=== PATIENT | female | born 1995 | race Caucasian/White ===

== ENCOUNTER 2023-11-03 14:18 | Outpatient (OUT) | payer BC, SELFPAY ==
[2023-11-03 14:58] LABS: Basophils Percent Auto 0.5 % (0.2-2.0); Eosinophils Absolute Auto 0.1 10^3/uL (0.0-0.7); Eosinophils Percent Auto 0.7 % (0.9-7.0); Hematocrit 41.8 % (36.0-48.0); Hemoglobin 13.9 g/dL (12.0-16.0); Immature Granulocytes Abs Auto 0.02 10^3/uL (0.00-0.03); Immature Granulocytes Pct Auto 0.2 % (0.0-0.5); Lymphocytes Absolute Auto 2.5 10^3/uL (1.2-3.8); Lymphocytes Percent Auto 29.1 % (20.5-60.0); Mean Corpuscular HGB Conc 33.3 g/dL (29.9-35.2); Mean Corpuscular Hemoglobin 29.6 pg (26.7-34.0); Mean Corpuscular Volume 89.1 fL (81.0-99.0); Mean Platelet Volume 10.2 fL (9.5-13.5); Monocytes Absolute Auto 0.6 10^3/uL (0.3-0.8); Monocytes Percent Auto 7.1 % (1.7-12.0); Neutrophils Absolute Auto 5.4 10^3/uL (1.4-6.5); Neutrophils Percent Auto 62.4 % (43.0-75.0); Platelet Count 317 10^3/uL (150-450); Red Blood Count 4.69 10^6/uL (4.20-5.40); Red Cell Distribution Width 12.6 % (11.0-15.0); White Blood Count 8.6 10^3/uL (4.0-11.0)
[2023-11-03 15:55] LABS: Estimated Average Glucose 108 mg/dL; Glycohemoglobin A1C 5.4 % (4.5-6.2)
[2023-11-03 16:35] LABS: HCG Quantitative <1 mIU/mL; Thyroid Stimulating Hormone 0.936 uIU/mL (0.358-3.740)
[2023-11-04 04:07] LABS: FSH 3.2 mIU/mL (.); Luteinizing Hormone(LH) 7.2 mIU/mL (.)
[2023-11-06 19:07] LABS: DHEA, Serum 377 ng/dL (31-701)
== END 2023-11-03 14:19 | disposition home or self-care (01) ==
LOC: LAB 14:25
PROVIDERS: PCP Family Medicine; Visit Provider Obstetrics & Gynecology
DX: E28.2 Polycystic ovarian syndrome (principal)
CPT/HCPCS: 36415; 82626; 82627; 83001; 83002; 83036; 84439; 84443; 84702; 85025

== ENCOUNTER 2023-12-05 12:40 | Outpatient (OUT) | payer SELFPAY ==
--- OUTSIDE RECORDS SUMMARY | 2023-12-05 12:44 | XMS_ITS | CCD ---
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 the tonsils also go to the ears. It is common to experience pain in the ears between the 3rd and 7th days following the T&A. The pain medication which was prescribed should help lessen the pain, although it may not completely take it away. The sooner chewing and swallowing begins, the quicker the pain will subside. Take the pain medication as needed in the prescribed dosage. DO NOT take Ibuprofen, Aleve, Advil, Motrin, or product containing aspirin! These medications can increase the chances of bleeding. Tylenol is a good choice when the pain is less severe. Additional measures to decrease throat pain include ice collars around the neck, popsicles, cold liquids, and chewing gum (but not Aspergum). DIET: You will probably not want to eat the day of surgery because it hurts to swallow. The day of surgery, all that is necessary is to drink liquids. This may be in the form of popsicles, jello, sherbert, etc. The day after surgery it is very important to begin to chew and swallow. Start with small pieces of bread, donuts, apples without the skin, etc. The sooner chewing and swallowing begin, the faster the recovery. You cannot damage your throat by swallowing solid foods, in fact it is good for the throat! There are no food restrictions, however sharp foods such as potato chips and ceballos can cause pain. Drink plenty of fluids daily. TEMPERATURE: It is common to run a low-grade fever (99? ? 100? F, oral) for the first few days following surgery. This may be treated with Tylenol. A temperature greater than 101 usually is the result of early dehydration and means that your child needs more fluid. Call the office if the temperature does not decrease despite Tylenol and fluids. ACTIVITY: Generally, it is advisable to keep a low level of activity for the first 26-48 hours following their T&A. You will feel tired and lack energy for the first day or two after surgery. As you begin to feel better, activity can slowly be increased. Vigorous activity should be avoided for 7-14 days following the T&A. Most adults can return to full activity 10-14 days after surgery. BLEEDING: Bleeding following a T&A is rare. The most common time to bleed is the day of surgery. The second most common time is approximately 5-10 days following surgery, when the scabs begin to loosen and fall off. During this time, you may spit up some blood tinged saliva. If this persists longer than 5-10 minutes, call the office. If brisk bleeding occurs, go immediately to the nearest Emergency Room where your doctor will be notified at once. BAD BREATHE: Bad breathe following T&A is common. The whitish patches on the back of you throat are not infection. These are scabs that form in the area where the tonsils were removed. The whitish discoloration is from th (more content not included)... [facility] Comment on above: Result Comment: Elec tronically Signed By: Sonu CARBALLO, Dean Aranda\.lv\Date and Time Signed: 04/22/23 09:24 EDT H&P Updateon 04-22-2023 H&P Update [id number]. 00CD:127 [facility] Inpatient Patient Summaryon 04-22-2023 Inpatient Patient Summary [address] [address] [facility] Clinical Discharge Instructions PERSON INFORMATION Name: GISELL GA PHYSICIANS Admitting Physician: Chandana Mcdonnell DO Attending Physician: Chandana Mcdonnell DO PCP: MIKI KRUGER MD Discharge Diagnosis: Chronic tonsillitis Comment: PATIENT EDUCATION INFORMATION Instructions: Post Op Patient Instructions - FT (CUSTOM); Kecia-Tonsillecto my & Adenoidectomy Adult(CUSTOM) Medication Leaflets: Follow up: With: Address: When: Chandana Mcdonnell [facility] [address] [place] [phone] Business (1) MEDICATION LIST New Medications [id number], [address], [place] [id number], [phone] acetaminophen-hydrocod one (acetaminophen-hydroco done 325 mg-7.5 mg oral tablet) 1 Tablets By Mouth every 6 hours as needed for pain for 7 Days. Refills: 0. Medications to Continue with No Changes Other Medications acetaminophen (Tylenol) 2,000 mg. By Mouth every 8 hours as needed as needed for pain. amoxicillin-clavulanat e (Augmentin) one tab By Mouth every 12 hours. naproxen (Naprosyn) 4 Tablets By Mouth every 6 hours as needed as needed for pain. Comment: [facility] Main OR PACU I Recordon 03-31 Main OR PACU I Record PACU Phase I Document Type FT Summary Primary Physician: Chandana Mcdonnell DO Finalized Date/Time: 04/22/23 10:08:50 Pt. Name: ILIANA GAMIKE Smith/Sex: 1995 Female Med Rec #: [id number] Physician: Chandana Mcdonnell DO Financial #: [id number] Pt. Type: A Room/Bed: [facility]/ Admit/Disch: 04/22/23 06:26:38 - Institution: Case Times PACU I FT Pre-Care Text: Identifies barriers to communication and implements measures to provide psychological support Develops individualized plan of care, and ensures continuity of care Maintains patient's dignity and privacy, and maintains patient confidentiality Identifies and reports philosophical, cultural, and spiritual beliefs and values Identifies individual values and wishes concerning care Implements aseptic technique, and administers prescribed antibiotic therapy and immunizing agents as ordered Evaluates postoperative tissue perfusion Implements thermoregulation measures, and monitors body temperature Evaluates postoperative respiratory status Evaluates postoperative cardiac status Evaluates postoperative neurological status Assesses pain control, collaborated in initiating patient-controlled analgesia and implements alternative methods of pain control Verifies allergies, administers prescribed medications and solutions, evaluates response to medications Entry 1 In PACU I 04/22/23 09:04:00 Discharge from PACU 04/22/23 09:54:00 I Outcomes Met? Yes Last Modified By: Clarita Bender RN 04/22/23 10:08:34 Post-Care Text: The patient demonstrates knowledge of the expected response to the operative or invasive procedure The patient's care is consistent with the individualized perioperative plan of care The patient's right to privacy is maintained The patient's value system, lifestyle, ethnicity, and culture are considered, respected, and incorporated into the perioperative plan of care The patient participates in decisions affecting his or her perioperative plan of care The patient is free from signs and symptoms of infection The patient has wound/tissue perfusion consistent with or improved from baseline levels established preoperatively The patient is at or returning to normothermia at the conclusion of the immediate postoperative period The patient's respiratory function is consistent with or improved from baseline levels established preoperatively The patient's cardiovascular status is consistent with or improved from baseline levels established preoperatively The patient's cardiovascular status is consistent with or improved from baseline levels established preoperatively The patient demonstrates and/or reports adequate pain control throughout the perioperative period The patient received appropriate medication(s), safely administered during the perioperative period Acuity Level PACU I FT Entry 1 Start Time 04/22/23 09:04:00 Stop Time 04/22/23 09:54:00 Acuity Level Acuity Level I Last Modified By: Clarita Bender RN 04/22/23 10:08:46 Finalized By: Clarita Bender RN Document Signatures Signed By: Clarita Bender RN 04/22/23 10:08 [facility] Main OR Preoperative Recordo n 04-22-2023 Main OR Preoperative Record PreOp Document Type FT Summary Primary Physician: Chandana Mcdonnell DO Finalized Date/Time: 04/22/23 08:40:46 Pt. Name: GISELL GA Brigitte Smith/Sex: 1995 Female Med Rec #: [id number] Physician: Chandana Mcdonnell DO Financial #: [id number] Pt. Type: Room/Bed: [place] [address] Admit/Disch: 04/22/23 06:26:38 - Institution: Case Times PreOp FT Pre-Care Text: Verifies consent for planned procedure, identifies individual values and wishes concerning care, includes family members in perioperative teaching Entry 1 Patient Times. In Pre Surgery 04/22/23 06:35:00 Out Pre Surgery 04/22/23 08:00:00 Outcomes Met? Yes Last Modified By: Carolyn Anaya RN 04/22/23 08:40:44 Post-Care Text: The patient participates in decisions affecting his or her perioperative plan of care Finalized By: Carolyn Anaya RN Document Signatures Signed By: Carolyn Anaya RN 04/22/23 08:40 [facility] Monitor Recordon 04-22-2023 Monitor Record [id number]. 00CD:127 [facility] Operative Reporton 3 Operative Report Patient: GISELL GA Age: 27 years Sex: Female : 1995 Associated Diagnoses: None Author: Chandana Mcdonnell DO Postoperative Information Preoperative Diagnosis: Chronic tonsillitis History of peritonsilar abscess. Postoperative Diagnosis: Same. Procedure: Tonsillectomy. Anesthesia Method: General. Performed by: Chandana Mcdonnell DO. Specimens Removed: Tonsils. Estimated Blood Loss: 75 ml. Complications: None. tonsillectomy Anesthesia type: General. [facility] Comment on above: Result Comment: Elec tronically Signed By: Chandana Mcdonnell DO\.br\Date and Time Signed: 04/22/23 09:04 EDT Outpatient Surgery Discharge Instructionon 04-22-2023 Outpatient Surgery Discharge Instruction [place] [id number] Patient Discharge Instructions PERSON INFORMATION Name: GISELL GA Date of : 1995 Current Date: 04/22/2023 09:15:49 PHYSICIANS Admitting Physician: Chandana Mcdonnell DO Discharge Diagnosis: Chronic tonsillitis GISELL GA has been given the following list of follow-up instructions, prescriptions, and patient education materials: PATIENT FOLLOW-UP INFORMATION Diet: Regular Discharge Activity: Ambulate as tolerated Discharge Restrictions: No driving for 24 hrs, Do not make important decisions for 24 hours Call Your Doctor For: Persistent or heavy bleeding, Redness, swelling, or pus at operative site, Persistent vomiting Additional Instructions: Soft diet No exertion Plenty of fluids call the office for questions/concerns IF UNABLE TO CONTACT YOUR PHYSICIAN AND YOU FEEL IT IS AN EMERGENCY, GO TO THE NEAREST EMERGENCY ROOM OR CALL 911 IANTONIO ASHLEY A, have received the attached patient education materials/instructions and have verbalized understanding: May we do a follow up call? Yes No I was present when discharge instructions were given Patient Signature Date Clinican/Nurse Signature ___ Date Follow up: With: Address: When: Chandana Mcdonnell [facility] [address] [place] [phone] Business (1) Pharmacy Information: You may receive a survey from [facility] asking you to rate your care experience. Your feedback is important and will help us understand what we do well and how we can improve the quality of care we provide to you, your loved ones and our community. It?s an honor to serve you. Thank you for choosing [facility] HERE ARE THE MEDICATION CHANGES THAT OCCURRED DURING YOUR HOSPITAL STAY New Medications [id number], [address], [place] [phone], [phone] acetaminophen-hydrocod one (acetaminophen-hydroco done 325 mg-7.5 mg oral tablet) 1 Tablets By Mouth every 6 hours as needed for pain for 7 Days. Refills: 0. Medications to Continue with No Changes Other Medications acetaminophen (Tylenol) 2,000 mg. By Mouth every 8 hours as needed as needed for pain. amoxicillin-clavulanat e (Augmentin) one tab By Mouth every 12 hours. naproxen (Naprosyn) 4 Tablets By Mouth every 6 hours as needed as needed for pain. PATIENT EDUCATION INFORMATION Instructions: [place], [place] Chandana Mcdonnell, DO DISCHARGE INSTRUCTIONS: TONSILLECTOMY & ADENOIDECTOMY (T&A) (Adult) The following information is to help you understand what to expect following a T&A. PAIN: Throat pain can be quite severe immediately following a T&A. The same nerves that go to the tonsils also go to the ears. It is common to experience pain in the ears between the 3rd and 7th days following the T&A. The pain medication which was prescribed should help lessen the pain, although it may not completely take it away. The sooner chewing and swallowing begins, the quicker the pain will subside. Take the pain medication as needed in the prescribed dosage. DO NOT take Ibuprofen, Aleve, Advil, Motrin, or product containing aspirin! These medications can increase the chances of bleeding. Tylenol is a good choice when the pain is less severe. Additional measures to decrease throat pain include ice collars around the neck, popsicles, cold liquids, and chewing gum (but not Aspergum). DIET: You will probably not want to eat the day of surgery because it hurts to swallow. The day of surgery, all that is necessary is to drink liquids. This may be in the form of popsicles, jello, sherbert, etc. The day after surgery it is very important to begin to chew and swallow. Start with small pieces of bread, donuts, apples without the skin, etc. The sooner chewing and swallowing begin, the faster the recovery. You cannot damage your throat by swallowing solid foods, in fact it is good for the throat! There are no food restrictions, however sharp foods such as potato chips and ceballos can cause pain. Drink plenty of fluids daily. TEMPERATURE: It is common to run a low-grade fever (99? ? 100? F, oral) for the first few days following surgery. This may be treated with Tylenol. A temperature greater than 101 usually is the result of early dehydration and means that your child needs more fluid. Call the office if the temperature does not decrease despite Tylenol and fluids. ACTIVITY: Generally, it is advisable to keep a low level of activity for the first 26-48 hours following their T&A. (more content not included)... [facility] Patient Education - Texton 0 04-22-2023 Patient Education - Text [place], [place] Chandana S. Biedenbach, DO DISCHARGE INSTRUCTIONS: TONSILLECTOMY & ADENOIDECTOMY (T&A) (Adult) The following information is to help you understand what to expect following a T&A. PAIN: Throat pain can be quite severe immediately following a T&A. The same nerves that go to the tonsils also go to the ears. It is common to experience pain in the ears between the 3rd and 7th days following the T&A. The pain medication which was prescribed should help lessen the pain, although it may not completely take it away. The sooner chewing and swallowing begins, the quicker the pain will subside. Take the pain medication as needed in the prescribed dosage. DO NOT take Ibuprofen, Aleve, Advil, Motrin, or product containing aspirin! These medications can increase the chances of bleeding. Tylenol is a good choice when the pain is less severe. Additional measures to decrease throat pain include ice collars around the neck, popsicles, cold liquids, and chewing gum (but not Aspergum). DIET: You will probably not want to eat the day of surgery because it hurts to swallow. The day of surgery, all that is necessary is to drink liquids. This may be in the form of popsicles, jello, sherbert, etc. The day after surgery it is very important to begin to chew and swallow. Start with small pieces of bread, donuts, apples without the skin, etc. The sooner chewing and swallowing begin, the faster the recovery. You cannot damage your throat by swallowing solid foods, in fact it is good for the throat! There are no food restrictions, however sharp foods such as potato chips and ceballos can cause pain. Drink plenty of fluids daily. TEMPERATURE: It is common to run a low-grade fever (99? ? 100? F, oral) for the first few days following surgery. This may be treated with Tylenol. A temperature greater than 101 usually is the result of early dehydration and means that your child needs more fluid. Call the office if the temperature does not decrease despite Tylenol and fluids. ACTIVITY: Generally, it is advisable to keep a low level of activity for the first 26-48 hours following their T&A. You will feel tired and lack energy for the first day or two after surgery. As you begin to feel better, activity can slowly be increased. Vigorous activity should be avoided for 7-14 days following the T&A. Most adults can return to full activity 10-14 days after surgery. BLEEDING: Bleeding following a T&A is rare. The most common time to bleed is the day of surgery. The second most common time is approximately 5-10 days following surgery, when the scabs begin to loosen and fall off. During this time, you may spit up some blood tinged saliva. If this persists longer than 5-10 minutes, call the office. If brisk bleeding occurs, go immediately to the nearest Emergency Room where your doctor will be notified at once. BAD BREATHE: Bad breathe following T&A is common. The whitish patches on the back of you throat are not infection. These are scabs that form in the area where the tonsils were removed. The whitish discoloration is from them being wet with salvia. These scabs can cause bad breath as they degenerate and eventually fall off. If the bad breath becomes particularly offensive, you may gargle with a weak saltwater solution (1/4 tsp of table salt in 8 oz of water) 3-4 times a day. FOLLOW-UP: If you do not already have a follow-up appointment, please call the office one or two days after your T&A to schedule a return visit. This should be 7-10 days following surgery. If you have any questions concerning your surgery, do not hesitate to call the office at . Reviewed: 01/07 [facility] Progress Note-Physicianon Progress Note-Physician Patient: GISELL GA Age: 27 years Sex: Female : 1995 Associated Diagnoses: None Author: Raghavendra Hunt Jr., DO Postoperative Information Postoperative disposition: Postoperative disposition: Home. Optimetrix number: Optimetrix number [id number]. Anesthetic utilized: General. Physical Examination Vital Signs 04/22/2023 9:35 EDT Heart Rate Monitored 77 bpm Respiratory Rate Monitored 9 br/min Systolic Blood Pressure 119 mmHg Diastolic Blood Pressure 80 mmHg Blood Pressure Location Right arm Mean Arterial Pressure, Cuff 93 mmHg SpO2 97 % 04/22/2023 9:20 EDT Heart Rate Monitored 76 bpm Respiratory Rate Monitored 16 br/min Systolic Blood Pressure 116 mmHg Diastolic Blood Pressure 89 mmHg Blood Pressure Location Right arm Mean Arterial Pressure, Cuff 98 mmHg SpO2 100 % FIO2 35 % 04/22/2023 9:15 EDT Heart Rate Monitored 77 bpm Respiratory Rate Monitored 17 br/min Systolic Blood Pressure 115 mmHg Diastolic Blood Pressure 82 mmHg Blood Pressure Location Right arm Mean Arterial Pressure, Cuff 93 mmHg SpO2 99 % FIO2 35 % 04/22/2023 9:10 EDT Heart Rate Monitored 85 bpm Respiratory Rate Monitored 10 br/min Systolic Blood Pressure 114 mmHg Diastolic Blood Pressure 83 mmHg Blood Pressure Location Right arm Mean Arterial Pressure, Cuff 93 mmHg SpO2 100 % FIO2 35 % 04/22/2023 9:04 EDT Temperature Temporal Artery 36.2 DegC LOW Heart Rate Monitored 95 bpm Respiratory Rate Monitored 20 br/min Systolic Blood Pressure 103 mmHg Diastolic Blood Pressure 86 mmHg Blood Pressure Location Right arm Mean Arterial Pressure, Cuff 92 mmHg SpO2 100 % FIO2 35 % Pain Assessment: Pain Assessment 04/22/2023 9:39 EDT Primary Pain Location Throat Primary Pain Quality Aching Patient Preferred Pain Tool Numeric rating Numeric Pain Scale 2 Numeric Pain Score 2 04/22/2023 9:24 EDT Primary Pain Location Throat Primary Pain Quality Aching Patient Preferred Pain Tool Numeric rating Numeric Pain Scale 3 Numeric Pain Score 3 04/22/2023 9:20 EDT Primary Pain Location Throat Primary Pain Quality Aching Patient Preferred Pain Tool Numeric rating Numeric Pain Scale 5 = Moderate pain Numeric Pain Score 5 04/22/2023 9:16 EDT Primary Pain Location Throat Primary Pain Quality Aching Patient Preferred Pain Tool Numeric rating Numeric Pain Scale 5 = Moderate pain Numeric Pain Score 5 04/22/2023 9:04 EDT Primary Pain Location Throat Primary Pain Quality Aching Patient Preferred Pain Tool Numeric rating Numeric Pain Scale 5 = Moderate pain Numeric Pain Score 5 . General: Awake, Alert, Appropriate. Respiratory: Adequate air exchange, Non-labored. Cardiovascular: Stable, Normal peripheral perfusion. Neurological: Neurologic exam at baseline. No changes.. Assessment Anesthetic outcome No anesthetic complications noted. No nausea/vomiting. Review / Management Condition: Stable. Plan Transfer/Discharge: Transfer/Discharge Discharge when meets criteria ( From PACU to Ambulatory Surgery Unit, and To home ). [facility] Comment on above: Result Comment: Elec tronically Signed By: Raghavendra Hunt Jr., DO\.lv\Date and Time Signed: 04/22/23 09:51 EDT Progress Note-Physician Patient: GISELL GA Age: 27 years Sex: Female : 1995 Associated Diagnoses: None Author: Raghavendra Hunt Jr., DO Preoperative Information Anesthesia Preop Info NPO since midnight Anesthesia history: Patient history: No prior anesthetic problems. Informed consent: Signed by patient. Re-evaluation prior to induction: Initial evaluation reviewed: No significant change. Health Status Allergies: Allergic Reactions (Selected) No Known Medication Allergies, Allergies (1) Active Reaction No Known Medication Allergies None Documented Current medications: (Selected) Inpatient Medications Ordered HYDROmorphone 1 mg/mL injectable solution: 0.4 mg = 0.4 mL, Injection, IV Push, q4min PRN Pain for 5 dose(s), Stop date Limited # of times, Routine, Start date 04/22/23 6:52:00 EDT, 04/22/23 6:52:00 EDT Lactated Ringers IV Trinity 1000 mL 1,000 mL: 1,000 mL, IV, 100 mL/hr, Routine, Start date 04/22/23 6:52:00 EDT, 10 hour(s), Total volume (mL): 1,000, 198.2 kg, 3.06, m2 Lactated Ringers IV Trinity 1000 mL 1,000 mL: 1,000 mL, IV, 150 mL/hr, Routine, Start date 04/22/23 6:30:00 EDT, 6.7 hour(s), Total volume (mL): 1,000, 198.2 kg, 3.06, m2 Phenergan 25 mg/mL Injection: 12.5 mg = 0.5 mL, Injection, IV Push, q2min PRN Other (see comment) for 2 dose(s), Stop date Limited # of times, Routine, Start date 04/22/23 6:52:00 EDT, 04/22/23 6:52:00 EDT scopolamine 1 mg/72 hr transdermal film, extended release: 1 patch(es), Patch-ER, TransDermal, Once, Stop date 04/22/23 7:00:00 EDT, Routine, Start date 04/22/23 7:00:00 EDT Documented Medications Documented Augmentin: one tab, Oral, q12hr, Infection or prophylaxis for antibiotics Naprosyn: = 4 tab(s), Oral, q6hr, PRN as needed for pain Tylenol: 2,000 mg., Oral, q8hr, PRN as needed for pain, Home Medications (3) Active Augmentin one tab, Oral, q12hr Naprosyn 4 tab(s), PRN, Oral, q6hr Tylenol 2,000 mg., PRN, Oral, q8hr , Medications (5) Active Scheduled: (1) scopolamine 1 mg Transderm ER Film [F] 1 patch(es), TransDermal, Once Continuous: (2) Lactated Ringers 1,000 mL 1,000 mL, IV, 150 mL/hr Lactated Ringers 1,000 mL 1,000 mL, IV, 100 mL/hr PRN: (2) HYDROmorphone 1 mg/mL SOLN [F] 0.4 mg 0.4 mL, IV Push, q4min promethazine 25 mg/mL Inj [F] 12.5 mg 0.5 mL, IV Push, q2min Problem list: All Problems Acid reflux / SNOMED CT 018989833 / Confirmed Heartburn / SNOMED CT 82641535 / Confirmed Hypertrophy tonsils / SNOMED CT 61184392 / Confirmed Hypotension / SNOMED CT 405416645 / Confirmed Smoker / SNOMED CT 983485343 / Confirmed Inactive: Neurocardiogenic syncope / SNOMED CT 0633434277 Histories Past Medical History: No active or resolved past medical history items have been selected or recorded. Procedure history: Arthroscopy of knee ([id number]). section ([id number]). Social History Social & Psychosocial Habits Alcohol 04/20/2023 Risk Assessment: Denies Alcohol Use Substance Abuse 04/20/2023 Risk Assessment: Denies Substance Abuse Tobacco 04/20/2023 Type: Vaping Comment: Vapes daily - 04/20/2023 07:59 - Kluding Olive MERCEDES . Physical Examination Vital Signs 04/22/2023 6:45 EDT Heart Rate Monitored 73 bpm Systolic Blood Pressure 109 mmHg Diastolic Blood Pressure 76 mmHg Mean Arterial Pressure, Monitered 87 mmHg 04/22/2023 6:45 EDT Heart Rate Monitored 81 bpm SpO2 99 % 04/22/2023 6:44 EDT Temperature Oral 36.6 DegC 04/22/2023 6:44 EDT Systolic Blood Pressure 111 mmHg Diastolic Blood Pressure 76 mmHg Mean Arterial Pressure, Monitered 88 mmHg 04/22/2023 6:44 EDT Respiratory Rate 17 br/min Airway: Mallampati classification: II (soft palate, fauces, uvula visible). Respiratory: Lungs are clear to auscultation, Respirations are non-labored. Cardiovascular: Regular rhythm. Review / Management Results review: Lab results 04/20/2023 8:24 EDT WBC 7.2 E9/L RBC 4.7 E12/L HGB 13.7 gm/dL Hct 42.4 % MCV 89.7 fL MCH 29.0 pg MCHC 32.3 gm/dL RDW 14.2 % Platelet 295.0 E9/L MPV 9.1 fL Neutro Auto 49.8 % Lymph Auto 38.1 % Hudson Auto 9.2 % Eos Auto 2.1 % Basophil Auto 0.8 % Neutro Absolute 3.6 E9/L Lymph Absolute 2.7 E9/L [place] Absolute 0.7 E9/L Eos Absolute 0.1 E9/L Basophil Absolute 0.1 E9/L PT 11.6 second(s) INR 1.0 NA PTT 36.1 second(s) U beta hCG Ql Negative . ECG interpretation: Normal sinus rhythm. Plan [place] [employer] (ASA) physical status classification: Class II. Anesthetic Preoperative Plan: Anesthesia General. Normal [facility] Comment on above: Result Comment: Elec tronically Signed By: Raghavendra Hunt Jr., DO\.lv\Date and Time Signed: 04/22/23 06:53 EDT Auto Diffon 04-20-2023 Basophils/100 WBC (Bld) 0.8 % Normal 0.0-2.0 [facility] Comment on above: Order Comment: Order Added by Discern Expert. Performed By: #### 2 [id number], [id number], [id number] ####[facility] [address] [place] [address] Basophils/Leukocyt es Auto (Bld) [Pure # fraction] 0.1 E9/L Normal 0.0-0.2 [facility] Comment on above: Order Comment: Order Added by Discern Expert. Performed By: #### 2 166139, [id number], [id number] ####[address] [address] Eosinophils/100 WBC (Bld) 2.1 % Normal 0.0-8.0 [facility] Comment on above: Order Comment: Order Added by Discern Expert. Performed By: #### 2 485313, [id number], [id number] ####[address] [address] Eosinophils/Leukoc ytes Auto (Bld) [Pure # fraction] 0.1 E9/L Normal 0.0-0.5 [facility] Comment on above: Order Comment: Order Added by Discern Expert. Performed By: #### 2 402799, [id number], [id number] ####[address] [address] Lymphocytes/100 WBC (Bld) 38.1 % Normal 14.0-50.0 [facility] Comment on above: Order Comment: Order Added by Discern Expert. Performed By: #### 2 526572, [id number], [id number] ####[address] [address] Lymphocytes/Leukoc ytes Auto (Bld) [Pure # fraction] 2.7 E9/L Normal 1.0-4.0 [facility] Comment on above: Order Comment: Order Added by Discern Expert. Performed By: #### 2 813851, 6691160, [id number] ####[address] [address] Monocytes/100 WBC (Bld) 9.2 % Normal 4.0-14.0 [facility] Comment on above: Order Comment: Order Added by Discern Expert. Performed By: #### 2 321845, 2328972, [id number] ####[address] [address] Monocytes/Leukocyt es Auto (Bld) [Pure # fraction] 0.7 E9/L Normal 0.2-1.0 [facility] Comment on above: Order Comment: Order Added by Discern Expert. Performed By: #### 2 183158, 4569013, [id number] ####[address] [address] Neutrophils/100 WBC (Bld) 49.8 % Normal 36.0-75.0 [facility] Comment on above: Order Comment: Order Added by Discern Expert. Performed By: #### 2 057507, 8657313, [id number] ####[address] [address] Neutrophils/Leukoc ytes Auto (Bld) [Pure # fraction] 3.6 E9/L Normal 2.0-7.5 [facility] Comment on above: Order Comment: Order Added by Discern Expert. Performed By: #### 2 555211, 7246893, [id number] ####[address] [address] CBC w/ Auto Diffon Erythrocyte distribution width (RBC) [Ratio] 14.2 % Normal 10.9-14.2 [facility] Comment on above: Performed By: #### 2 655400, 7137466, [id number] ####[address] [address] Hematocrit (Bld) [Volume fraction] 42.4 % Normal 34.0-46.0 [facility] Comment on above: Performed By: #### 2 611371, 6297284, [id number] ####[address] [address] Hemoglobin (Bld) [Mass/Vol] 13.7 g/dL Normal 12.0-16.0 [facility] Comment on above: Performed By: #### 2 170314, 7307445, [id number] ####[address] [address] MCH (RBC) [Entitic mass] 29.0 pg Normal 27.0-34.0 [facility] Comment on above: Performed By: #### 2 877013, 4950496, [id number] ####[address] [address] MCHC (RBC) [Mass/Vol] 32.3 g/dL Normal 31.4-36.0 [facility] Comment on above: Performed By: #### 2 935139, 4366107, [id number] ####[address] [address] MCV (RBC) [Entitic vol] 89.7 fL Normal 80.0-100.0 [facility] Comment on above: Performed By: #### 2 778898, 3173572, [id number] ####[address] [address] Platelet mean volume (Bld) [Entitic vol] 9.1 fL Normal 6.4-10.8 [facility] Comment on above: Performed By: #### 2 228074, 1027945, [id number] ####[address] [address] Platelets (Bld) [#/Vol] 295.0 E9/L Normal 150.0-500.0 [facility] Comment on above: Performed By: #### 2 823004, 5825896, [id number] ####[address] [address] RBC (Bld) [#/Vol] 4.7 E12/L Normal 4.3-5.9 [facility] Comment on above: Performed By: #### 2 159798, 2874491, [id number] ####[address] [address] WBC corrected for nucl RBC Auto (Bld) [#/Vol] 7.2 E9/L Normal 4.0-11.0 [facility] Comment on above: Performed By: #### 2 621488, 6807668, [id number] ####[address] [address] Consent for Procedure/Surger yon 04-20-2023 Consent for Procedure/Surgery [id number]:127 Normal [facility] Consent for Treatmenton 03-31 Consent for Treatment [id number] 0CD:127 Normal [facility] PT & PTTon 04-20-2023 aPTT Coag (PPP) [Time] 36.1 second(s) Normal 25.1-36.5 [facility] Comment on above: Result Comment: Para meter 15 days - 4 weeks 1 - 5 months 6 - 11 months 1 - 5 years 6 - 10 years 11 - 17 years PTT Mean: 35.4 (27.6-45.6) Mean: 33.5 (24.8-40.7) Mean: 32.4 (25.1-40.7) Mean: 31.6 (24.0-39.2) Mean: 31.6 (26.9-38.7) Mean: 31.0 (24.6-38.4) Pediatric Reference ranges were obtained from a study by sawyer Han al. prepared from 1437 samples obtained at 7 different centers using the same coagulation reagent and instrumentation as [facility]. Currently there are no coagulation studies available worldwide for children to 14 days, and no normal ranges. Heparin therapeutic range (represented by Anti-Factor Xa activity of 0.2 - 0.4 U/mL) corresponds to PTT of 56.6 - 109.0 sec. Performed By: #### 2 439236, [id number], [id number] ####[facility] [address] [place] [address] INR Coag (PPP) [Relative time] 1.0 {INR} Invalid Interpretation Code [facility] Comment on above: Result Comment: INR results are specifically intended to assess patients stabilized on long-term Anticoagulation therapy suggested INR?s ?Less Intensive Anticoagulation? 2.0 ? 3.0 Conventional Range 3.0 ? 4.5 Performed By: #### 2 933006, [id number], [id number] ####[facility] [address] [place] [address] PT Coag (PPP) [Time] 11.6 second(s) Normal 9.4-12.5 [facility] Comment on above: Result Comment: 15 d ays - 4 weeks 1 - 5 months 6 -11 months 1- 5 years 6-10 years 11 -17 years Mean: 11.2 (9.5-12.6) Mean: 11.0 (9.7-12.8) Mean: 11.0 (9.8-13.0) Mean: 11.3 (9.9-13.4) Mean: 11.7 (10.0-14.6) Mean: 11.8 (10.0 - 14.1) Pediatric Reference ranges were obtained from a study by Rell Goodman et al. prepared from 1437 samples obtained at 7 different centers using the same coagulation reagent and instrumentation as [facility]. Currently there are no coagulation studies available worldwide for children to 14 days, and no normal ranges. Performed By: #### 2 684264, [id number], [id number] ####[facility] [address] [place] [address] U BetaHcg Qualon 04-20-2023 HCG.beta subunit (U) [Moles/Vol] Negative Normal [facility] Comment on above: Performed By: #### 2 [id number] ####[facility] [address] [place] [address] Quick Strepon 03-10-2023 S. pyogenes Org specific cx Ql (Throat) nwgative [facility] Other Quick Strep [facility] [employer] [facility] TagMii Other Quick Strepon 02-18-2023 S. pyogenes Org specific cx Ql (Throat) Negative [facility] Other Efficas Other US Pelvic, Transvaginalon US Pelvic, Transvaginal HISTORY: Infertility FINDINGS: (Transvaginal imaging was performed.) Uterus 7.8 x 4.8 x 3.4 cm Endometrial Stripe 8.0 mm Right Ovary3.7 x 2.1 x 2.3 cm Left Ovary3.2 x 3.2 x 2.3 cm Normal uterine orientation and morphology. Normal myometrium and endometrium. Multiple bilateral ovarian follicles, the majority 3-5 mm. No significant cyst formation. No adnexal mass. No pelvic fluid. IMPRESSION: 1. Follicular ovaries. 2. Normal uterus. Report reported and signed by Markie Friedman on 07/08/2022 1609 Normal [facility] [employer] Supervisor Quick Strepon 06-11-2022 S. pyogenes Org specific cx Ql (Throat) Negative [facility] Other Quick Strep [facility] Other CT CSPINE WO CONon 1 CT CSPINE WO CON EXAMINATION: CT CSPI NE WO CON HISTORY: MUSCLE WEAKNESS (GENERALIZED) COMPARISON: None. TECHNIQUE: CT Cervical spine without IV contrast. Coronal and sagittal reformations were performed. Dose reduction techniques were achieved by using automated exposure control and/or adjustment of mA and/or kV according to patient size and/or use of iterative reconstruction technique. FINDINGS: Cervical vertebral bodies and disc spaces are normal in height and alignment. Bone density is normal. The craniocervical junction, cervicothoracic junction are normal in appearance. The facets are normal. No evidence of central spinal canal or foraminal stenosis. C1-C2: Normal. C2-C3: Normal. C3-C4: Normal. C4-C5: Normal C5-C6: Central disc protrusion with an AP diameter canal of 9 mm. C6-C7: C7-T1: Normal IMPRESSION: 1. Small central disc protrusion at the C5-C6 level without central spinal canal stenosis. The neural foramina are patent. The examination is otherwise normal. Electronically authenticated by: Harmeet NUNEZ Date: 2021-10-29 18:25 Normal [facility] CBC auto differentialon 10-01 Basophils (Bld) [#/Vol] 10*3/uL [place] Basophils/100 WBC (Bld) 0 % 0 - 2 % [place] Differential Type NOT REPORTED [place] Eosinophils (Bld) [#/Vol] 10*3/uL [place] Eosinophils/100 WBC (Bld) 0 % Low 1 - 4 % [place] Erythrocyte distribution width (RBC) [Ratio] 13.8 % 11.8 - 14.4 % [place] Hematocrit (Bld) [Volume fraction] 29.3 % Low 36.3 - 47.1 % [place] Hemoglobin (Bld) [Mass/Vol] 8.9 g/dL Low 11.9 - 15.1 g/dL [place] Immature granulocytes (Bld) [#/Vol] 0.05 10*3/uL [place] Immature granulocytes (Bld) [#/Vol] 0 % 0 [place] Interpretation and review of laboratory results Abnormal [place] Lymphocytes (Bld) [#/Vol] 1.03 10*3/uL Low [place] Lymphocytes/100 WBC (Bld) 8 % Low 24 - 43 % [place] MCH (RBC) [Entitic mass] 26.2 pg 25.2 - 33.5 pg [place] MCHC (RBC) [Mass/Vol] 30.4 g/dL 28.4 - 34.8 g/dL [place] MCV (RBC) [Entitic vol] 86.2 fL 82.6 - 102.9 fL [place] Monocytes (Bld) [#/Vol] 0.69 10*3/uL [place] Monocytes/100 WBC (Bld) 6 % 3 - 12 % [place] Platelet mean volume (Bld) [Entitic vol] 12.0 fL 8.1 - 13.5 fL [place] Platelets (Bld) [#/Vol] 199 10*3/uL [place] Platelets (Bld) [#/Vol] NOT REPORTED [place] RBC (Bld) [#/Vol] 3.40 10*6/uL Low 3.95 - 5.1 1 m/uL [place] RBC morphology finding Nom (Bld) NOT REPORTED [place] Segmented neutrophils/100 WBC (Bld) 86 % High 36 - 65 % [place] Segs Absolute 10.64 High [place] WBC (Bld) [#/Vol] 12.4 10*3/uL [place] WBC (Bld) [#/Vol] 0.0 10*3/uL 0.0 per 10 0 WBC [place] WBC Morphology NOT REPORTED [place] CBC with Diffon 10-28-2019 Abs. Basophil <0.03 Normal 0.00-0.20 [facility] Comment on above: Performed By: #### C DP #### [address] [address] [employer] Supervisor: Rico Nicole MD Abs.Imm.Granulocyt e 0.05 k/uL Normal 0.00-0.30 [facility] Comment on above: Performed By: #### C DP #### [address] [address] [employer] Supervisor: Rico Nicole MD Abs.Neutrophil (Seg) 10.64 k/uL High 1.50-8.10 [facility] Comment on above: Performed By: #### C DP #### [address] [address] [employer] Supervisor: Rico Nicole MD Basophils/100 WBC (Bld) 0 % Normal 0-2 [facility] Comment on above: Performed By: #### C DP #### [address] [address] [employer] Supervisor: Rico Nicole MD Eosinophils (Bld) [#/Vol] 10*3/uL Normal 0.00-0.44 [facility] Comment on above: Performed By: #### C DP #### [address] [address] [employer] Supervisor: Rico Nicole MD Eosinophils/100 WBC (Bld) 0 % Low 1-4 [facility] Comment on above: Performed By: #### C DP #### [address] [address] [employer] Supervisor: Rico Nicole MD Erythrocyte distribution width (RBC) [Ratio] 13.8 % Normal 11.8-14.4 [facility] Comment on above: Performed By: #### C DP #### [address] [address] [employer] Supervisor: Rico Nicole MD Hematocrit (Bld) [Volume fraction] 29.3 % Low 36.3-47.1 [facility] Comment on above: Performed By: #### C DP #### [address] [address] [employer] Supervisor: Rico Nicole MD Hemoglobin (Bld) [Mass/Vol] 8.9 g/dL Low 11.9-15.1 [facility] Comment on above: Performed By: #### C DP #### [address] [address] [employer] Supervisor: Rico Nicole MD Immature granulocytes (Bld) [#/Vol] 0 % Normal 0 [facility] Comment on above: Performed By: #### C DP #### [address] [address] [employer] Supervisor: Rico Nicole MD Lymphocytes (Bld) [#/Vol] 1.03 10*3/uL Low 1.10-3.70 [facility] Comment on above: Performed By: #### C DP #### [address] [address] [employer] Supervisor: Rico Nicole MD Lymphocytes/100 WBC (Bld) 8 % Low 24-43 [facility] Comment on above: Performed By: #### C DP #### [address] [address] [employer] Supervisor: Rico Nicole MD MCH (RBC) [Entitic mass] 26.2 pg Normal 25.2-33.5 [facility] Comment on above: Performed By: #### C DP #### [address] [address] [employer] Supervisor: Rico Niocle MD MCHC (RBC) [Mass/Vol] 30.4 g/dL Normal 28.4-34.8 [facility] Comment on above: Performed By: #### C DP #### [address] [address] [employer] Supervisor: Rico Nicole MD MCV (RBC) [Entitic vol] 86.2 fL Normal 82.6-102.9 [facility] Comment on above: Performed By: #### C DP #### [address] [address] [employer] Supervisor: Rico Nicole MD Monocytes (Bld) [#/Vol] 0.69 10*3/uL Normal 0.10-1.20 [facility] Comment on above: Performed By: #### C DP #### [address] [address] [employer] Supervisor: Rico Nicole MD Monocytes/100 WBC (Bld) 6 % Normal 3-12 [facility] Comment on above: Performed By: #### C DP #### [address] [address] [employer] Supervisor: Rico Nicole MD Neutrophil (Seg) 86 % High 36-65 [facility] Comment on above: Performed By: #### C DP #### [address] [address] [employer] Supervisor: Rico Nicole MD NRBC Automated 0.0 per 100 WBC Normal 0.0 [facility] Comment on above: Performed By: #### C DP #### [address] [address] [employer] Supervisor: Rico Nicole MD Platelet mean volume (Bld) [Entitic vol] 12.0 fL Normal 8.1-13.5 [facility] Comment on above: Performed By: #### C DP #### [address] [address] [employer] Supervisor: Rico Nicole MD Platelets (Bld) [#/Vol] 199 10*3/uL Normal 138-453 [facility] Comment on above: Performed By: #### C DP #### [address] [address] [employer] Supervisor: Rioc Nicole MD RBC (Bld) [#/Vol] 3.40 10*6/uL Low 3.95-5.11 [facility] Comment on above: Performed By: #### C DP #### [address] [address] [employer] Supervisor: Rico Nicole MD WBC (Bld) [#/Vol] 12.4 10*3/uL High 3.5-11.3 [facility] Comment on above: Performed By: #### C DP #### [address] [address] [employer] Supervisor: Rico Nicole MD Auto Diff Performed NOT REPORTED Normal [facility] Comment on above: Performed By: #### C DP #### [address] [address] [place] Supervisor: Rico Nicole MD Platelets (Bld) [#/Vol] NOT REPORTED Normal [facility] Comment on above: Performed By: #### C DP #### [address] [address] [employer] Supervisor: Rico Nicole MD RBC morphology finding Nom (Bld) NOT REPORTED Normal [facility] Comment on above: Performed By: #### C DP #### [address] [place] [id number] [employer] Supervisor: Rico Nicole MD WBC Morphology NOT REPORTED Normal [facility] Comment on above: Performed By: #### C DP #### [employer] [address] [place] [place] [id number] [employer] Supervisor: Rico Nicole MD Surgical Pathologyon 019 Surgical Pathology (NOTE) [id number] [facility] ANATOMIC PATHOLOGY [address] [place] [id number] SURGICAL PATHOLOGY CONSULTATION Patient Name: GIESLL GA [facility] Rec: [id number] Path Number: [id number] Collected: 10/27/2019 Received: 10/31/2019 Reported: 11/01/2019 09:33 -- Diagnosis -- Placenta, third trimester: Umbilical cord and membranes, free of inflammation. Plate, no histologic abnormality. Miguelangel Weems Electronically Signed Out rdd/11/01/2019 Clinical Information Pre-op Diagnosis: 24 Y/O, @ 39 W, 2 D, IUP, SUSPECTED MACROSOMIA, ASTHMA, NEUROCARDIOGENIC SYNCOPE Operative Findings: PLTCS, M, AP/9, WT: 9#, 8 OZ, PLACENTA, CORD AND MEMBRANES Source of Specimen 1: PLACENTA, CORD AND MEMBRANES Gross Description GISELL GA PLACENTA Placenta with attached membranes and umbilical cord. UMBILICAL CORD Length: 22.0 cm Diameter: 1.6 cm True knots: No Number of vessels: 3 Spiraling: Normal Insertion into surface: Central MEMBRANES Color: Acosta-bustillos, focally opacified Meconium staining: No SURFACE Color: Purple-acosta, with a normal array of surface vessels Subchorionic fibrin: Marginal and minimal and involves less than 5% of the disc MATERNAL SURFACE Cotyledons: -All present and intact: Yes -Focal lesions: No Placental size: 22.0 x 20.0 x 3.0 cm Shape: Ovoid Weight: 580 grams Number of cassettes: 3cs tm Microscopic Description Umbilical cord: Unremarkable Membranes: Unremarkable Meconium staining: No Infarcts: No Intervillous thrombi: No Subchorionic fibrin: Not significantly increased Villous maturation: Appropriate Nucleated erythrocytes in villous capillaries: Not increased Other: Few microcalcifications Normal [facility] Comment on above: Performed By: #### P PPVS #### [facility] [employer] [address] [place] [address] [employer] Supervisor: Rico Nicole MD CBC auto differentialon 10-01 Basophils (Bld) [#/Vol] 0.03 10*3/uL [place] Basophils/100 WBC (Bld) 0 % 0 - 2 % [place] Differential Type NOT REPORTED [place] Eosinophils (Bld) [#/Vol] 0.04 10*3/uL [place] Eosinophils/100 WBC (Bld) 0 % Low 1 - 4 % [place] Erythrocyte distribution width (RBC) [Ratio] 13.6 % 11.8 - 14.4 % [place] Hematocrit (Bld) [Volume fraction] 33.2 % Low 36.3 - 47.1 % [place] Hemoglobin (Bld) [Mass/Vol] 10.3 g/dL Low 11.9 - 15.1 g/dL [place] Immature granulocytes (Bld) [#/Vol] 1 % High 0 [place] Immature granulocytes (Bld) [#/Vol] 0.07 10*3/uL [place] Interpretation and review of laboratory results Abnormal [place] Lymphocytes (Bld) [#/Vol] 2.41 10*3/uL [place] Lymphocytes/100 WBC (Bld) 24 % 24 - 43 % [place] MCH (RBC) [Entitic mass] 26.3 pg 25.2 - 33.5 pg [place] MCHC (RBC) [Mass/Vol] 31.0 g/dL 28.4 - 34.8 g/dL [place] MCV (RBC) [Entitic vol] 84.7 fL 82.6 - 102.9 fL [place] Monocytes (Bld) [#/Vol] 0.76 10*3/uL [place] Monocytes/100 WBC (Bld) 8 % 3 - 12 % [place] Platelet mean volume (Bld) [Entitic vol] 12.5 fL 8.1 - 13.5 fL [place] Platelets (Bld) [#/Vol] NOT REPORTED [place] Platelets (Bld) [#/Vol] 248 10*3/uL [place] RBC (Bld) [#/Vol] 3.92 10*6/uL Low 3.95 - 5.1 1 m/uL [place] RBC morphology finding Nom (Bld) NOT REPORTED [place] Segmented neutrophils/100 WBC (Bld) 67 % High 36 - 65 % [place] Segs Absolute 6.63 [place] WBC (Bld) [#/Vol] 0.0 10*3/uL 0.0 per 10 0 WBC [place] WBC (Bld) [#/Vol] 9.9 10*3/uL [place] WBC Morphology NOT REPORTED [place] CBC with Diffon 10-26-2019 Abs. Basophil 0.03 k/uL Normal 0.00-0.20 [facility] Comment on above: Performed By: #### C DP, TREP #### [facility] [employer] [address] [place] [place] [address] [employer] Supervisor: Rico Nicole MD Abs.Imm.Granulocyt e 0.07 k/uL Normal 0.00-0.30 [facility] Comment on above: Performed By: #### C DP, TREP #### [facility] [employer] [facility] [place] [address] [employer] Supervisor: Rico Nicole MD Abs.Neutrophil (Seg) 6.63 k/uL Normal 1.50-8.10 [facility] Comment on above: Performed By: #### C DP, TREP #### [facility] [employer] [address] [place] [address] [employer] Supervisor: Rico Nicole MD Basophils/100 WBC (Bld) 0 % Normal 0-2 [facility] Comment on above: Performed By: #### C DP, TREP #### [address] [address] [employer] Supervisor: Rico Nicole MD Eosinophils (Bld) [#/Vol] 0.04 10*3/uL Normal 0.00-0.44 [facility] Comment on above: Performed By: #### C DP, TREP #### [address] [address] [employer] Supervisor: Rico Nicole MD Eosinophils/100 WBC (Bld) 0 % Low 1-4 [facility] Comment on above: Performed By: #### C DP, TREP #### [address] [address] [employer] Supervisor: Rico Nicole MD Erythrocyte distribution width (RBC) [Ratio] 13.6 % Normal 11.8-14.4 [facility] Comment on above: Performed By: #### C DP, TREP #### [address] [address] [employer] Supervisor: Rico Nicole MD Hematocrit (Bld) [Volume fraction] 33.2 % Low 36.3-47.1 [facility] Comment on above: Performed By: #### C DP, TREP #### [address] [address] [employer] Supervisor: Rico Nicole MD Hemoglobin (Bld) [Mass/Vol] 10.3 g/dL Low 11.9-15.1 [facility] Comment on above: Performed By: #### C DP, TREP #### [address] [address] [employer] Supervisor: Rico Nicole MD Immature granulocytes (Bld) [#/Vol] 1 % High 0 [facility] Comment on above: Performed By: #### C DP, TREP #### [place] [address] [employer] Supervisor: Rico Nicole MD Lymphocytes (Bld) [#/Vol] 2.41 10*3/uL Normal 1.10-3.70 [facility] Comment on above: Performed By: #### C DP, TREP #### [place] [address] [employer] Supervisor: Rico Nicole MD Lymphocytes/100 WBC (Bld) 24 % Normal 24-43 [facility] Comment on above: Performed By: #### C DP, TREP #### [place] [address] [employer] Supervisor: Rico Nicole MD MCH (RBC) [Entitic mass] 26.3 pg Normal 25.2-33.5 [facility] Comment on above: Performed By: #### C DP, TREP #### [place] [address] [employer] Supervisor: Rico Nicole MD MCHC (RBC) [Mass/Vol] 31.0 g/dL Normal 28.4-34.8 [facility] Comment on above: Performed By: #### C DP, TREP #### [place] [address] [employer] Supervisor: Rico Nicole MD MCV (RBC) [Entitic vol] 84.7 fL Normal 82.6-102.9 [facility] Comment on above: Performed By: #### C DP, TREP #### [place] [address] [employer] Supervisor: Rico Nicole MD Monocytes (Bld) [#/Vol] 0.76 10*3/uL Normal 0.10-1.20 [facility] Comment on above: Performed By: #### C DP, TREP #### [address] [address] [employer] Supervisor: Rico Nicole MD Monocytes/100 WBC (Bld) 8 % Normal 3-12 [facility] Comment on above: Performed By: #### C DP, TREP #### [address] [address] [employer] Supervisor: Rico Nicole MD Neutrophil (Seg) 67 % High 36-65 [facility] Comment on above: Performed By: #### C DP, TREP #### [address] [address] [employer] Supervisor: Rico Nicole MD NRBC Automated 0.0 per 100 WBC Normal 0.0 [facility] Comment on above: Performed By: #### C DP, TREP #### [address] [address] Cooler Supervisor: Rico Nicole MD Platelet mean volume (Bld) [Entitic vol] 12.5 fL Normal 8.1-13.5 [facility] Comment on above: Performed By: #### C DP, TREP #### [address] [address] Cooler Supervisor: Rico Nicole MD Platelets (Bld) [#/Vol] 248 10*3/uL Normal 138-453 [facility] Comment on above: Performed By: #### C DP, TREP #### [address] [address] Cooler Supervisor: Rico Nicole MD RBC (Bld) [#/Vol] 3.92 10*6/uL Low 3.95-5.11 [facility] Comment on above: Performed By: #### C DP, TREP #### [address] [address] Cooler Supervisor: Rico Nicole MD WBC (Bld) [#/Vol] 9.9 10*3/uL Normal 3.5-11.3 [facility] Comment on above: Performed By: #### C DP, TREP #### [address] [address] Cooler Supervisor: Rioc Nicole MD Auto Diff Performed NOT REPORTED Normal [facility] Comment on above: Performed By: #### C DP, TREP #### [address] [address] Cooler Supervisor: Rico Nicole MD Platelets (Bld) [#/Vol] NOT REPORTED Normal [facility] Comment on above: Performed By: #### C DP, TREP #### [address] [address] Cooler Supervisor: Rico Nicole MD RBC morphology finding Nom (Bld) NOT REPORTED Normal [facility] Comment on above: Performed By: #### C DP, TREP #### [address] [address] Cooler Supervisor: Rico Nicole MD WBC Morphology NOT REPORTED Normal [facility] Comment on above: Performed By: #### C DP, TREP #### [address] [address] Cooler Supervisor: Rico Nicole MD Drug Scr, Abuse, Uron 2018 Amphetamine(s),Ur Negative Normal NEG [facility] Comment on above: Result Comment: (Positive cutoff 1000 ng/mL) Performed By: #### D AU #### [address] [address] Cooler Supervisor: Rico Nicole MD Barbiturate(s),Ur Negative Normal NEG [facility] Comment on above: Result Comment: (Positive cutoff 200 ng/mL) Performed By: #### D AU #### [address] [address] Cooler Supervisor: Rico Nicole MD Base excess Calc (Bld) [Moles/Vol] Negative Normal NEG [facility] Comment on above: Result Comment: (Positive cutoff 300 ng/mL) Performed By: #### D AU #### [address] [address] Cooler Supervisor: Rico Nicole MD Benzodiazepine(s) Negative Normal NEG [facility] Comment on above: Result Comment: (Positive cutoff 200 ng/mL) Performed By: #### D AU #### [address] [address] Cooler Supervisor: Rico Nicole MD Cannabinoid(s),Ur Negative Normal NEG [facility] Comment on above: Result Comment: (Positive cutoff 50 ng/mL) Performed By: #### D AU #### [address] [address] Cooler Supervisor: Rico Nicole MD Interpretive Info Assay provides medic al screening only. The absence of expected drug(s) and/or Normal [facility] Comment on above: Result Comment: meta bolite(s) may indicate diluted or adulterated urine, limitations of testing or timing of collection. Testing for legal purposes should be confirmed by another method. To request confirmation of test result, please call the lab within 7 days of sample submission. Performed By: #### D AU #### [facility] [address] [address] Cooler Supervisor: Rico Nicole MD Methadone Ql (U) Negative Normal NEG [facility] Comment on above: Result Comment: (Positive cutoff 300 ng/mL) Performed By: #### D AU #### [address] [address] Cooler Supervisor: Rico Nicole MD Opiate(s), Ur Negative Normal NEG [facility] Comment on above: Result Comment: (Positive cutoff 300 ng/mL) Performed By: #### D AU #### [facility] [address] [place] [address] Cooler Supervisor: Rico Nicole MD Oxycodone, Urine Negative Normal NEG [facility] Comment on above: Result Comment: (Positive cutoff 100 ng/mL) Performed By: #### D AU #### [facility] [address] [place] [address] Cooler Supervisor: Rico Nicole MD Phencyclidine, Ur Negative Normal NEG [facility] Comment on above: Result Comment: (Positive cutoff 25 ng/mL) Performed By: #### D AU #### [facility] [address] [place] [place] [address] Cooler Supervisor: Rico Nicole MD Buprenorphrine, Ur NOT REPORTED Normal NEG [facility] Comment on above: Performed By: #### D AU #### [facility] [address] [place] [place] [address] Cooler Supervisor: Rico Nicole MD MDMA, Urine NOT REPORTED Normal NEG [facility] Comment on above: Performed By: #### D AU #### [facility] [address] [place] [place] [address] Cooler Supervisor: Rico Nicole MD Methamphetamine, Ur NOT REPORTED Normal NEG [facility] Comment on above: Performed By: #### D AU #### [facility] [address] [place] [place] [address] Cooler Supervisor: Rico Nicole MD Propoxyphene,Urine NOT REPORTED Normal NEG [facility] Comment on above: Performed By: #### D AU #### [facility] [address] [place] [address] Cooler Supervisor: Rico Nicole MD Tricyclic antidepressants Screen Ql (U) NOT REPORTED Normal NEG [facility] Comment on above: Performed By: #### D AU #### [facility] [address] [place] [place] [address] [phone] Cooler Supervisor: Rico Nicole MD T. pallidum Abon 10-26-2019 T. pallidum, IgG NONREACTIVE NONREACTIVE [place], [place] Comment on above: T. pallidum antibodies are not detected. There is no serological evidence of infection with T. pallidum (early primary syphilis cannot be excluded). Retest in 2-4 weeks if syphilis is clinically suspect. T.pallidum Ab Screenon 10-26 T.pallidum Ab Screen NONREACTIVE Normal NR [facility] Comment on above: Result Comment: T. pallidum antibodies are not detected. There is no serological evidence of infection with T. pallidum (early primary syphilis cannot be excluded). Retest in 2-4 weeks if syphilis is clinically suspect. Performed By: #### C DP, TREP #### [facility] [address] [place] [place] [phone] Cooler Supervisor: Rico Nicole MD TYPE AND SCREENon 10-26-2019 ABO/Rh Positive [place], [place] Arm Band Number BE [id number] [place], [place] Expiration Date 10/29/2019,2359 [place], [place] Type + Screenon 10-26-2019 Type + Screen Sample Expiration 10/29/2019,2359 [place] Number BE [id number] ABO/Rh(D) O POSITIVE Antibody Screen NEGATIVE Normal [facility] Comment on above: Performed By: #### T YS #### [facility] [address] [place] [place] [address] [phone] Cooler Supervisor: Rico Nicole MD Urine Drug Screenon 10-26-20 19 Amphetamine Screen, Ur Negative NEGATIVE [place] Comment on above: (Positive cutoff 1000 ng/mL) Barbiturate Screen, Ur Negative NEGATIVE [place] Comment on above: (Positive cutoff 200 ng/mL) Benzodiazepine Screen, Urine Negative NEGATIVE [place] Comment on above: (Positive cutoff 200 ng/mL) Buprenorphine Urine NOT REPORTED NEGATIVE [facility] [place] [place] Cannabinoid Scrn, Ur Negative NEGATIVE [facility] [place] [place] Comment on above: (Positive cutoff 50 ng/mL) Cocaine Metabolite, Urine Negative NEGATIVE [facility] [place] [place] Comment on above: (Positive cutoff 300 ng/mL) MDMA, Urine NOT REPORTED NEGATIVE [facility] [place] [place] Methadone Screen, Urine Negative NEGATIVE [facility] [place] Comment on above: (Positive cutoff 300 ng/mL) Methamphetamine, Urine NOT REPORTED NEGATIVE [facility] [place] Opiates, Urine Negative NEGATIVE [facility] [place] [place] Comment on above: (Positive cutoff 300 ng/mL) Oxycodone Screen, Ur Negative NEGATIVE [facility] [place] Comment on above: (Positive cutoff 100 ng/mL) Phencyclidine, Urine Negative NEGATIVE [facility] [place] [place] Comment on above: (Positive cutoff 25 ng/mL) Propoxyphene, Urine NOT REPORTED NEGATIVE [facility] [place] Test Information Assay provides medic al screening only. The absence of expected drug(s) and/or metabolite(s) may indicate diluted or adulterated urine, limitations of testing or timing of collection. [facility] [facility]- [place], [place] Comment on above: Testing for legal pu rposes should be confirmed by another method. To request confirmation of test result, please call the lab within 7 days of sample submission. Tricyclic Antidepressants, Urine NOT REPORTED NEGATIVE [facility] [place] [place] Maternal Serum Scr 4on - Determined by Ultrasound [facility] Comment on above: Performed By: #### A QUADM #### [employer] [facility] [place] [address] Cooler Supervisor: Rico Nicole MD [facility] [address] [place] [address] Cooler Supervisor: Aryan Morris MD Dimeric Inhibin A 393 pg/mL Normal [facility] Comment on above: Performed By: #### A QUADM #### [facility] [address] [place] [address] Cooler Supervisor: Rico Nicole MD [facility] [address] [place] [address] Cooler Supervisor: Aryan Morris MD Due Date SEE NOTE [facility] Comment on above: Result Comment: Resu lts for Estimated Due Date: 11 02 19 Performed By: #### A QUADM #### [address] [address] Cooler Supervisor: Rico Nicole MD [address] [address] Cooler Supervisor: Aryan Morris MD Family History No [facility] Comment on above: Performed By: #### A QUADM #### [address] [address] Cooler Supervisor: Rico Nicole MD [address] [address] Cooler Supervisor: Aryan Morris MD Gestat Age (exact) 23 wks, 6 days Normal [facility] Comment on above: Performed By: #### A QUADM #### [address] [address] Cooler Supervisor: Rico Nicole MD [address] [phone] Cooler Supervisor: [place] [address] IU/L [facility] Comment on above: Performed By: #### A QUADM #### [address] [address] Cooler Supervisor: Rico Nicole MD [address] [phone] Cooler Supervisor: Aryan Morris MD Hx Aneuploidy Unknown [facility] Comment on above: Performed By: #### A QUADM #### [address] [address] Cooler Supervisor: Rico Nicole MD [address] [phone] Cooler Supervisor: Aryan Morris MD Ins Req Matern Diab No Normal [facility] Comment on above: Performed By: #### A QUADM #### [address] [address] Cooler Supervisor: Rico Nicole MD [address] [phone] Cooler Supervisor: Aryan Morris MD Interpretation Screen Neg Normal [facility] Comment on above: Result Comment: (NOT E) INTERPRETATION: SCREEN NEGATIVE Neural Tube Defects (NTD) Negative Down syndrome (DS) Negative Trisomy 18 (T18) Negative Pre-Test Post-Test Cutoff Neural Tube Defects Risks 1:1030 < 1:48339 1:250 Down Syndrome Risks 1:1110 1:604 1:150 Trisomy 18 Risks 1:4330 < 1:09121 1:100 Comments: The risk of an open neural tube defect is less than the screening cut-off. The risk of Down syndrome is less than the screening cut-off. The risk of trisomy 18 is less than the screening cut-off. Test developed and characteristics determined by [employer]. See Compliance Statement B: [employer]/ Performed By: #### A QUADM #### [address] [address] Cooler Supervisor: Rico Nicole MD [facility] [address] [place] [phone] Cooler Supervisor: Aryan Morris MD [facility] Scr Enhanced Rpt See Note Normal [facility] Comment on above: Result Comment: (NOT E) Access WIDIP Enhanced Report using either link below: -Direct access: [email or web address] -Enter Username, Password: [email or web address] Username: [email or web address] Password: [email or web address] Performed by [employer], [address] [place] [address] [id number] [email or web address], Aryan Morris MD, Lab. Director Performed By: #### A QUADM #### [address] [address] Cooler Supervisor: Rico Nicole MD [facility] [address] [place] [address] Cooler Supervisor: Aryan Morris MD [age] [facility] Comment on above: Performed By: #### A QUADM #### [address] [address] Cooler Supervisor: Rico Nicole MD [address] [phone] Cooler Supervisor: Aryan Morris MD Maternal Race Nonblack [facility] Comment on above: Performed By: #### A QUADM #### [address] [address] Cooler Supervisor: Rico Nicole MD [address] [address] Cooler Supervisor: Aryan Morris MD MoM Dimeric Inhib A 1.53 [facility] Comment on above: Performed By: #### A QUADM #### [address] [address] Cooler Supervisor: Rico Nicole MD [facility] [address] [place] [address] Cooler Supervisor: Arayn Morris MD MoM for AFP 0.70 [facility] Comment on above: Performed By: #### A QUADM #### [address] [address] Cooler Supervisor: Rico Nicole MD [facility] [address] [place] [address] Cooler Supervisor: Aryan Morris MD MoM for HCG, Tri 2 1.97 [facility] Comment on above: Performed By: #### A QUADM #### [address] [address] Cooler Supervisor: Rico Nicole MD [facility] [address] [place] [address] Cooler Supervisor: Aryan Morris MD MoM for uE3 1.03 [facility] Comment on above: Performed By: #### A QUADM #### [address] [address] Cooler Supervisor: Rico Nicole MD [address] [phone] Cooler Supervisor: Aryan Morris MD Number of Fetuses [facility] Comment on above: Performed By: #### A QUADM #### [address] [address] Cooler Supervisor: Rico Nicole MD [address] [address] Cooler Supervisor: Aryan Morris MD Patient's AFP 63 ng/mL [facility] Comment on above: Performed By: #### A QUADM #### [address] [address] Cooler Supervisor: Rico Nicole MD [facility] [address] [place] [address] Cooler Supervisor: Aryan Morris MD Patient's uE3 3.28 ng/mL Normal [facility] Comment on above: Performed By: #### A QUADM #### [address] [address] Cooler Supervisor: Rico Nicole MD [facility] [address] [place] [address] Cooler Supervisor: Aryan Morris MD Smoking Unknown [facility] Comment on above: Performed By: #### A QUADM #### [address] [address] Cooler Supervisor: Rico Nicole MD [facility] [address] [place] [address] Cooler Supervisor: Aryan Morris MD Specimen See Note [facility] Comment on above: Result Comment: Init ial sample Performed By: #### A QUADM #### [address] [address] Cooler Supervisor: Rico Nicole MD [facility] [address] [place] [address] Cooler Supervisor: Aryan Morris MD Maternal Serum Scr 4on 07-12 [facility] Comment on above: Performed By: #### A QUADM #### [address] [address] Cooler Supervisor: Rico Nicole MD [facility] [address] [place] [phone] Cooler Supervisor: Aryan Morris MD Diabetic NO [facility] Comment on above: Performed By: #### A QUADM #### [address] [address] Cooler Supervisor: Rico Nicole MD [facility] [address] [place], [place] [phone] Cooler Supervisor: Aryan Morris MD Estimated Due Date 11/02/2019 [facility] Comment on above: Performed By: #### A QUADM #### [address] [address] Cooler Supervisor: Rico Nicole MD [facility] [address] [place], [place] [phone] Cooler Supervisor: Aryan Morris MD Family History NO [facility] Comment on above: Performed By: #### A QUADM #### [address] [address] Cooler Supervisor: Rico Nicole MD [facility] [address] [place] [address] Cooler Supervisor: Aryan Morris MD Maternal date 1995 [facility] Comment on above: Performed By: #### A QUADM #### [address] [address] Cooler Supervisor: Rico Nicole MD [facility] [address] [place] [address] Cooler Supervisor: Aryan Morris MD Race (Maternal) Normal [facility] Comment on above: Performed By: #### A QUADM #### [address] [address] Cooler Supervisor: Rico Nicole MD [address] [address] Cooler Supervisor: Aryan Morris MD Repeat Specimen NO Normal [facility] Comment on above: Performed By: #### A QUADM #### [address] [address] Cooler Supervisor: Rico Nicole MD [address] [address] Cooler Supervisor: Aryan Morris MD Current Smoking NOT REPORTED Normal [facility] Comment on above: Performed By: #### A QUADM #### [address] [address] Cooler Supervisor: Rico Nicole MD [facility] [address] [place] [address] Cooler Supervisor: Aryan Morris MD In Vitro Fertalizat NOT REPORTED [facility] Comment on above: Performed By: #### A QUADM #### [address] [address] Cooler Supervisor: Rico Nicole MD [facility] [address] [place] [address] Cooler Supervisor: Aryan Morris MD LMP date NOT REPORTED Normal [facility] Comment on above: Performed By: #### A QUADM #### [address] [address] Cooler Supervisor: Rico Nicole MD [facility] [address] [place] [address] Cooler Supervisor: Aryan Morris MD Monochorionic Twins NOT REPORTED Normal [facility] Comment on above: Performed By: #### A QUADM #### [address] [address] Cooler Supervisor: Rico Nicole MD [facility] [address] [place] [address] Cooler Supervisor: Aryan Morris MD Prev Trisomy Preg NOT REPORTED Normal [facility] Comment on above: Performed By: #### A QUADM #### [address] [address] Cooler Supervisor: Rico Nicole MD [facility] [address] [place] [address] Cooler Supervisor: Aryan Morris MD Valproic/Carbamaze p NOT REPORTED Normal [facility] Comment on above: Performed By: #### A QUADM #### [address] [address] Cooler Supervisor: Rico Nicole MD [facility] [address] [place] [address] Cooler Supervisor: Aryan Morris MD Chlamydia/GC/Trich NAAon Chlamydia Trachomotis, MALINI Negative Normal Negative [facility] Comment on above: Order Comment: [facility] SPECIMEN SOURCE/DESCRIPTION URINE Performed By: #### G CCHLAMTRI #### [facility] , #### CUU #### [facility] [address] [place] [address] Neisseria Gonorrhoeae, MALINI Negative Normal Negative [facility] Comment on above: Order Comment: [facility] SPECIMEN SOURCE/DESCRIPTION URINE Performed By: #### G CCHLAMTRI #### [facility] , #### CUU #### [facility] [address] [place] [address] Trichomonas MALINI Negative Normal Negative [facility] Comment on above: Order Comment: [facility] SPECIMEN SOURCE/DESCRIPTION URINE Result Comment: Perf ormed at: =G - [facility] [address] [id number] Cooler Supervisor: Emilia Hankins MD, Phone: [phone] PERFORMED BY: [place] [address] PATHOLOGIST TEAM ASSEMBLY LINE MACHINE OPERATOR JONI FLEMING M.D. Performed By: #### G CCHLAMTRI #### [facility] , #### CUU #### [facility] [address] [place] [address] Urine Cultureon 02-27-2019 Bacteria identified Cx Nom (U) [facility] 30,000 colonies/ml mixed bacterial skin contaminants 2 Days PERFORMED BY: [place] [address] PATHOLOGIST TEAM ASSEMBLY LINE MACHINE OPERATOR JONI FLEMING M.D. [facility] Comment on above: Performed By: #### G CCHLAMTRI #### [facility] , #### CUU #### [facility] [address] [place] [address] Vital Signs Date Time Vital Sign Value Performing Clinician Facility 03-10-2023 16:50-0400 Body height 170.18 cm Karol Carrasquillo Other [facility] Other 03-10-2023 16:50-0400 Body mass index (BMI) [Ratio] 36.02 kg/m2 Karol Carrasquillo Other [facility] Other 03-10-2023 16:50-0400 Body temperature 97.5 [degF] Karol Foreign Other [facility] Other 03-10-2023 16:50-0400 Body weight 104.33 kg Karol Carrasquillo Other [facility] Other 03-10-2023 16:50-0400 Respiratory rate 18 /min Karol Carrasquillo Other [facility] Other 03-10-2023 16:50-0400 SaO2% (BldA) [Mass fraction] 98 % Karol Carrasquillo Other [facility] Other 02-18-2023 10:30-0400 Body height 170.18 cm Aline Colemond Other [facility] Other 02-18-2023 10:30-0400 Body mass index (BMI) [Ratio] 37.43 kg/m2 Aline Colemond Other [facility] Other 02-18-2023 10:30-0400 Body temperature 98.1 [degF] Aline Radha Other [facility] Other 02-18-2023 10:30-0400 Body weight 108.41 kg Aline Radha Other [facility] Other 02-18-2023 10:30-0400 Respiratory rate 18 /min Aline Radha Other [facility] Other 02-18-2023 10:30-0400 SaO2% (BldA) [Mass fraction] 100 % Aline Radha Other [facility] Other 06-11-2022 16:15-0400 Body height 170.18 cm Aline Garcia Other [facility] Other 06-11-2022 16:15-0400 Body mass index (BMI) [Ratio] 34.45 kg/m2 Aline Radha Other [facility] Other 06-11-2022 16:15-0400 Body temperature 98.9 [degF] Aline Colemond Other [facility] Other 06-11-2022 16:15-0400 Body weight 99.79 kg Aline Garcia Other [facility] Other 06-11-2022 16:15-0400 Respiratory rate 18 /min Aline Garcia Other [facility] Other 06-11-2022 16:15-0400 SaO2% (BldA) [Mass fraction] 98 % Aline Garcia Other [facility] Other 04-04-2022 13:15-0400 Body height 170.18 cm Slim Castellon Other [facility] Other 04-04-2022 13:15-0400 Body mass index (BMI) [Ratio] 34.45 kg/m2 Slim Castellon Other [facility] Other 04-04-2022 13:15-0400 Body temperature 96.2 [degF] Slim Castellon Other [facility] Other 04-04-2022 13:15-0400 Body weight 99.79 kg Slim Castellon Other [facility] Other 04-04-2022 13:15-0400 Respiratory rate 18 /min Slim Castellon Other [facility] Other 04-04-2022 13:15-0400 SaO2% (BldA) [Mass fraction] 98 % Slim Castellon Other [facility] Other 10-29-2019 08:00-0500 Body Temperature 97.9 [degF] [facility] [place] [place] 10-29-2019 08:00-0500 BP Diastolic 76 mm[Hg] [facility] [place] 10-29-2019 08:00-0500 BP Systolic 114 mm[Hg] Pennie [facility] , [place] 10-29-2019 08:00-0500 Pulse (Heart Rate) 86 /min Pennie [facility] [place] 10-29-2019 08:00-0500 Respiratory Rate 16 /min [facility] [place] 10-28-2019 16:45-0500 Pulse Oximetry 98 % Pennie [facility] [place] 10-26-2019 10:00-0500 BMI (Body Mass Index) 35.51 kg/m2 Pennie [facility] [place] 10-26-2019 10:00-0500 Body weight 99.79 kg Pennie [facility] [place] 10-26-2019 10:00-0500 Height 167.6 cm Pennie [place], [place] 07-14-2019 18:01-0400 Body weight 192.0 lbs. [facility] Comment on above: Performed By: #### AQUADM #### [facility] [address] [place] [address] Cooler Supervisor: Rico Nicole MD [facility] [address] [place] [address] Cooler Supervisor: Aryan Morris MD 07-12-2019 17:34-0400 Body weight 192 PENNIE [facility] Comment on above: Performed By: #### AQUADM #### [facility] [address] [place] [address] Cooler Supervisor: Rico Nicole MD [facility] [address] [place] [address] Cooler Supervisor: Aryan Morris MD 07-12-2019 17:34-0400 Body weight LBS PENNIE CHRISTOPHE [facility] Comment on above: Performed By: #### AQUADM #### [facility] [address] [place] [address] Cooler Supervisor: Rico Nicole MD [facility] [address] [place], [place] [phone] Cooler Supervisor: Aryan Morris MD Encounters Encounter Date Encounter Type Care Provider Facility Start: 11-03-2023 End: 11-03-2023 ambulatory RODOLFO MAKEDA Not Available Start: 04-22-2023 End: 04-22-2023 ambulatory Chandana Mcdonnell Facility:[facility] Start: 04-20-2023 End: 04-21-2023 ambulatory Chandana Mcdonnell Facility:[facility] Start: 03-10-2023 End: 03-10-2023 ambulatory Karol Carrasquillo Other [facility] Other Start: 03-10-2023 Office outpatient visit 25 minutes Karol Carrasquillo [facility] Start: 02-18-2023 End: 02-18-2023 ambulatory Aline Garcia Other [facility] Start: 02-18-2023 Office outpatient visit 15 minutes Aline Garcia [facility] Start: 06-12-2022 End: 06-12-2022 ambulatory Aline Garcia Other [facility] Start: 06-12-2022 Encounter by adal Garcia [facility] Start: 06-11-2022 End: 06-11-2022 ambulatory Aline Garcia Other [facility] Start: 06-11-2022 Office outpatient visit 15 minutes Aline Garcia [facility] Start: 04-04-2022 End: 04-04-2022 ambulatory Slim Castellon Other [facility] Other Start: 04-04-2022 Office outpatient visit 15 minutes Slim Castellon [facility] Start: 10-29-2021 End: 10-29-[address] MIKI KRUGER Facility: Start: 10-26-2019 End: 10-29-2019 Evaluation and management of inpatient PENNIE GOLDBERG [facility] Start: 10-26-2019 End: 10-29-2019 Evaluation and management of inpatient Pennie Goldberg Work Phone: [facility] Comment on above: PLTCS 10/27/19 M Apg 8,9 Wt 9#8 (Primary Dx) Start: 07-12-2019 End: 07-13-2019 Patient encounter procedure BENJAMIN HEBERTJIMBO [facility] Start: 07-12-2019 End: 07-12-2019 Subsequent hospital visit by physician Miki Kruger [facility] Start: 02-28-2019 End: 03-01-2019 Patient encounter procedure DEFAULT PHYSICIAN Facility:[facility] Start: 02-27-2019 End: 02-27-2019 Patient encounter procedure Marlena Taveras Facility:[facility] Procedures Date Procedure Procedure Detail Performing Clinician Start: 10-29-2019 INCENTIVE SPIROMETRY RT PENNIE GOLDBERG Start: 10-29-2019 DISCHARGE PATIENT FLASH GOLDBERG Start: 10-29-2019 INCENTIVE SPIROMETRY RT PENNIE CHRISTOPHE Start: 10-29-2019 INCENTIVE SPIROMETRY RT PENNIE CHRISTOPHE Start: 10-29-2019 INITIATE OXYGEN THER APY PROTOCOL PENNIE GOLDBERG Start: 10-29-2019 INCENTIVE SPIROMETRY RT PENNIE GOLDBERG Start: 10-29-2019 INCENTIVE SPIROMETRY RT PENNIE GOLDBERG Start: 10-28-2019 INCENTIVE SPIROMETRY RT PENNIE GOLDBERG Start: 10-28-2019 INCENTIVE SPIROMETRY RT PENNIE GOLDBERG Start: 10-28-2019 CATHETER REMOVAL DONELL GOLDBERG Start: 10-28-2019 SALINE LOCK IV PENNIE GOLDBERG Start: 10-28-2019 INCENTIVE SPIROMETRY RT PENNIE GOLDBERG Start: 10-28-2019 INCENTIVE SPIROMETRY RT PENNIE GOLDBERG Start: 10-28-2019 INCENTIVE SPIROMETRY RT PENNIE GOLDBERG Start: 10-28-2019 Blood count complete auto&auto difrntl wbc PENNIE GOLDBERG Start: 10-28-2019 INCENTIVE SPIROMETRY RT PENNIE GOLDBERG Start: 10-28-2019 Blood count complete auto&auto difrntl wbc Mariia Rodriguez Work Phone: Start: 10-28-2019 INCENTIVE SPIROMETRY RT PENNIE GOLDBERG Start: 10-28-2019 INITIATE OXYGEN THER APY PROTOCOL PENNIE GOLDBERG Start: 10-28-2019 INCENTIVE SPIROMETRY RT PENNIE GOLDBERG Start: 10-28-2019 INCENTIVE SPIROMETRY RT PENNIE GOLDBERG Start: 10-27-2019 PLACE INTERMITTENT PNEUMATIC COMPRESSION DEVICE PENNIE GOLDBERG Start: 10-27-2019 AMBULATE PATIENT DONELL GOLDBERG Start: 10-27-2019 BLADDER SCAN PENNIE BURROWS Start: 10-27-2019 DIET GENERAL PENNIE BURROWS Start: 10-27-2019 ENCOURAGE DEEP BREAT PARKER AND COUGHING PENNIE GOLDBERG Start: 10-27-2019 FULL CODE PENNIE BURROWS Start: 10-27-2019 INCENTIVE SPIROMETRY RT PENNIE GOLDBERG Start: 10-27-2019 INITIATE OXYGEN THER APY PROTOCOL PENNIE GOLDBERG Start: 10-27-2019 INTAKE AND OUTPUT FLASH GOLDBERG Start: 10-27-2019 IP CONSULT TO EPNNIE GOLDBERG Start: 10-27-2019 MISCELLANEOUS NURSIN G CARE ORDER (SPECIFY) PENNIE GOLDBERG Start: 10-27-2019 NOTIFY PHYSICIAN (SPECIFY) PENNIEANH GOLDBERG Start: 10-27-2019 STRAIGHT CATH PENNIE Miguelangel YOSEF Start: 10-27-2019 VITAL SIGNS PENNIE BURROWS Start: 10-27-2019 WOUND CARE PENNIE BURROWS Start: 10-27-2019 ADVANCE DIET TOLE RATED (NURSING COMMUNICATION) PENNIE GOLDBERG Start: 10-27-2019 REASON FOR NO CHEMIC AL VTE PROPHYLAXIS PENNIE GOLDBERG Start: 10-27-2019 MISCELLANEOUS NURSIN G CARE ORDER (SPECIFY) PENNIE GOLDBERG Start: 10-27-2019 BEDREST PENNIE BURROWS Start: 10-27-2019 Continuous pulse oximetry PENNIE GOLDBERG Start: 10-27-2019 ENCOURAGE DEEP BREAT PARKER AND COUGHING PENNIE GOLDBERG Start: 10-27-2019 INITIATE OXYGEN THER APY PROTOCOL PENNIE GOLDBERG Start: 10-27-2019 NOTIFY PHYSICIAN (SPECIFY) PENNIE GOLDBERG Start: 10-27-2019 NURSING COMMUNICATION K SAIDA GOLDBERG Start: 10-27-2019 VITAL SIGNS PENNIE BURROWS Start: 10-27-2019 TRANSFER PATIENT DONELL GOLDBERG Start: 10-26-2019 TYPE AND SCREEN PENNIE GOLDBERG Start: 10-26-2019 Antibody treponema pallidum PENNIE GOLDBERG Start: 10-26-2019 Blood count complete auto&auto difrntl wbc PENNIE GOLDBERG Start: 10-26-2019 Drug screen class list a PENNIE GOLDBERG Start: 10-26-2019 Antibody screen Pennie Goldberg Start: 10-26-2019 Blood typing serologic abo Mariia Rodriguez Work Phone: Start: 10-26-2019 Blood count complete auto&auto difrntl wbc Mariia Rodriguez Work Phone: Start: 10-26-2019 T. PALLIDUM AB Mariia Rodriguez Work Phone: Start: 10-26-2019 PATIENT STATUS (DIRECT) PENNIE GOLDBERG Start: 10-26-2019 Drug screen class list a Mariia Rodriguez Work Phone: Start: 07-12-2019 MATERNAL SCREEN 4 FLASH GOLDBERG Plan of Treatment Date Care Activity Detail Author Start: 10-29-2029 DTaP/Tdap/Td vaccine (2 - Td) DTaP/Tdap/Td vaccine (2 - Td) [place] Start: 07-31-2019 Influenza vaccination Flu vaccine (# 1) [place] Start: 2018 Cervical cancer screen Cervical canc er screen [place], [place] Start: 2016 DTaP/Tdap/Td vaccine (1 - Tdap) DTaP/Tdap/Td vaccine (1 - Tdap) [place] Start: 2013 Chlamydia screen Chlamydia screen [place], [place] Start: 2012 HIV screen HIV screen [place], [place] Start: 2012 HPV vaccine (1 - Fem louie 3-dose series) HPV vaccine (1 - Female 3-dose series) [place] Start: 2010 Varicella Vaccine (1 of 2 - 13+ 2-dose series) Varicella Vaccine (1 of 2 - 13+ 2-dose series) [place] Start: 2008 HPV vaccine (1 - Fem louie 2-dose series) HPV vaccine (1 - Female 2-dose series) [place] Start: 2003 Pneumococcal 0-64 ye ars Vaccine (1 of 1 - PPSV23) Pneumococcal 0-64 years Vaccine (1 of 1 - PPSV23) [place] Start: 1998 Varicella Vaccine (1 of 2 - 2-dose childhood series) Varicella Vaccine (1 of 2 - 2-dose childhood series) [place] Incentive spirometry Incentive s pirometry Respiratory Care Routine Every 2hr while awake until discontinued starting 10/27/2019 [place] Comment on above: Every 2hr while awak e until discontinued starting 10/27/2019 Initiate Oxygen Ther apy Protocol Initiate Oxygen Therapy Protocol Respiratory Care Routine Daily until discontinued starting 10/27/2019 [place] Comment on above: Daily until disconti nued starting 10/27/2019 Maternal screen 4 Maternal scree n 4 Lab Routine 07/12/2019 11:00 AM EDT [place] Phase I & II - meter ed glucose Phase I & II - metered glucose Point of Care Testing Routine As Needed until discontinued starting 10/27/2019 [place] Comment on above: As Needed until disc ontinued starting 10/27/2019 Immunizations Immunization Date Immunization Notes Care Provider Fa codie 10-29-2019 tetanus toxoid, redu eric diphtheria toxoid, and acellular pertussis vaccine, adsorbed Pennie [facility], [place] 10-27-2019 diphtheria, tetanus toxoids and acellular pertussis vaccine, unspecified formulation Pennie [facility] [place] Payers Date Payer Category Payer Unknown [id number] 2023 Unknown 2023 Unknown [id number] 2019 Private Health Insurance [id number] 2019 Self-pay 2018 Private Health Insurance [id number] 2018 Private Health Insurance xxx xxxxxx [id number] 1997 Unknown [id number] 2.16.8 [id number] 1997 Unknown [id number] 2.16.8 [id number] 1997 Unknown [id number] 2.16.8 [id number] 1997 Unknown [id number] 2.16.84 [id number] 1997 Unknown [id number] 2.16.8 [id number] 1997 Unknown [id number] 2.16.8 [id number] 1997 Unknown [id number] 2.16. [id number] 1997 Unknown [id number] 1959 Private Health Insurance [id number] Blue Cross Blue Shield [id number] Unknown [id number] 2.16.84 [id number] Unknown [id number] 2.16.84 [id number] Unknown [id number] 2.16.8 [id number] Social History Date Type Detail Facility Start: 07-12-2019 End: 10-26-2019 Tobacco smoking status NHIS Never smoker [place] Start: 10-26-2019 Alcohol intake Ex-drinker (finding) [place] Start: 02-09-2019 [place], [place] Sex Assigned At Not on file [place] Start: 07-12-2019 Alcohol intake Not Currently [place] History and physical note 04-20-2023 Note Date & Type Note Facility 04-20-2023 Note [id number] Evaluation note 03-10-2023 Note Date & Type Note Facility 03-10-2023 Evaluation note Encounter Date Diagnosis Assessment Notes Feb, Sore throat (ICD-10 - J02.9) Feb, Viral pharyngitis (ICD-10 - J02.9) Advise patient that rapid strep test was negative today in office. Patient reported improvement of symptoms with steroid course. Will send in prednisone to use as directed. Advised that there are no signs of bacterial infection present today on exam. Encouraged salt water gargles, increasing fluids, Tylenol [id number] for additional relief. Advised patient if that if symptoms continue she needs a follow-up with ENT for evaluation. Advised that we will not continue to see her for this issue in that UC setting, as we are not a follow-up facility. Patient verbalizes understanding and is agreeable with treatment plan. [facility] Other Evaluation note 02-18-2023 Note Date & Type Note Facility 02-18-2023 Evaluation note Encounter Date Diagnosis Assessment Notes Jan, Sore throat (ICD-10 - J02.9) Jan, Viral pharyngitis (ICD-10 - J02.9) Pharyngitis/t onsillopharyn gitis: adult home care material was printed Drink plenty fluids, get plenty of rest. Take the prednisone as prescribed until gone. Take Tylenol or Motrin as needed for pain. Consider drinking warm tea with honey for comfort. Follow-up with ENT for reevaluation. Go to the ER for worsening symptoms or concern [facility] Other Evaluation note 06-11-2022 Note Date & Type Note Facility 06-11-2022 Evaluation note Encounter Date Diagnosis Assessment Notes May, Sore throat (ICD-10 - J02.9) May, Acute pharyngitis due to other specified organisms (ICD-10 - J02.8) Drink plenty fluids, get plenty of rest. Take the amoxicillin and prednisone as prescribed until gone. Take Tylenol or Motrin as needed for aches pains or fevers. Follow-up with your family physician if no improvement in 2 to 3 days. May, Other specified bacterial agents as the cause of diseases classified elsewhere (ICD-10 - B96.89) May, Other Throat infection: Strep material was printed [facility] Other Evaluation note 04-04-2022 Note Date & Type Note Facility 04-04-2022 Evaluation note Encounter Date Diagnosis Assessment Notes March, Non-recurr ent acute serous otitis media of right ear (ICD-10 - H65.01) Apply spray as prescribed. Take medicine as prescribed. Drink plenty of fluids and get plenty of rest. Return if you develop a fever or worsening pain. Sign and symptoms consistent with R. sided OME. No sign or symptoms of bacterial infection. Will treat with fluticasone and medrol dose pack. Pt given return precautions. She understands and agrees with the plan. [facility] Other Evaluation note Note Date & Type Note Facility Evaluation note No Information [facility] Other History general Narrative - Reported Note Date & Type Note Facility History general Narrative - Reported Type Medical History Dysautonomia Medical History Cardioinhibited Neurogenic Synco pe Medical History PCOS Surgical History knee surgery [facility] Other Summary Purpose Family History No Family History Records FoundNo Family History Records FoundNo Family History Records FoundNo Family History Records FoundNo Family History Records FoundNo Family History Records FoundNo Family History Records FoundNo Family History Records FoundNo Family History Records Found Advance Directives No Advanced Directives Records FoundDocuments on File Type Date Recorded 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 You may have some pain in your lower belly and need pain medicine for 1 to 2 weeks. You can expect some vaginal bleeding for several weeks. You will probably need about 6 weeks to fully recover. It is important to take it easy while the incision is healing. Avoid heavy lifting, strenuous activities, or exercises that strain the belly muscles while you are recovering. Ask a family member or friend for help with housework, cooking, and shopping. This care sheet gives you a general idea about how long it will take for you to recover. But each person recovers at a different pace. Follow the steps below to get better as quickly as possible. How can you care for yourself at home? Activity Rest when you feel tired. Getting enough sleep will help you recover. Try to walk each day. Start by walking a little more than you did the day before. Bit by bit, increase the amount you walk. Walking boosts blood flow and helps prevent pneumonia, constipation, and blood clots. Avoid strenuous activities, such as bicycle riding, jogging, weightlifting, and aerobic exercise, for 6 weeks or until your doctor says it is okay. Until your doctor says it is okay, do not lift anything heavier than your baby. Do not do sit-ups or other exercises that strain the belly muscles for 6 weeks or until your doctorsays it is okay. Hold a pillow over your incision when you cough or take deep breaths. This will support your belly and decrease your pain. You may shower as usual. Pat the incision dry when you are done. You will have some vaginal bleeding. Wear sanitary pads. Do not douche or use tampons until your doctor says it is okay. Ask your doctor when you can drive again. You will probably need to take at least 6 weeks off work. It depends on the type of work you do andhow you feel. Ask your doctor when it is okay for you to have sex. Diet You can eat your normal diet. If your stomach is upset, try bland, low-fat foods like plain rice, broiled chicken, toast, and yogurt. Drink plenty of fluids (unless your doctor tells you not to). You may notice that your bowel movements are not regular right after your surgery. This is common. Try to avoid constipation and straining with bowel movements. You may want to take a fiber supplement every day. If you have not had a bowel movement after a couple of days, ask your doctor about taking a mild laxative. If you are , limit alcohol. Alcohol can cause a lack of energy and other health problems for the baby when a woman drinks heavily. It can also get in the way of a mom's ability to feed her baby or to care for the child in other ways. There isn't a lot of research about exactly how much alcohol can harm a baby. Having no alcohol is the safest choice for your baby. If youchoose to have a drink now and then, have only one drink, and limit the number of occasions that you have a drink. Wait to breastfeed at least 2 hours after you have a drink to reduce the amount of alcohol the baby may get in the milk. Medicines Your doctor will tell you if and when you can restart your medicines. He or she will also give you instructions about taking any new medicines. If you take blood thinners, such as warfarin (Coumadin), clopidogrel (Plavix), or aspirin, be sure to talk to your doctor. He or she will tell you if and when to start taking those medicines again. Make sure that you understand exactly what your doctor wants you to do. Take pain medicines exactly as directed. ? If the doctor gave you a prescription medicine for pain, take it as prescribed. ? If you are not taking a prescription pain medicine, ask your doctor if you can take an czwe-[id number] medicine. If you think your pain medicine is making you sick to your stomach: ? Take your medicine after meals (unless your doctor has told you not to). ? Ask your doctor for a different pain medicine. If your doctor prescribed antibiotics, take them as directed. Do not stop taking them just because you feel better. You need to take the full course of antibiotics. Incision care If you have strips of tape on the incision, leave the tape on for a week or until it falls off. Wash the area daily with warm, soapy water, and pat it dry. Don't use hydrogen peroxide or alcohol,which can slow healing. You may cover the area with a gauze bandage if it weeps or rubs against clothing. Change the bandage every day. Keep the area clean and dry. Other instructions If you breastfeed your baby, you may be more comfortable while you are healing if you place the baby so that he or she is not resting on your belly. Try tucking your baby under your arm, with his or her body along the side you will be feeding on. Support your baby's upper body with your arm. With that hand you can control your baby's head to bring his or her mouth to your breast. This is sometimes called the football hold. Follow-up care is a deal part of your treatment and safety. Be sure to make and go to all appointments, and call your doctor if you are having problems. It's also a good idea to know your test resultsand keep a list of the medicines you take. When should you call for help? [id number] anytime you think you may need emergency care. For example, call if: You have thoughts of harming yourself, your baby, or another person. You passed out (lost consciousness). You have chest pain, are short of breath, or cough up blood. You have a seizure. Call your doctor now or seek immediate medical care if: You have pain that does not get better after you take pain medicine. You have severe vaginal bleeding. You are dizzy or lightheaded, or you feel like you may faint. You have new or worse pain in your belly or pelvis. You have loose stitches, or your incision comes open. You have symptoms of infection, such as: ? Increased pain, swelling, warmth, or redness. ? Red streaks leading from the incision. ? Pus draining from the incision. ? A fever. You have symptoms of a blood clot in your leg (called a deep vein thrombosis), such as: ? Pain in your calf, back of the knee, thigh, or groin. ? Redness and swelling in your leg or groin. You have signs of preeclampsia, such as: ? Sudden swelling of your face, hands, or feet. ? New vision problems (such as dimness, blurring, or seeing spots). ? A severe headache. Watch closely for changes in your health, and be sure to contact your doctor if: You do not get better as expected. Where can you learn more? Go to [email or web address] and sign in to your [employer] account. Enter M806 in the Search Health Information box to learn more about Section: What to Expect at Home. If you do not have an account, please click on the Sign Up Now link. Current as of: August 04, 2018 Content Version: 12.1 5019-9139 [employer]. Care instructions adapted under license by [employer]. If youhave questions about a medical condition or this instruction, always ask your healthcare professional. [employer] disclaims any warranty or liability for your use of this information. documented in this encounter History of Present Illness * Chadwick Patel, DO - 10/29/2019 12:22 AM EST POST OPERATIVE DAY # 2 Gisell Ga is a 24 y.o. female This patient was seen and examined today. S/P PLTCS 10/27/19 Her was complicated by: Patient Active Problem List Diagnosis Neurologic cardiac syncope Exercise-induced asthma Dysautonomia (HCC) Generalized headaches Chest pain High-risk macrosomia Late transfer of care HRP (high risk ), unspecified trimester Family history of cardiac arrest Anemia Obesity PLTCS 10/27/19 M Apg 8,9 Wt 9#8 Cephalopelvic disproportion due to unusually large fetus Today she is doing well without any chief complaint. Her lochia is light. She denies chest pain, shortness of breath, headache and lightheadedness. She is breast feeding and she denies any signs or symptoms of mastitis. She is ambulating well. She is voiding without difficulty. She currently deniesS/S of depression. Flatus present. Bowel movement absent. She is tolerating solids. Vital Signs: Vitals: 10/28/19 0800 10/28/19 1200 10/28/19 1645 10/28/191999 BP: 108/73 103/63 102/69 100/72 Pulse: 101 107 98 86 Resp: 18 16 16 16 Temp: 97.7 F (36.5 C) 99 F (37.2 C) 99.4 F (37.4 C) 98.6 F (37 C) TempSrc: SpO2: 99% 98% Weight: Height: Urine Input & Output last 24hrs: Intake/Output Summary (Last 24 hours) at 10/29/2019 0022 Last data filed at 10/28/2019 1500 Gross per 24 hour Intake 2197 ml Output 2600 ml Net -403 ml Physical Exam: General: no apparent distress, alert and cooperative Neurologic: alert, oriented, normal speech, no focal findings or movement disorder noted Lungs: No increased work of breathing, good air exchange, clear to auscultation bilaterally, no crackles or wheezing Heart: regular rate and rhythm Abdomen: abdomen soft, non-distended, non-tender Fundus: non-tender, normal size, firm, below umbilicus Incision: clean, dry and intact with Prevena in place Extremities: no calf tenderness, non edematous Labs: Lab Results Component Value Date WBC 12.4 (H) 10/28/2019 HGB 8.9 (L) 10/28/2019 HCT 29.3 (L) 10/28/2019 MCV 86.2 10/28/2019 PLT 199 10/28/2019 Assessment/Plan: 1. Gisell Ga is a POD # 2 s/p PLTCS3 - Doing well, VSS - Male in General Care Nursery, circumcision held - Encourage ambulation and use of incentive spirometer 2. Rh positive/Rubella immune 3. Breast feeding - Denies s/s of mastitis 4. Asthma - Stable on Albuterol 5. Neurocardiogenic syncope - Patient follows with Dr. Rehman - Azaliat reports that her last syncopal episode was in early August 2019 - Patient takes no medications 6. Anemia - Hbg 8.9 - Denies s/s of anemia - Iron on D/C 7. Continue post-op care. Counseling Completed: Secondary Smoke risks and Sudden Syndrome were not reviewed with recommendations. Infant sleeping, back to sleep and avoidance of co-sleeping recommendations were reviewed. Signs and Symptoms of Post Depression were reviewed. The patient is to call if any occur. Signs and symptoms of Mastitis were reviewed. The patient is to call if any occur for follow up. Discharge instructions including pelvic rest, incision care, 15 lb weight restriction, no driving with pain medicine and office follow-up were reviewed with patient Attending Physician: Dr. Jorge Rodriguez DO Rn Spine Resident 10/29/2019, 12:22 AM Attending Physician Statement I have discussed the care of Gisell Ga, including pertinent history and exam findings, with theresident. I have seen and examined the patient and the deal elements of all parts of the encounter have been performed by me. I agree with the assessment, plan and orders as documented by the resident. (GC Modifier) Patient desires discharge home today. Reviewed discharge instructions, follow up and home care. Pt voiced her understanding. Pt can be discharged. Chadwick Patel DO * Mi Whitley DO - 10/28/2019 12:11 PM EST TRACTOR MECHANIC APPRENTICE Resident Interval Note Patient labs reviewed below. Hgb on POD#1 is 8.9. Pt clinically asymptomatic. Will prescribe PO iron supplementation on DC. Vitals: 10/27/19 1955 10/28/19 0000 10/28/19 0415 10/28/19 0800 BP: 116/74 102/61 105/72 108/73 Pulse: 80 101 97 101 Resp: 16 18 18 18 Temp: 98.3 F (36.8 C) 98.2 F (36.8 C) 98.1 F (36.7 C) 97.7 F (36.5 C) TempSrc: Oral Axillary Axillary SpO2: 100% 98% 98% 99% Weight: Height: Recent Results (from the past 12 hour(s)) CBC auto differential Collection Time: 10/28/19 11:01 AM Result Value Ref Range WBC 12.4 (H) 3.5 - 11.3 k/uL RBC 3.40 (L) 3.95 - 5.11 m/uL Hemoglobin 8.9 (L) 11.9 - 15.1 g/dL Hematocrit 29.3 (L) 36.3 - 47.1 % MCV 86.2 82.6 - 102.9 fL MCH 26.2 25.2 - 33.5 pg MCHC 30.4 28.4 - 34.8 g/dL RDW 13.8 11.8 - 14.4 % Platelets 199 138 - 453 k/uL MPV 12.0 8.1 - 13.5 fL NRBC Automated 0.0 0.0 per 100 WBC Differential Type NOT REPORTED WBC Morphology NOT REPORTED RBC Morphology NOT REPORTED Platelet Estimate NOT REPORTED Seg Neutrophils 86 (H) 36 - 65 % Lymphocytes 8 (L) 24 - 43 % Monocytes 6 3 - 12 % Eosinophils % 0 (L) 1 - 4 % Basophils 0 0 - 2 % Immature Granulocytes 0 0 % Segs Absolute 10.64 (H) 1.50 - 8.10 k/uL Absolute Lymph # 1.03 (L) 1.10 - 3.70 k/uL Absolute Hudson # 0.69 0.10 - 1.20 k/uL Absolute Eos # <0.03 0.00 - 0.44 k/uL Basophils Absolute <0.03 0.00 - 0.20 k/uL Absolute Immature Granulocyte 0.05 0.00 - 0.30 k/uL Mi Whitley DO Rn Spine Resident Pager: [phone] 10/28/2019 12:11 PM * Teresa Montalvo DO - 10/28/2019 7:51 AM EST POST OPERATIVE DAY # 1 Gisell Ga is a 24 y.o. female This patient was seen and examined today. S/P PLTCS 10/27/19 Her was complicated by: Patient Active Problem List Diagnosis Neurologic cardiac syncope Exercise-induced asthma Dysautonomia (HCC) Generalized headaches Chest pain High-risk macrosomia Late transfer of care HRP (high risk ), unspecified trimester Family history of cardiac arrest Anemia Obesity PLTCS 10/27/19 M Apg 8,9 Wt 9#8 Cephalopelvic disproportion due to unusually large fetus Today she is doing well without any chief complaint. Her lochia is light. She denies chest pain, shortness of breath, headache, lightheadedness, blurred vision, peripheral edema and palpitations. Sheis breast feeding and she denies any signs or symptoms of mastitis. She is ambulating well. She is voiding without difficulty. She currently denies S/S of depression. Flatus present. Bowelmovement absent. She is tolerating solids. Vital Signs: Vitals: 10/27/19 1950 10/27/19 1955 10/28/19 0000 10/28/19 0415 BP: 109/72 116/74 102/61 105/72 Pulse: 82 80 101 97 Resp: Temp: 98.3 F (36.8 C) 98.2 F (36.8 C) 98.1 F (36.7 C) TempSrc: Oral Axillary Axillary SpO2: 100% 98% 98% Weight: Height: Urine Input & Output last 24hrs: Intake/Output Summary (Last 24 hours) at 10/28/2019 0752 Last data filed at 10/28/2019 0600 Gross per 24 hour Intake 2802 ml Output 2800 ml Net 2 ml Physical Exam: General: no apparent distress, alert and cooperative Neurologic: alert, oriented, normal speech, no focal findings Lungs: No increased work of breathing, good air exchange, clear to auscultation bilaterally, no crackles or wheezing Heart: normal S1 and S2 and regular rate and rhythm Abdomen: abdomen soft, non-distended, non-tender Fundus: non-tender, normal size, firm, below umbilicus Incision: Prevena dressing in place with good seal Extremities: no calf tenderness, non edematous Labs: Lab Results Component Value Date WBC 9.9 10/26/2019 HGB 10.3 (L) 10/26/2019 HCT 33.2 (L) 10/26/2019 MCV 84.7 10/26/2019 PLT 248 10/26/2019 Assessment/Plan: 1. Gisell Ga is a POD # 1 s/p PLTCS - Doing well - VSS - male infant in General Care Nursery, circumcision desired - Encourage ambulation and use of incentive spirometer - D/C horta catheter and saline lock IV on POD #1 - CBC awaiting 2. Rh positive/Rubella immune 3. Breast feeding - Denies s/s mastitis at this time 4. Asthma - Stable on no meds 5. Anemia - Hgb 10.3 - Post op Hgb awaiting 6. Continue post-op care. Counseling Completed: Secondary Smoke risks and Sudden Infant Syndrome were reviewed with recommendations. Infant sleeping, back to sleep and avoidance of co-sleeping recommendations were reviewed. Signs and Symptoms of Post Depression were reviewed. The patient is to call if any occur. Signs and symptoms of Mastitis were reviewed. The patient is to call if any occur for follow up. Discharge instructions including pelvic rest, incision care, 15 lb weight restriction, no driving with pain medicine and office follow-up were reviewed with patient Attending Physician: Dr. Selvin Garcia DO Rn Spine Resident 10/28/2019, 7:52 AM Date: 10/28/2019 Time: 11:20 AM Patient Name: Gisell Ga Patient : [id number] Room/Bed: 0749/0749-01 Admission Date/Time: 10/26/2019 8:11 AM Attending Physician Statement I have discussed the care of Gisell Ga, including pertinent history and exam findings with the resident. I have reviewed and edited their note in the electronic medical record. The deal elements of all parts of the encounter have been performed/reviewed by me . I agree with the assessment, plan and orders as documented by the resident. The level of care submitted represents to the best of my ability the care documented in the medicalrecord today. GC Modifier. This service has been performed in part by a resident under the direction of a teaching physician. Attending's Name: Teresa Montalvo DO Chadwick Brewster DO - 10/27/2019 8:46 AM EST Obstetric/Gynecology Resident Interval Note Patient seen and examined. SVE was unchanged from prior. She is s/p cytotec x 5. Elective section discussed with patient as she has made little change after five doses of cytotec and no cervical or station change since 0300. Patient counseled on R/B/A on options for continuing with elective induction vs proceeding with primary section. Decision was made to proceed with prim timothy section for macrosomia, suspected CPD, failed IOL, and maternal request. Anesthesia and NICU notified. Dr. Patel and senior resident present for counseling and decision. Janeth Garcia DO TRACTOR MECHANIC APPRENTICE Resident, PGY1 [place], [place] 10/27/2019, 8:46 AM Attending Physician Statement I have discussed the care of Gisell Ga, including pertinent history and exam findings, with theresident. I have seen and examined the patient and the deal elements of all parts of the encounter have been performed by me. I agree with the assessment, plan and orders as documented by the resident. (GC Modifier) Patient seen and examined with residents. Agree with resident note. Will proceed with primary section due to suspected macrosomia, suspected CPD, failed IOL, and maternal request. Chadwick Patel DO * Kwame Denny DO - 10/27/2019 3:56 AM EST Labor Progress Note Gisell Ga is a 24 y.o. female at 39w1d The patient was seen and examined. Her pain is well controlled. She reports movement is present, denies contractions, complains of loss of fluid, denies vaginal bleeding. Vital Signs: Vitals: 10/26/19 1000 10/26/19 1751 10/26/19 2003 10/26/19 2326 BP: 121/74 109/68 108/68 Pulse: 81 92 100 Resp: 16 18 16 Temp: 97.5 F (36.4 C) 97.5 F (36.4 C) TempSrc: Oral Oral Weight: 220 lb (99.8 kg) Height: 5' 6 (1.676 m) FHT: 140, moderate variability, accelerations present, decelerations absent Contractions: regular, every 2 minutes Cervical Exam: 2 cm dilated, 50% effaced, -2 station Pitocin: @ 0 mu/min Membranes: Intact Scalp Electrode in place: absent Intrauterine Pressure Catheter in Place: absent Interventions: none Assessment/Plan: Gisell Ga is a 24 y.o. female at 39w1d admitted for eIOL - GBS negative, No indication for GBS prophylaxis - VSS - cEFM and TOCO - IVF LR @125 ml/hr - Cytotec 50 Buccal x2, plan for 3rd dose when contractions space out - S/P Cytotec 25 Buccal Kwame Denny DO Rn Spine Resident 10/27/2019, 3:56 AM * Kwame Denny DO - 10/26/2019 11:26 PM EST Labor Progress Note Gisell Ga is a 24 y.o. female at 39w0d The patient was seen and examined. Her pain is well controlled. She reports movement is present, denies contractions, denies loss of fluid, denies vaginal bleeding. Vital Signs: Vitals: 10/26/19 0855 10/26/19 1000 10/26/19 1751 10/26/192002 BP: 123/79 121/74 109/68 Pulse: 91 81 92 Resp: 16 16 18 Temp: 97.5 F (36.4 C) TempSrc: Oral Weight: 220 lb (99.8 kg) Height: 5' 6 (1.676 m) FHT: 140, moderate variability, accelerations present, decelerations absent Contractions: none Cervical Exam: 1 cm dilated, 40 effaced, -3 station Pitocin: @ 0 mu/min Membranes: Intact Scalp Electrode in place: absent Intrauterine Pressure Catheter in Place: absent Interventions: none Assessment/Plan: Gisell Ga is a 24 y.o. female at 39w0d admitted for eIOL - GBS negative, No indication for GBS prophylaxis - VSS - cEFM and TOCO - IVF LR @125 ml/hr - Cytotec 50 Buccal x2 (second dose given at this time), next @0330 - S/P Cytotec 25 Buccal Senior resident updated and in agreement with plan Kwame Denny DO Rn Spine Resident 10/26/2019, 11:26 PM * Pennie Goldberg MD - 10/26/2019 9:33 AM EST Senior resident Progress Note In to discuss plan of care with patient. Patient with suspected macrosomic at 4479g in MFM on 10/26. Patient counseled on risks of shoulder dystocia, higher degree lacerations, permanent neurological damage to infant, and post hemorrhage. Patient states she wishes to proceed with vaginal delivery at this time and is declining primary section. Patient counseled by sheet writer as well as attending. Additionally discussed safest route of delivery for infants is vaginal delivery followed by planned section. Patient voices understanding that highest risk for is with failed attempted vaginal delivery. Patient requesting additional time to consider her options. Patient offered support and given time to discuss options with . April Villarreal TRACTOR MECHANIC APPRENTICE Resident, PGY3 Pager: [phone] [place], [place] 10/26/19 9:42 AM Patient additionally counseled by myself on risk of shoulder dystocia given her fetus is estimated just under when a primary section is recommended 4500g her EFW 4479g. We reviewed the risksand unpredictable nature of a shoulder dystocia including brachial plexus injury, catastrophic neurologic injury or of the infant and significant pelvic floor injury to mother with high order perineal laceration. We discussed that use of operative vaginal delivery would be avoided and that wewould have a low threshold for delivery should she deviate from the expected labor curve once active labor begins. She and her partner the FOB both verbalized their understanding of these risks and understand that they may request a section at any time. At this time Gisell wishes to start an induction of labor. Pennie Goldberg MD documented in this encounter Assessments Diagnosis PLTCS 10/27/19 M Apg 8,9 Wt 9#8- Primary Routine follow-up HRP (high risk ), unspecified trimester Neurologic cardiac syncope Syncope and collapse Late transfer of care Exercise-induced asthma Exercise induced bronchospasm macrosomia Family history of cardiac arrest Family history of other cardiovascular diseases Anemia Anemia, unspecified Obesity Obesity, unspecified Cephalopelvic disproportion due to unusually large fetus Additional Source Comments INFORMATION SOURCE (unrecogn ized section and content) DATE CREATED AUTHOR 03/03/2019 [facility] DATE CREATED AUTHOR AUTHOR'S ORGANIZ ATION 03/09/2019 [facility] DATE CREATED AUTHOR AUTHOR'S ORGANIZ ATION 03/12/2019 [facility] DATE CREATED AUTHOR AUTHOR'S ORGANIZ ATION 11/03/2019 [facility] DATE CREATED AUTHOR AUTHOR'S ORGANIZ ATION 02/22/2022 [facility] DATE CREATED AUTHOR AUTHOR'S ORGANIZ ATION 07/09/2022 [facility] DATE CREATED AUTHOR AUTHOR'S ORGANIZ ATION 05/20/2023 Christiano Bridges [facility] DATE CREATED AUTHOR AUTHOR'S ORGANIZ ATION 08/04/2023 [facility] DATE CREATED AUTHOR AUTHOR'S ORGANIZ ATION 11/05/2023 [facility] EPIC Reason for Visit (unrecogniz ed section and content) Reason Comments Scheduled Induction Status Reason Specialty Diagnoses / Procedures Referre d By Contact Referred To Contact Diagnoses HRP (high risk ), unspecified trimester Pennie Goldberg MD [address] [place] [address] [facility] FOR RECORDS PERTAINING TO PATIENTS WHO ARE OR HAVE BEEN ENROLLED IN A CHEMICAL DEPENDENCY/SUBSTANCEABUSE PROGRAM, SOME INFORMATION MAY BE OMITTED. This clinical summary was aggregated from multiple sources. Caution should be exercised in using it in the provision of clinical care. This summary normalizes information from multiple sources, and as a consequence, information in this document may materially change the coding, format and clinical context of patient data. In addition, data may be omitted in some cases. CLINICAL DECISIONS SHOULD BE BASED ON THE PRIMARY CLINICAL RECORDS. [employer] [facility] provides no warranty or guarantee of the accuracy or completeness of information in this document.
[2023-12-08 04:09] LABS: Progesterone 0.2 ng/mL (.)
== END 2023-12-05 12:41 | disposition home or self-care (01) ==
PROVIDERS: PCP Family Medicine; Visit Provider Obstetrics & Gynecology
DX: N97.9 Female infertility, unspecified (principal)
CPT/HCPCS: 36415; 84144

== ENCOUNTER 2023-12-17 07:37 | Emergency (ER) | payer BC, SELFPAY ==
[2023-12-17 07:45] VITALS: BP 120/93; PULSE 99; RESP 16; TEMP 37; O2SAT 98; BMI 38.7
--- OUTSIDE RECORDS SUMMARY | 2023-12-17 07:57 | XMS_ITS | CCD ---
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 [place] [phone] [employer] Operator: Rico Nicole MD WBC Morphology NOT REPORTED Normal [facility] Comment on above: Performed By: #### C DP #### [employer] [address] [place] [address] [phone] [employer] Operator: Rico Nicole MD Surgical Pathologyon 019 Surgical Pathology (NOTE) [id number] [facility] ANATOMIC PATHOLOGY [address] [place] [address] [id number] SURGICAL PATHOLOGY CONSULTATION Patient Name: YUNG GA [facility] Rec: [id number] Path Number: [id number] Collected: 10/27/2019 Received: 10/31/2019 Reported: 11/01/2019 09:33 [...] 1: PLACENTA, CORD AND MEMBRANES Gross Description YUNG GA PLACENTA Placenta with attached membranes and [...] capillaries: Not increased Other: Few microcalcifications Normal [facility] Comment on above: Performed By: #### P PPVS #### [facility] [place] [address] [employer] Operator: Rico Nicole MD CBC auto differentialon 10-01 Basophils (Bld) [#/Vol] 0.03 10*3/uL [place] Basophils/100 WBC (Bld) 0 % 0 - 2 % [place] Differential Type NOT REPORTED [place] Eosinophils (Bld) [#/Vol] 0.04 10*3/uL [place] Eosinophils/100 WBC (Bld) 0 % Low 1 - 4 % [place] Erythrocyte distribution width (RBC) [Ratio] 13.6 % 11.8 - 14.4 % [place] Hematocrit (Bld) [Volume fraction] 33.2 % Low 36.3 - 47.1 % [place] Hemoglobin (Bld) [Mass/Vol] 10.3 g/dL Low 11.9 - 15.1 g/dL [place] Immature granulocytes (Bld) [#/Vol] 1 % High 0 [place] Immature granulocytes (Bld) [#/Vol] 0.07 10*3/uL [place] Interpretation and review of laboratory results Abnormal [place] Lymphocytes (Bld) [#/Vol] 2.41 10*3/uL [place] Lymphocytes/100 WBC (Bld) 24 % 24 - 43 % [place] MCH (RBC) [Entitic mass] 26.3 pg 25.2 - 33.5 pg [place] MCHC (RBC) [Mass/Vol] 31.0 g/dL 28.4 - 34.8 g/dL [place] MCV (RBC) [Entitic vol] 84.7 fL 82.6 - 102.9 fL [place] Monocytes (Bld) [#/Vol] 0.76 10*3/uL [place] Monocytes/100 WBC (Bld) 8 % 3 - 12 % [place] Platelet mean volume (Bld) [Entitic vol] 12.5 fL 8.1 - 13.5 fL [place] Platelets (Bld) [#/Vol] NOT REPORTED [place] Platelets (Bld) [#/Vol] 248 10*3/uL [place] RBC (Bld) [#/Vol] 3.92 10*6/uL Low 3.95 - 5.1 1 m/uL [place] RBC morphology finding Nom (Bld) NOT REPORTED [place] Segmented neutrophils/100 WBC (Bld) 67 % High 36 - 65 % [place] Segs Absolute 6.63 [place] WBC (Bld) [#/Vol] 0.0 10*3/uL 0.0 per 10 0 WBC [place] WBC (Bld) [#/Vol] 9.9 10*3/uL [place] WBC Morphology NOT REPORTED [place], [place] CBC with Diffon 10-26-2019 Abs. Basophil 0.03 k/uL Normal 0.00-0.20 [facility] Comment on above: Performed By: #### C DP, TREP #### [address] [address] [employer] Operator: Rico Nicole MD Abs.Imm.Granulocyt e 0.07 k/uL Normal 0.00-0.30 [facility] Comment on above: Performed By: #### C DP, TREP #### [facility] [place] [address] [employer] Operator: Rico Nicole MD Abs.Neutrophil (Seg) 6.63 k/uL Normal 1.50-8.10 [facility] Comment on above: Performed By: #### C DP, TREP #### [facility] [address] [place] [address] [employer] Operator: Rico Nicole MD Basophils/100 WBC (Bld) 0 % Normal 0-2 [facility] Comment on above: Performed By: #### C DP, TREP #### [address] [address] [employer] Operator: Rico Nicole MD Eosinophils (Bld) [#/Vol] 0.04 10*3/uL Normal 0.00-0.44 [facility] Comment on above: Performed By: #### C DP, TREP #### [address] [address] [employer] Operator: Rico Nicole MD Eosinophils/100 WBC (Bld) 0 % Low 1-4 [facility] Comment on above: Performed By: #### C DP, TREP #### [place] [address] [employer] Operator: Rico Nicole MD Erythrocyte distribution width (RBC) [Ratio] 13.6 % Normal 11.8-14.4 [facility] Comment on above: Performed By: #### C DP, TREP #### [place] [address] [employer] Operator: Rico Nicole MD Hematocrit (Bld) [Volume fraction] 33.2 % Low 36.3-47.1 [facility] Comment on above: Performed By: #### C DP, TREP #### [place] [address] [employer] Operator: Rico Nicole MD Hemoglobin (Bld) [Mass/Vol] 10.3 g/dL Low 11.9-15.1 [facility] Comment on above: Performed By: #### C DP, TREP #### [address] [address] [employer] Operator: Rico Nicole MD Immature granulocytes (Bld) [#/Vol] 1 % High 0 [facility] Comment on above: Performed By: #### C DP, TREP #### [place] [address] [employer] Operator: Rico Nicole MD Lymphocytes (Bld) [#/Vol] 2.41 10*3/uL Normal 1.10-3.70 [facility] Comment on above: Performed By: #### C DP, TREP #### [place] [address] [employer] Operator: Rico Nicole MD Lymphocytes/100 WBC (Bld) 24 % Normal 24-43 [facility] Comment on above: Performed By: #### C DP, TREP #### [place] [address] [employer] Operator: Rico Nicole MD MCH (RBC) [Entitic mass] 26.3 pg Normal 25.2-33.5 [facility] Comment on above: Performed By: #### C DP, TREP #### [place] [address] [employer] Operator: Rico Nicole MD MCHC (RBC) [Mass/Vol] 31.0 g/dL Normal 28.4-34.8 [facility] Comment on above: Performed By: #### C DP, TREP #### [place] [address] [employer] Operator: Rico Nicole MD MCV (RBC) [Entitic vol] 84.7 fL Normal 82.6-102.9 [facility] Comment on above: Performed By: #### C DP, TREP #### [place] [address] [employer] Operator: Rico Nicole MD Monocytes (Bld) [#/Vol] 0.76 10*3/uL Normal 0.10-1.20 [facility] Comment on above: Performed By: #### C DP, TREP #### [address] [address] [employer] Operator: Rico Nicole MD Monocytes/100 WBC (Bld) 8 % Normal 3-12 [facility] Comment on above: Performed By: #### C DP, TREP #### [address] [address] [employer] Operator: Rico Nicole MD Neutrophil (Seg) 67 % High 36-65 [facility] Comment on above: Performed By: #### C DP, TREP #### [address] [address] [employer] Operator: Rico Nicole MD NRBC Automated 0.0 per 100 WBC Normal 0.0 [facility] Comment on above: Performed By: #### C DP, TREP #### [address] [address] [employer] Operator: Rico Nicole MD Platelet mean volume (Bld) [Entitic vol] 12.5 fL Normal 8.1-13.5 [facility] Comment on above: Performed By: #### C DP, TREP #### [address] [address] [employer] Operator: Rico Nicole MD Platelets (Bld) [#/Vol] 248 10*3/uL Normal 138-453 [facility] Comment on above: Performed By: #### C DP, TREP #### [address] [address] [employer] Operator: Rico Nicole MD RBC (Bld) [#/Vol] 3.92 10*6/uL Low 3.95-5.11 [facility] Comment on above: Performed By: #### C DP, TREP #### [address] [address] [employer] Operator: Rico Nicole MD WBC (Bld) [#/Vol] 9.9 10*3/uL Normal 3.5-11.3 [facility] Comment on above: Performed By: #### C DP, TREP #### [address] [address] [employer] Operator: Rico Nicole MD Auto Diff Performed NOT REPORTED Normal [facility] Comment on above: Performed By: #### C DP, TREP #### [address] [address] [employer] Operator: Rico Nicole MD Platelets (Bld) [#/Vol] NOT REPORTED Normal [facility] Comment on above: Performed By: #### C DP, TREP #### [address] [address] [employer] Operator: Rico Nicole MD RBC morphology finding Nom (Bld) NOT REPORTED Normal [facility] Comment on above: Performed By: #### C DP, TREP #### [address] [address] [employer] Operator: Rico Nicole MD WBC Morphology NOT REPORTED Normal [facility] Comment on above: Performed By: #### C DP, TREP #### [address] [address] [employer] Operator: Rico Nicole MD Drug Scr, Abuse, Uron 2018 Amphetamine(s),Ur Negative Normal NEG [facility] Comment on above: Result Comment: (Positive cutoff 1000 ng/mL) Performed By: #### D AU #### [address] [address] [employer] Operator: Rico Nicole MD Barbiturate(s),Ur Negative Normal NEG [facility] Comment on above: Result Comment: (Positive cutoff 200 ng/mL) Performed By: #### D AU #### [address] [address] [employer] Operator: Rico Nicole MD Base excess Calc (Bld) [Moles/Vol] Negative Normal NEG [facility] Comment on above: Result Comment: (Positive cutoff 300 ng/mL) Performed By: #### D AU #### [facility] [address] [place] [address] [employer] Operator: Rico Nicole MD Benzodiazepine(s) Negative Normal NEG [facility] Comment on above: Result Comment: (Positive cutoff 200 ng/mL) Performed By: #### D AU #### [facility] [address] [address] [employer] Operator: Rico Nicole MD Cannabinoid(s),Ur Negative Normal NEG [facility] Comment on above: Result Comment: (Positive cutoff 50 ng/mL) Performed By: #### D AU #### [address] [address] [employer] Operator: Rico Nicole MD Interpretive Info Assay provides medic al screening only. The absence of expected drug(s) and/or Normal [facility] Comment on above: Result Comment: meta bolite(s) may indicate diluted or adulterated urine, limitations of testing or timing of collection. Testing for legal purposes should be confirmed by another method. To request confirmation of test result, please call the lab within 7 days of sample submission. Performed By: #### D AU #### [facility] [address] [place] [address] [employer] Operator: Rico Nicole MD Methadone Ql (U) Negative Normal NEG [facility] Comment on above: Result Comment: (Positive cutoff 300 ng/mL) Performed By: #### D AU #### [facility] [address] [place] [address] [employer] Operator: Rico Nicole MD Opiate(s), Ur Negative Normal NEG [facility] Comment on above: Result Comment: (Positive cutoff 300 ng/mL) Performed By: #### D AU #### [facility] [address] [place] [address] [employer] Operator: Rico Nicole MD Oxycodone, Urine Negative Normal NEG [facility] Comment on above: Result Comment: (Positive cutoff 100 ng/mL) Performed By: #### D AU #### [facility] [address] [place] [address] [employer] Operator: Rico Nicole MD Phencyclidine, Ur Negative Normal NEG [facility] Comment on above: Result Comment: (Positive cutoff 25 ng/mL) Performed By: #### D AU #### [facility] [address] [place] [address] [employer] Operator: Rico Nicole MD Buprenorphrine, Ur NOT REPORTED Normal NEG [facility] Comment on above: Performed By: #### D AU #### [facility] [address] [place] [address] [employer] Operator: Rico Nicole MD MDMA, Urine NOT REPORTED Normal NEG [facility] Comment on above: Performed By: #### D AU #### [facility] [address] [place] [address] [employer] Operator: Rico Nicole MD Methamphetamine, Ur NOT REPORTED Normal NEG [facility] Comment on above: Performed By: #### D AU #### [employer] [address] [place] [address] [employer] Operator: Rico Nicole MD Propoxyphene,Urine NOT REPORTED Normal NEG [facility] Comment on above: Performed By: #### D AU #### [employer] [address] [place] [address] [employer] Operator: Rico Nicole MD Tricyclic antidepressants Screen Ql (U) NOT REPORTED Normal NEG [facility] Comment on above: Performed By: #### D AU #### [address] [phone] [employer] Operator: Rico Nicole MD T. pallidum Abon 10-26-2019 T. pallidum, IgG NONREACTIVE NONREACTIVE [place] Comment on above: T. pallidum antibodies are not detected. There is no serological evidence of infection with T. pallidum (early primary syphilis cannot be excluded). Retest in 2-4 weeks if syphilis is clinically suspect. T.pallidum Ab Screenon 10-26 T.pallidum Ab Screen NONREACTIVE Normal NR [facility] Comment on above: Result Comment: T. pallidum antibodies are not detected. There is no serological evidence of infection with T. pallidum (early primary syphilis cannot be excluded). Retest in 2-4 weeks if syphilis is clinically suspect. Performed By: #### C DP, TREP #### [facility] [address] [place] [address] [employer] Operator: Rico Nicole MD TYPE AND SCREENon 10-26-2019 ABO/Rh Positive [place], [place] Arm Band Number BE [id number] [place], [place] Expiration Date 10/29/2019,2359 [place], [place] Type + Screenon 10-26-2019 Type + Screen Sample Expiration 10/29/2019,2359 Arm Band Number BE [id number] ABO/Rh(D) O POSITIVE Antibody Screen NEGATIVE Normal [facility] Comment on above: Performed By: #### T YS #### [address] [phone] [employer] Operator: Rico Nicole MD Urine Drug Screenon 10-26-20 19 Amphetamine Screen, Ur Negative NEGATIVE [place] Comment on above: (Positive cutoff 1000 ng/mL) Barbiturate Screen, Ur Negative NEGATIVE [place] Comment on above: (Positive cutoff 200 ng/mL) Benzodiazepine Screen, Urine Negative NEGATIVE [place] Comment on above: (Positive cutoff 200 ng/mL) Buprenorphine Urine NOT REPORTED NEGATIVE [facility] [place], [place] Cannabinoid Scrn, Ur Negative NEGATIVE [facility] [place] Comment on above: (Positive cutoff 50 ng/mL) Cocaine Metabolite, Urine Negative NEGATIVE [facility] [place] Comment on above: (Positive cutoff 300 ng/mL) MDMA, Urine NOT REPORTED NEGATIVE [facility] [place], [place] Methadone Screen, Urine Negative NEGATIVE [facility] [place] Comment on above: (Positive cutoff 300 ng/mL) Methamphetamine, Urine NOT REPORTED NEGATIVE [facility] [place] Opiates, Urine Negative NEGATIVE [facility] [place], [place] Comment on above: (Positive cutoff 300 ng/mL) Oxycodone Screen, Ur Negative NEGATIVE [facility] [place] Comment on above: (Positive cutoff 100 ng/mL) Phencyclidine, Urine Negative NEGATIVE [facility] [place] Comment on above: (Positive cutoff 25 ng/mL) Propoxyphene, Urine NOT REPORTED NEGATIVE [facility], [place] Test Information Assay provides medic al screening only. The absence of expected drug(s) and/or metabolite(s) may indicate diluted or adulterated urine, limitations of testing or timing of collection. [facility], [place] Comment on above: Testing for legal pu rposes should be confirmed by another method. To request confirmation of test result, please call the lab within 7 days of sample submission. Tricyclic Antidepressants, Urine NOT REPORTED NEGATIVE [facility], [place] Maternal Serum Scr 4on - Determined by Ultrasound [facility] Comment on above: Performed By: #### A QUADM #### [facility] [facility] [place] [address] [employer] Operator: Rico Nicole MD [facility] [address] [place] [phone] [employer] Operator: Aryan Morris MD Dimeric Inhibin A 393 pg/mL Normal [facility] Comment on above: Performed By: #### A QUADM #### [facility] [place] [address] [employer] Operator: Rico Nicole MD [facility] [employer] [address] [place] [address] [employer] Operator: Aryan Morris MD Due Date SEE NOTE [facility] Comment on above: Result Comment: Resu lts for Estimated Due Date: 11 02 19 Performed By: #### A QUADM #### [address] [address] [employer] Operator: Rico Nicole MD [address] [address] [employer] Operator: Aryan Morris MD Family History No [facility] Comment on above: Performed By: #### A QUADM #### [address] [address] [employer] Operator: Rico Nicole MD [address] [address] [employer] Operator: Aryan Morris MD Gestat Age (exact) 23 wks, 6 days Normal [facility] Comment on above: Performed By: #### A QUADM #### [address] [address] [employer] Operator: Rico Nicole MD [address] [address] [employer] Operator: [place] [address] IU/L [facility] Comment on above: Performed By: #### A QUADM #### [address] [address] [employer] Operator: Rico Nicole MD [address] [phone] [employer] Operator: Aryan Morris MD Hx Aneuploidy Unknown [facility] Comment on above: Performed By: #### A QUADM #### [address] [address] [employer] Operator: Rico Nicole MD [address] [phone] [employer] Operator: Aryan Morris MD Ins Req Matern Diab No Normal [facility] Comment on above: Performed By: #### A QUADM #### [address] [address] [employer] Operator: Rico Nicole MD [facility] [employer] [address] [place] [phone] [employer] Operator: Aryan Morris MD Interpretation Screen Neg Normal [facility] Comment on above: Result Comment: (NOT E) INTERPRETATION: SCREEN NEGATIVE Neural Tube Defects (NTD) Negative Down syndrome (DS) Negative Trisomy 18 (T18) Negative Pre-Test Post-Test Cutoff Neural Tube Defects Risks 1:1030 < 1:06566 1:250 Down Syndrome Risks 1:1110 1:604 1:150 Trisomy 18 Risks 1:4330 < 1:67408 1:100 Comments: The risk of an open neural tube defect is less than the screening cut-off. The risk of Down syndrome is less than the screening cut-off. The risk of trisomy 18 is less than the screening cut-off. Test developed and characteristics determined by [employer]. See Compliance Statement B: AFreeze/CS Performed By: #### A QUADM #### [address] [phone] [employer] Operator: Rico Nicole MD [employer] [address] [place] [address] [employer] Operator: Aryan Morris MD [facility] Scr Enhanced Rpt See Note Normal [facility] Comment on above: Result Comment: (NOT E) Access [employer] Enhanced Report using either link below: -Direct access: [email or web address] -Enter Username, Password: [email or web address] Username: [email or web address] Password: [email or web address] Performed by [employer], [address] [place] [address] [id number] [email or web address], Aryan Morris MD, Lab. Director Performed By: #### A QUADM #### [address] [address] [employer] Operator: Rico Nicole MD [facility] [address] [place] [address] [employer] Operator: Aryan Morris MD [age] [facility] Comment on above: Performed By: #### A QUADM #### [address] [address] [employer] Operator: Rico Nicole MD [address] [phone] [employer] Operator: Aryan Morris MD Maternal Race Nonblack [facility] Comment on above: Performed By: #### A QUADM #### [address] [address] [employer] Operator: Rico Nicole MD [address] [phone] [employer] Operator: Aryan Morris MD MoM Dimeric Inhib A 1.53 [facility] Comment on above: Performed By: #### A QUADM #### [address] [address] [employer] Operator: Rico Nicole MD [facility] [address] [place], [place] [id number] [employer] Operator: Aryan Morris MD MoM for AFP 0.70 [facility] Comment on above: Performed By: #### A QUADM #### [address] [address] [employer] Operator: Rico Nicole MD [facility] [address] [place] [address] [employer] Operator: Aryan Morris MD MoM for HCG, Tri 2 1.97 [facility] Comment on above: Performed By: #### A QUADM #### [address] [address] [employer] Operator: Rico Nicole MD [facility] [address] [place] [address] [employer] Operator: Aryan Morris MD MoM for uE3 1.03 [facility] Comment on above: Performed By: #### A QUADM #### [address] [address] [employer] Operator: Rico Nicole MD [address] [phone] [employer] Operator: Aryan Morris MD Number of Fetuses Trevino [facility] Comment on above: Performed By: #### A QUADM #### [address] [address] [employer] Operator: Rico Nicole MD [address] [address] [employer] Operator: Aryan Morris MD Patient's AFP 63 ng/mL [facility] Comment on above: Performed By: #### A QUADM #### [address] [address] [employer] Operator: Rico Nicole MD [facility] [address] [place] [address] [employer] Operator: Aryan Morris MD Patient's uE3 3.28 ng/mL [facility] Comment on above: Performed By: #### A QUADM #### [address] [address] [employer] Operator: Rico Nicole MD [facility] [address] [place] [address] [employer] Operator: Aryan Morris MD Smoking Unknown [facility] Comment on above: Performed By: #### A QUADM #### [facility] [address] [place] [address] [employer] Operator: Rico Nicole MD [facility] [address] [place], [place] [id number] [employer] Operator: Aryan Morris MD Specimen See Note [facility] Comment on above: Result Comment: Init ial sample Performed By: #### A QUADM #### [facility] [address] [place] [phone] [employer] Operator: Rico Nicole MD [address] [phone] [employer] Operator: Aryan Morris MD Maternal Serum Scr 4on 07-12 Dating [facility] [facility] Comment on above: Performed By: #### A QUADM #### [address] [address] Kettle Fry Cook Operator: Rico Nicole MD [facility] [address] [place] [address] [id number] Kettle [employer] Cook Operator: Aryan Morris MD Diabetic [facility] [place] Comment on above: Performed By: #### A QUADM #### [facility] [address] [place] [id number] Kettle [employer] Cook Operator: Rico Nicole MD [facility] [address] [place] [address] [phone] K[employer] Operator: Aryan Morris MD Estimated Due Date 11/02/2019 [facility] Comment on above: Performed By: #### A QUADM #### [facility] [address] [place] [address] Kettle [employer] Cook Operator: Rico Nicole MD [facility] [address] [place], [place] [id number] Kettle [employer] Cook Operator: Aryan Morris MD Family History NO [facility] Comment on above: Performed By: #### A QUADM #### [address] [address] Kettle Fry Cook Operator: Rico Nicole MD [facility] [address] [place] [address] Kettle [employer] Cook Operator: Aryan Morris MD Maternal date 1995 [facility] Comment on above: Performed By: #### A QUADM #### [address] [address] Kettle [employer] Cook Operator: Rico Nicole MD [facility] [address] [place] [address] Kettle [employer] Cook Operator: Aryan Morris MD Race (Maternal) [facility] Comment on above: Performed By: #### A QUADM #### [address] [address] Kettle Fry Cook Operator: Rico Nicole MD [address] [address] Kettle Fry Cook Operator: Aryan Morris MD Repeat Specimen NO [facility] Comment on above: Performed By: #### A QUADM #### [address] [address] Kettle Fry Cook Operator: Rico Nicole MD [address] [address] Kettle Fry Cook Operator: Aryan Morris MD Current Smoking NOT REPORTED Normal [facility] Comment on above: Performed By: #### A QUADM #### [address] [address] Kettle Fry Cook Operator: Rico Nicole MD [facility] [address] [place] [address] Kettle [employer] Cook Operator: Aryan Morris MD In Vitro Fertalizat NOT REPORTED [facility] Comment on above: Performed By: #### A QUADM #### [address] [address] Kettle Fry Cook Operator: Rico Nicole MD [facility] [address] [place] [address] Kettle Fry Cook Operator: Aryan Morris MD LMP date NOT REPORTED Normal [facility] Comment on above: Performed By: #### A QUADM #### [address] [address] Kettle Fry Cook Operator: Rico Nicole MD [facility] [address] [place] [address] Kettle Fry Cook Operator: Aryan Morris MD Monochorionic Twins NOT REPORTED Normal [facility] Comment on above: Performed By: #### A QUADM #### [address] [address] Kettle [employer] Cook Operator: Rico Nicole MD [facility] [address] [place] [address] Kettle [employer] Cook Operator: Aryan Morris MD Prev Trisomy Preg NOT REPORTED Normal [facility] Comment on above: Performed By: #### A QUADM #### [address] [address] Kettle [employer] Cook Operator: Rico Nicole MD [facility] [address] [place] [address] Kettle [employer] Cook Operator: Aryan Morris MD Valproic/Carbamaze p NOT REPORTED Normal [facility] Comment on above: Performed By: #### A QUADM #### [address] [address] Kettle Fry Cook Operator: Rico Nicole MD [facility] [address] [place] [address] Kettle Fry Cook Operator: Aryan Morris MD Chlamydia/GC/Trich NAAon Chlamydia Trachomotis, MALINI Negative Normal Negative [facility] Comment on above: Order Comment: [facility] SPECIMEN SOURCE/DESCRIPTION URINE Performed By: #### G CCHLAMTRI #### [facility] , #### CUU #### [facility] [address] [place] [address] Neisseria Gonorrhoeae, MALINI Negative Normal Negative [facility] Comment on above: Order Comment: [facility] SPECIMEN SOURCE/DESCRIPTION URINE Performed By: #### G CCHLAMTRI #### [facility] , #### CUU #### [facility] [address] [place] [address] Trichomonas MALINI Negative Normal Negative [facility] Comment on above: Order Comment: [facility] SPECIMEN SOURCE/DESCRIPTION URINE Result Comment: Perf ormed at: =G - [facility] [address] [id number] Kettle Fry Cook Operator: Emilia Hankins MD, Phone: [phone] PERFORMED BY: [place] [address] JONI FLEMING M.D. Performed By: #### G CCHLAMTRI #### [facility] , #### CUU #### [facility] [address] [place] [address] Urine Cultureon 02-27-2019 Bacteria identified Cx Nom (U) [facility] 30,000 colonies/ml mixed bacterial skin contaminants 2 Days PERFORMED BY: [place] [address] ATTENDANT JONI FLEMING M.D. [facility] Comment on above: Performed By: #### G CCHLAMTRI #### [facility] , #### CUU #### [facility] [address] [place] [address] Vital Signs Date Time Vital Sign Value Performing Clinician Facility 03-10-2023 16:50-0400 Body height 170.18 cm Karol Carrasquillo Other [facility] Other 03-10-2023 16:50-0400 Body mass index (BMI) [Ratio] 36.02 kg/m2 Karol Carrasquillo Other [facility] Other 03-10-2023 16:50-0400 Body temperature 97.5 [degF] Karol Carrasquillo Other [facility] Other 03-10-2023 16:50-0400 Body weight 104.33 kg Karol Carrasquillo Other [facility] Other 03-10-2023 16:50-0400 Respiratory rate 18 /min Karol Carrasquillo Other [facility] Other 03-10-2023 16:50-0400 SaO2% (BldA) [Mass fraction] 98 % Karol Carrasquillo Other [facility] Other 02-18-2023 10:30-0400 Body height 170.18 cm Aline Garcia Other [facility] Other 02-18-2023 10:30-0400 Body mass index (BMI) [Ratio] 37.43 kg/m2 Aline Colemond Other [facility] Other 02-18-2023 10:30-0400 Body temperature 98.1 [degF] Aline Radha Other [facility] Other 02-18-2023 10:30-0400 Body weight 108.41 kg Aline Radha Other [facility] Other 02-18-2023 10:30-0400 Respiratory rate 18 /min Aline Radha Other [facility] Other 02-18-2023 10:30-0400 SaO2% (BldA) [Mass fraction] 100 % Aline Garcia Other [facility] Other 06-11-2022 16:15-0400 Body height 170.18 cm Aline Garcia Other [facility] Other 06-11-2022 16:15-0400 Body mass index (BMI) [Ratio] 34.45 kg/m2 Aline Colemond Other [facility] Other 06-11-2022 16:15-0400 Body temperature 98.9 [degF] Aline Garcia Other [facility] Other 06-11-2022 16:15-0400 Body weight 99.79 kg Aline Garcia Other [facility] Other 06-11-2022 16:15-0400 Respiratory rate 18 /min Aline Garcia Other [facility] Other 06-11-2022 16:15-0400 SaO2% (BldA) [Mass fraction] 98 % Aline Garcia Other [facility] Other 04-04-2022 13:15-0400 Body height 170.18 cm Slim Castellon Other [facility] Other 04-04-2022 13:15-0400 Body mass index (BMI) [Ratio] 34.45 kg/m2 Slim Castellon Other [facility] Other 04-04-2022 13:15-0400 Body temperature 96.2 [degF] Slim Castellon Other [facility] Other 04-04-2022 13:15-0400 Body weight 99.79 kg Slim Castellon Other [facility] Other 04-04-2022 13:15-0400 Respiratory rate 18 /min Slim Castellon Other [facility] Other 04-04-2022 13:15-0400 SaO2% (BldA) [Mass fraction] 98 % Slim Castellon Other [facility] Other 10-29-2019 08:00-0500 Body Temperature 97.9 [degF] Pennie Trujillooy [employer] [facility], [place] 10-29-2019 08:00-0500 BP Diastolic 76 mm[Hg] [facility] , [place] 10-29-2019 08:00-0500 BP Systolic 114 mm[Hg] Pennie [facility] , [place] 10-29-2019 08:00-0500 Pulse (Heart Rate) 86 /min Pennie [facility] [place] 10-29-2019 08:00-0500 Respiratory Rate 16 /min [facility] [place] 10-28-2019 16:45-0500 Pulse Oximetry 98 % Pennie [facility] , [place] 10-26-2019 10:00-0500 BMI (Body Mass Index) 35.51 kg/m2 Pennie [facility] [place] 10-26-2019 10:00-0500 Body weight 99.79 kg Pennie [facility] [place] 10-26-2019 10:00-0500 Height 167.6 cm Pennie [facility] , [place] 07-14-2019 18:01-0400 Body weight 192.0 lbs. PENNIE [facility] Comment on above: Performed By: #### AQUADM #### [facility] [place] [address] Kettle Fry Cook Operator: Rico Nicole MD [facility] [address] [place] [address] Kettle [employer] Cook Operator: Aryan Morris MD 07-12-2019 17:34-0400 Body weight 192 PENNIE [facility] Comment on above: Performed By: #### AQUADM #### [facility] [address] [place] [address] Kettle Fry Cook Operator: Rico Nicole MD [facility] [address] [place] [address] Kettle Fry Cook Operator: Aryan Morris MD 07-12-2019 17:34-0400 Body weight LBS PENNIE GOLDBERG [facility] Comment on above: Performed By: #### AQUADM #### [facility] [address] [place] [address] Kettle Fry Cook Operator: Rico Nicole MD [facility] [address], [place] [id number] Kettle [employer] Cook Operator: Aryan Morris MD Encounters Encounter Date Encounter Type Care Provider Facility Start: 11-03-2023 End: 11-03-2023 ambulatory RODOLFO ASHFORD Not Available Start: 04-22-2023 End: 04-22-2023 ambulatory Chandana Mcdonnell [place]: 04-20-2023 End: 04-21-2023 ambulatory Chandana Mcdonnell [place] Start: 03-10-2023 End: 03-10-2023 ambulatory Karol Carrasquillo Other [facility] Other Start: 03-10-2023 Office outpatient visit 25 minutes Karol Carrasquillo [facility] Start: 02-18-2023 End: 02-18-2023 ambulatory Aline Garcia Other [facility] Other Start: 02-18-2023 Office outpatient visit 15 minutes Aline Garcia [facility] Start: 06-12-2022 End: 06-12-2022 ambulatory Alinethad Garcia Other [facility] Other Start: 06-12-2022 Encounter by adal Verasthad Colemond [facility] Start: 06-11-2022 End: 06-11-2022 ambulatory Aline Garcia Other [facility] Other Start: 06-11-2022 Office outpatient visit 15 minutes Aline Garcia [facility] Start: 04-04-2022 End: 04-04-2022 ambulatory Slim Castellon Other [facility] Other Start: 04-04-2022 Office outpatient visit 15 minutes Slim Castellon [facility] Start: 10-29-2021 End: 10-29-[address] MIKI KRUGER Facility: Start: 10-26-2019 End: 10-29-2019 Evaluation and management of inpatient PENNIE GOLDBERG [facility] Start: 10-26-2019 End: 10-29-2019 Evaluation and management of inpatient Pennie Goldberg [facility] Comment on above: PLTCS 10/27/19 M Apg 8,9 Wt 9#8 (Primary Dx) Start: 07-12-2019 End: 07-13-2019 Patient encounter procedure BENJAMIN HEBERTJIMBO [facility] Start: 07-12-2019 End: 07-12-2019 Subsequent hospital visit by physician Miki Kruger [facility] Start: 02-28-2019 End: 03-01-2019 Patient encounter procedure DEFAULT PHYSICIAN Facility:[facility] Start: 02-27-2019 End: 02-27-2019 Patient encounter procedure aMrlena Taveras Facility:[facility] Procedures Date Procedure Procedure Detail Performing Clinician Start: 10-29-2019 INCENTIVE SPIROMETRY RT PENNIE GOLDBERG Start: 10-29-2019 DISCHARGE PATIENT FLASH GOLDBERG Start: 10-29-2019 INCENTIVE SPIROMETRY RT PENNIE ASHLYN Start: 10-29-2019 INCENTIVE SPIROMETRY RT PENNIE ASHLYN Start: 10-29-2019 INITIATE OXYGEN THER APY PROTOCOL [...] FLASH GOLDBERG Start: 10-27-2019 IP CONSULT TO PENNIE GOLDBERG Start: 10-27-2019 MISCELLANEOUS NURSIN G CARE ORDER (SPECIFY) PENNIE GOLDBERG Start: 10-27-2019 NOTIFY PHYSICIAN (SPECIFY) PENNIE GOLDBERG Start: 10-27-2019 STRAIGHT CATH PENNIE NAVAS Start: 10-27-2019 VITAL SIGNS PENNIE BURROWS Start: [...] (SPECIFY) PENNIE GOLDBERG Start: 10-27-2019 NURSING COMMUNICATION Rosi SAIDA GOLDBERG Start: 10-27-2019 VITAL SIGNS PENNIE [...] Phone: Start: 10-26-2019 T. PALLIDUM AB Mariia Alfordith Work Phone: Start: 10-26-2019 PATIENT STATUS (DIRECT) PENNIE GOLDBERG Start: 10-26-2019 Drug screen class list a Mariia Rodriguez Work Phone: Start: 07-12-2019 MATERNAL SCREEN 4 FLASH GOLDBERG Plan of Treatment Date Care Activity Detail Author Start: 10-29-2029 DTaP/Tdap/Td vaccine (2 - Td) DTaP/Tdap/Td vaccine (2 - Td) [place], [place] Start: 07-31-2019 Influenza vaccination Flu vaccine (# 1) [place] Start: 2018 Cervical cancer screen Cervical canc er screen [place] Start: 2016 DTaP/Tdap/Td vaccine (1 - Tdap) DTaP/Tdap/Td vaccine (1 - Tdap) [place] Start: 2013 Chlamydia screen Chlamydia screen [place], [place] Start: 2012 HIV screen HIV screen [place], [place] Start: 2012 HPV vaccine (1 - Fem louie 3-dose series) HPV vaccine (1 - Female 3-dose series) [place] Start: 2010 Varicella Vaccine (1 of 2 - 13+ 2-dose series) Varicella Vaccine (1 of 2 - 13+ 2-dose series) [place] Start: 2008 HPV vaccine (1 - Fem louie 2-dose series) HPV vaccine (1 - Female 2-dose series) [place] Start: 2003 Pneumococcal 0-64 ye ars Vaccine (1 of 1 - PPSV23) Pneumococcal 0-64 years Vaccine (1 of 1 - PPSV23) [place] Start: 1998 Varicella Vaccine (1 of 2 - 2-dose childhood series) Varicella Vaccine (1 of 2 - 2-dose childhood series) [place] Incentive spirometry Incentive s pirometry Respiratory Care Routine Every 2hr while awake until discontinued starting 10/27/2019 [place] Comment on above: Every 2hr while awak e until discontinued starting 10/27/2019 Initiate Oxygen Ther apy Protocol Initiate Oxygen Therapy Protocol Respiratory Care Routine Daily until discontinued starting 10/27/2019 [place] Comment on above: Daily until disconti nued starting 10/27/2019 Maternal screen 4 Maternal scree n 4 Lab Routine 07/12/2019 11:00 AM EDT [place] Phase I & II - meter ed glucose Phase I & II - metered glucose Point of Care Testing Routine As Needed until discontinued starting 10/27/2019 [place] Comment on above: As Needed until disc ontinued starting 10/27/2019 Immunizations Immunization Date Immunization Notes Care Provider Yue mackay 10-29-2019 tetanus toxoid, redu eric diphtheria toxoid, and acellular pertussis vaccine, adsorbed [facility], [place] 10-27-2019 diphtheria, tetanus toxoids and acellular pertussis vaccine, unspecified formulation Pennie [facility] , [place] Payers Date Payer Category Payer Unknown [id number] 2023 Unknown 2023 Unknown [id number] 2019 Private Health Insurance [id number] 2019 Self-pay 2018 Private Health Insurance [id number] 2018 Private Health Insurance xxx [id number] 1997 Unknown [id number] 2.16.8 [id number] 1997 Unknown [id number] 2.16.8 [id number] 1997 Unknown [id number] 2.16.8 [id number] 1997 Unknown [id number] 2.16.84 [id number] 1997 Unknown [id number] 2.16.8 [id number] 1997 Unknown [id number] 2.16.8 [id number] 1997 Unknown [id number] 2.16. [id number] 1997 Unknown [id number] [id number] 1959 Private Health Insurance [id number] Blue Cross Blue Shield [id number] Unknown [id number] 2.16.84 [id number] Unknown [id number] 2.16.84 [id number] Unknown [id number] 2.16.8 [id number] Social History Date Type Detail Facility Start: 07-12-2019 End: 10-26-2019 Tobacco smoking status NHIS Never smoker [place], [place] Start: 10-26-2019 Alcohol intake Ex-drinker (finding) [place] Start: 02-09-2019 [place], [place] Sex Assigned At Not on file [place] Start: 07-12-2019 Alcohol intake Not Currently Kassi Romero [place], [place] History and physical note 04-20-2023 Note Date & Type Note Facility 04-20-2023 Note [id number]#[id number] [facility] Evaluation note 03-10-2023 Note Date & Type [...] Encouraged salt water gargles, increasing fluids, Tylenol icwr-kbg-mkhcugr for additional relief. Advised patient if that if symptoms continue she needs a follow-up with ENT for evaluation. Advised that we will not continue to see her for this issue in that UC setting, as we are not a follow-up facility. Patient verbalizes understanding and is agreeable with treatment plan. [facility] Other Evaluation note 02-18-2023 Note Date & [...] the ER for worsening symptoms or concern [facility] Other Evaluation note 06-11-2022 Note Date & [...] Other Throat infection: Strep material was printed [facility] Other Evaluation note 04-04-2022 Note Date & [...] She understands and agrees with the plan. [facility] Other Evaluation note Note Date & Type Note Facility Evaluation note No Information [employer] [employer] Other History general Narrative - Reported Note Date & Type Note Facility History general Narrative - Reported Type Medical History Dysautonomia Medical History Cardioinhibited Neurogenic Synco pe Medical History PCOS Surgical History knee surgery [facility] Other Summary Purpose Family History No Family History Records FoundNo Family History Records FoundNo Family History Records FoundNo Family History Records FoundNo Family History Records FoundNo Family History Records FoundNo Family History Records FoundNo Family History Records FoundNo Family History Records Found Advance Directives No Advanced Directives Records FoundDocuments on File Type Date Recorded Patient 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 If you think your pain medicine [...] take. When should you call for help? [email or web address] anytime you think you may need emergency [...] Where can you learn more? Go to [email or web address] and sign in to your [employer]YMILL account. Enter M806 in the Search Health Information box to learn more about Section: What to Expect at Home. If you do not have an account, please click on the Sign Up Now link. Current as of: August 04, 2018 Content Version: 12.1 5134-7988 [employer]. Care instructions adapted under license by [employer]. If youhave questions about a medical condition or this instruction, always ask your healthcare professional. [employer] disclaims any warranty or liability for your use of this information. documented in this encounter History of Present Illness * Chadwick Patel, - 10/29/2019 12:22 AM EST POST OPERATIVE DAY # 2 Yung Ga is a 24 y.o. female This [...] 86.2 10/28/2019 PLT 199 10/28/2019 Assessment/Plan: 1. Yung Ga is a POD # 2 s/p PLTCS3 - Doing well, VSS - Male infant in General Care Nursery, circumcision held - [...] patient Attending Physician: Dr. Jorge Rodriguez DO Early Childhood Education Coordinator Resident 10/29/2019, 12:22 AM Attending Physician Statement I have discussed the care of Yung Ga, including pertinent history and exam findings, [...] Whitley DO - 10/28/2019 12:11 PM EST COMMUNITY RELATIONS MANAGER Resident Interval Note Patient labs reviewed below. [...] 1.03 (L) 1.10 - 3.70 k/uL Absolute Bollinger # 0.69 0.10 - 1.20 k/uL Absolute Eos # <0.03 0.00 - 0.44 k/uL Basophils Absolute <0.03 0.00 - 0.20 k/uL Absolute Immature Granulocyte 0.05 0.00 - 0.30 k/uL Mi Whitley DO Early Childhood Education Coordinator Resident Pager: [phone] 10/28/2019 12:11 PM * Teresa Montalvo DO - 10/28/2019 7:51 AM EST POST OPERATIVE DAY # 1 Yung Ga is a 24 y.o. female This [...] 84.7 10/26/2019 PLT 248 10/26/2019 Assessment/Plan: 1. Yung Ga is a POD # 1 s/p PLTCS - Doing well - VSS - male in General Care Nursery, circumcision desired - [...] Secondary Smoke risks and Sudden Syndrome were reviewed with recommendations. sleeping, back to sleep and avoidance of [...] patient Attending Physician: Dr. Selvin Garcia DO Early Childhood Education Coordinator Resident 10/28/2019, 7:52 AM Date: 10/28/2019 Time: 11:20 AM Patient Name: Yung Ga Patient : [id number] Room/Bed: 0749/0749-01 Admission Date/Time: 10/26/2019 8:11 AM Attending Physician Statement I have discussed the care of Yung Ga, including pertinent history and exam findings [...] and no cervical or station change since 299. Patient counseled on R/B/A on options for continuing with elective induction vs proceeding with primary section. Decision was made to proceed with prim timothy section for macrosomia, suspected CPD, failed IOL, and maternal request. Anesthesia and NICU notified. Dr. Patel and senior resident present for counseling and decision. Janeth Garcia DO COMMUNITY RELATIONS MANAGER Resident, PGY1 [place], [place] 10/27/2019, 8:46 AM Attending Physician Statement I have discussed the care of Yung Ga, including pertinent history and exam findings, [...] 10/27/2019 3:56 AM EST Labor Progress Note Yung Ga is a 24 y.o. female at 39w1d The patient was seen and examined. Her pain is well controlled. She reports movement is present, denies contractions, complains of loss of fluid, denies vaginal bleeding. Vital Signs: Vitals: 10/26/19 1000 10/26/19 1751 10/26/19200210/26/19 2326 BP: 121/74 109/68 108/68 Pulse: 81 [...] Catheter in Place: absent Interventions: none Assessment/Plan: Yung Ga is a 24 y.o. female at 39w1d admitted for eIOL - GBS negative, No indication for GBS prophylaxis - VSS - cEFM and TOCO - IVF LR @125 ml/hr - Cytotec 50 Buccal x2, plan for 3rd dose when contractions space out - S/P Cytotec 25 Buccal Kwame Denny DO Early Childhood Education Coordinator Resident 10/27/2019, 3:56 AM * Kwame Denny DO - 10/26/2019 11:26 PM EST Labor Progress Note Yung Ga is a 24 y.o. female at [...] Catheter in Place: absent Interventions: none Assessment/Plan: Yung Ga is a 24 y.o. female at 39w0d admitted for eIOL - GBS negative, No indication for GBS prophylaxis - VSS - cEFM and TOCO - IVF LR @125 ml/hr - Cytotec 50 Buccal x2 (second dose given at this time), next @0330 - S/P Cytotec 25 Buccal Senior resident updated and in agreement with plan Kwame Denny DO Early Childhood Education Coordinator Resident 10/26/2019, 11:26 PM * Pennie Goldberg MD - 10/26/2019 9:33 AM EST Senior resident Progress Note In to discuss plan of care with patient. Patient with suspected macrosomic infant at 4479g in MFM on 10/26. Patient counseled on risks of shoulder dystocia, higher degree lacerations, permanent neurological damage to infant, and post hemorrhage. Patient states she wishes to proceed with vaginal delivery at this time and is declining primary section. Patient counseled by procedure writer as well as attending. Additionally discussed safest route of delivery for infants is vaginal delivery followed by planned section. Patient voices understanding that highest risk for is with failed attempted vaginal delivery. Patient requesting additional time to consider her options. Patient offered support and given time to discuss options with . April Villarreal COMMUNITY RELATIONS MANAGER Resident, PGY3 Pager: [phone] [place], [place] 10/26/19 9:42 AM Patient additionally counseled [...] section at any time. At this time Yung wishes to start an induction of labor. [...] section and content) DATE CREATED AUTHOR 03/03/2019 [facility] DATE CREATED AUTHOR AUTHOR'S ORGANIZ ATION 03/09/2019 [facility] DATE CREATED AUTHOR AUTHOR'S ORGANIZ ATION 03/12/2019 [facility] DATE CREATED AUTHOR AUTHOR'S ORGANIZ ATION 11/03/2019 [facility] DATE CREATED AUTHOR AUTHOR'S ORGANIZ ATION 02/22/2022 [facility] DATE CREATED AUTHOR AUTHOR'S ORGANIZ ATION 07/09/2022 [facility] dical Specialist DATE CREATED AUTHOR AUTHOR'S ORGANIZ ATION 05/20/2023 [facility] Bridges [facility] DATE CREATED AUTHOR AUTHOR'S ORGANIZ ATION 08/04/2023 [facility] DATE CREATED AUTHOR AUTHOR'S ORGANIZ ATION 11/05/2023 [facility] EPIC Reason for Visit (unrecogniz ed section and content) Reason Comments Scheduled Induction Status Reason Specialty Diagnoses / Procedures Referre d By Contact Referred To Contact Diagnoses HRP (high risk ), unspecified trimester Pennie Goldberg MD [address] [place] [address] [facility] FOR RECORDS PERTAINING TO PATIENTS WHO ARE [...] BE BASED ON THE PRIMARY CLINICAL RECORDS. [employer] [facility]. provides no warranty or guarantee of the accuracy or completeness of information in this document.
--- NOTE | 2023-12-17 08:11 | ED.GENADUL1 ---
HPI - General Adult General Chief complaint: Upper Respiratory Infection Stated complaint: SORE THROAT Time Seen by Provider: 12/17/23 07:45 Source: patient Mode of arrival: walk-in Limitations: no limitations History of Present Illness HPI narrative: Patient developed sore throat and was started on amoxicilin at a local urgent care after testing negative for strep and covid. No pain relief with OTC meds including tylenol, motrin and throat sprays. Also tried ice and gargling salt water. No fever at home. No GI or symptoms. Related Data Home Medications Medication Instructions Recorded Confirmed amoxicillin 500 mg capsule 500 mg PO Q8H 12/17/23 12/17/23 metformin 500 mg tablet,extended 500 mg PO DAILY 12/17/23 12/17/23 release 24 hr Allergies Allergy/AdvReac Type Severity Reaction Status Date / Time No Known Drug Allergies Allergy Verified 12/17/23 07:51 PFSH PFS Social History Smoking status: Former smoker Exam Narrative Exam Narrative: Nurses notes and vital signs reviewed and patient is not hypoxic. afebrile General: Well-appearing and in no apparent distress. Skin: Warm, dry, no pallor noted. No rash. Head: Normocephalic, atraumatic. Neck: Supple, non-tender. No cervical lymphadenopathy Eye: Pupils are equal, round and EOMI. No scleral icterus. Ears, Nose, Mouth, and Throat: TM are clear. Posterior oropharynx erythema without exudate noted, uvula is mid-line. No nasal mucosal hypertrophy. Oral mucosa is moist Cardiovascular: Tachcyardia. Respiratory: No accessory muscle use or respiratory distress. Lungs are clear to auscultation, no wheezing, rales or rhonchi Neurological: A&O x4. No cranial nerve dysfunction observed. No truncal ataxia. Moves all extremities. Sensation intact. Psychiatric: Cooperative and interactive. Normal mood and affect. Constitutional Vital Signs, click to edit/add: Last Vital Signs Temp 98.6 F 12/17/23 07:45 Pulse 99 H 12/17/23 07:45 Resp 16 12/17/23 07:45 BP 120/93 H 12/17/23 07:45 Pulse Ox 98 12/17/23 07:45 Course Vital Signs Vital signs: Vital Signs Temperature 98.6 F 12/17/23 07:45 Pulse Rate 99 H 12/17/23 07:45 Respiratory Rate 16 12/17/23 07:45 Blood Pressure 120/93 H 12/17/23 07:45 Pulse Oximetry 98 12/17/23 07:45 Temperature 98.6 F 12/17/23 07:45 Pulse Rate 99 H 12/17/23 07:45 Respiratory Rate 16 12/17/23 07:45 Blood Pressure 120/93 H 12/17/23 07:45 Pulse Oximetry 98 12/17/23 07:45 Medical Decision Making MDM Narrative Medical decision making narrative: No posterior pharyngeal airway compromise noted. She had tonsillectomy last March. No pharyngeal mass noted. Patient prescribed BMX solution and encouraged to finish her amoxicillin prescription. ED return if worse Discharge Plan Discharge Chief Complaint: Upper Respiratory Infection Clinical Impression: Pharyngitis Patient Disposition: Home, Self-Care Time of Disposition Decision: 08:15 Prescriptions / Home Meds: No Action metformin 500 mg tablet extended release 24 hr 500 mg PO DAILY amoxicillin 500 mg capsule 500 mg PO Q8H Rx Instructions: Has had 2 doses Instructions: Pharyngitis (ED) Stand Alone Forms: Portal Instructions Referrals: Miki Ibrahim MD [Primary Care Provider] - 1 week
== END 2023-12-17 08:25 | disposition home or self-care (01) ==
PROVIDERS: Emergency Provider Emergency Medicine; PCP Family Medicine
DX: J02.9 Acute pharyngitis, unspecified (principal); Z79.899 Other long term (current) drug therapy; Z79.84 Long term (current) use of oral hypoglycemic drugs; Z87.891 Personal history of nicotine dependence
CPT/HCPCS: 99283

== ENCOUNTER 2025-01-30 10:42 | Outpatient (OUT) | payer BC, SELFPAY ==
--- OUTSIDE RECORDS SUMMARY | 2025-01-30 11:05 | XMS_ITS | CCD ---
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 Normal 11.8-14.4 [facility] Comment on above: Performed By: #### C DP #### [address] [address] Postdoctoral Scientist: Rico Nicole MD Hematocrit (Bld) [Volume fraction] 29.3 % Low 36.3-47.1 [facility] Comment on above: Performed By: #### C DP #### [address] [address] Postdoctoral Scientist: Rico Nicole MD Hemoglobin (Bld) [Mass/Vol] 8.9 g/dL Low 11.9-15.1 [facility] Comment on above: Performed By: #### C DP #### [address] [address] Postdoctoral Scientist: Rico Nicole MD Immature granulocytes (Bld) [#/Vol] 0 % Normal 0 [facility] Comment on above: Performed By: #### C DP #### [address] [address] Postdoctoral Scientist: Rico Nicole MD Lymphocytes (Bld) [#/Vol] 1.03 10*3/uL Low 1.10-3.70 [facility] Comment on above: Performed By: #### C DP #### [address] [address] Postdoctoral Scientist: Rico Nicole MD Lymphocytes/100 WBC (Bld) 8 % Low 24-43 [facility] Comment on above: Performed By: #### C DP #### [place] [address] Postdoctoral Scientist: Rico Nicole MD MCH (RBC) [Entitic mass] 26.2 pg Normal 25.2-33.5 [facility] Comment on above: Performed By: #### C DP #### [place] [address] Postdoctoral Scientist: Rico Nicole MD MCHC (RBC) [Mass/Vol] 30.4 g/dL Normal 28.4-34.8 [facility] Comment on above: Performed By: #### C DP #### [place] [address] Postdoctoral Scientist: Rico Nicole MD MCV (RBC) [Entitic vol] 86.2 fL Normal 82.6-102.9 [facility] Comment on above: Performed By: #### C DP #### [place] [address] Postdoctoral Scientist: Rico Nicole MD Monocytes (Bld) [#/Vol] 0.69 10*3/uL Normal 0.10-1.20 [facility] Comment on above: Performed By: #### C DP #### [place] [address] Postdoctoral Scientist: Rico Nicole MD Monocytes/100 WBC (Bld) 6 % Normal 3-12 [facility] Comment on above: Performed By: #### C DP #### [place] [address] Postdoctoral Scientist: Rico Nicole MD Neutrophil (Seg) 86 % High 36-65 [facility] Comment on above: Performed By: #### C DP #### [address] [address] Postdoctoral Scientist: Rico Nicole MD NRBC Automated 0.0 per 100 WBC Normal 0.0 [facility] Comment on above: Performed By: #### C DP #### [address] [address] Postdoctoral Scientist: Rico Nicole MD Platelet mean volume (Bld) [Entitic vol] 12.0 fL Normal 8.1-13.5 [facility] Comment on above: Performed By: #### C DP #### [address] [address] Postdoctoral Scientist: Rico Nicole MD Platelets (Bld) [#/Vol] 199 10*3/uL Normal 138-453 [facility] Comment on above: Performed By: #### C DP #### [address] [address] Postdoctoral Scientist: Rico Nicole MD RBC (Bld) [#/Vol] 3.40 10*6/uL Low 3.95-5.11 [facility] Comment on above: Performed By: #### C DP #### [address] [address] Postdoctoral Scientist: Rico Nicole MD WBC (Bld) [#/Vol] 12.4 10*3/uL High 3.5-11.3 [facility] Comment on above: Performed By: #### C DP #### [address] [address] Postdoctoral Scientist: Rico Nicole MD Auto Diff Performed NOT REPORTED Normal [facility] Comment on above: Performed By: #### C DP #### [facility] [address] [place] [phone] Postdoctoral Scientist: Rico Nicole MD Platelets (Bld) [#/Vol] NOT REPORTED Normal [facility] Comment on above: Performed By: #### C DP #### [facility] [address] [place] [address] [phone] Postdoctoral Scientist: Rico Nicole MD RBC morphology finding Nom (Bld) NOT REPORTED Normal [facility] Comment on above: Performed By: #### C DP #### [facility] [address] [place] [address] [phone] Postdoctoral Scientist: Rico Nicole MD WBC Morphology NOT REPORTED Normal [facility] Comment on above: Performed By: #### C DP #### [address] [phone] Postdoctoral Scientist: Rico Nicole MD Surgical Pathologyon 019 Surgical Pathology (NOTE) [id number] [facility] CONSULTING PATHOLOGISTS [facility] ANATOMIC PATHOLOGY [address] [place] [phone] SURGICAL PATHOLOGY CONSULTATION Patient Name: YUNG [facility] Rec: [id number] Path Number: [id number] Collected: 10/27/2019 Received: 10/31/2019 Reported: 11/01/2019 09:33 [...] PLACENTA, CORD AND MEMBRANES Gross Description YUNG GA, GONZALES Placenta with attached membranes and umbilical cord. [...] capillaries: Not increased Other: Few microcalcifications Normal [facility] Comment on above: Performed By: #### P PPVS #### [facility] [employer] [facility] [place], [place] [phone] Postdoctoral Scientist: Rico Nicole MD CBC auto differentialon 10-01 Basophils (Bld) [#/Vol] 0.03 10*3/uL [place] Basophils/100 WBC (Bld) 0 % 0 - 2 % [place] Differential Type NOT REPORTED [place] Eosinophils (Bld) [#/Vol] 0.04 10*3/uL [place] Eosinophils/100 WBC (Bld) 0 % Low 1 - 4 % [place] Erythrocyte distribution width (RBC) [Ratio] 13.6 % 11.8 - 14.4 % [place] Hematocrit (Bld) [Volume fraction] 33.2 % Low 36.3 - 47.1 % [place] Hemoglobin (Bld) [Mass/Vol] 10.3 g/dL Low 11.9 - 15.1 g/dL [place] Immature granulocytes (Bld) [#/Vol] 1 % High 0 [place] Immature granulocytes (Bld) [#/Vol] 0.07 10*3/uL [place] Interpretation and review of laboratory results Abnormal [place] Lymphocytes (Bld) [#/Vol] 2.41 10*3/uL [place] Lymphocytes/100 WBC (Bld) 24 % 24 - 43 % [place] MCH (RBC) [Entitic mass] 26.3 pg 25.2 - 33.5 pg [place] MCHC (RBC) [Mass/Vol] 31.0 g/dL 28.4 - 34.8 g/dL [place] MCV (RBC) [Entitic vol] 84.7 fL 82.6 - 102.9 fL [place] Monocytes (Bld) [#/Vol] 0.76 10*3/uL [place] Monocytes/100 WBC (Bld) 8 % 3 - 12 % [place] Platelet mean volume (Bld) [Entitic vol] 12.5 fL 8.1 - 13.5 fL [place] Platelets (Bld) [#/Vol] NOT REPORTED [place] Platelets (Bld) [#/Vol] 248 10*3/uL [place] RBC (Bld) [#/Vol] 3.92 10*6/uL Low 3.95 - 5.1 1 m/uL [place] RBC morphology finding Nom (Bld) NOT REPORTED [place] Segmented neutrophils/100 WBC (Bld) 67 % High 36 - 65 % [place] Segs Absolute 6.63 [place] WBC (Bld) [#/Vol] 0.0 10*3/uL 0.0 per 10 0 WBC [place] WBC (Bld) [#/Vol] 9.9 10*3/uL [place] WBC Morphology NOT REPORTED [place] CBC with Diffon 10-26-2019 Abs. Basophil 0.03 k/uL Normal 0.00-0.20 [facility] Comment on above: Performed By: #### C DP, ODALYSP #### [facility] [employer] [facility] [place] [address] Postdoctoral Scientist: Rico Nicole MD Abs.Imm.Granulocyt e 0.07 k/uL Normal 0.00-0.30 [facility] Comment on above: Performed By: #### C DP, TREP #### [address] [address] Postdoctoral Scientist: Rico Nicole MD Abs.Neutrophil (Seg) 6.63 k/uL Normal 1.50-8.10 [facility] Comment on above: Performed By: #### C DP, TREP #### [address] [address] Postdoctoral Scientist: Rico Nicole MD Basophils/100 WBC (Bld) 0 % Normal 0-2 [facility] Comment on above: Performed By: #### C NOÉ, TREP #### [place] [address] Postdoctoral Scientist: Rico Nicole MD Eosinophils (Bld) [#/Vol] 0.04 10*3/uL Normal 0.00-0.44 [facility] Comment on above: Performed By: #### C NOÉ, TREP #### [address] [address] Postdoctoral Scientist: Rico Nicole MD Eosinophils/100 WBC (Bld) 0 % Low 1-4 [facility] Comment on above: Performed By: #### C DP, TREP #### [place] [address] Postdoctoral Scientist: Rico Nicole MD Erythrocyte distribution width (RBC) [Ratio] 13.6 % Normal 11.8-14.4 [facility] Comment on above: Performed By: #### C DP, TREP #### [address] [address] Postdoctoral Scientist: Rico Nicole MD Hematocrit (Bld) [Volume fraction] 33.2 % Low 36.3-47.1 [facility] Comment on above: Performed By: #### C DP, TREP #### [address] [address] Postdoctoral Scientist: Rico Nicole MD Hemoglobin (Bld) [Mass/Vol] 10.3 g/dL Low 11.9-15.1 [facility] Comment on above: Performed By: #### C DP, TREP #### [address] [address] Postdoctoral Scientist: Rico Nicole MD Immature granulocytes (Bld) [#/Vol] 1 % High 0 [facility] Comment on above: Performed By: #### C DP, TREP #### [address] [address] Postdoctoral Scientist: Rico Nicole MD Lymphocytes (Bld) [#/Vol] 2.41 10*3/uL Normal 1.10-3.70 [facility] Comment on above: Performed By: #### C DP, TREP #### [address] [address] Postdoctoral Scientist: Rico Nicole MD Lymphocytes/100 WBC (Bld) 24 % Normal 24-43 [facility] Comment on above: Performed By: #### C DP, TREP #### [place] [address] Postdoctoral Scientist: Rico Nicole MD MCH (RBC) [Entitic mass] 26.3 pg Normal 25.2-33.5 [facility] Comment on above: Performed By: #### C DP, TREP #### [address] [address] Postdoctoral Scientist: Rico Nicole MD MCHC (RBC) [Mass/Vol] 31.0 g/dL Normal 28.4-34.8 [facility] Comment on above: Performed By: #### C DP TREP #### [address] [address] Postdoctoral Scientist: Rico Nicole MD MCV (RBC) [Entitic vol] 84.7 fL Normal 82.6-102.9 [facility] Comment on above: Performed By: #### C DP, TREP #### [address] [address] Postdoctoral Scientist: Rico Nicole MD Monocytes (Bld) [#/Vol] 0.76 10*3/uL Normal 0.10-1.20 [facility] Comment on above: Performed By: #### C DP, TREP #### [address] [address] Postdoctoral Scientist: Rico Nicole MD Monocytes/100 WBC (Bld) 8 % Normal 3-12 [facility] Comment on above: Performed By: #### C DP, TREP #### [address] [address] Postdoctoral Scientist: Rico Nicole MD Neutrophil (Seg) 67 % High 36-65 [facility] Comment on above: Performed By: #### C DP, TREP #### [address] [address] Postdoctoral Scientist: Rico Nicole MD NRBC Automated 0.0 per 100 WBC Normal 0.0 [facility] Comment on above: Performed By: #### C DP, TREP #### [address] [address] Postdoctoral Scientist: Rico Nicole MD Platelet mean volume (Bld) [Entitic vol] 12.5 fL Normal 8.1-13.5 [facility] Comment on above: Performed By: #### C DP, TREP #### [address] [address] Postdoctoral Scientist: Rico Nicole MD Platelets (Bld) [#/Vol] 248 10*3/uL Normal 138-453 [facility] Comment on above: Performed By: #### C DP, TREP #### [address] [address] Postdoctoral Scientist: Rico Nicole MD RBC (Bld) [#/Vol] 3.92 10*6/uL Low 3.95-5.11 [facility] Comment on above: Performed By: #### C DP, TREP #### [address] [address] Postdoctoral Scientist: Rico Nicole MD WBC (Bld) [#/Vol] 9.9 10*3/uL Normal 3.5-11.3 [facility] Comment on above: Performed By: #### C DP, TREP #### [address] [address] Postdoctoral Scientist: Rico Nicole MD Auto Diff Performed NOT REPORTED Normal [facility] Comment on above: Performed By: #### C DP, TREP #### [address] [address] Postdoctoral Scientist: Rico Nicole MD Platelets (Bld) [#/Vol] NOT REPORTED Normal [facility] Comment on above: Performed By: #### C DP, TREP #### [address] [address] Postdoctoral Scientist: Rico Nicole MD RBC morphology finding Nom (Bld) NOT REPORTED Normal [facility] Comment on above: Performed By: #### C DP, TREP #### [address] [address] Postdoctoral Scientist: Rico Nicole MD WBC Morphology NOT REPORTED Normal [facility] Comment on above: Performed By: #### C DP, TREP #### [address] [address] Postdoctoral Scientist: Rico Nicole MD Drug Scr, Abuse, Uron 2018 Amphetamine(s),Ur Negative Normal NEG [facility] Comment on above: Result Comment: (Positive cutoff 1000 ng/mL) Performed By: #### D AU #### [facility] [address] [place] [address] Postdoctoral Scientist: Rico Nicole MD Barbiturate(s),Ur Negative Normal NEG [facility] Comment on above: Result Comment: (Positive cutoff 200 ng/mL) Performed By: #### D AU #### [address] [address] Postdoctoral Scientist: Rico Nicole MD Base excess Calc (Bld) [Moles/Vol] Negative Normal NEG [facility] Comment on above: Result Comment: (Positive cutoff 300 ng/mL) Performed By: #### D AU #### [facility] [employer] [address] [place] [phone] Postdoctoral Scientist: Rico Nicole MD Benzodiazepine(s) Negative Normal NEG [facility] Comment on above: Result Comment: (Positive cutoff 200 ng/mL) Performed By: #### D AU #### [facility] [address] [place] [phone] Postdoctoral Scientist: Rico Nicole MD Cannabinoid(s),Ur Negative Normal NEG [facility] Comment on above: Result Comment: (Positive cutoff 50 ng/mL) Performed By: #### D AU #### [facility] [address] [place] [address] Postdoctoral Scientist: Rico Nicole MD Interpretive Info Assay provides medic al screening only. The absence of expected drug(s) and/or Normal [facility] Comment on above: Result Comment: meta bolite(s) may indicate diluted or adulterated urine, limitations of testing or timing of collection. Testing for legal purposes should be confirmed by another method. To request confirmation of test result, please call the lab within 7 days of sample submission. Performed By: #### D AU #### [address] [address] Postdoctoral Scientist: Rico Nicole MD Methadone Ql (U) Negative Normal NEG [facility] Comment on above: Result Comment: (Positive cutoff 300 ng/mL) Performed By: #### D AU #### [facility] [employer] [address] [place] [phone] Postdoctoral Scientist: Rico Nicole MD Opiate(s), Ur Negative Normal NEG [facility] Comment on above: Result Comment: (Positive cutoff 300 ng/mL) Performed By: #### D AU #### [address] [address] Postdoctoral Scientist: Rico Nicole MD Oxycodone, Urine Negative Normal NEG [facility] Comment on above: Result Comment: (Positive cutoff 100 ng/mL) Performed By: #### D AU #### [address] [address] Postdoctoral Scientist: Rico Nicole MD Phencyclidine, Ur Negative Normal NEG [facility] Comment on above: Result Comment: (Positive cutoff 25 ng/mL) Performed By: #### D AU #### [address] [address] Postdoctoral Scientist: Rico Nicole MD Buprenorphrine, Ur NOT REPORTED Normal NEG [facility] Comment on above: Performed By: #### D AU #### [facility] [employer] [address] [place] [phone] Postdoctoral Scientist: Rico Nicole MD MDMA, Urine NOT REPORTED Normal NEG [facility] Comment on above: Performed By: #### D AU #### [address] [address] Postdoctoral Scientist: Rico Nicole MD Methamphetamine, Ur NOT REPORTED Normal NEG [facility] Comment on above: Performed By: #### D AU #### [facility] [place] [address] Postdoctoral Scientist: Rico Nicole MD Propoxyphene,Urine NOT REPORTED Normal NEG [facility] Comment on above: Performed By: #### D AU #### [facility] [address] [place] [address] Postdoctoral Scientist: Rico Nicole MD Tricyclic antidepressants Screen Ql (U) NOT REPORTED Normal NEG [facility] Comment on above: Performed By: #### D AU #### [facility] [address] [place] [phone] Postdoctoral Scientist: Rico Nicole MD T. pallidum Abon 10-26-2019 T. pallidum, IgG NONREACTIVE NONREACTIVE [place] Comment on above: T. pallidum antibodies are not detected. There is no serological evidence of infection with T. pallidum (early primary syphilis cannot be excluded). Retest in 2-4 weeks if syphilis is clinically suspect. T.pallidum Ab Screenon 10-26 T.pallidum Ab Screen NONREACTIVE Normal NR [facility] Comment on above: Result Comment: T. pallidum antibodies are not detected. There is no serological evidence of infection with T. pallidum (early primary syphilis cannot be excluded). Retest in 2-4 weeks if syphilis is clinically suspect. Performed By: #### C DP, TREP #### [facility] [employer] [address] [place] [address] [phone] Postdoctoral Scientist: Rico Nicole MD TYPE AND SCREENon 10-26-2019 ABO/Rh Positive [place], [place] Arm Band Number BE [id number] [place], [place] Expiration Date 10/29/2019,2354 [place], [place] Type + Screenon 10-26-2019 Type + Screen Sample Expiration 10/29/2019,2359 Arm Band Number BE [id number] ABO/Rh(D) O POSITIVE Antibody Screen NEGATIVE Normal [facility] Comment on above: Performed By: #### T YS #### [facility] [employer] [address] [place] [address] Postdoctoral Scientist: Rico Nicole MD Urine Drug Screenon 10-26-20 Amphetamine Screen, Ur Negative NEGATIVE [facility], [place] Comment on above: (Positive cutoff 1000 ng/mL) Barbiturate Screen, Ur Negative NEGATIVE [facility], [place] Comment on above: (Positive cutoff 200 ng/mL) Benzodiazepine Screen, Urine Negative NEGATIVE [facility], [place] Comment on above: (Positive cutoff 200 ng/mL) Buprenorphine Urine NOT REPORTED NEGATIVE [facility], [place] Cannabinoid Scrn, Ur Negative NEGATIVE [facility], [place] Comment on above: (Positive cutoff 50 ng/mL) Cocaine Metabolite, Urine Negative NEGATIVE [facility], [place] Comment on above: (Positive cutoff 300 ng/mL) MDMA, Urine NOT REPORTED NEGATIVE [facility] [place], [place] Methadone Screen, Urine Negative NEGATIVE [facility], [place] Comment on above: (Positive cutoff 300 ng/mL) Methamphetamine, Urine NOT REPORTED NEGATIVE [facility], [place] Opiates, Urine Negative NEGATIVE [facility] [place] [place] Comment on above: (Positive cutoff 300 ng/mL) Oxycodone Screen, Ur Negative NEGATIVE [facility], [place] Comment on above: (Positive cutoff 100 ng/mL) Phencyclidine, Urine Negative NEGATIVE [facility], [place] Comment on above: (Positive cutoff 25 ng/mL) Propoxyphene, Urine NOT REPORTED NEGATIVE [facility], [place] Test Information Assay provides medic al screening only. The absence of expected drug(s) and/or metabolite(s) may indicate diluted or adulterated urine, limitations of testing or timing of collection. [place] Comment on above: Testing for legal pu rposes should be confirmed by another method. To request confirmation of test result, please call the lab within 7 days of sample submission. Tricyclic Antidepressants, Urine NOT REPORTED NEGATIVE [facility], [place] Maternal Serum Scr 4on 07-14 Determined by Ultrasound Normal [facility] Comment on above: Performed By: #### A QUADM #### [address] [address] Postdoctoral Scientist: Rico Nicole MD [facility] [address] [place], [place] [phone] Postdoctoral Scientist: Aryan Morris MD Dimeric Inhibin A 393 pg/mL Normal [facility] Comment on above: Performed By: #### A QUADM #### [address] [address] Postdoctoral Scientist: Rico Nicole MD [address] [phone] Postdoctoral Scientist: Aryan Morris MD Due Date SEE NOTE [facility] Comment on above: Result Comment: Resu lts for Estimated Due Date: 11 02 19 Performed By: #### A QUADM #### [address] [address] Postdoctoral Scientist: Rico Nicole MD [facility] [address] [place] [address] [phone] Postdoctoral Scientist: Aryan Morris MD Family History No [facility] Comment on above: Performed By: #### A QUADM #### [address] [address] Postdoctoral Scientist: Rico Nicole MD [facility] [address] [place], [place] [phone] Postdoctoral Scientist: Aryan Morris MD Gestat Age (exact) 23 wks, 6 days Normal [facility] Comment on above: Performed By: #### A QUADM #### [address] [address] Postdoctoral Scientist: Rico Nicole MD [facility] [address] [place] [address] Postdoctoral Scientist: [place] [id number] IU/L Normal [facility] Comment on above: Performed By: #### A QUADM #### [address] [address] Postdoctoral Scientist: Rico Nicole MD [address] [phone] Postdoctoral Scientist: Aryan Morris MD Hx Aneuploidy Unknown [facility] Comment on above: Performed By: #### A QUADM #### [address] [address] Postdoctoral Scientist: Rico Nicole MD [address] [phone] Postdoctoral Scientist: Aryan Morris MD Ins Req Matern Diab No [facility] Comment on above: Performed By: #### A QUADM #### [address] [address] Postdoctoral Scientist: Rico Nicole MD [address] [phone] Postdoctoral Scientist: Aryan Morris MD Interpretation Screen Neg Normal [facility] Comment on above: Result Comment: (NOT E) INTERPRETATION: SCREEN NEGATIVE Neural Tube Defects (NTD) Negative Down syndrome (DS) Negative Trisomy 18 (T18) Negative Pre-Test Post-Test Cutoff Neural Tube Defects Risks 1:1030 < 1:76536 1:250 Down Syndrome Risks 1:1110 1:604 1:150 Trisomy 18 Risks 1:4330 < 1:21810 1:100 Comments: The risk of an open neural tube defect is less than the screening cut-off. The risk of Down syndrome is less than the screening cut-off. The risk of trisomy 18 is less than the screening cut-off. Test developed and characteristics determined by [employer]. See Compliance Statement B: [email or web address] Performed By: #### A QUADM #### [address] [address] Postdoctoral Scientist: Rico Nicole MD [address] [phone] Postdoctoral Scientist: Aryan Morris MD [facility] Enhanced Rpt See Note [facility] Comment on above: Result Comment: (NOT E) Access [facility] Enhanced Report using either link below: -Direct access: [email or web address] Vega/?[id number] -Enter Username, Password: [email or web address]://Digital Vega Username: [email or web address] Password: [email or web address] Performed by [employer] [address] [place] [address] [id number] [email or web address], Aryan Morris MD, Lab. Director Performed By: #### A QUADM #### [facility] [address] [address] Postdoctoral Scientist: Rico Nicole MD [address] [phone] Postdoctoral Scientist: Aryan Morris MD [age] [facility] Comment on above: Performed By: #### A QUADM #### [address] [address] Postdoctoral Scientist: Rico Nicole MD [address] [phone] Postdoctoral Scientist: Aryan Morris MD Maternal Race Nonblack [facility] Comment on above: Performed By: #### A QUADM #### [address] [address] Postdoctoral Scientist: Rico Nicole MD [address] [phone] Postdoctoral Scientist: Aryan Morris MD MoM Dimeric Inhib A 1.53 [facility] Comment on above: Performed By: #### A QUADM #### [facility] [address] [place] [address] Postdoctoral Scientist: Rico Nicole MD [facility] [address] [place] [address] Postdoctoral Scientist: Aryan Morris MD MoM for AFP 0.70 Normal [facility] Comment on above: Performed By: #### A QUADM #### [address] [address] Postdoctoral Scientist: Rico Nicole MD [facility] [address] [place] [address] Postdoctoral Scientist: Aryan Morris MD MoM for HCG, Tri 2 1.97 Normal [facility] Comment on above: Performed By: #### A QUADM #### [address] [address] Postdoctoral Scientist: Rico Nicole MD [address] [phone] Postdoctoral Scientist: Aryan Morris MD MoM for uE3 1.03 Normal [facility] Comment on above: Performed By: #### A QUADM #### [address] [address] Postdoctoral Scientist: Rico Nicole MD [address] [phone] Postdoctoral Scientist: Aryan Morris MD Number of Fetuses Trevino Normal [facility] Comment on above: Performed By: #### A QUADM #### [address] [address] Postdoctoral Scientist: Rico Nicole MD [facility] [address] [place], [place] [phone] Postdoctoral Scientist: Aryan Morris MD Patient's AFP 63 ng/mL Normal [facility] Comment on above: Performed By: #### A QUADM #### [address] [address] Postdoctoral Scientist: Rico Nicole MD [facility] [address] [place] [address] Postdoctoral Scientist: Aryan Morirs MD Patient's uE3 3.28 ng/mL [facility] Comment on above: Performed By: #### A QUADM #### [address] [address] Postdoctoral Scientist: Rico Nicole MD [facility] [address] [place] [address] Postdoctoral Scientist: Aryan Morris MD Smoking Unknown [facility] Comment on above: Performed By: #### A QUADM #### [address] [address] Postdoctoral Scientist: Rico Nicole MD [address] [phone] Postdoctoral Scientist: Aryan Morris MD Specimen See Note [facility] Comment on above: Result Comment: Init ial sample Performed By: #### A QUADM #### [address] [address] Postdoctoral Scientist: Rico Nicole MD [address] [phone] Postdoctoral Scientist: Aryan Morris MD Maternal Serum Scr 4on 07-12 Dating US [facility] Comment on above: Performed By: #### A QUADM #### [address] [address] Postdoctoral Scientist: Rico Nicole MD [facility] [address] [place], [place] [phone] Postdoctoral Scientist: Aryan Morris MD Diabetic NO [facility] Comment on above: Performed By: #### A QUADM #### [address] [address] Postdoctoral Scientist: Rico Nicole MD [facility] [address] [place] [address] Postdoctoral Scientist: Aryan Morris MD Estimated Due Date 11/02/2019 [facility] Comment on above: Performed By: #### A QUADM #### [facility] [address] [address] Postdoctoral Scientist: Rico Nicole MD [facility] [address] [place] [address] Postdoctoral Scientist: Aryan Morris MD Family History NO [facility] Comment on above: Performed By: #### A QUADM #### [address] [address] Postdoctoral Scientist: Rico Nicole MD [facility] [address] [place] [address] Postdoctoral Scientist: Aryan Morris MD Maternal date 1995 [facility] Comment on above: Performed By: #### A QUADM #### [address] [address] Postdoctoral Scientist: Rico Nicole MD [address] [phone] Postdoctoral Scientist: Aryan Morris MD Race (Maternal) [facility] Comment on above: Performed By: #### A QUADM #### [address] [address] Postdoctoral Scientist: Rico Nicole MD [facility] [address] [place] [address] Postdoctoral Scientist: Aryan Morris MD Repeat Specimen NO [facility] Comment on above: Performed By: #### A QUADM #### [address] [address] Postdoctoral Scientist: Rico Nicole MD [facility] [address] [place] [address] Postdoctoral Scientist: Aryan Morris MD Current Smoking NOT REPORTED Normal [facility] Comment on above: Performed By: #### A QUADM #### [address] [address] Postdoctoral Scientist: Rico Nicole MD [facility] [address] [place] [address] Postdoctoral Scientist: Aryan Morris MD In Vitro Fertalizat NOT REPORTED Normal [facility] Comment on above: Performed By: #### A QUADM #### [address] [address] Postdoctoral Scientist: Rico Nicole MD [facility] [address] [place] [address] Postdoctoral Scientist: Aryan Morris MD LMP date NOT REPORTED Normal [facility] Comment on above: Performed By: #### A QUADM #### [address] [address] Postdoctoral Scientist: Rico Nicole MD [facility] [address] [place] [address] Postdoctoral Scientist: Aryan Morris MD Monochorionic Twins NOT REPORTED Normal [facility] Comment on above: Performed By: #### A QUADM #### [address] [address] Postdoctoral Scientist: Rico Nicole MD [facility] [address] [place] [address] Postdoctoral Scientist: Aryan Morris MD Prev Trisomy Preg NOT REPORTED Normal [facility] Comment on above: Performed By: #### A QUADM #### [address] [address] Postdoctoral Scientist: Rico Nicole MD [facility] [address] [place] [address] Postdoctoral Scientist: Aryan Morris MD Valproic/Carbamaze p NOT REPORTED Normal [facility] Comment on above: Performed By: #### A QUADM #### [facility] [address] [place], [place] [phone] Postdoctoral Scientist: Rico Nicole MD [facility] [address] [place] [address] Postdoctoral Scientist: Aryan Morris MD Chlamydia/GC/Trich NAAon Chlamydia Trachomotis, MALINI Negative Normal Negative [facility] Comment on above: Order Comment: [facility] SPECIMEN SOURCE/DESCRIPTION URINE Performed By: #### G CCHLAMTRI #### [facility] , #### CUU #### [facility] [address] [place] [address] Neisseria Gonorrhoeae, MALINI Negative Normal Negative [facility] Comment on above: Order Comment: [facility] SPECIMEN SOURCE/DESCRIPTION URINE Performed By: #### G CCHLAMTRI #### [facility] , #### CUU #### [facility] [address] [place] [address] Trichomonas MALINI Negative Normal Negative [facility] Comment on above: Order Comment: [facility] SPECIMEN SOURCE/DESCRIPTION URINE Result Comment: Perf ormed at: =G - [facility] [address] [phone] Postdoctoral Scientist: Emilia Hankins MD, Phone: [phone] PERFORMED BY: [place] [address] PATHOLOGIST ONLINE CONTENT EDITOR JONI FLEMING M.D. Performed By: #### G CCHLAMTRI #### [facility] , #### CUU #### [facility] [address] [place] [address] [place] Urine Cultureon 02-27-2019 Bacteria identified Cx Nom (U) [facility] 30,000 colonies/ml mixed bacterial skin contaminants 2 Days PERFORMED BY: [place] [id number] PATHOLOGIST ONLINE CONTENT EDITOR JONI FLEMING M.D. [facility] Comment on above: Performed By: #### G CCHLAMTRI #### [facility] , #### CUU #### [facility] [address] [id number] [place] Vital Signs Date Time Vital Sign Value Performing Clinician Facility 12-16-2023 16:55-0500 Body height 170.18 cm Aline [place] Other [facility] Other 12-16-2023 16:55-0500 Body mass index (BMI) [Ratio] 38.49 kg/m2 Aline Colemond Other [facility] Other 12-16-2023 16:55-0500 Body temperature 101.4 [degF] Aline [place]mond Other [facility] Other 12-16-2023 16:55-0500 Body weight 111.49 kg Aline Garcia Other [facility] Other 12-16-2023 16:55-0500 Diastolic blood pressure 90 mm[Hg] Aline Colemond Other [facility] Other 12-16-2023 16:55-0500 Respiratory rate 18 /min Aline Colemond Other [facility] Other 12-16-2023 16:55-0500 SaO2% (BldA) [Mass fraction] 98 % Aline Colemond Other [facility] Other 12-16-2023 16:55-0500 Systolic blood pressure 130 mm[Hg] Aline Radha Other [facility] Other 03-10-2023 16:50-0400 Body height 170.18 cm Karol Carrasquillo Other [facility] Other 03-10-2023 16:50-0400 Body mass index (BMI) [Ratio] 36.02 kg/m2 Karol Carrasquillo Other [facility] Other 03-10-2023 16:50-0400 Body temperature 97.5 [degF] Karol Carrasquillo Other [facility] Other 03-10-2023 16:50-0400 Body weight 104.33 kg Karol Carrasquillo Other [facility] Other 03-10-2023 16:50-0400 Respiratory rate 18 /min Karol Carrasquillo Other [facility] Other 03-10-2023 16:50-0400 SaO2% (BldA) [Mass fraction] 98 % Karol Carrasquillo Other [facility] Other 02-18-2023 10:30-0400 Body height 170.18 cm Aline Garcia Other [facility] Other 02-18-2023 10:30-0400 Body mass index (BMI) [Ratio] 37.43 kg/m2 Aline Garcia Other [facility] Other 02-18-2023 10:30-0400 Body temperature 98.1 [degF] Aline Garcia Other [facility] Other 02-18-2023 10:30-0400 Body weight 108.41 kg Aline Garcia Other [facility] Other 02-18-2023 10:30-0400 Respiratory rate 18 /min Aline [place] Other [facility] Other 02-18-2023 10:30-0400 SaO2% (BldA) [Mass fraction] 100 % Aline Radha Other [facility] Other 06-11-2022 16:15-0400 Body height 170.18 cm Aline Radha Other [facility] Other 06-11-2022 16:15-0400 Body mass index (BMI) [Ratio] 34.45 kg/m2 Aline Radha Other [facility] Other 06-11-2022 16:15-0400 Body temperature 98.9 [degF] Aline Radha Other [facility] Other 06-11-2022 16:15-0400 Body weight 99.79 kg Aline Radha Other [facility] Other 06-11-2022 16:15-0400 Respiratory rate 18 /min Aline Radha Other [facility] Other 06-11-2022 16:15-0400 SaO2% (BldA) [Mass fraction] 98 % Aline Radha Other [facility] Other 04-04-2022 13:15-0400 Body height 170.18 cm Slim Castellon Other [facility] Other 04-04-2022 13:15-0400 Body mass index (BMI) [Ratio] 34.45 kg/m2 Slim Castellon Other [facility] Other 04-04-2022 13:15-0400 Body temperature 96.2 [degF] Slim Castellon Other [facility] Other 04-04-2022 13:15-0400 Body weight 99.79 kg Slim Castellon Other [facility] Other 04-04-2022 13:15-0400 Respiratory rate 18 /min Slim Castellon Other [facility] Other 04-04-2022 13:15-0400 SaO2% (BldA) [Mass fraction] 98 % Slim Castellon Other [facility] Other 10-29-2019 08:00-0500 Body Temperature 97.9 [degF] [place] 10-29-2019 08:00-0500 BP Diastolic 76 mm[Hg] [facility] [place] 10-29-2019 08:00-0500 BP Systolic 114 mm[Hg] [facility] [place] 10-29-2019 08:00-0500 Pulse (Heart Rate) 86 /min [facility] [place] 10-29-2019 08:00-0500 Respiratory Rate 16 /min [place] 10-28-2019 16:45-0500 Pulse Oximetry 98 % [facility]ie [facility] [place] 10-26-2019 10:00-0500 BMI (Body Mass Index) 35.51 kg/m2 [facility] [place] 10-26-2019 10:00-0500 Body weight 99.79 kg [facility] [place] 10-26-2019 10:00-0500 Height 167.6 cm [facility] [place] 07-14-2019 18:01-0400 Body weight 192.0 lbs. PENNIE [facility] Comment on above: Performed By: #### AQUADM #### [facility] [address] [place] [address] Postdoctoral Scientist: Rico Nicole MD [facility] [address] [place], [place] [phone] Postdoctoral Scientist: Aryan Morris MD 07-12-2019 17:34-0400 Body weight 192 [facility] Comment on above: Performed By: #### AQUADM #### [facility] [address] [place] [address] Postdoctoral Scientist: Rico Nicole MD [facility] [address] [place], [place] [phone] Postdoctoral Scientist: Aryan Morris MD 07-12-2019 17:34-0400 Body weight LBS PENNIE [facility] Comment on above: Performed By: #### AQUADM #### [facility] [address] [place] [address] Postdoctoral Scientist: Rico Nicole MD [facility] [address] [place] [address] Postdoctoral Scientist: Aryan Morris MD Encounters Encounter Date Encounter Type Care Provider Facility Start: 12-16-2023 End: 12-16-2023 ambulatory Aline Garcia Other [facility] Other Start: 12-16-2023 Office outpatient visit 15 minutes Aline Garcia [facility] Start: 11-03-2023 End: 11-03-2023 ambulatory RODOLFO ASHFORD Not Available Start: 04-22-2023 End: 04-22-2023 ambulatory Chandana Mcdonnell [place] Start: 04-20-2023 End: 04-21-2023 ambulatory Chandana Mcdonnell [facility] Start: 03-10-2023 End: 03-10-2023 ambulatory Karol Carrasquillo Other [facility] Other Start: 03-10-2023 Office outpatient visit 25 minutes Karol Carrasquillo [facility] Start: 02-18-2023 End: 02-18-2023 ambulatory Aline Garcia Other [facility] Other Start: 02-18-2023 Office outpatient visit 15 minutes Alinethad Garcia [facility] Start: 06-12-2022 End: 06-12-2022 ambulatory Aline Radha Other [facility] Other Start: 06-12-2022 Encounter by adal jameson Aline Radha [facility] Start: 06-11-2022 End: 06-11-2022 ambulatory Aline Radha Other [facility] Other Start: 06-11-2022 Office outpatient visit 15 minutes Alinethad Garcia [facility] Start: 04-04-2022 End: 04-04-2022 ambulatory Slim Castellon Other [facility] Other Start: 04-04-2022 Office outpatient visit 15 minutes Slim Castellon [facility] Start: 10-29-2021 End: 10-29-[address] MIKI KRUGER Facility: Start: 10-26-2019 End: 10-29-2019 Evaluation and management of inpatient PENNIE GOLDBERG [facility] Start: 10-26-2019 End: 10-29-2019 Evaluation and management of inpatient Pennie Goldberg Work Phone: [facility] Post Comment on above: PLTCS 10/27/19 M Apg 8,9 Wt 9#8 (Primary Dx) Start: 07-12-2019 End: 07-13-2019 Patient encounter procedure BENJAMIN HEBERTJIMBO [facility] Start: 07-12-2019 End: 07-12-2019 Subsequent hospital visit by physician Miki Kruger [facility] Start: 02-28-2019 End: 03-01-2019 Patient encounter procedure DEFAULT PHYSICIAN Facility:[facility] Start: 02-27-2019 End: 02-27-2019 Patient encounter procedure Marlena Taveras Facility:[facility] Procedures Date Procedure Procedure Detail Performing Clinician Start: 10-29-2019 INCENTIVE SPIROMETRY RT PENNIE GOLDBERG Start: 10-29-2019 DISCHARGE PATIENT FLASH GOLDBERG Start: 10-29-2019 INCENTIVE SPIROMETRY RT PENNIE GOLDBERG Start: 10-29-2019 INCENTIVE SPIROMETRY RT PENNIEZULAY GOLDBERG Start: 10-29-2019 INITIATE OXYGEN THER APY PROTOCOL PENNIE GOLDBERG Start: 10-29-2019 INCENTIVE SPIROMETRY RT PENNIE GOLBDERG Start: 10-29-2019 INCENTIVE SPIROMETRY RT PENNIE GOLDBERG Start: 10-28-2019 INCENTIVE SPIROMETRY RT PENNIEZULAY GOLDBERG Start: 10-28-2019 INCENTIVE SPIROMETRY RT PENNIE GOLDBERG Start: 10-28-2019 CATHETER REMOVAL DONELL GOLDBERG Start: 10-28-2019 SALINE LOCK IV PENNIE GOLDBERG Start: 10-28-2019 INCENTIVE SPIROMETRY RT PENNIEZULAY GOLDBERG Start: 10-28-2019 INCENTIVE SPIROMETRY RT PENNIE GOLDBERG Start: 10-28-2019 INCENTIVE SPIROMETRY RT PENNIE GOLDBERG Start: 10-28-2019 Blood count complete auto&auto difrntl wbc PENNIE GOLDBERG Start: 10-28-2019 INCENTIVE SPIROMETRY RT PENNIE GOLDBERG Start: 10-28-2019 Blood count complete auto&auto difrntl wbc Mariia Alfordith Work Phone: Start: 10-28-2019 INCENTIVE SPIROMETRY RT PENNIE GOLDBERG Start: 10-28-2019 INITIATE OXYGEN THER APY PROTOCOL PENNIE GOLDBERG Start: 10-28-2019 INCENTIVE SPIROMETRY RT PENNIE GOLDBERG Start: 10-28-2019 INCENTIVE SPIROMETRY RT PENNIE CHRISTOPHE Start: 10-27-2019 PLACE INTERMITTENT PNEUMATIC COMPRESSION DEVICE [...] GOLDBERG Start: 10-27-2019 NOTIFY PHYSICIAN (SPECIFY) PENNIE IRAHETAOY Start: 10-27-2019 STRAIGHT CATH PENNIE NAVAS Start: [...] Phone: Start: 10-26-2019 T. PALLIDUM AB Mariia Lozano Rodriguez Work Phone: Start: 10-26-2019 PATIENT STATUS (DIRECT) PENNIE GOLDBERG Start: 10-26-2019 Drug screen class list a Mariia J Rodriguez Work Phone: Start: 07-12-2019 MATERNAL SCREEN 4 FLASH GOLDBERG Plan of Treatment Date Care Activity Detail Author Start: 10-29-2029 DTaP/Tdap/Td vaccine (2 - Td) DTaP/Tdap/Td vaccine (2 - Td) [place] Start: 07-31-2019 Influenza vaccination Flu vaccine (# 1) [place] Start: 2018 Cervical cancer screen Cervical canc er screen [place] Start: 2016 DTaP/Tdap/Td vaccine (1 - Tdap) DTaP/Tdap/Td vaccine (1 - Tdap) [place] Start: 2013 Chlamydia screen Chlamydia screen [place], [place] Start: 2012 HIV screen HIV screen [place], [place] Start: 2012 HPV vaccine (1 - Fem louie 3-dose series) HPV vaccine (1 - Female 3-dose series) [place] Start: 2010 Varicella Vaccine (1 of 2 - 13+ 2-dose series) Varicella Vaccine (1 of 2 - 13+ 2-dose series) [place] Start: 2008 HPV vaccine (1 - Fem louie 2-dose series) HPV vaccine (1 - Female 2-dose series) [place] Start: 2003 Pneumococcal 0-64 ye ars Vaccine (1 of 1 - PPSV23) Pneumococcal 0-64 years Vaccine (1 of 1 - PPSV23) [place] Start: 1998 Varicella Vaccine (1 of 2 - 2-dose childhood series) Varicella Vaccine (1 of 2 - 2-dose childhood series) [place] Incentive spirometry Incentive s pirometry Respiratory Care Routine Every 2hr while awake until discontinued starting 10/27/2019 [place] Comment on above: Every 2hr while awak e until discontinued starting 10/27/2019 Initiate Oxygen Ther apy Protocol Initiate Oxygen Therapy Protocol Respiratory Care Routine Daily until discontinued starting 10/27/2019 [place] Comment on above: Daily until disconti nued starting 10/27/2019 Maternal screen 4 Maternal scree n 4 Lab Routine 07/12/2019 11:00 AM EDT [place] Phase I & II - meter ed glucose Phase I & II - metered glucose Point of Care Testing Routine As Needed until discontinued starting 10/27/2019 [place] Comment on above: As Needed until disc ontinued starting 10/27/2019 Immunizations Immunization Date Immunization Notes Care Provider Fa codie 10-29-2019 tetanus toxoid, redu eric diphtheria toxoid, and acellular pertussis vaccine, adsorbed [place] 10-27-2019 diphtheria, tetanus toxoids and acellular pertussis vaccine, unspecified formulation [place], [place] Payers Date Payer Category Payer Unknown [id number] 2023 Unknown 2023 Unknown [id number] 2019 Private Health Insurance [id number] 2019 Self-pay 2018 Private Health Insurance [id number] 2018 Private Health Insurance xxx [id number] 1997 Unknown [id number] 2.16.8 [id number] 1997 Unknown [id number] 2.16.8 [id number] 1997 Unknown [id number] 2.16.8 [id number] 1997 Unknown [id number] 2.16.84 [id number] 1997 Unknown [id number] 2.16.8 [id number] 1997 Unknown [id number] 2.16.8 [id number] 1997 Unknown [id number] 2.16. [id number] 1997 Unknown [id number] 2.16.840 .[id number] 1959 Private Health Insurance [id number] [facility] [id number] [facility] [id number] Unknown [id number] 2.16.84 [id number] Unknown [id number] 2.16.84 [id number] Unknown [id number] 2.16.8 [id number] Social History Date Type Detail Facility Start: 07-12-2019 End: 10-26-2019 Tobacco smoking status NHIS Never smoker [place] Start: 10-26-2019 Alcohol intake Ex-drinker (finding) [place] Start: 02-09-2019 [place] Sex Assigned At Not on file [place] Start: 07-12-2019 Alcohol intake Not Currently [place], [place] Evaluation note 12-16-2023 Note Date & Type Note Facility 12-16-2023 Evaluation note Encounter Date Diagnosis Assessment Notes Nov, Sore throat (ICD-10 - J02.9) Nov, Acute pharyngitis due to other specified organisms (ICD-10 - J02.8) Drink plenty fluids, get plenty of rest. Take the amoxicillin as prescribed until gone. Take Tylenol or Motrin for aches pains or fevers. Off work today and tomorrow. Follow-up with your family physician if no improvement in 2 to 3 days Nov, Contact with and (suspected) exposure to covid-19 (ICD-10 - Z20.822) [facility] Other History and physical note 04-20-2023 Note Date & Type Note Facility 04-20-2023 Note [id number] [facility] Evaluation note 03-10-2023 Note Date [...] Encouraged salt water gargles, increasing fluids, Tylenol [id number] for additional relief. Advised patient if that if symptoms continue she needs a follow-up with ENT for evaluation. Advised that we will not continue to see her for this issue in that UC setting, as we are not a follow-up facility. Patient verbalizes understanding and is agreeable with treatment plan. [facility] Other Evaluation note 02-18-2023 Note Date & [...] the ER for worsening symptoms or concern [facility] Other Evaluation note 06-11-2022 Note Date & [...] Other Throat infection: Strep material was printed [facility] Other Evaluation note 04-04-2022 Note Date & [...] She understands and agrees with the plan. [facility] Other Evaluation note Note Date & Type Note Facility Evaluation note No Information [facility] Other History general Narrative - Reported Note Date & Type Note Facility History general Narrative - Reported Type Medical History Dysautonomia Medical History Cardioinhibited Neurogenic Synco pe Medical History PCOS Surgical History knee surgery [facility] Other History general Narrative - Reported Note Date & Type Note Facility History general Narrative - Reported Type Medical History Dysautonomia Medical History Cardioinhibited Neurogenic Synco pe Medical History PCOS Surgical History knee surgery Surgical History C section Surgical History tonsillectomy [facility] Other Summary Purpose Family History No Family History Records FoundNo Family History Records FoundNo Family History Records FoundNo Family History Records FoundNo Family History Records FoundNo Family History Records FoundNo Family History Records FoundNo Family History Records FoundNo Family History Records Found Advance Directives Documents on File Type Date Recorded 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 If you think your pain medicine [...] take. When should you call for help? [id number] anytime you think you may need emergency [...] Where can you learn more? Go to [email or web address] and sign in to your [employer] account. Enter M806 in the Search Health Information box to learn more about Section: What to Expect at Home. If you do not have an account, please click on the Sign Up Now link. Current as of: August 04, 2018 Content Version: [id number] [employer]. Care instructions adapted under license by [employer]. If youhave questions about a medical condition or this instruction, always ask your healthcare professional. [employer] disclaims any warranty or liability for your [...] Smoke risks and Sudden Infant Syndrome were not reviewed with recommendations. sleeping, back to sleep [...] reviewed with patient Attending Physician: Dr. Jorge Rodriguez, Egg Separator Resident 10/29/2019, 12:22 AM Attending Physician Statement [...] Whitley DO - 10/28/2019 12:11 PM EST LABORATORY SPECIALIST Resident Interval Note Patient labs reviewed below. [...] 1.03 (L) 1.10 - 3.70 k/uL Absolute [place] # 0.69 0.10 - 1.20 k/uL Absolute Eos # <0.03 0.00 - 0.44 k/uL Basophils Absolute <0.03 0.00 - 0.20 k/uL Absolute Immature Granulocyte 0.05 0.00 - 0.30 k/uL Mi Whitley DO Egg Separator Resident Pager: [phone] 10/28/2019 12:11 PM * Teresa Montalvo DO [...] 105/72 Pulse: 82 80 101 97 Resp: 18 Temp: 98.3 F (36.8 C) 98.2 [...] Sudden Infant Syndrome were reviewed with recommendations. sleeping, back [...] patient Attending Physician: Dr. Selvin Garcia DO Egg Separator Resident 10/28/2019, 7:52 AM Date: 10/28/2019 Time: [...] physician. Attending's Name: Teresa Montalvo DO Chadwick Barbour DO - 10/27/2019 8:46 AM EST Obstetric/Gynecology [...] for counseling and decision. Janeth Garcia DO LABORATORY SPECIALIST Resident, PGY1 [place], [place] 10/27/2019, 8:46 AM Attending Physician Statement [...] IOL, and maternal request. Chadwick Patel DO YN * Kwame Denny DO - 10/27/2019 3:56 [...] S/P Cytotec 25 Buccal Kwame Denny DO Egg Separator Resident 10/27/2019, 3:56 AM * Kwame Denny [...] in agreement with plan Kwame Denny DO Egg Separator Resident 10/26/2019, 11:26 PM * Pennie Goldberg MD - 10/26/2019 9:33 AM EST Senior resident Progress Note In to discuss plan of care with patient. Patient with suspected macrosomic infant at 4479g in [facility] on 10/26. Patient counseled on risks of shoulder dystocia, higher degree lacerations, permanent neurological damage to infant, and post hemorrhage. Patient states she wishes to proceed with vaginal delivery at this time and is declining primary section. Patient counseled by rewriter as well as attending. Additionally discussed safest route of delivery for infants is vaginal delivery followed by planned section. Patient voices understanding that highest risk for infant is with failed attempted vaginal delivery. Patient requesting additional time to consider her options. Patient offered support and given time to discuss options with . April Villarreal LABORATORY SPECIALIST Resident, PGY3 Pager: [phone] [place], [place] 10/26/19 9:42 AM Patient additionally counseled by myself on risk of shoulder dystocia given her fetus is estimated just under when a primary section is recommended 4500g her EFW 4479g. We reviewed the risksand unpredictable nature of a shoulder dystocia including brachial plexus injury, catastrophic neurologic injury or of the and significant pelvic floor injury to mother [...] section and content) DATE CREATED AUTHOR 03/03/2019 [facility] DATE CREATED AUTHOR AUTHOR'S ORGANIZ ATION 03/09/2019 [facility] DATE CREATED AUTHOR AUTHOR'S ORGANIZ ATION 03/12/2019 [facility] DATE CREATED AUTHOR AUTHOR'S ORGANIZ ATION 11/03/2019 [facility] DATE CREATED AUTHOR AUTHOR'S ORGANIZ ATION 02/22/2022 [facility] DATE CREATED AUTHOR AUTHOR'S ORGANIZ ATION 07/09/2022 [facility] dical Specialist DATE CREATED AUTHOR AUTHOR'S ORGANIZ ATION 05/20/2023 Christiano Bridges [facility] DATE CREATED AUTHOR AUTHOR'S ORGANIZ ATION 08/04/2023 [facility] DATE CREATED AUTHOR AUTHOR'S ORGANIZ ATION 11/05/2023 [facility] dical Specialists EPIC Reason for Visit (unrecogniz ed section and content) SORE THROAT, COUGH Reason Comments Scheduled Induction Status Reason Specialty Diagnoses / Procedures Referre d By Contact Referred To Contact Diagnoses HRP (high risk ), unspecified trimester Pennie Goldberg MD [address] [place] [address] [facility] FOR RECORDS PERTAINING TO PATIENTS WHO [...] BE BASED ON THE PRIMARY CLINICAL RECORDS. [address] provides no warranty or guarantee of the accuracy or completeness of information in this document.
[2025-01-30 11:18] LABS: Estimated Average Glucose 103 mg/dL; Glycohemoglobin A1C 5.2 % (4.5-6.2)
[2025-01-30 11:34] LABS: Thyroid Stimulating Hormone 0.838 uIU/mL (0.358-3.740)
[2025-01-30 11:57] LABS: Free T4 0.89 ng/dL (0.76-1.46)
[2025-02-03 01:07] LABS: Anti-Mullerian Hormone (AMH) 10.6 ng/mL (.)
== END 2025-01-30 10:43 | disposition home or self-care (01) ==
LOC: LAB 10:43
PROVIDERS: Visit Provider Obstetrics & Gynecology
DX: N97.0 Female infertility associated with anovulation (principal); E28.2 Polycystic ovarian syndrome; N97.9 Female infertility, unspecified
CPT/HCPCS: 36415; 82397; 83036; 84439; 84443

== ENCOUNTER 2025-03-06 12:38 | Outpatient (REF) | payer BC, SELFPAY | END 2025-03-06 12:39 | disposition home or self-care (01) | LOC: LAB 12:38 | PROVIDERS: Visit Provider Obstetrics & Gynecology | DX: Z01.419 Encounter for gynecological examination (general) (routine) without abnormal findings (principal) | CPT/HCPCS: 88175 ==

== ENCOUNTER 2025-05-06 12:33 | Outpatient (OUT) | payer BC, SELFPAY ==
--- OUTSIDE RECORDS SUMMARY | 2022-11-06 07:00 | XMS_ITS | Continuity of Care Document ---
Author Organization [facility] Address [address] [place] [address] Phone Care Team Providers Care Wet Process Head Miller Name Role Phone Irwin Cox Unavailable Unavailable [...] Diagnoses Date Provider Providers Copied on Encounter [facility], [address] [place] [address], [id number], tel:[phone] [facility] Encounter for pre-employment examination 2 Nickolas Sheth. [address] [place] [address], [id number] , [place]. tel: [phone] OFFICE/OUTPAT IENT VISIT, [facility], [address] [place] [address], [id number], [place] tel:[phone] [employer] Work Physical (chief complaint) Pre-employment examinationBody mass index [BMI] 36.0-36.9, adult 2 Dean Stringer. [address] [place] [address], [id number] , [place]. tel:[phone] OFFICE/OUTPAT IENT VISIT, [facility], [address] [place] [address], [id number], [place] tel:[phone] [employer] School Physical (chief complaint) School physical exam 2 Dean JOHNSON Siomara. [address] [place] [address], [place], [place], [id number] , . tel:[phone] Family History Family Member Type Diagnosis Age [...] ID Authoriza tion(s) Self Pay Indigent 09 [id number] Self Pay Indigent [id number] Social History Type Description Quantity Date Captured [...] Patient here for work physical. Starts at [employer]. States she has no health issues. She has no primary care doctor.Needs TB test today.Flu Shot: Refused//Sierra RNNoted above. Pt seen in August for school physical. No change in history. No current medical concerns. 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 Rayshawn JOHNSON School Physical School physical today.Women's Health: JuneDental: NoneFlu Shot: Declined.//Sierra RNNoted above. 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 PMH cardiogenic syncope and mild eczema.PCP is Dr. Ibrahim. Chief Pilot is in [place]. Has not seen either in several years. No syncope in 3 years. No daily medication. No control. Vapes, no ETOH, daily caffeine (coffee and energy drinks), no drug use.No current physical, social or mental health concerns. 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
--- OUTSIDE RECORDS SUMMARY | 2025-05-06 12:35 | XMS_ITS | Encounter Summary ---
Author Organization [facility] Address [address] [address] Care Team Providers Care Joint Cutter Machine Name Role Phone Miik Ibrahim MD Primary Care Provider [phone] Encounter Details Date Type Department Care Team (Late st Contact Info) Description 06/08/2023 Orders Only [facility] [address] [place] [phone] Chandana Mcdonnell DO [address] [place] [address] Social History Tobacco Use Types Packs/Day Years Used Date Smoking Tobacco: Former Cigarettes Smokeless Tobacco: Current Alcohol Use Standard Drinks/Week Comments Yes 0 (1 standard drink = 0.6 oz pur e alcohol) Comments Unknown Sex and Gender Information Value Date Recorded Sex Assigned at Female 11/02/2023 1:41 PM EST Legal Sex Female 11:38 PM EDT Gender Identity Female 11/02/2023 1:41 PM EST Sexual Orientation Not on file documented as of this encounter Plan of Treatment Not on file documented as of this encounter Procedures Procedure Name Priority Date/Time Associated Diagnosis Comments PT AND PTT Routine 04/20/2023 1:09 PM EDT HCG, URINE, QUALITATIVE Routine 04/20/20 1:09 PM EDT CBC WITH AUTO DIFFERENTIAL Routine 04/20/2023 1:09 PM EDT documented in this encounter Results * CBC auto differential (04/20/2023 1:09 PM EDT) Blood Venous blood specimen / Unknown us Chandana S Biedenbach DO LAB BLOOD ORDERABLES Final Result * Pt and ptt (04/20/2023 1:09 PM EDT) Blood Venous blood specimen / Unknown Chandana S Biedenbach DO LAB BLOOD ORDERABLES Final Result * hCG, urine, qualitative (04/20/2023 1:09 PM EDT) Urine Urine specimen obtained by clean catch procedure / Unknown Chandana S Bishaneka DO LAB URINE ORDERABLES Final Result documented in this encounter Visit Diagnoses Not on filedocumented in this encounter Care Teams Joint Cutter Machine Relationship Specialty Start Date End Date Miki Ibrahim MD [address] [place] [address] PCP - General Cardiology 04/28/23 documented as of this encounter
--- OUTSIDE RECORDS SUMMARY | 2025-05-06 12:35 | XMS_ITS | Referral Summary ---
Author Organization [facility] Address [address] [place] [address] Care Team Providers Care At[employer] Retailer Sales Consultant Name Role Phone Unavailable Primary Care Provider Unavailabl e Social History Tobacco Use Types Packs/Day Years Used Date Smoking Tobacco: Never Assessed Sex and Gender Information Value Date Recorded Sex Assigned at Not on file Gender Identity Not on file Sexual Orientation Not on file Last Filed Vital Signs Vital Sign Reading Time Taken Comments Blood Pressure 109/74 03/15/2019 11:04 AM EDT Pulse 91 03/15/2019 11:04 AM EDT Temperature - - Respiratory Rate - - Oxygen Saturation 100% 03/15/2019 11: 04 AM EDT Inhaled Oxygen Concentration - - Weight 76.6 kg (168 lb 15.7 oz) 019 11:00 AM EDT Height - - Body Mass Index - - Plan of Treatment Not on file
--- OUTSIDE RECORDS SUMMARY | 2025-05-06 12:35 | XMS_ITS | Clinical Summary ---
Author Organization [facility] Address [id number] [address] [place] [address] Care Team Providers Care Dot Etcher Name Role Phone Miki Ibrahim MD Primary Care Provider [phone] Allergies No known active allergies Medications ibuprofen (ADVIL,MOTRIN) 800 mg tablet Take 1 tablet (800 mg total) by mouth every 8 (eight) hours as needed for pain or fever. 21 tablet 07/31/2021 Active acetaminophen (TYLENOL) 500 mg tablet Take 1 tablet (500 mg total) by mouth every 6 (six) hours as needed for pain or fever. 30 tablet 07/31/2021 Active Social History Tobacco Use Types Packs/Day Years Used Date Smoking Tobacco: Every Day Cigarettes Vaping/E-cigarettes Smokeless Tobacco: Never Alcohol Use Standard Drinks/Week Comments No 0 (1 standard drink = 0.6 oz pur e alcohol) Childcare Answer Date Recorded Childcare Unknown 05/11/2019 Employment Answer Date Recorded Employment Unknown 05/11/2019 Purpose - Life Answer Date Recorded Purpose and direction in life Unknown Comments No Sex and Gender Information Value Date Recorded Sex Assigned at Female 09/17/2021 6:44 PM EDT Legal Sex Female 12:09 PM EDT Gender Identity Female 09/17/2021 6:44 PM EDT Sexual Orientation Not on file Last Filed Vital Signs Vital Sign Reading Time Taken Comments Blood Pressure 111/69 07/31/2021 2:05 AM EDT Pulse 101 07/31/2021 2:05 AM EDT Temperature 37.7 C (99.9 F) 07/31/2021 2:05 AM EDT Respiratory Rate 18 07/31/2021 2:05 AM EDT Oxygen Saturation 98% 07/31/2021 2:05 AM EDT Inhaled Oxygen Concentration - - Weight 90.7 kg (200 lb) 07/31/2021 12:22 AM EDT Height 165.1 cm (5' 5 ) 07/31/2021 12:22 AM EDT Body Mass Index 33.28 07/31/2021 12:22 AM EDT Plan of Treatment Not on file Medical Devices Not on file Insurance [facility] Care Teams Dot Etcher Relationship Specialty Start Date End Date Miki Ibrahim MD PCP - General 07/19/14
--- OUTSIDE RECORDS SUMMARY | 2025-05-06 12:35 | XMS_ITS | Clinical Summary ---
Author Organization [facility] Address [address] [place] [address] Care Team Providers Care Solar Panel Installation Supervisor Name Role Phone Unavailable Primary Care Provider [...]
--- OUTSIDE RECORDS SUMMARY | 2025-05-06 12:35 | XMS_ITS | Encounter Summary ---
Author Organization [facility] Address [address] [place] [address] Care Team Providers Care Communications And Signals Supervisor Name Role Phone Miki Ibrahim MD Primary Care Provider [phone] Encounter Details Date Type Department Care Team (Late st Contact Info) Description 04/22/2023 Orders Only [facility] [address] [facility] [place] [phone] Vale Benedict MA Social History Tobacco Use Types Packs/Day Years Used Date Smoking Tobacco: Never Assessed Comments Unknown Sex and Gender Information Value Date Recorded Sex Assigned at Female 11/02/2023 1:41 PM EST Legal Sex Female 11:38 PM EDT Gender Identity Female 11/02/2023 1:41 PM EST Sexual Orientation Not on file documented as of this encounter Plan of Treatment Not on file documented as of this encounter Visit Diagnoses Not on filedocumented in this encounter Care Teams Communications And Signals Supervisor Relationship Specialty Start Date End Date Miki Ibrahim MD [address] [place] [address] PCP - General Cardiology 04/28/23 documented as of this encounter
--- OUTSIDE RECORDS SUMMARY | 2025-05-06 12:36 | XMS_ITS | Encounter Summary ---
Author Organization [facility] Address [address] [place] [address] Care Team Providers Care Video Production Coordinator Name Role Phone Miki Ibrahim MD Primary Care Provider + Reason for Visit * Reason Comments Other Encounter Details Date Type Department Care Team (Late st Contact Info) Description 10/08/2013 Refill [facility] Congenital Weigh And Charge Worker [address] [facility] [address] [place] [phone] Alexis Rehman MD [address] [facility] [address] [place] [address] Other Social History Tobacco Use Types Packs/Day Years Used Date Smoking Tobacco: Never Assessed Comments No Sex and Gender Information Value Date Recorded Sex Assigned at Not on file Legal Sex Female 1:44 PM EST Gender Identity Not on file Sexual Orientation Not on file documented as of this encounter Plan of Treatment Not on file documented as of this encounter Visit Diagnoses Not on filedocumented in this encounter Care Teams Video Production Coordinator Relationship Specialty Start Date End Date Miki Ibrahim MD [address] [place] [address] PCP - General Family Medicine 07/12/19 documented as of this encounter
--- OUTSIDE RECORDS SUMMARY | 2025-05-06 12:36 | XMS_ITS | Encounter Summary ---
Author Organization [facility] Address [address] [place] [address] Care Team Providers Care Executive Associate Name Role Phone Miki Ibrahim MD Primary Care Provider + Reason for Visit * Reason Comments Other Encounter Details Date Type Department Care Team (Late st Contact Info) Description 02/12/2014 Refill [facility] Congenital Fire Fighting Equipment Specialist [address] [facility] [address] [place] [phone] Alexis Rehman MD [address] [facility] [address] [place] [address] Other Social History Tobacco Use Types Packs/Day [...] on filedocumented in this encounter Care Teams Executive Associate Relationship Specialty Start Date End Date Miki Ibrahim MD [address] [place] [address] PCP - General Family Medicine 07/12/19 documented as of this encounter
--- OUTSIDE RECORDS SUMMARY | 2025-05-06 12:36 | XMS_ITS | Clinical Summary ---
Author Organization [facility] Address [address] [place] [address] Care Team Providers Care Office Nurse Name Role Phone Miki Ibrahim MD Primary Care Provider + Allergies No known active allergies Medications ondansetron (ZOFRAN-ODT) 4 MG disintegrating tablet 9 Active Vit w/Tp-Hqjsveqkj-MX (PNV PO) Take by mouth Active ibuprofen (ADVIL;MOTRIN) 800 MG tablet Take 1 tablet by mouth every 8 hours as needed for Pain 60 tablet 3 9 Active docusate sodium (COLACE, DULCOLAX) 100 MG CAPS Take 100 mg by mouth 2 times daily 60 capsule 9 Active ferrous sulfate (FE TABS) 325 (65 Fe) MG EC tablet Take 1 tablet by mouth 2 times daily (with meals) 60 tablet 3 9 Active Active Problems Problem Noted Date Diagnosed Date Family history of cardiac arrest 10/27/2019 Anemia 10/27/2019 Obesity 10/27/2019 PLTCS 10/27/19 M Apg 8,9 Wt 9#8 10/27/2019 HRP (high risk ), unspecified trimester 10/26/2019 Late transfer of care 10/24/2019 Overview (10/24/2019): Pt saw Dr. Herron in [place], [place]. Transfer of care at 38w2d gestation. Pt transferred care as she has a macrosomic and desires vaginal delivery. Pt desires to deliver at a facility with a level 3 NICU. Assessment & Plan (10/24/2019 8:08 AM EST): Pt saw Dr. Herron in [place], [place]. Transfer of care at 38w2d gestation. Pt transferred care as she has a macrosomic and desires vaginal delivery. Pt desires to deliver at a facility with a level 3 NICU. High-risk 10/21/2019 Overview (10/21/2019): Pts mother had hemorrhage and cardiac arrest with delivery of pts brother Pt desires to deliver at [facility] due to family history Late transfer of care from [facility] at 38w2d gestation macrosomia 10/21/2019 Overview (10/24/2019): Estimated weight 9#4 on 10/19/19 PT counseled on increased risk of shoulder dystocia and offered elective primary section. Pt declines delivery. Shoulder Dystocia Counseling completed: Typically, babies born with shoulder dystocia do not suffer long-term complications. If complications do occur, they are usually because the baby has become stuck too long in the canal. Complications include: For the baby: Lack of oxygen Broken arm or collarbone Arm nerve damage Paralysis For the mother: Tearing or bruising of the cervix, rectum, or vagina Bruising to the bladder Hemorrhaging Shoulder Dystocia Causes There are a variety of reasons why a baby's shoulders may become lodged during delivery. But, the most common reasons include: Delivering very large babies with unusually high weights Often caused by diabetes or mothers who are significantly overweight Mother's pelvic opening being too small to allow the baby's shoulders to fit Narrow Pelvic Opening Risk Factors The following factors increase the chance of a baby suffering from shoulder dystocia: Mothers who are diabetic Mothers who are significantly overweight Mothers, often small themselves, who may have a small pelvic structure Signs and Symptoms The signs of shoulder dystocia become apparent when the baby's head is delivered. The delivery does not progress because of the baby's shoulders being lodged in the canal behind the pubic bone. Signs also include very large babies who are likely to have problems being delivered vaginally. Diagnosis Shoulder dystocia cannot actually be diagnosed until delivery. It can sometimes be predicted by determining the weight and size of the fetus and whether a vaginal delivery is safe for the mother and baby. An ultrasound may be done prior to labor in an attempt to determine if the baby is too large to fit safely through the canal during delivery. Treatment Your doctor will decide on the best treatment plan for you. Treatment options include: Manipulated vaginal deliveryThere are a variety of maneuvers that the doctor can do to help the mother deliver the baby. delivery ()If the maneuvers do not work, the baby will need to be delivered via a . For babies who are at risk of shoulder dystocia because of their large size, a may be scheduled. Prevention Shoulder dystocia cannot be prevented. Babies who are at risk of shoulder dystocia because of large size can be evaluated prior to delivery with regular care and ultrasound testing. Women with diabetes or who are very overweight should have the size of their babies estimated. Babies at risk for shoulder dystocia should have a delivery scheduled. Generalized headaches 03/05/2014 Chest pain 03/05/2014 Dysautonomia 02/22/2014 Neurologic cardiac syncope 10/30/2011 Overview (10/24/2019): Follows with Dr. Rehman Pt reports that her last syncopal episode was in early August 2019 Pt takes no medications daily Exercise-induced asthma 10/30/2011 Overview (10/21/2019): Controlled, no meds Cephalopelvic disproportion due to unusually lar ge fetus Immunizations Immunization Administration Dates Next Due TDaP, ADACEL (age 10y-64y), BOOSTRIX (age 10y+), IM, 0.5mL 10/29/2019 Family History Medical History Relation Name Comments Seizures Mother Relation Name Status Comments Brother Alive Father Alive Mother Alive Social History Tobacco Use Types Packs/Day Years Used Date Smoking Tobacco: Never Smokeless Tobacco: Never Tobacco Cessation:Counseling Given: No Alcohol Use Standard Drinks/Week Comments Not Currently 0 (1 standard drink = 0.6 oz pur e alcohol) PHQ-2 Answer Date Recorded PHQ-2 Score 0 10/21/2019 Comments No Sex and Gender Information Value Date Recorded Sex Assigned at Not on file Legal Sex Female 1:44 PM EST Gender Identity Not on file Sexual Orientation Not on file Last Filed Vital Signs Vital Sign Reading Time Taken Comments Blood Pressure 121/79 11/03/2019 10:44 AM EST Pulse 89 11/03/2019 10:44 AM EST Temperature 36.6 C (97.9 F) 10/29/2019 8:00 AM EST Respiratory Rate 16 10/29/2019 8:00 AM EST Oxygen Saturation 98% 10/28/2019 4:45 PM EST Inhaled Oxygen Concentration - - Weight 91.6 kg (202 lb) 11/03/2019 10:44 AM EST Height 167.6 cm (5' 6 ) 11/03/2019 10:44 AM EST Body Mass Index 32.6 11/03/2019 10:44 AM EST Plan of Treatment Not on file Insurance [facility] Advance Directives * Full Code (Latest Code Status on File) Date Activated Date Inactivated Comments 10/27/2019 7:14 PM 10/29/2019 2:42 PM * Full Code Date Activated Date Inactivated Comments 10/26/2019 8:54 AM 10/27/2019 6:44 PM Care Teams Office Nurse Relationship Specialty Start Date End Date Miki Ibrahim MD [address] [place] [address] PCP - General Family Medicine 07/12/19
--- OUTSIDE RECORDS SUMMARY | 2025-05-06 12:36 | XMS_ITS | Clinical Summary ---
Author Organization [facility] Address [address] [place] [address] Phone Care Team Providers Care Camp Advisor Name Role Phone Unavailable Primary Care Provider Unavailabl e Social History Tobacco Use Types Packs/Day Years Used Date Smoking Tobacco: Never Assessed Comments Unknown Sex and Gender Information Value Date Recorded Sex Assigned at Not on file Legal Sex Female 9:13 AM EDT Gender Identity Not on file Sexual Orientation Not on file Plan of Treatment Health Maintenance Due Date Last Done Comments HIV Screening 1997 Lipid Panel 1997 Yearly Adult Physical 1997 MMR Vaccines (1 of 1 - Stand igor series) 1998 Varicella Vaccines (1 of 2 - 13+ 2-dose series) 2010 Hepatitis C Screening 2015 Hepatitis B Vaccines (1 of 3 - 19+ 3-dose series) 2016 Cervical Cancer Screening 2018 HPV/Cotest 2018 Pap Smear 2018 DTaP/Tdap/Td Vaccines (1 - Tdap) 2019 COVID-19 Vaccine (1 - 2023-2 5 season) 2024 Influenza Vaccine (Season Ended) 2025 Zoster Vaccines (1 of 2) 2047 HIB Vaccines Aged Out No longer eligi ble based on patient's age to complete this topic HPV Vaccines Aged Out No longer eligi ble based on patient's age to complete this topic Hepatitis A Vaccines Aged Out No long er eligible based on patient's age to complete this topic IPV Vaccines Aged Out No longer eligi ble based on patient's age to complete this topic Meningococcal Vaccine Aged Out No sarmad xuan eligible based on patient's age to complete this topic Pneumococcal Vaccine: Pediat rics and At-Risk Adult Patients Aged Out No longer naveen gible based on patient's age to complete this topic Rotavirus Vaccines Aged Out No longer eligible based on patient's age to complete this topic
--- OUTSIDE RECORDS SUMMARY | 2025-05-06 12:36 | XMS_ITS | Encounter Summary ---
Author Organization [facility] Address [address] [facility] [place] [address] Care Team Providers Care Contract Administration Manager Name Role Phone Miki Ibrahim MD Primary Care Provider [phone] Encounter Details Date Type Department Care Team (Late st Contact Info) Description 03/16/2025 Orders Only [facility] OB [address] [place] [address] Angelika Alfred LPN [address] [place] [phone] Social History Tobacco Use Types Packs/Day Years Used Date Smoking Tobacco: Former Cigarettes Smokeless Tobacco: Current Alcohol Use Standard Drinks/Week Comments Yes 0 (1 standard drink = 0.6 oz pur e alcohol) caffeine: 1-2 cups per day Comments No Sex and Gender Information Value Date Recorded Sex Assigned at Female 11/02/2023 1:41 PM EST Legal Sex Female 11:38 PM EDT Gender Identity Female 11/02/2023 1:41 PM EST Sexual Orientation Not on file documented as of this encounter Plan of Treatment Not on file documented as of this encounter Procedures Procedure Name Priority Date/Time Associated Diagnosis Comments PAP SMEAR Routine 03/06/2025 12:00 AM EDT documented in this encounter Results * Pap Smear (03/06/2025 12:00 AM EDT) Swab Cervical swab / Unknown us Tank Galvez DO LAB CYTOLOGY ORDERABLES Final Re sult EXTERNAL LAB documented in this encounter Visit Diagnoses Not on filedocumented in this encounter Care Teams Contract Administration Manager Relationship Specialty Start Date End Date Miki Ibrahim MD [address] [place] [address] PCP - General Cardiology 04/28/23 documented as of this encounter
--- OUTSIDE RECORDS SUMMARY | 2025-05-06 12:36 | XMS_ITS | Encounter Summary ---
Author Organization [facility] Address [address] [place] [address] Care Team Providers Care Clinic Charge Nurse Name Role Phone Miki Ibrahim MD Primary Care Provider + Reason for Visit * Reason Comments Other Encounter Details Date Type Department Care Team (Late st Contact Info) Description 11/16/2014 Refill [facility] Congenital Rn Mds [address] [facility] [address] [place] [phone] Alexis Rehman MD [address] [facility] [address] [place] [address] Other Social History Tobacco Use Types Packs/Day Years Used Date Smoking Tobacco: Never Alcohol Use Standard Drinks/Week Comments Not Asked 0 (1 standard drink = 0.6 oz pur e alcohol) Comments No Sex and Gender Information Value Date Recorded Sex Assigned at Not on file Legal Sex Female 1:44 PM EST Gender Identity Not on file Sexual Orientation Not on file documented as of this encounter Plan of Treatment Not on file documented as of this encounter Visit Diagnoses Not on filedocumented in this encounter Care Teams Clinic Charge Nurse Relationship Specialty Start Date End Date Miki Ibrahim MD [address] [place] [address] PCP - General Family Medicine 07/12/19 documented as of this encounter
--- OUTSIDE RECORDS SUMMARY | 2025-05-06 12:36 | XMS_ITS | CCD ---
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 14.2 % Normal 10.9-14.2 [facility] Comment on above: Performed By: #### 2 050948, [id number], [id number] ####[address] [address] Hematocrit (Bld) [Volume fraction] 42.4 % Normal 34.0-46.0 [facility] Comment on above: Performed By: #### 2 046179, [id number], [id number] ####[address] [place] [address] Hemoglobin (Bld) [Mass/Vol] 13.7 g/dL Normal 12.0-16.0 [facility] Comment on above: Performed By: #### 2 844542, [id number], [id number] ####[address] [address] MCH (RBC) [Entitic mass] 29.0 pg Normal 27.0-34.0 [facility] Comment on above: Performed By: #### 2 780703, 7278807, [id number] ####[address] [address] MCHC (RBC) [Mass/Vol] 32.3 g/dL Normal 31.4-36.0 [facility] Comment on above: Performed By: #### 2 784354, 4995126, [id number] ####[address] [address] MCV (RBC) [Entitic vol] 89.7 fL Normal 80.0-100.0 [facility] Comment on above: Performed By: #### 2 546386, 8599359, [id number] ####[address] [address] Platelet mean volume (Bld) [Entitic vol] 9.1 fL Normal 6.4-10.8 [facility] Comment on above: Performed By: #### 2 901367, 5560376, [id number] ####[address] [address] Platelets (Bld) [#/Vol] 295.0 E9/L Normal 150.0-500.0 [facility] Comment on above: Performed By: #### 2 955270, 2802903, [id number] ####[address] [address] RBC (Bld) [#/Vol] 4.7 E12/L Normal 4.3-5.9 [facility] Comment on above: Performed By: #### 2 421043, 5926418, [id number] ####[address] [address] WBC corrected for nucl RBC Auto (Bld) [#/Vol] 7.2 E9/L Normal 4.0-11.0 [facility] Comment on above: Performed By: #### 2 951234, 5909659, [id number] ####[address] [address] Consent for Procedure/Surger yon 04-20-2023 Consent for Procedure/Surgery [id number]. 00CD:127 Normal [facility] Consent for Treatmenton 03-31 Consent for Treatment [id number] 0CD:127 Normal [facility] PT & PTTon 04-20-2023 aPTT Coag (PPP) [Time] 36.1 second(s) Normal 25.1-36.5 [facility] Comment on above: Result Comment: [...] the same coagulation reagent and instrumentation as [facility]. Currently there are no coagulation studies available worldwide for children to 14 days, and no normal ranges. Heparin therapeutic range (represented by Anti-Factor Xa activity of 0.2 - 0.4 U/mL) corresponds to PTT of 56.6 - 109.0 sec. Performed By: #### 2 540596, 4729529, [id number] ####[facility] [address] [place] [address] INR Coag (PPP) [Relative time] 1.0 {INR} Invalid Interpretation Code [facility] Comment on above: Result Comment: INR results are specifically intended to assess patients stabilized on long-term Anticoagulation therapy suggested INR?s ?Less Intensive Anticoagulation? 2.0 ? 3.0 Conventional Range 3.0 ? 4.5 Performed By: #### 2 799845, 2049292, [id number] ####[facility] [address] [place] [address] PT Coag (PPP) [Time] 11.6 second(s) Normal 9.4-12.5 [facility] Comment on above: Result Comment: [...] the same coagulation reagent and instrumentation as [facility]. Currently there are no coagulation studies available worldwide for children to 14 days, and no normal ranges. Performed By: #### 2 064726, [id number], [id number] ####[facility] [address] [place] [address] U BetaHcg Qualon 04-20-2023 HCG.beta subunit (U) [Moles/Vol] Negative Normal [facility] Comment on above: Performed By: #### 2 [id number] ####[facility] [address] [place] [address] Quick Strepon 03-10-2023 S. pyogenes Org specific cx Ql (Throat) nwgative [employer] [facility] [employer] Other [employer] Strep [facility] Other [employer] Strepon 02-18-2023 S. pyogenes Org specific cx Ql (Throat) Negative [facility] Other [employer] Other US Pelvic, Transvaginalon US Pelvic, Transvaginal [...] by Markie Friedman on 07/08/2022 1609 Normal [facility] Clinical Assessment Manager Quick Strepon 06-11-2022 S. pyogenes Org specific cx Ql (Throat) Negative [facility] Other Quick Strep [facility] Other CT CSPINE WO CONon 1 CT [...] by: Harmeet NUNEZ Date: 2021-10-29 18:25 Normal [facility] CBC auto differentialon 10-01 Basophils (Bld) [#/Vol] 10*3/uL [place] Basophils/100 WBC (Bld) 0 % 0 - 2 % [place] Differential Type NOT REPORTED [place] Eosinophils (Bld) [#/Vol] 10*3/uL [place] Eosinophils/100 WBC (Bld) 0 % Low 1 - 4 % [place] Erythrocyte distribution width (RBC) [Ratio] 13.8 % 11.8 - 14.4 % [place] Hematocrit (Bld) [Volume fraction] 29.3 % Low 36.3 - 47.1 % [place] Hemoglobin (Bld) [Mass/Vol] 8.9 g/dL Low 11.9 - 15.1 g/dL [place] Immature granulocytes (Bld) [#/Vol] 0.05 10*3/uL [place] Immature granulocytes (Bld) [#/Vol] 0 % 0 [place] Interpretation and review of laboratory results Abnormal [place] Lymphocytes (Bld) [#/Vol] 1.03 10*3/uL Low [place] Lymphocytes/100 WBC (Bld) 8 % Low 24 - 43 % [place] MCH (RBC) [Entitic mass] 26.2 pg 25.2 - 33.5 pg [place] MCHC (RBC) [Mass/Vol] 30.4 g/dL 28.4 - 34.8 g/dL [place] MCV (RBC) [Entitic vol] 86.2 fL 82.6 - 102.9 fL [place] Monocytes (Bld) [#/Vol] 0.69 10*3/uL [place] Monocytes/100 WBC (Bld) 6 % 3 - 12 % [place] Platelet mean volume (Bld) [Entitic vol] 12.0 fL 8.1 - 13.5 fL [place] Platelets (Bld) [#/Vol] 199 10*3/uL [place] Platelets (Bld) [#/Vol] NOT REPORTED [place] RBC (Bld) [#/Vol] 3.40 10*6/uL Low 3.95 - 5.1 1 m/uL [place] RBC morphology finding Nom (Bld) NOT REPORTED [place] Segmented neutrophils/100 WBC (Bld) 86 % High 36 - 65 % [place] Segs Absolute 10.64 [place] WBC (Bld) [#/Vol] 12.4 10*3/uL [place] WBC (Bld) [#/Vol] 0.0 10*3/uL 0.0 per 10 0 WBC [place] WBC Morphology NOT REPORTED [place] CBC with Diffon 10-28-2019 Abs. Basophil <0.03 Normal 0.00-0.20 [facility] Comment on above: Performed By: #### C DP #### [address] [address] Dog Walker: Rico Nicole MD Abs.Imm.Granulocyt e 0.05 k/uL Normal 0.00-0.30 [facility] Comment on above: Performed By: #### C DP #### [address] [address] Dog Walker: Rico Nicole MD Abs.Neutrophil (Seg) 10.64 k/uL High 1.50-8.10 [facility] Comment on above: Performed By: #### C DP #### [address] [address] Dog Walker: Rico Nicole MD Basophils/100 WBC (Bld) 0 % Normal 0-2 [facility] Comment on above: Performed By: #### C DP #### [address] [address] Dog Walker: Rico Nicole MD Eosinophils (Bld) [#/Vol] 10*3/uL Normal 0.00-0.44 [facility] Comment on above: Performed By: #### C DP #### [address] [address] Dog Walker: Rico Nicole MD Eosinophils/100 WBC (Bld) 0 % Low 1-4 [facility] Comment on above: Performed By: #### C DP #### [address] [address] Dog Walker: Rico Nicole MD Erythrocyte distribution width (RBC) [Ratio] 13.8 % Normal 11.8-14.4 [facility] Comment on above: Performed By: #### C DP #### [address] [address] Dog Walker: Rico Nicole MD Hematocrit (Bld) [Volume fraction] 29.3 % Low 36.3-47.1 [facility] Comment on above: Performed By: #### C DP #### [address] [address] Dog Walker: Rico Nicole MD Hemoglobin (Bld) [Mass/Vol] 8.9 g/dL Low 11.9-15.1 [facility] Comment on above: Performed By: #### C DP #### [place] [address] Dog Walker: Rico Nicole MD Immature granulocytes (Bld) [#/Vol] 0 % Normal 0 [facility] Comment on above: Performed By: #### C DP #### [place] [address] Dog Walker: Rico Nicole MD Lymphocytes (Bld) [#/Vol] 1.03 10*3/uL Low 1.10-3.70 [facility] Comment on above: Performed By: #### C DP #### [address] [address] Dog Walker: Rico Nicole MD Lymphocytes/100 WBC (Bld) 8 % Low 24-43 [facility] Comment on above: Performed By: #### C DP #### [place] [address] Dog Walker: Rico Nicole MD MCH (RBC) [Entitic mass] 26.2 pg Normal 25.2-33.5 [facility] Comment on above: Performed By: #### C DP #### [address] [address] Dog Walker: Rico Nicole MD MCHC (RBC) [Mass/Vol] 30.4 g/dL Normal 28.4-34.8 [facility] Comment on above: Performed By: #### C DP #### [address] [address] Dog Walker: Rico Nicole MD MCV (RBC) [Entitic vol] 86.2 fL Normal 82.6-102.9 [facility] Comment on above: Performed By: #### C DP #### [address] [address] Dog Walker: Rico Nicole MD Monocytes (Bld) [#/Vol] 0.69 10*3/uL Normal 0.10-1.20 [facility] Comment on above: Performed By: #### C DP #### [address] [address] Dog Walker: Rico Nicole MD Monocytes/100 WBC (Bld) 6 % Normal 3-12 [facility] Comment on above: Performed By: #### C DP #### [address] [address] Dog Walker: Rico Nicole MD Neutrophil (Seg) 86 % High 36-65 [facility] Comment on above: Performed By: #### C DP #### [address] [address] Dog Walker: Rico Nicole MD NRBC Automated 0.0 per 100 WBC Normal 0.0 [facility] Comment on above: Performed By: #### C DP #### [address] [address] Dog Walker: Rico Nicole MD Platelet mean volume (Bld) [Entitic vol] 12.0 fL Normal 8.1-13.5 [facility] Comment on above: Performed By: #### C DP #### [address] [address] Dog Walker: Rico Nicole MD Platelets (Bld) [#/Vol] 199 10*3/uL Normal 138-453 [facility] Comment on above: Performed By: #### C DP #### [address] [address] Dog Walker: Rico Nicole MD RBC (Bld) [#/Vol] 3.40 10*6/uL Low 3.95-5.11 [facility] Comment on above: Performed By: #### C DP #### [address] [address] Dog Walker: Rico Nicole MD WBC (Bld) [#/Vol] 12.4 10*3/uL High 3.5-11.3 [facility] Comment on above: Performed By: #### C DP #### [address] [address] Dog Walker: Rico Nicole MD Auto Diff Performed NOT REPORTED Normal [facility] Comment on above: Performed By: #### C DP #### [address] [address] Dog Walker: Rico Nicole MD Platelets (Bld) [#/Vol] NOT REPORTED Normal [facility] Comment on above: Performed By: #### C DP #### [address] [address] Dog Walker: Rico Nicole MD RBC morphology finding Nom (Bld) NOT REPORTED Normal [facility] Comment on above: Performed By: #### C DP #### [address] [id number] Dog Walker: Rico Nicole MD WBC Morphology NOT REPORTED Normal [facility] Comment on above: Performed By: #### C DP #### [employer] [address] [place] [address] [id number] Dog Walker: Rico Nicole MD Surgical Pathologyon 019 Surgical Pathology (NOTE) [id number] [facility] [employer] CONSULTING PATHOLOGISTS [facility] [address] [place] [phone] SURGICAL PATHOLOGY CONSULTATION Patient Name: GISELL ALVAREZ [facility] Rec: [id number] Path Number: [id number] Collected: 10/27/2019 Received: 10/31/2019 Reported: 11/01/2019 09:33 -- Diagnosis -- Placenta, third trimester: Umbilical cord and membranes, free of inflammation. Plate, no histologic abnormality. Miguelangel Weems Electronically Signed Out rdd/11/01/2019 Clinical Information Pre-op Diagnosis: 24 Y/O, @ 39 W, 2 D, IUP, SUSPECTED MACROSOMIA, ASTHMA, NEUROCARDIOGENIC SYNCOPE Operative Findings: PLTCS, M, AP/, WT: 9#, 8 OZ, PLACENTA, CORD AND MEMBRANES Source of Specimen 1: PLACENTA, CORD AND MEMBRANES Gross Description GISELL ALVAREZ, PLACENTA Placenta with attached membranes and umbilical [...] capillaries: Not increased Other: Few microcalcifications Normal [facility] Comment on above: Performed By: #### P PPVS #### [facility] [employer] [address] [place] [address] Dog Walker: Rico Nicole MD CBC auto differentialon 10-01 Basophils (Bld) [#/Vol] 0.03 10*3/uL [place] Basophils/100 WBC (Bld) 0 % 0 - 2 % [place] Differential Type NOT REPORTED [place] Eosinophils (Bld) [#/Vol] 0.04 10*3/uL [place] Eosinophils/100 WBC (Bld) 0 % Low 1 - 4 % [place] Erythrocyte distribution width (RBC) [Ratio] 13.6 % 11.8 - 14.4 % [place] Hematocrit (Bld) [Volume fraction] 33.2 % Low 36.3 - 47.1 % [place] Hemoglobin (Bld) [Mass/Vol] 10.3 g/dL Low 11.9 - 15.1 g/dL [place] Immature granulocytes (Bld) [#/Vol] 1 % High 0 [place] Immature granulocytes (Bld) [#/Vol] 0.07 10*3/uL [place] Interpretation and review of laboratory results Abnormal [place] Lymphocytes (Bld) [#/Vol] 2.41 10*3/uL [place] Lymphocytes/100 WBC (Bld) 24 % 24 - 43 % [place] MCH (RBC) [Entitic mass] 26.3 pg 25.2 - 33.5 pg [place] MCHC (RBC) [Mass/Vol] 31.0 g/dL 28.4 - 34.8 g/dL [place] MCV (RBC) [Entitic vol] 84.7 fL 82.6 - 102.9 fL [place] Monocytes (Bld) [#/Vol] 0.76 10*3/uL [place] Monocytes/100 WBC (Bld) 8 % 3 - 12 % [place] Platelet mean volume (Bld) [Entitic vol] 12.5 fL 8.1 - 13.5 fL [place] Platelets (Bld) [#/Vol] NOT REPORTED [place] Platelets (Bld) [#/Vol] 248 10*3/uL [place] RBC (Bld) [#/Vol] 3.92 10*6/uL Low 3.95 - 5.1 1 m/uL [place] RBC morphology finding Nom (Bld) NOT REPORTED [place] Segmented neutrophils/100 WBC (Bld) 67 % High 36 - 65 % [place] Segs Absolute 6.63 [place] WBC (Bld) [#/Vol] 0.0 10*3/uL 0.0 per 10 0 WBC [place] WBC (Bld) [#/Vol] 9.9 10*3/uL [place] WBC Morphology NOT REPORTED [place] CBC with Diffon 10-26-2019 Abs. Basophil 0.03 k/uL Normal 0.00-0.20 [facility] Comment on above: Performed By: #### C NOÉ, TREP #### [address] [address] Dog Walker: Rico Nicole MD Abs.Imm.Granulocyt e 0.07 k/uL Normal 0.00-0.30 [facility] Comment on above: Performed By: #### C DP, TREP #### [facility] [employer] [address] [place] [address] Dog Walker: Rico Nicole MD Abs.Neutrophil (Seg) 6.63 k/uL Normal 1.50-8.10 [facility] Comment on above: Performed By: #### C DP, TREP #### [facility] [employer] [address] [place] [address] Dog Walker: Rico Nicole MD Basophils/100 WBC (Bld) 0 % Normal 0-2 [facility] Comment on above: Performed By: #### C DP, TREP #### [address] [address] Dog Walker: Rico Nicole MD Eosinophils (Bld) [#/Vol] 0.04 10*3/uL Normal 0.00-0.44 [facility] Comment on above: Performed By: #### C DP, TREP #### [address] [address] Dog Walker: Rico Nicole MD Eosinophils/100 WBC (Bld) 0 % Low 1-4 [facility] Comment on above: Performed By: #### C DP, TREP #### [place] [address] Dog Walker: Rico Nicole MD Erythrocyte distribution width (RBC) [Ratio] 13.6 % Normal 11.8-14.4 [facility] Comment on above: Performed By: #### C DP, TREP #### [place] [address] Dog Walker: Rico Nicole MD Hematocrit (Bld) [Volume fraction] 33.2 % Low 36.3-47.1 [facility] Comment on above: Performed By: #### C DP, TREP #### [place] [address] Dog Walker: Rico Nicole MD Hemoglobin (Bld) [Mass/Vol] 10.3 g/dL Low 11.9-15.1 [facility] Comment on above: Performed By: #### C DP, TREP #### [address] [address] Dog Walker: Rico Nicole MD Immature granulocytes (Bld) [#/Vol] 1 % High 0 [facility] Comment on above: Performed By: #### C DP, TREP #### [place] [address] Dog Walker: Rico Nicole MD Lymphocytes (Bld) [#/Vol] 2.41 10*3/uL Normal 1.10-3.70 [facility] Comment on above: Performed By: #### C DP, TREP #### [place] [address] Dog Walker: Rico Nicole MD Lymphocytes/100 WBC (Bld) 24 % Normal 24-43 [facility] Comment on above: Performed By: #### C DP, TREP #### [place] [address] Dog Walker: Rico Nicole MD MCH (RBC) [Entitic mass] 26.3 pg Normal 25.2-33.5 [facility] Comment on above: Performed By: #### C DP, TREP #### [place] [address] Dog Walker: Rico Nicole MD MCHC (RBC) [Mass/Vol] 31.0 g/dL Normal 28.4-34.8 [facility] Comment on above: Performed By: #### C DP, TREP #### [place] [address] Dog Walker: Rico Nicole MD MCV (RBC) [Entitic vol] 84.7 fL Normal 82.6-102.9 [facility] Comment on above: Performed By: #### C DP, TREP #### [place] [address] Dog Walker: Rico Nicole MD Monocytes (Bld) [#/Vol] 0.76 10*3/uL Normal 0.10-1.20 [facility] Comment on above: Performed By: #### C DP, TREP #### [address] [address] Dog Walker: Rico Nicole MD Monocytes/100 WBC (Bld) 8 % Normal 3-12 [facility] Comment on above: Performed By: #### C DP, TREP #### [address] [address] Dog Walker: Rico Nicole MD Neutrophil (Seg) 67 % High 36-65 [facility] Comment on above: Performed By: #### C DP, TREP #### [address] [address] Dog Walker: Rico Nicole MD NRBC Automated 0.0 per 100 WBC Normal 0.0 [facility] Comment on above: Performed By: #### C DP, TREP #### [address] [address] Dog Walker: Rico Nicole MD Platelet mean volume (Bld) [Entitic vol] 12.5 fL Normal 8.1-13.5 [facility] Comment on above: Performed By: #### C DP, TREP #### [address] [address] Dog Walker: Rico Nicole MD Platelets (Bld) [#/Vol] 248 10*3/uL Normal 138-453 [facility] Comment on above: Performed By: #### C DP, TREP #### [address] [address] Dog Walker: Rico Nicole MD RBC (Bld) [#/Vol] 3.92 10*6/uL Low 3.95-5.11 [facility] Comment on above: Performed By: #### C DP, TREP #### [address] [address] Dog Walker: Rico Nicole MD WBC (Bld) [#/Vol] 9.9 10*3/uL Normal 3.5-11.3 [facility] Comment on above: Performed By: #### C DP, TREP #### [address] [address] Dog Walker: Rico Nicole MD Auto Diff Performed NOT REPORTED Normal [facility] Comment on above: Performed By: #### C DP, TREP #### [address] [address] Dog Walker: Rico Nicole MD Platelets (Bld) [#/Vol] NOT REPORTED Normal [facility] Comment on above: Performed By: #### C DP, TREP #### [address] [address] Dog Walker: Rico Nicole MD RBC morphology finding Nom (Bld) NOT REPORTED Normal [facility] Comment on above: Performed By: #### C DP, TREP #### [address] [address] Dog Walker: Rico Nicole MD WBC Morphology NOT REPORTED Normal [facility] Comment on above: Performed By: #### C DP, TREP #### [address] [address] Dog Walker: Rico Nicole MD Drug Scr, Abuse, Uron 2018 Amphetamine(s),Ur Negative Normal NEG [facility] Comment on above: Result Comment: (Positive cutoff 1000 ng/mL) Performed By: #### D AU #### [address] [address] Dog Walker: Rico Nicole MD Barbiturate(s),Ur Negative Normal NEG [facility] Comment on above: Result Comment: (Positive cutoff 200 ng/mL) Performed By: #### D AU #### [address] [address] Dog Walker: Rico Nicole MD Base excess Calc (Bld) [Moles/Vol] Negative Normal NEG [facility] Comment on above: Result Comment: (Positive cutoff 300 ng/mL) Performed By: #### D AU #### [facility] [address] [place] [address] Dog Walker: Rico Nicole MD Benzodiazepine(s) Negative Normal NEG [facility] Comment on above: Result Comment: (Positive cutoff 200 ng/mL) Performed By: #### D AU #### [address] [address] Dog Walker: Rico Nicole MD Cannabinoid(s),Ur Negative Normal NEG [facility] Comment on above: Result Comment: (Positive cutoff 50 ng/mL) Performed By: #### D AU #### [address] [address] Dog Walker: Rico Nicole MD Interpretive Info Assay provides medic al screening only. The absence of expected drug(s) and/or Normal [facility] Comment on above: Result Comment: meta bolite(s) may indicate diluted or adulterated urine, limitations of testing or timing of collection. Testing for legal purposes should be confirmed by another method. To request confirmation of test result, please call the lab within 7 days of sample submission. Performed By: #### D AU #### [address] [address] Dog Walker: Rico Nicole MD Methadone Ql (U) Negative Normal NEG [facility] Comment on above: Result Comment: (Positive cutoff 300 ng/mL) Performed By: #### D AU #### [address] [address] Dog Walker: Rico Nicole MD Opiate(s), Ur Negative Normal NEG [facility] Comment on above: Result Comment: (Positive cutoff 300 ng/mL) Performed By: #### D AU #### [facility] [address] [place] [address] Dog Walker: Rico Nicole MD Oxycodone, Urine Negative Normal NEG [facility] Comment on above: Result Comment: (Positive cutoff 100 ng/mL) Performed By: #### D AU #### [facility] [employer] [address] [place] [address] Dog Walker: Rico Nicole MD Phencyclidine, Ur Negative Normal NEG [facility] Comment on above: Result Comment: (Positive cutoff 25 ng/mL) Performed By: #### D AU #### [facility] [employer] [address] [place] [address] Dog Walker: Rico Nicole MD Buprenorphrine, Ur NOT REPORTED Normal NEG [facility] Comment on above: Performed By: #### D AU #### [facility] [employer] [address] [place] [address] Dog Walker: Rico Nicole MD MDMA, Urine NOT REPORTED Normal NEG [facility] Comment on above: Performed By: #### D AU #### [facility] [employer] [address] [place] [address] Dog Walker: Rico Nicole MD Methamphetamine, Ur NOT REPORTED Normal NEG [facility] Comment on above: Performed By: #### D AU #### [facility] [address] [place] [address] Dog Walker: Rico Nicole MD Propoxyphene,Urine NOT REPORTED Normal NEG [facility] Comment on above: Performed By: #### D AU #### [facility] [employer] [address] [place] [address] Dog Walker: Rico Nicole MD Tricyclic antidepressants Screen Ql (U) NOT REPORTED Normal NEG [facility] Comment on above: Performed By: #### D AU #### [facility] [employer] [address] [place] [address] [phone] Dog Walker: Rico Nicole MD T. pallidum Abon 10-26-2019 T. pallidum, IgG NONREACTIVE NONREACTIVE [place] Comment on above: T. pallidum antibodies are not detected. There is no serological evidence of infection with T. pallidum (early primary syphilis cannot be excluded). Retest in 2-4 weeks if syphilis is clinically suspect. T.pallidum Ab Screenon 10-26 T.pallidum Ab Screen NONREACTIVE Normal NR [facility] Comment on above: Result Comment: T. pallidum antibodies are not detected. There is no serological evidence of infection with T. pallidum (early primary syphilis cannot be excluded). Retest in 2-4 weeks if syphilis is clinically suspect. Performed By: #### C DP, TREP #### [facility] [employer] [address] [place] [address] [phone] Dog Walker: Rioc Nicole MD TYPE AND SCREENon 10-26-2019 ABO/Rh Positive [place], [place] Arm Band Number [id number] [place], [place] Expiration Date 10/29/2019,2359 [place], [place] Type + Screenon 10-26-2019 Type + Screen Sample Expiration 10/29/2019,2359 Arm Band Number [id number] ABO/Rh(D) O POSITIVE Antibody Screen NEGATIVE Normal [facility] Comment on above: Performed By: #### T YS #### [facility] [employer] [address] [place] [address] [phone] Dog Walker: Rico Nicole MD Urine Drug Screenon 10-26-20 19 Amphetamine Screen, Ur Negative NEGATIVE [place] Comment on above: (Positive cutoff 1000 ng/mL) Barbiturate Screen, Ur Negative NEGATIVE [place] Comment on above: (Positive cutoff 200 ng/mL) Benzodiazepine Screen, Urine Negative NEGATIVE [place] Comment on above: (Positive cutoff 200 ng/mL) Buprenorphine Urine NOT REPORTED NEGATIVE [facility] Cannabinoid Scrn, Ur Negative NEGATIVE [facility] [place] Comment on above: (Positive cutoff 50 ng/mL) Cocaine Metabolite, Urine Negative NEGATIVE [facility] [place] Comment on above: (Positive cutoff 300 ng/mL) MDMA, Urine NOT REPORTED NEGATIVE [facility] [place] Methadone Screen, Urine Negative NEGATIVE [facility] Comment on above: (Positive cutoff 300 ng/mL) Methamphetamine, Urine NOT REPORTED NEGATIVE [facility] Opiates, Urine Negative NEGATIVE [facility] [place] Comment on above: (Positive cutoff 300 ng/mL) Oxycodone Screen, Ur Negative NEGATIVE [facility] [place] Comment on above: (Positive cutoff 100 ng/mL) Phencyclidine, Urine Negative NEGATIVE [facility] [place] Comment on above: (Positive cutoff 25 ng/mL) Propoxyphene, Urine NOT REPORTED NEGATIVE [facility] [place] [place] Test Information Assay provides medic al screening only. The absence of expected drug(s) and/or metabolite(s) may indicate diluted or adulterated urine, limitations of testing or timing of collection. [facility]- [place], [place] Comment on above: Testing for legal pu rposes should be confirmed by another method. To request confirmation of test result, please call the lab within 7 days of sample submission. Tricyclic Antidepressants, Urine NOT REPORTED NEGATIVE [employer] [facility], [place] Maternal Serum Scr 4on - Determined by Ultrasound [facility] Comment on above: Performed By: #### A QUADM #### [employer] [address] [place] [phone] Dog Walker: Rico Nicole MD [facility] [employer] [address] [place] [phone] Dog Walker: Aryan Morris MD Dimeric Inhibin A 393 pg/mL [facility] Comment on above: Performed By: #### A QUADM #### [employer] [address] [place] [phone] Dog Walker: Rico Nicole MD [facility] [employer] [address] [place] [phone] Dog Walker: Aryan Morris MD Due Date SEE NOTE Normal [facility] Comment on above: Result Comment: Resu lts for Estimated Due Date: 11 02 19 Performed By: #### A QUADM #### [address] [address] Dog Walker: Rico Nicole MD [address] [address] Dog Walker: Aryan Morris MD Family History No [facility] Comment on above: Performed By: #### A QUADM #### [address] [address] Dog Walker: Rico Nicole MD [address] [address] Dog Walker: Aryan Morris MD Gestat Age (exact) 23 wks, 6 days Normal [facility] Comment on above: Performed By: #### A QUADM #### [address] [address] Dog Walker: Rico Nicole MD [address] [phone] Dog Walker: [place] [id number] IU/L [facility] Comment on above: Performed By: #### A QUADM #### [address] [address] Dog Walker: Rico Nicole MD [address] [address] Dog Walker: Aryan Morris MD Hx Aneuploidy Unknown [facility] Comment on above: Performed By: #### A QUADM #### [address] [address] Dog Walker: Rico Nicole MD [address] [address] Dog Walker: Aryan Morris MD Ins Req Matern Diab No Normal [facility] Comment on above: Performed By: #### A QUADM #### [address] [address] Dog Walker: Rico Nicole MD [address] [phone] Dog Walker: Aryan Morris MD Interpretation Screen Neg Normal [facility] Comment on above: Result Comment: (NOT E) INTERPRETATION: SCREEN NEGATIVE Neural Tube Defects (NTD) Negative Down syndrome (DS) Negative Trisomy 18 (T18) Negative Pre-Test Post-Test Cutoff Neural Tube Defects Risks 1:1030 < 1:52141 1:250 Down Syndrome Risks 1:1110 1:604 1:150 Trisomy 18 Risks 1:4330 < 1:69860 1:100 Comments: The risk of an open neural tube defect is less than the screening cut-off. The risk of Down syndrome is less than the screening cut-off. The risk of trisomy 18 is less than the screening cut-off. Test developed and characteristics determined by [employer]. See Compliance Statement B: [employer]/ Performed By: #### A QUADM #### [address] [address] Dog Walker: Rico Nicole MD [facility] [employer] [address] [place] [phone] Dog Walker: Aryan Morris MD [facility] Scr Enhanced Rpt See Note Normal [facility] Comment on above: Result Comment: (NOT E) Access [employer] Enhanced Report using either link below: -Direct access: [email or web address] -Enter Username, Password: [email or web address] Username: [email or web address] Password: [email or web address] Performed by [employer], [address] [place] [id number] www.[employer], Aryan Morris MD, Lab. Director Performed By: #### A QUADM #### [address] [address] Dog Walker: Rico Nicole MD [address] [address] Dog Walker: Aryan Morris MD [age] [facility] Comment on above: Performed By: #### A QUADM #### [address] [address] Dog Walker: Rico Nicole MD [address] [phone] Dog Walker: Aryan Morris MD Maternal Race Nonblack [facility] Comment on above: Performed By: #### A QUADM #### [address] [address] Dog Walker: Rico Nicole MD [address] [phone] Dog Walker: Aryan Morris MD MoM Dimeric Inhib A 1.53 [facility] Comment on above: Performed By: #### A QUADM #### [address] [address] Dog Walker: Rico Nicole MD [facility] [address] [place], [place] [phone] Dog Walker: Aryan Morris MD MoM for AFP 0.70 [facility] Comment on above: Performed By: #### A QUADM #### [address] [address] Dog Walker: Rico Nicole MD [facility] [address] [place] [address] Dog Walker: Aryan Morris MD MoM for HCG, Tri 2 1.97 [facility] Comment on above: Performed By: #### A QUADM #### [address] [address] Dog Walker: Rico Nicole MD [facility] [address] [place], [place] [phone] Dog Walker: Aryan Morris MD MoM for uE3 1.03 [facility] Comment on above: Performed By: #### A QUADM #### [address] [address] Dog Walker: Rico Nicole MD [address] [phone] Dog Walker: Aryan Morris MD Number of Fetuses Trevino [facility] Comment on above: Performed By: #### A QUADM #### [address] [address] Dog Walker: Rico Nicole MD [facility] [address] [place] [address] [phone] Dog Walker: Aryan Morris MD Patient's AFP 63 ng/mL [facility] Comment on above: Performed By: #### A QUADM #### [address] [address] Dog Walker: Rico Nicole MD [facility] [address] [place] [phone] Dog Walker: Aryan Morris MD Patient's uE3 3.28 ng/mL [facility] Comment on above: Performed By: #### A QUADM #### [address] [address] Dog Walker: Rico Nicole MD [facility] [address] [place] [address] Dog Walker: Aryan Morris MD Smoking Unknown [facility] Comment on above: Performed By: #### A QUADM #### [address] [address] Dog Walker: Rico Nicole MD [facility] [address] [place] [address] Dog Walker: Aryan Morris MD Specimen See Note [facility] Comment on above: Result Comment: Init ial sample Performed By: #### A QUADM #### [address] [address] Dog Walker: Rico Nicole MD [facility] [address] [place] [address] [phone] Dog Walker: Aryan Morris MD Maternal Serum Scr 4on 07-12 [facility] Comment on above: Performed By: #### A QUADM #### [address] [address] Dog Walker: Rico Nicole MD [facility] [address] [place] [address] [phone] Dog Walker: Aryan Morris MD Diabetic NO [facility] Comment on above: Performed By: #### A QUADM #### [address] [address] Dog Walker: Rico Nicole MD [address] [phone] Dog Walker: Aryan Morris MD Estimated Due Date 11/02/2019 [facility] Comment on above: Performed By: #### A QUADM #### [address] [address] Dog Walker: Rico Nicole MD [facility] [address] [place] [address] Dog Walker: Aryan Morris MD Family History NO [facility] Comment on above: Performed By: #### A QUADM #### [address] [place] [address] Dog Walker: Rico Nicole MD [facility] [address] [place] [address] Dog Walker: Aryan Morris MD Maternal date 1995 [facility] Comment on above: Performed By: #### A QUADM #### [address] [address] Dog Walker: Rico Nicole MD [facility] [address] [place] [address] Dog Walker: Aryan Morris MD Race (Maternal) Normal [facility] Comment on above: Performed By: #### A QUADM #### [address] [address] Dog Walker: Rico Nicole MD [facility] [address] [place] [address] Dog Walker: Aryan Morris MD Repeat Specimen NO [facility] Comment on above: Performed By: #### A QUADM #### [address] [address] Dog Walker: Rico Nicole MD [facility] [address] [place] [address] Dog Walker: Aryan Morris MD Current Smoking NOT REPORTED Normal [facility] Comment on above: Performed By: #### A QUADM #### [address] [address] Dog Walker: Rico Nicole MD [facility] [address] [place] [address] Dog Walker: Aryan Morris MD In Vitro Fertalizat NOT REPORTED [facility] Comment on above: Performed By: #### A QUADM #### [address] [address] Dog Walker: Rico Nicole MD [facility] [address] [place] [address] Dog Walker: Aryan Morris MD LMP date NOT REPORTED Normal [facility] Comment on above: Performed By: #### A QUADM #### [address] [address] Dog Walker: Rico Nicole MD [facility] [address] [place] [address] Dog Walker: Aryan Morris MD Monochorionic Twins NOT REPORTED Normal [facility] Comment on above: Performed By: #### A QUADM #### [address] [address] Dog Walker: Rico Nicole MD [facility] [address] [place] [phone] Dog Walker: Aryan Morris MD Prev Trisomy Preg NOT REPORTED Normal [facility] Comment on above: Performed By: #### A QUADM #### [address] [address] Dog Walker: Rico Nicole MD [facility] [address] [place] [address] Dog Walker: Aryan Morris MD Valproic/Carbamaze p NOT REPORTED Normal [facility] Comment on above: Performed By: #### A QUADM #### [address] [address] Dog Walker: Rico Nicole MD [facility] [address] [place] [address] Dog Walker: Aryan Morris MD Chlamydia/GC/Trich NAAon Chlamydia Trachomotis, MALINI Negative Normal Negative [facility] Comment on above: Order Comment: [facility] SPECIMEN SOURCE/DESCRIPTION URINE Performed By: #### G CCHLAMTRI #### [facility] , #### CUU #### [facility] [address] [place] [address] Neisseria Gonorrhoeae, MALINI Negative Normal Negative [facility] Comment on above: Order Comment: [facility] SPECIMEN SOURCE/DESCRIPTION URINE Performed By: #### G CCHLAMTRI #### [facility] , #### CUU #### [facility] [address] [place] [address] Trichomonas MALINI Negative Normal Negative [facility] Comment on above: Order Comment: [facility] SPECIMEN SOURCE/DESCRIPTION URINE Result Comment: Perf ormed at: =G - [facility] [address] [phone] Dog Walker: Emilia Hankins MD, Phone: [phone] PERFORMED BY: [place] [address] PATHOLOGIST [employer] JONI FLEMING M.D. Performed By: #### G CCHLAMTRI #### [facility] , #### CUU #### [address] Urine Cultureon 02-27-2019 Bacteria identified Cx Nom (U) [facility] 30,000 colonies/ml mixed bacterial skin contaminants 2 Days PERFORMED BY: [place] [address] PATHOLOGIST [employer] JONI FLEMING M.D. [facility] Comment on above: Performed By: #### G CCHLAMTRI #### [facility] , #### CUU #### [address] Vital Signs Date Time Vital Sign Value Performing Clinician Facility 03-06-2025 10: Body mass index (BMI) [Ratio] 40.9 kg/m2 [id number] Work Phone: [facility] 03-06-2025 10: Body weight 114.94 kg [employer] DO Work Phone: [facility] 03-06-2025 10:19-0400 Diastolic blood pressure 74 mm[Hg] Tank Leonor DO Work Phone: [facility] 03-06-2025 10:19-0400 Systolic blood pressure 116 mm[Hg] Tank Leonor DO Work Phone: [facility] 01-30-2025 10:03-0500 Body mass index (BMI) [Ratio] 40.42 kg/m2 Tank Leonor DO Work Phone: [facility] 01-30-2025 10:03-0500 Body weight 113.58 kg Tank Leonor DO Work Phone: [facility] 01-30-2025 10:03-0500 Diastolic blood pressure 82 mm[Hg] Tank Leonor DO Work Phone: [facility] 01-30-2025 10:03-0500 Systolic blood pressure 100 mm[Hg] Tank Leonor DO Work Phone: [facility] 12-16-2023 16:55-0500 Body height 170.18 cm Aline Radha Other [facility] Other 12-16-2023 16:55-0500 Body mass index (BMI) [Ratio] 38.49 kg/m2 Laine Radha Other [facility] Other 12-16-2023 16:55-0500 Body temperature 101.4 [degF] Aline Radha Other [facility] Other 12-16-2023 16:55-0500 Body weight 111.49 kg Aline Radha Other [facility] Other 12-16-2023 16:55-0500 Diastolic blood pressure 90 mm[Hg] Aline Radha Other [facility] Other 12-16-2023 16:55-0500 Respiratory rate 18 /min Aline Garcia Other [facility] Other 12-16-2023 16:55-0500 SaO2% (BldA) [Mass fraction] 98 % Aline Garcia Other [facility] Other 12-16-2023 16:55-0500 Systolic blood pressure 130 mm[Hg] Aline Garcia Other [facility] Other 03-10-2023 16:50-0400 Body height 170.18 cm Karol Carrasquillo Other [facility] Other 03-10-2023 16:50-0400 Body mass index (BMI) [Ratio] 36.02 kg/m2 Karol Carrasquillo Other [facility] Other 03-10-2023 16:50-0400 Body temperature 97.5 [degF] Karol Carrasquillo Other [facility] Other 03-10-2023 16:50-0400 Body weight 104.33 kg Karol Carrasquillo Other [facility] Other 03-10-2023 16:50-0400 Respiratory rate 18 /min Karol Carrasquillo Other [facility] Other 03-10-2023 16:50-0400 SaO2% (BldA) [Mass fraction] 98 % Karol Carrasquillo Other [facility] Other 02-18-2023 10:30-0400 Body height 170.18 cm Aline Radha Other [facility] Other 02-18-2023 10:30-0400 Body mass index (BMI) [Ratio] 37.43 kg/m2 Aline Radha Other [facility] Other 02-18-2023 10:30-0400 Body temperature 98.1 [degF] Aline Radha Other [facility] Other 02-18-2023 10:30-0400 Body weight 108.41 kg Aline Radha Other [facility] Other 02-18-2023 10:30-0400 Respiratory rate 18 /min Aline Radha Other [facility] Other 02-18-2023 10:30-0400 SaO2% (BldA) [Mass fraction] 100 % Aline Radha Other [facility] Other 06-11-2022 16:15-0400 Body height 170.18 cm Aline Radha Other [facility] Other 06-11-2022 16:15-0400 Body mass index (BMI) [Ratio] 34.45 kg/m2 Aline Radha Other [facility] Other 06-11-2022 16:15-0400 Body temperature 98.9 [degF] Aline Radha Other [facility] Other 06-11-2022 16:15-0400 Body weight 99.79 kg Ailne Radha Other [facility] Other 06-11-2022 16:15-0400 Respiratory rate 18 /min Aline Radha Other [facility] Other 06-11-2022 16:15-0400 SaO2% (BldA) [Mass fraction] 98 % Aline Garcia Other [facility] Other 04-04-2022 13:15-0400 Body height 170.18 cm Slmi Castellon Other [facility] Other 04-04-2022 13:15-0400 Body mass index (BMI) [Ratio] 34.45 kg/m2 Slim Terryaker Other [facility] Other 04-04-2022 13:15-0400 Body temperature 96.2 [degF] Slim Castellon Other [facility] Other 04-04-2022 13:15-0400 Body weight 99.79 kg Slim Castellon Other [facility] Other 04-04-2022 13:15-0400 Respiratory rate 18 /min Slim Castellon Other [facility] Other 04-04-2022 13:15-0400 SaO2% (BldA) [Mass fraction] 98 % Slim Castellon Other [facility] Other 10-29-2019 08:00-0500 Body Temperature 97.9 [degF] Pennie [facility] [place] [place] 10-29-2019 08:00-0500 BP Diastolic 76 mm[Hg] [facility] [place] 10-29-2019 08:00-0500 BP Systolic 114 mm[Hg] [facility] [place] 10-29-2019 08:00-0500 Pulse (Heart Rate) 86 /min [facility] [place] 10-29-2019 08:00-0500 Respiratory Rate 16 /min [facility] 10-28-2019 16:45-0500 Pulse Oximetry 98 % Pennie Goldberg [facility] , [place] 10-26-2019 10:00-0500 BMI (Body Mass Index) 35.51 kg/m2 [facility] [place] 10-26-2019 10:00-0500 Body weight 99.79 kg [facility] [place] 10-26-2019 10:00-0500 Height 167.6 cm [facility] [place] 07-14-2019 18:01-0400 Body weight 192.0 lbs. PENNIE [facility] Comment on above: Performed By: #### AQUADM #### [facility] [address] [address] Dog Walker: Rico Nicole MD [facility] [address] [place] [address] Dog Walker: Aryan Morris MD 07-12-2019 17:34-0400 Body weight 192 PENNIE [facility] Comment on above: Performed By: #### AQUADM #### [facility] [address] [place] [phone] Dog Walker: Rico Nicole MD [facility] [address] [place] [address] Dog Walker: Aryan Morris MD 07-12-2019 17:34-0400 Body weight LBS PENNIE [facility] Comment on above: Performed By: #### AQUADM #### [facility] [address] [address] Dog Walker: Rico Nicole MD [facility] [address] [place] [address] Dog Walker: Aryan Morris MD Encounters Encounter Date Encounter Type Care Provider Facility Start: 03-06-2025 End: 03-06-2025 Bamboo flowsheet Tank Leonor DO Work Phone: [facility] Start: 03-06-2025 End: 03-09-2025 Bamboo flowsheet Tank Leonor DO Work Phone: [facility] Start: 03-06-2025 End: 03-09-2025 Clinisync Result Encounter Tank Leonor DO Work Phone: [facility] Unsolicited Start: 03-06-2025 End: 03-06-2025 ambulatory TANK LEONOR Not Available Start: 03-06-2025 End: 03-06-2025 Patient encounter procedure Tank Leonor DO Work Phone: [facility] Work Phone: Start: 03-06-2025 End: 03-06-2025 Periodic preventive med est patient 18-39 yrs Tank Leonor DO Work Phone: [facility] Comment on above: Well woman exam with routine gynecological exam Start: 01-30-2025 End: 01-30-2025 Bamboo flowsheet Tank Leonor DO Work Phone: [facility] Start: 01-30-2025 End: 01-30-2025 Bamboo flowsheet Tank Leonor DO Work Phone: [facility] Start: 01-30-2025 End: 01-30-2025 Clinisync Result Encounter Tank Leonor DO Work Phone: [facility] Unsolicited Start: 01-30-2025 End: 01-30-2025 ambulatory TANK LEONOR Not Available Start: 01-30-2025 End: 01-30-2025 Office outpatient visit 15 minutes Tank Leonor DO Work Phone: [facility] Comment on above: Anovulation; PCOS (polycystic ovarian syndrome); Female infertility Start: 12-16-2023 End: 12-16-2023 ambulatory Aline Garcia Other [facility] Other Start: 12-16-2023 Office outpatient vi sit 15 minutes Aline Radha [facility] Start: 04-22-2023 End: 04-22-2023 ambulatory Chandana Mcdonnell Facility:[facility] Start: 04-20-2023 End: 04-21-2023 ambulatory Chandana Mukherjee Kecia Facility:[facility] Start: 03-10-2023 End: 03-10-2023 ambulatory Karol Wayneler Other [facility] Other Start: 03-10-2023 Office outpatient vi sit 25 minutes Karol Carrasquillo [facility] Start: 02-18-2023 End: 02-18-2023 ambulatory Aline Radha Other [facility] Other Start: 02-18-2023 Office outpatient vi sit 15 minutes Aline Radha [facility] Start: 06-12-2022 End: 06-12-2022 ambulatory Aline Radha Other [facility] Other Start: 06-12-2022 Encounter by compute r link Aline Radha [facility] Start: 06-11-2022 End: 06-11-2022 ambulatory Aline Radha Other [facility] Other Start: 06-11-2022 Office outpatient vi sit 15 minutes Alinethad Garcia [facility] Start: 04-04-2022 End: 04-04-2022 ambulatory Slim Castellon Other [facility] Other Start: 04-04-2022 Office outpatient vi sit 15 minutes Slim Castellon [facility] Start: 10-29-2021 End: 10-29-[address] MIKI KRUGER Facility: Start: 10-26-2019 End: 10-29-2019 Evaluation and management of inpatient PENNIE GOLDBERG [facility] Start: 10-26-2019 End: 10-29-2019 Evaluation and management of inpatient Pennie Goldberg Work Phone: [facility] Comment on above: PLTCS 10/27/19 M Apg 8,9 Wt 9#8 (Primary Dx) Start: 07-12-2019 End: 07-13-2019 Patient encounter procedure BENJAMIN HARTLEY [facility] Start: 07-12-2019 End: 07-12-2019 Subsequent hospital visit by physician Miki GIRON [facility] Start: 02-28-2019 End: 03-01-2019 Patient encounter procedure DEFAULT PHYSICIAN Facility:[facility] Start: 02-27-2019 End: 02-27-2019 Patient encounter procedure Marlena Taveras Facility:[facility] Procedures Date Procedure Procedure Detail Performing Clinician Start: 03-06-2025 Urnls dip stick/tabl et rgnt non-auto w/o micrscp Tank Leonor DO Work Phone: Start: 03-06-2025 IGP,APTIMA HPV,AGE GDLN Tank Leonor DO Work Phone: Start: 01-30-2025 MLR HEMOGLOBIN A1C Core y Leonor DO Work Phone: Start: 10-29-2019 INCENTIVE SPIROMETRY RT PENNIE GOLDBERG Start: 10-29-2019 DISCHARGE PATIENT FLASH GOLDBERG Start: 10-29-2019 INCENTIVE SPIROMETRY RT PENNIE GOLDBERG Start: 10-29-2019 INCENTIVE SPIROMETRY RT PENNIE GOLDBERG Start: 10-29-2019 INITIATE OXYGEN THER APY [...] PENNIE GOLDBERG Start: 10-27-2019 STRAIGHT CATH PENNIE M YOSEF Start: 10-27-2019 VITAL SIGNS PENNIE BURROWS Start: 10-27-2019 WOUND CARE PENNIE BURROWS Start: 10-27-2019 ADVANCE DIET TOLE RATED (NURSING COMMUNICATION) PENNIE GOLDBERG Start: 10-27-2019 REASON FOR NO CHEMIC AL VTE PROPHYLAXIS PENNIE GOLDBERG Start: 10-27-2019 MISCELLANEOUS NURSIN G CARE ORDER (SPECIFY) PENNIE GOLDBREG Start: 10-27-2019 BEDREST PENNIE BURROWS Start: 10-27-2019 [...] Start: 10-26-2019 Blood typing serologic abo Mariia J [employer] Work Phone: Start: 10-26-2019 Blood count complete auto&auto difrntl wbc Mariia Marta [employer] Work Phone: Start: 10-26-2019 T. [employer] Marta [employer] Work Phone: Start: 10-26-2019 PATIENT STATUS (DIRECT) PENNIE GOLDBERG Start: 10-26-2019 Drug screen class list a Mariia J [employer] Work Phone: Start: 07-12-2019 MATERNAL SCREEN 4 FLASH GOLDBERG Plan of Treatment Date Care Activity Detail Author Start: 10-29-2029 DTaP/Tdap/Td vaccine (2 - Td) DTaP/Tdap/Td vaccine (2 - Td) [place] Start: 07-31-2025 Influenza vaccination Influenz a Vaccine ([facility] [facility] Start: 03-06-2025 End: 03-06-2025 Patient encounter procedure 03/06/2025 9:40 AM EDT Office Visit [facility] [address] [place] [id number] Tank Galvez DO [address] [place] [address] [facility] Start: 01-30-2025 End: 01-30-2026 Antimullerian hormone (AMH) Antimullerian hormone (AMH) Lab Routine Anovulation PCOS (polycystic ovarian syndrome) Female infertility Expected: 01/30/2025 (Approximate), Expires: 01/30/2026 [facility] Comment on above: Expected: 01/30/2025 (Approximate), Expires: 01/30/2026 Start: 01-30-2025 End: 01-30-2026 Progesterone Progesterone Lab Routine Anovulation PCOS (polycystic ovarian syndrome) Female infertility Expected: 01/30/2025 (Approximate), Expires: 01/30/2026 [facility] Comment on above: Expected: 01/30/2025 (Approximate), Expires: 01/30/2026 Start: 07-31-2024 Influenza vaccination Influenza Vacc ine (#1) [facility] Start: 07-31-2019 Influenza vaccination Flu vaccine (# 1) [place], [place] Start: 2018 Cervical cancer screen Cervical canc er screen [place], [place] Start: 2016 DTaP/Tdap/Td vaccine (1 - Tdap) DTaP/Tdap/Td vaccine (1 - Tdap) [place] Start: 2013 Chlamydia screen Chlamydia screen [place], [place] Start: 2012 HIV screen HIV screen [place], [place] Start: 2012 HPV vaccine (1 - Fem louie 3-dose series) HPV vaccine (1 - Female 3-dose series) [place] Start: 2010 Varicella Vaccine (1 of 2 - 13+ 2-dose series) Varicella Vaccine (1 of 2 - 13+ 2-dose series) [place] Start: 2008 HPV vaccine (1 - Fem louie 2-dose series) HPV vaccine (1 - Female 2-dose series) [place] Start: 2003 Pneumococcal 0-64 ye ars Vaccine (1 of 1 - PPSV23) Pneumococcal 0-64 years Vaccine (1 of 1 - PPSV23) [place] Start: 1998 Varicella Vaccine (1 of 2 - 2-dose childhood series) Varicella Vaccine (1 of 2 - 2-dose childhood series) [place] Cytology Cervical or vaginal smear or scraping study Pap Smear Pathology and Cytology Routine Well woman exam with routine gynecological exam Ordered: 03/06/2025 [facility] Work Phone: Comment on above: Ordered: 03/06/2025 hCG, quantitative hCG, quantitat mami Lab Routine Anovulation PCOS (polycystic ovarian syndrome) Female infertility Ordered: 01/30/2025 [facility] Comment on above: Ordered: 01/30/2025 Hemoglobin A1c/Hemoglobin.total in Blood Hemoglobin A1c Lab Routine Anovulation PCOS (polycystic ovarian syndrome) Female infertility Ordered: 01/30/2025 [facility] Comment on above: Ordered: 01/30/2025 Incentive spirometry Incentive s pirometry Respiratory Care Routine Every 2hr while awake until discontinued starting 10/27/2019 [place] Comment on above: Every 2hr while awak e until discontinued starting 10/27/2019 Initiate Oxygen Ther apy Protocol Initiate Oxygen Therapy Protocol Respiratory Care Routine Daily until discontinued starting 10/27/2019 [place] Comment on above: Daily until disconti nued starting 10/27/2019 Maternal screen 4 Maternal scree n 4 Lab Routine 07/12/2019 11:00 AM EDT [place] Phase I & II - meter ed glucose Phase I & II - metered glucose Point of Care Testing Routine As Needed until discontinued starting 10/27/2019 [place] Comment on above: As Needed until disc ontinued starting 10/27/2019 Thyrotropin [Units/volume] in Serum or Plasma TSH Lab Routine Anovulation PCOS (polycystic ovarian syndrome) Female infertility Ordered: 01/30/2025 [facility] Work Phone: Comment on above: Ordered: 01/30/2025 Thyroxine (T4) free [Mass/volume] in Serum or Plasma T4, free Lab Routine Anovulation PCOS (polycystic ovarian syndrome) Female infertility Ordered: 01/30/2025 [facility] Comment on above: Ordered: 01/30/2025 Immunizations Immunization Date Immunization Notes Care Provider Yue mackay 10-29-2019 tetanus toxoid, redu eric diphtheria toxoid, and acellular pertussis vaccine, adsorbed Pennie Goldberg [facility] 10-27-2019 diphtheria, tetanus toxoids and acellular pertussis vaccine, unspecified formulation Pennie Goldberg [place], [place] 08-18-2012 hepatitis B vaccine, pediatric or pediatric/adolescent dosage Tank Leonor DO Work Phone: [facility] 05-25-2012 varicella virus vaccine Core y Leonor DO Work Phone: [facility] 02-18-2011 meningococcal polysaccharide (groups A, C, Y and W-135) diphtheria toxoid conjugate vaccine (MCV4P) Tank Leonor DO Work Phone: [facility] 02-18-2011 tetanus toxoid, redu eric diphtheria toxoid, and acellular pertussis vaccine, adsorbed Tank Leonor DO Work Phone: [facility] 10-08-1998 measles, mumps and rubella virus vaccine Tank Leonor DO Work Phone: [facility] 1995 hepatitis B vaccine, pediatric or pediatric/adolescent dosage Tank Leonor DO Work Phone: [facility] Payers Date Payer Category Payer Blue [employer] Blue [employer] [id number] 2023 Blue Cross Blue Shield [id number] 2023 Unknown [id number] 2023 Unknown 2019 Private Health Insurance [id number] 2019 Self-pay 2018 Private Health Insurance [id number] 2018 Private Health Insurance xxx [id number] 1997 Unknown [id number] 2.16.8 [id number] 1997 Unknown [id number] 2.16.8 [id number] 1997 Unknown [id number] 2.16.8 [id number] 1997 Unknown [id number] 2.16.84 [id number] 1997 Unknown [id number] 2.16.8 [id number] 1997 Unknown [id number] 2.16.8 [id number] 1997 Unknown [id number] 2.16. [id number] 1997 Unknown [id number] 2.16.84 [id number] 1997 Unknown [id number] 2.16.84 [id number] 1959 Private Health Insurance [id number] [facility] [id number] Unknown [id number] 2.16.84 [id number] Unknown [id number] 2.16.84 [id number] Unknown [id number] 2.16.8 [id number] Social History Date Type Detail Facility Start: 07-12-2019 End: 10-26-2019 Tobacco smoking status NHIS Never smoker [place] Start: 10-26-2019 Alcohol intake Ex-drinker (finding) [place] Start: 02-09-2019 [place], [place] Sex Assigned At Not on file [place] Start: 07-12-2019 End: 01-30-2025 Alcohol intake Not Currently [place] Start: 04-27-2023 [facility] History of tobacco use Current smoker [facility] History of tobacco use Cigarette Smoker [facility] Start: 04-27-2023 Tobacco use and exposure User of smokeless tobacco [facility] Start: 11-03-2023 End: 03-06-2025 Alcoholic beverage intake Current drinker of alcohol (finding) [facility] Start: 11-03-2023 End: 01-30-2025 History of Social function [facility] Start: 10-21-2023 Alcohol Comment caffeine: 1-2 cups per day [facility] Start: 1995 Sex assigned at Female [facility] Start: 11-02-2023 Gender identity Identifies as female gender (finding) [facility] Clinical Notes 04-04-2022 to 03-06-2025 Gay Hanks NP - 03/06/2025 9:40 AM Richi Montes De Oca LPN - 01/30/2025 9:50 AM EST Note Date & Type Note Facility 03-06-2025 History of Presen t illness Narrative Reason for Appointment: Patient ID: Gisell Alvarez is a 29 y.o. female who presents for Well Women Visit Patient presents today for Annual Exam. MEDICATIONS Current Outpatient Medications Medication Instructions medroxyPROGESTERone (PROVERA) 10 mg, Oral, Daily ALLERGIES No Known Allergies PROBLEMS Active Ambulatory Problems Diagnosis Date Noted Acid reflux 04/27/2023 Anemia 10/27/2019 macrosomia during , antepartum 10/21/2019 Anovulation 04/27/2023 Cephalopelvic disproportion due to unusually large fetus 04/27/2023 Chest pain 03/05/2014 Dysautonomia (CMS/HCC) 02/22/2014 Exercise-induced asthma 10/30/2011 Family history of cardiac arrest 10/27/2019 Hypertrophy tonsils 04/27/2023 Heartburn 04/27/2023 Generalized headaches 03/05/2014 Hypotension 04/27/2023 Irregular periods 04/27/2023 Neurologic cardiac syncope 10/30/2011 Smoker 04/27/2023 state 10/27/2019 Obesity 10/27/2019 Supervision of high risk , unspecified, unspecified trimester 10/21/2019 Resolved Ambulatory Problems Diagnosis Date Noted No Resolved Ambulatory Problems Past Medical History: Diagnosis Date Chronic pharyngitis Chronic tonsillitis Nasal septal deviation Peritonsillar abscess HISTORY PAST MEDICAL HISTORY SOCIAL HISTORY Past Medical History: Diagnosis Date Chronic pharyngitis Chronic tonsillitis Nasal septal deviation Peritonsillar abscess Social History Tobacco Use Smoking status: Former Types: Cigarettes Smokeless tobacco: Current Substance Use Topics Alcohol use: Yes Comment: caffeine: 1-2 cups per day Drug use: Defer FAMILY HISTORY No family history on file. SURGICAL HISTORY Past Surgical History: Procedure Laterality Date SECTION, CLASSIC 2019 TONSILLECTOMY Bilateral 04/22/2023 REVIEW OF SYSTEMS Review of Systems: Review of Systems Constitutional: Negative. HENT: Negative. Eyes: Negative. Respiratory: Negative. Cardiovascular: Negative. Gastrointestinal: Negative. Genitourinary: Negative. Musculoskeletal: Negative. Skin: Negative. Neurological: Negative. All other systems reviewed and are negative. Hematological: Negative. Endocrine: Negative. Allergic/Immunologic: Negative. OBJECTIVE Objective: Physical Exam Genitourinary: Breasts: Breasts are soft. Right: Normal. Left: Normal. Vitals: Estimated body mass index is 40.9 kg/m as calculated from the following: Height as of 11/03/23: 5' 6 . Weight as of this encounter: 253 lb 6.4 oz. BP: 116/74 No LMP recorded. ASSESSMENT & PLAN ICD-10-CM 1. Well woman exam with routine gynecological exam Z01.419 Pap Smear POCT urinalysis dipstick manually resulted Annual Exam: Patient presents today for an annual exam. Patient states she is doing well and has no complaints. Pap was obtained without difficulty. Orders Placed This Encounter Procedures POCT urinalysis dipstick manually resulted Follow Up: Patient is to return in one year for annual unless needed otherwise. Has continued with Femara and provera. Plan will be to continue provera begin Clomid. She does have a schedule appointment with Dr. Dunham on 03/22/25. Documented by Gay Hanks NP on behalf of: Tank Galvez DO documented in this encounter [facility] 01-30-2025 History of Presen t illness Narrative Reason for Appointment: Patient ID: Gisell Alvarez is a 29 y.o. female who presents for Discuss Fertility Patient presents today for Consult appointment. MEDICATIONS No current outpatient medications ALLERGIES No Known Allergies PROBLEMS Active Ambulatory Problems Diagnosis Date Noted Acid reflux 04/27/2023 Anemia 10/27/2019 macrosomia during , antepartum 10/21/2019 Anovulation 04/27/2023 Cephalopelvic disproportion due to unusually large fetus 04/27/2023 Chest pain 03/05/2014 Dysautonomia ([facility]/HCC) 02/22/2014 Exercise-induced asthma (CMS/HCC) 10/30/2011 Family history of cardiac arrest 10/27/2019 Hypertrophy tonsils 04/27/2023 Heartburn 04/27/2023 Generalized headaches 03/05/2014 Hypotension 04/27/2023 Irregular periods 04/27/2023 Neurologic cardiac syncope 10/30/2011 Smoker 04/27/2023 state 10/27/2019 Obesity 10/27/2019 Supervision of high risk , unspecified, unspecified trimester 10/21/2019 Resolved Ambulatory Problems Diagnosis Date Noted No Resolved Ambulatory Problems Past Medical History: Diagnosis Date Chronic pharyngitis Chronic tonsillitis Nasal septal deviation Peritonsillar abscess HISTORY PAST MEDICAL HISTORY SOCIAL HISTORY Past Medical History: Diagnosis Date Chronic pharyngitis Chronic tonsillitis Nasal septal deviation Peritonsillar abscess Social History Tobacco Use Smoking status: Former Types: Cigarettes Smokeless tobacco: Current Substance Use Topics Alcohol use: Yes Comment: caffeine: 1-2 cups per day Drug use: Defer FAMILY HISTORY No family history on file. SURGICAL HISTORY Past Surgical History: Procedure Laterality Date SECTION, CLASSIC 2019 TONSILLECTOMY Bilateral 04/22/2023 REVIEW OF SYSTEMS Review of Systems: Review of Systems All other systems reviewed and are negative. OBJECTIVE Objective: Physical Exam Constitutional: Appearance: Normal appearance. She is well-developed. Cardiovascular: Rate and Rhythm: Normal rate and regular rhythm. Pulmonary: Effort: Pulmonary effort is normal. Breath sounds: Normal breath sounds. Abdominal: General: Bowel sounds are normal. There is no distension. Palpations: Abdomen is soft. Tenderness: There is no abdominal tenderness. There is no guarding or rebound. Musculoskeletal: General: No swelling. Normal range of motion. Right lower leg: No edema. Left lower leg: No edema. Neurological: Mental Status: She is alert and oriented to person, place, and time. Skin: General: Skin is warm and dry. Psychiatric: Mood and Affect: Mood normal. Behavior: Behavior normal. Vitals and nursing note reviewed. Exam conducted with a adult care provider present. Vitals: Estimated body mass index is 40.42 kg/m as calculated from the following: Height as of 11/03/23: 5' 6 . Weight as of this encounter: 250 lb 6.4 oz. BP: 100/82 No LMP recorded. ASSESSMENT & PLAN ICD-10-CM 1. Anovulation N97.0 TSH Antimullerian hormone (AMH) Hemoglobin A1c T4, free Antimullerian hormone (AMH) Progesterone hCG, quantitative Progesterone 2. PCOS (polycystic ovarian syndrome) E28.2 TSH Antimullerian hormone (AMH) Hemoglobin A1c T4, free Antimullerian hormone (AMH) Progesterone hCG, quantitative Progesterone 3. Female infertility N97.9 TSH Antimullerian hormone (AMH) Hemoglobin A1c T4, free Antimullerian hormone (AMH) Progesterone hCG, quantitative Progesterone Patient presents to office today to discuss fertility. Patient has been trying to conceive for sometime now. Femara was prescribed in the past with no success, patient will now be prescribed Clomid 100mg when her cycle starts. Patient vocied her last cycle was on October 06, 2024. Sent Provera to patients pharmacy to start after confirming negative HCG level today. Patient given lab slip to have TSH, T4, AMH and A1c drawn today. Patient also given Standing order to have Progesterone drawn on Day 21 of cycle. Patient desires to have referral sent to Dr. Mora to discuss fertility and options. Patient will reach out to office when her cycle starts to have Clomid 100mg sent to [facility] in [place]. Patient to schedule follow up in 4 weeks along with annual appointment. Documented by Marlyn Montes De Oca LPN on behalf of: Tank Galvez DO documented in this encounter [facility] 12-16-2023 Evaluation note Encounter Date Diagnosis Assessment [...] (suspected) exposure to covid-19 (ICD-10 - Z20.822) [facility] Other 05-22-2023 Note [id number]:127[facility] 03-10-2023 Evaluation note* Encounter Date Diagnosis Assessment Notes Treatment Notes Treatment Clinical Notes Feb, Sore throat (ICD-10 - J02.9) Feb, Viral pharyngitis (ICD-10 - J02.9) Advise patient that rapid strep test was negative today in office. Patient reported improvement of symptoms with steroid course. Will send in prednisone to use as directed. Advised that there are no signs of bacterial infection present today on exam. Encouraged salt water gargles, increasing fluids, Tylenol [id number] for additional relief. Advised patient if that if symptoms continue she needs a follow-up with ENT for evaluation. Advised that we will not continue to see her for this issue in that UC setting, as we are not a follow-up facility. Patient verbalizes understanding and is agreeable with treatment plan. [facility] Other 03-22-2023 Evaluation note* Encounter Date Diagnosis Assessment Notes Treatment Notes Treatment Clinical Notes Jan, Sore throat (ICD-10 - J02.9) Jan, Viral pharyngitis (ICD-10 - J02.9) Pharyngitis/tonsil lopharyngitis: adult home care material was printed Drink plenty fluids, get plenty of rest. Take the prednisone as prescribed until gone. Take Tylenol or Motrin as needed for pain. Consider drinking warm tea with honey for comfort. Follow-up with ENT for reevaluation. Go to the ER for worsening symptoms or concern [facility] Other 07-13-2022 Evaluation note* Encounter Date Diagnosis Assessment Notes Treatment Notes Treatment Clinical Notes May, Sore throat (ICD-10 - J02.9) [...] elsewhere (ICD-10 - B96.89) May, Other Throat infectio n: Strep material was printed [facility] Other 05-06-2022 Evaluation note* Encounter Date Diagnosis Assessment Notes Treatment Notes Treatment Clinical Notes March, Non-recurrent acute serous otitis media of right ear [...] She understands and agrees with the plan. [facility] Other Evaluation noteNo InformationNort [employer] Other Evaluation note* Diagnosis Anovulation Female infertility associated with anovulation PCOS (polycystic ovarian syndrome) Polycystic ovaries Female infertility Female infertility of unspecified origin [facility] Diagnosis Well woman exam with routine gynecological exam Routine gynecological examination documented in this encounter [facility] Narrative - Reported* Type Description Date Medical History Dysautonomia Medical History Cardioinhibited Neurogenic Synco pe Medical History PCOS Surgical History knee surgery [facility] Other Hisuywl general Narrative - Reported* Type Description Date Medical History Dysautonomia Medical History Cardioinhibited Neurogenic Synco pe Medical History PCOS Surgical History knee surgery Surgical History C section Surgical History tonsillectomy [facility] Other Summary Purpose Family History No Family History Records FoundNo Family History Records FoundNo Family History Records FoundNo Family History Records FoundNo Family History Records FoundNo Family History Records FoundNo Family History Records FoundNo Family History Records FoundNo Family History Records Found Advance Directives Documents on File Type Date Recorded Patient Web Architect Expl anation Advance Directives and Living Will Power of Plumber'S Assistant Latest Code Status on File Code Status [...] your doctor if you can take an rxoy-bsd-hdlgiyx medicine. If you think your pain medicine [...] your breast. This is sometimes called the OrthoScan hold. Follow-up care is a deal part of your treatment and safety. Be sure to make and go to all appointments, and call your doctor if you are having problems. It's also a good idea to know your test resultsand keep a list of the medicines you take. When should you call for help? [id number] anytime you think you may need emergency [...] Where can you learn more? Go to [email or web address] and sign in to your [employer] account. Enter M806 in the Search Health Information box to learn more about Section: What to Expect at Home. If you do not have an account, please click on the Sign Up Now link. Current as of: August 04, 2018 Content Version: [id number] [employer]. Care instructions adapted under license by [employer]. If youhave questions about a medical condition or this instruction, always ask your healthcare professional. [employer] disclaims any warranty or liability for your use of this information. documented in this encounter History of Present Illness * Chadwick Patel, - 10/29/2019 12:22 AM EST POST OPERATIVE DAY # 2 Gisell Alvarez is a 24 y.o. female This patient [...] 10/28/2019 PLT 199 10/28/2019 Assessment/Plan: 1. Gisell Alvarez is a POD # 2 s/p PLTCS3 - Doing well, VSS - Male infant in General Care Nursery, circumcision held - Encourage ambulation and use of incentive spirometer 2. Rh positive/Rubella immune 3. Breast feeding - Denies s/s of mastitis 4. Asthma - Stable on Albuterol 5. Neurocardiogenic syncope - Patient follows with Dr. Ori Warren reports that her last syncopal episode was in early August 2019 - Patient takes no medications 6. Anemia - Hbg 8.9 - Denies s/s of anemia - Iron on D/C 7. Continue post-op care. Counseling Completed: Secondary Smoke risks and Sudden Syndrome were not reviewed with recommendations. sleeping, [...] patient Attending Physician: Dr. Jorge Rodriguez DO Lead Inspector Resident 10/29/2019, 12:22 AM Attending Physician Statement I have discussed the care of Gisell Alvarez, including pertinent history and exam findings, with [...] Whitley DO - 10/28/2019 12:11 PM EST BREAKER OILER Resident Interval Note Patient labs reviewed below. [...] 1.03 (L) 1.10 - 3.70 k/uL Absolute Cataño # 0.69 0.10 - 1.20 k/uL Absolute Eos # <0.03 0.00 - 0.44 k/uL Basophils Absolute <0.03 0.00 - 0.20 k/uL Absolute Immature Granulocyte 0.05 0.00 - 0.30 k/uL Mi Whitley DO Lead Inspector Resident Pager: [phone] 10/28/2019 12:11 PM * Teresa Montalvo DO - 10/28/2019 7:51 AM EST POST OPERATIVE DAY # 1 Gisell Alvarez is a 24 y.o. female This patient [...] 105/72 Pulse: 82 80 101 97 Resp: 19 16 18 18 Temp: 98.3 F (36.8 C) [...] 10/26/2019 PLT 248 10/26/2019 Assessment/Plan: 1. Gisell Alvarez is a POD # 1 s/p PLTCS [...] patient Attending Physician: Dr. Selvin Garcia DO Lead Inspector Resident 10/28/2019, 7:52 AM Date: 10/28/2019 Time: 11:20 AM Patient Name: Gisell Alvarez Patient : 1995 Room/Bed: 0749/0749-01 Admission Date/Time: 10/26/2019 8:11 AM Attending Physician Statement I have discussed the care of Gisell Alvarez, including pertinent history and exam findings with [...] for counseling and decision. Janeth Garcia DO BREAKER OILER Resident, PGY1 [place], [place] 10/27/2019, 8:46 AM Attending Physician Statement I have discussed the care of Gisell Alvarez, including pertinent history and exam findings, with [...] IOL, and maternal request. Chadwick Patel DO Kwame Roca DO - 10/27/2019 3:56 AM EST Labor Progress Note Gisell Alvarez is a 24 y.o. female at 39w1d [...] in Place: absent Interventions: none Assessment/Plan: Gisell Alvarez is a 24 y.o. female at 39w1d admitted for eIOL - GBS negative, No indication for GBS prophylaxis - VSS - cEFM and TOCO - IVF LR @125 ml/hr - Cytotec 50 Buccal x2, plan for 3rd dose when contractions space out - S/P Cytotec 25 Buccal Kwame Denny DO Lead Inspector Resident 10/27/2019, 3:56 AM * Kwame Denny DO - 10/26/2019 11:26 PM EST Labor Progress Note Gisell Alvarez is a 24 y.o. female at 39w0d [...] in Place: absent Interventions: none Assessment/Plan: Gisell Alvarez is a 24 y.o. female at 39w0d admitted for eIOL - GBS negative, No indication for GBS prophylaxis - VSS - cEFM and TOCO - IVF LR @125 ml/hr - Cytotec 50 Buccal x2 (second dose given at this time), next @0330 - S/P Cytotec 25 Buccal Senior resident updated and in agreement with plan Kwame Denny DO Lead Inspector Resident 10/26/2019, 11:26 PM * Pennie Goldberg MD - 10/26/2019 9:33 AM EST Senior resident Progress Note In to discuss plan of care with patient. Patient with suspected macrosomic at 4479g in [facility] on 10/26. Patient counseled on risks of shoulder dystocia, higher degree lacerations, permanent neurological damage to infant, and post hemorrhage. Patient states she wishes to proceed with vaginal delivery at this time and is declining primary section. Patient counseled by sports writer as well as attending. Additionally discussed safest route of delivery for infants is vaginal delivery followed by planned section. Patient voices understanding that highest risk for infant is with failed attempted vaginal delivery. Patient requesting additional time to consider her options. Patient offered support and given time to discuss options with . April Villarreal BREAKER OILER Resident, PGY3 Pager: [phone] [place], [place] 10/26/19 9:42 AM Patient additionally counseled [...] and content) DATE CREATED AUTHOR 03/03/2019 [facility] DATE CREATED AUTHOR AUTHOR'S ORGANIZ ATION 03/09/2019 [facility] DATE CREATED AUTHOR AUTHOR'S ORGANIZ ATION 03/12/2019 [facility] DATE CREATED AUTHOR AUTHOR'S ORGANIZ ATION 11/03/2019 [facility] DATE CREATED AUTHOR AUTHOR'S ORGANIZ ATION 02/22/2022 Leta winn DATE CREATED AUTHOR AUTHOR'S ORGANIZ ATION 07/09/2022 [facility] dical Specialist DATE CREATED AUTHOR AUTHOR'S ORGANIZ ATION 05/20/2023 Christiano Bridges [facility] DATE CREATED AUTHOR AUTHOR'S ORGANIZ ATION 08/04/2023 [facility] DATE CREATED AUTHOR AUTHOR'S ORGANIZ ATION 03/07/2025 [facility] dical Specialists EPIC Reason for Visit (unrecogniz ed section and content) Reason Comments Scheduled Induction Status Reason Specialty Diagnoses / Procedures Referre d By Contact Referred To Contact Diagnoses HRP (high risk ), unspecified trimester Pennie Goldberg MD [address] [place] [address] [facility] Reason Comments Discuss Fertility Reason Comments Well Women Visit Care Teams (unrecognized sec tion and content) Regional Sales Representative Relationship Specialty Start Date End Date Miki Kruger MD [address] [place] [address] PCP - General Cardiology 04/28/23 Regional Sales Representative Relationship Specialty Start Date End Date Miki Kruger MD [address] [place] [address] PCP - General Cardiology 04/28/23 Regional Sales Representative Relationship Specialty Start Date End Date Miki Kruger MD [address] [place] [address] PCP - General Cardiology 04/28/23 Regional Sales Representative Relationship Specialty Start Date End Date Miki Kruger MD [address] [place] [address] PCP - General Cardiology 04/28/23 Regional Sales Representative Relationship Specialty Start Date End Date Miki Kruger MD [address] [place] [address] PCP - General Cardiology 04/28/23 FOR RECORDS PERTAINING TO PATIENTS WHO ARE [...] BE BASED ON THE PRIMARY CLINICAL RECORDS. [facility]. provides no warranty or guarantee of the accuracy or completeness of information in this document.
--- OUTSIDE RECORDS SUMMARY | 2025-05-06 12:36 | XMS_ITS | Encounter Summary ---
Author Organization [facility] Address [address] [place] [address] Care Team Providers Care Post Secondary Professional Name Role Phone Miki Ibrahim MD Primary Care Provider + Reason for Visit * Reason Comments Other Encounter Details Date Type Department Care Team (Late st Contact Info) Description 04/25/2014 Refill [facility] Congenital Dispensing Lead [address] [facility] [address] [place] [phone] Alexis Rehman MD [address] [facility] [address] [place] [address] Other Social History Tobacco Use Types Packs/Day [...] on filedocumented in this encounter Care Teams Post Secondary Professional Relationship Specialty Start Date End Date Miki Ibrahim MD [address] [place] [address] PCP - General Family Medicine 07/12/19 documented as of this encounter
--- OUTSIDE RECORDS SUMMARY | 2025-05-06 12:36 | XMS_ITS | Clinical Summary ---
Author Organization [facility] Healthcare Address [address] [place] [address] Care Team Providers Care Rollway Worker Name Role Phone Miki Ibrahim MD Primary Care Provider [phone] Allergies No known active allergies Medications medroxyPROGESTER one (Provera) 10 MG tabletIndication s:Anovulation,PC OS (polycystic ovarian syndrome),Female infertility Take 1 tablet (10 mg) by mouth Daily for 10 days 10 tablet 5 Active clomiPHENE (Clomid) 50 MG tabletIndication s:Anovulation Take 1 tablet (50 mg) by mouth Daily for 5 days 5 tablet 5 04/18/20 25 Discontinue d(Reorder) clomiPHENE (Clomid) 50 MG tabletIndication s:Anovulation Take 1 tablet (50 mg) by mouth Daily for 5 days 5 tablet 5 04/23/20 25 Active Problems Problem Noted Date Diagnosed Date Acid reflux 04/27/2023 Anovulation 04/27/2023 Cephalopelvic disproportion due to unusually lar ge fetus 04/27/2023 Hypertrophy tonsils 04/27/2023 Heartburn 04/27/2023 Hypotension 04/27/2023 Irregular periods 04/27/2023 Smoker 04/27/2023 Anemia 10/27/2019 Family history of cardiac arrest 10/27/2019 state 10/27/2019 Obesity 10/27/2019 macrosomia during , antepartum Overview (04/27/2023): Estimated weight 9#4 on 10/19/19 PT counseled [...] shoulder dystocia should have a delivery scheduled. Supervision of high risk pre gnancy, unspecified, unspecified trimester 10/21/2019 Overview (04/27/2023): Pts mother had hemorrhage and cardiac arrest with delivery of pts brother Pt desires to deliver at [facility] due to family history Late transfer of care from [facility] at 38w2d gestation Chest pain 03/05/2014 Generalized headaches 03/05/2014 Dysautonomia 02/22/2014 Exercise-induced asthma 10/30/2011 Overview (04/27/2023): Controlled, no meds Neurologic cardiac syncope 10/30/2011 Overview (04/27/2023): Follows with Dr. Rehman Pt reports that her last syncopal episode was in early August 2019 Pt takes no medications daily Encounters Date Type Department Care Team Description 04/18/2025 Refill [facility] [address] [place] [address] Angelika Alfred, MAGO Anovulation 04/17/2025 Telephone [facility] [address] [place] [address] Angelika Alfred LPN 04/03/2025 Telephone [facility] [address] [place] [address] Tank Galvez DO 03/16/2025 Orders Only [facility] [address] [place] [address] Angelika Alfred LPN 03/06/2025 9:40 AM EDT Office Visit [facility] [address] [place] [address] LeonorTank, DO Well woman exam with routine gynecological exam 03/06/2025 Clinisync Result Encounter [facility] External Department Unsolicited Tank Galvez, DO 03/06/2025 Bamboo flowsheet [facility] [address] [facility] [place] [address] Tank Galvez, DO 03/06/2025 Travel from Last 3 Months Immunizations Immunization Administration Dates Next Due Hep B, Adolescent or Pediatric 08/18/2012,1996 MMR 10/08/1998 Meningococcal MCV4P 02/18/2011 Tdap 10/29/2019,02/18/2011 Varicella 05/25/2012 Family History Relation Name Status Comments Brother Alive Father Alive Maternal Grandfather Alive Maternal Grandmother Alive Mother Alive Paternal Grandfather Paternal Grandmother Alive Social History Tobacco Use Types Packs/Day Years Used Date Smoking Tobacco: Former Cigarettes Smokeless Tobacco: Current Tobacco Cessation:Ready to Q uit: Not Asked; Counseling Given: Not Answered Alcohol Use Standard Drinks/Week Comments Yes 0 (1 standard drink = 0.6 oz pur e alcohol) caffeine: 1-2 cups per day Comments No Sex and Gender Information Value Date Recorded Sex Assigned at Female 11/02/2023 1:41 PM EST Legal Sex Female 11:38 PM EDT Gender Identity Female 11/02/2023 1:41 PM EST Sexual Orientation Not on file Last Filed Vital Signs Vital Sign Reading Time Taken Comments Blood Pressure 116/74 03/06/2025 10:19 AM EDT Pulse - - Temperature - - Respiratory Rate - - Oxygen Saturation - - Inhaled Oxygen Concentration - - Weight 115 kg (253 lb 6.4 oz) 03/06/2025 10:19 A M EDT Height 167.6 cm (5' 6 ) 11/03/2023 1:13 PM EST Body Mass Index 40.9 11/03/2023 1:13 PM EST Plan of Treatment Health Maintenance Due Date Last Done Comments Influenza Vaccine (Season Ended) 2025 Procedures Procedure Name Priority Date/Time Associated Diagnosis Comments POCT URINALYSIS DIPSTICK Routine 03/06/2025 10:30 AM EDT Well woman exam with routine gynecological exam IGP,APTIMA HPV,AGE GDLN Routine 03/06/2025 10:07 AM EDT PAP SMEAR Routine 03/06/2025 12:00 AM EDT from Last 3 Months Results * POCT urinalysis dipstick manually resulted (03/06/2025 10:30 AM EDT) Color, UA Yellow Clarity, UA Clear Glucose, UA Negative Negative - 1999(110) ++++ mg/dL Bilirubin, UA Negative Negative - 4(70) +++ mg/dL Ketones, UA Negative Negative - 160(16) ++++ mg/dL Spec Grav, UA 1.020 1 - 1.03 Blood, UA Negative Negative - 50 Giles/mcL pH, UA 6.0 5 - 9 Protein, UA Negative Negative - 2000(20) ++++ mg/dL Urobilinogen, UA 1.0 0.2 - 12 mg/dL Leukocytes, UA Negative Negative - 500+++ Flor/mcL Nitrite, UA Negative Negative - Positive Urine 03/06/2025 10:3 0 AM EDT Tank Galvez DO POINT OF CARE TEST ENTER/EDIT OR DERABLES Final Result * IGP,APTIMA HPV,AGE GDLN (03/06/2025 10:07 AM EDT) AGE GDLN ACOG TESTING Note . [facility] Comment: TESTS RESULT FLAG UNITS REF RANGE LAB Clinician Provided Cytology Information Source.............Cervix;Endocervix No. of containers..01 ThinPrep Vial Age Lul ACOG Brittney... -30 12 FLAG LEGEND: L-Low Normal,H-High Normal,LL-Alert Low,HH-Alert High <-Panic Low,>-Panic High,A-Abnormal,AA-Critical Abnormal Performed at: 01 =G [facility] [address] [place] [address] Emilia Hankins MD, IGP, RFX APTIMA HPV ASCU Note . [facility] Comment: TESTS RESULT FLAG UNITS REF RANGE LAB DIAGNOSIS: 02 NEGATIVE FOR INTRAEPITHELIAL LESION OR MALIGNANCY. Specimen adequacy: 02 Satisfactory for evaluation. No endocervical component is identified. Performed by: Rani Cohn, Frontload Driver ([facility]) . 02 Note: Note 02 The Pap [...] <-Panic Low,>-Panic High,A-Abnormal,AA-Critical Abnormal Performed at: [address] [id number] Emilia Hankins MD, Performed at: = - [facility] [address] [id number] Distribution Accounting Clerk: Emilia Hankins MD, Phone: [phone] Performed at: [facility] [id number] Distribution Accounting Clerk: Emilia Hankins MD, Phone: [phone] 03/06/2025 10:0 7 AM EDT 03/06/2025 12:40 PM EDT Narrative [facility] - 03/09/2025 9:08 AM EDT BRUSH-SPATULA CERVIX ENDOCERVIX Tank Leonor DO LAB BLOOD ORDERABLES Final Resul t Performing Organization Address [facility]/ZIP Co de Phone Number [facility] * Pap Smear (03/06/2025 12:00 AM EDT) Swab Cervical swab / Unknown Tank Leonor DO LAB CYTOLOGY ORDERABLES Final Re sult Performing Organization Address City/[facility]/ZIP Co de Phone Number EXTERNAL LAB from Last 3 Months Insurance [facility] Care Teams Rollway Worker Relationship Specialty Start Date End Date Miki Ibrahim MD [address] [place] [address] PCP - General Cardiology 04/28/23
[2025-05-08 11:09] LABS: Progesterone 5.4 ng/mL (.)
== END 2025-05-06 12:34 | disposition home or self-care (01) ==
LOC: LAB 12:34
PROVIDERS: Visit Provider Obstetrics & Gynecology
DX: N97.0 Female infertility associated with anovulation (principal); E28.2 Polycystic ovarian syndrome; N97.9 Female infertility, unspecified
CPT/HCPCS: 36415; 84144

== ENCOUNTER 2025-07-01 12:21 | Outpatient (RCR) | payer SELFPAY ==
--- OUTSIDE RECORDS SUMMARY | 2022-11-06 07:00 | XMS_ITS | Continuity of Care Document ---
Author Organization [facility] Address [address] [place] [address] Phone Care Team Providers Care Receivable Clerk Name Role Phone Irwin Cox Unavailable Unavailable Allergies, Adverse Reactions, Alerts Substance Reaction Status Criticality No Known Allergies Active No Inform ation Procedures Procedure Date TB INTRADERMAL TEST TB Read OFFICE/OUTPATIENT VISIT, EST TB INTRADERMAL TEST OFFICE/OUTPATIENT VISIT, EST Advance Directives Directive Yes / No Effective Date File Name No Information Encounters Encounter Description Practice Location Reason(s) For Visit Diagnoses Date Provider Providers Copied on Encounter [facility], [address] [place] [address], [id number], tel:[phone] [facility] Encounter for pre-employment examination 2 Nickolas Sheth. [address] [place] [address], [id number] , [place]. tel: [phone] OFFICE/OUTPAT IENT VISIT, [facility], [address] [place] [address], [id number], [place] tel:[phone] [employer] Work Physical (chief complaint) Pre-employment examinationBody mass index [BMI] 36.0-36.9, adult 2 Dean Stringer. [address] [place] [address], [id number] , [place]. tel:[phone] OFFICE/OUTPAT IENT VISIT, [facility], [address] [place] [address], [id number], [place] tel:[phone] [employer] School Physical (chief complaint) School physical exam 2 Dean JOHNSON Siomara. [address] [place] [address], [place], [place], [id number] , . tel:[phone] Family History Family Member Type Diagnosis Age At Onset No Information Immunizations Vaccine Date Status Comments Flulaval/ Fluarix refused Source: Dina w Immunization Record Tdap administered Source: Other R egistry Hep B, adolescent or pediatric administer ed Source: Other Registry varicella administered Source: Other R egistry meningococcal MCV4P administered Source: Other Registry Tdap administered Source: Other R egistry MMR administered Source: Other R egistry Hep B, adolescent or pediatric administer ed Source: Other Registry Payers Payer name Insurance type Covered republican ID Authoriza tion(s) Self Pay Indigent 09 [id number] Self Pay Indigent 09 [id number] Social History Type Description Quantity Date Captured Comments Alcohol Use Details Unknown Caffeine Use Details Unknown Tobacco Use Status No Information Smoking Status No Information Sex Female Sexual Orientation Straight or heterosexual Gender Identity Female Chief Complaint And Reason For Visit No Information Reason For Referral Reason For Referral No Information Plan Of Treatment Date Type Action Status Goal Depression screening. Due on due Goal Tdap due Goal RLP. Due on due Goal Influenza vaccine. Due on due Goal PAP. Due on due Goal PRAPARE ASSESSMENT. Due on due Goal PAP. Due on due Goal PRAPARE ASSESSMENT. Due on due Goal Influenza vaccine. Due on due Goal RLP. Due on due Goal Depression screening. Due on due Goal Tdap due Goal Lifestyle education regardin g diet completed Goal PAP. Due on due Goal PRAPARE ASSESSMENT. Due on O due Goal Influenza vaccine. Due on Oc due Goal RLP. Due on due Goal Depression screening. Due on due Goal Tdap. Due on due History Of Present Illness Encounter Date Complaint History Of Prese nt Illness Work Physical Patient here for work physical. Starts at [employer]. States she has no health issues. She has no primary care doctor.Needs TB test today.Flu Shot: Refused//Sierra RNNoted above. Pt seen in August for school physical. No change in history. No current medical concerns. 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 Rayshawn JOHNSON School Physical School physical today.Women's Health: JuneDental: NoneFlu Shot: Declined.//Sierra RNNoted above. 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 PMH cardiogenic syncope and mild eczema.PCP is Dr. Ibrahim. Supervisor Volunteer Services is in [place]. Has not seen either in several years. No syncope in 3 years. No daily medication. No control. Vapes, no ETOH, daily caffeine (coffee and energy drinks), no drug use.No current physical, social or mental health concerns. 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 Related to Pre-employment examination Giving encouragement to exercise Related to Body mass index [BMI] 36.0-36.9, adult Lifestyle education regarding di et Related to Body mass index [BMI] 36.0-36.9, adult Follow up 1 year, sooner as need ed Related to School physical exam Assessments Type Assessment Date No Information Patient Care Teams Name Effective Dates (start - stop) Status Members No Information
--- OUTSIDE RECORDS SUMMARY | 2025-07-01 12:23 | XMS_ITS | Encounter Summary ---
Author Organization [facility] Address [address] [facility], [address] [place] [address] Care Team Providers Care Telephone Coin Box Collector Name Role Phone Miki Ibrahim MD Primary Care Provider + Reason for Visit * Reason Comments Other Encounter Details Date Type Department Care Team (Late st Contact Info) Description 11/16/2014 Adiel [facility] Congenital Ems Manager [address] [facility] [address] [place] [phone] Alexis Rehman MD [address] [facility] [address] [place], [place] [address] Other Social History Tobacco Use Types Packs/Day [...] on filedocumented in this encounter Care Teams Telephone Coin Box Collector Relationship Specialty Start Date End Date Miki Ibrahim MD [address] [place] [address] PCP - General Family Medicine 07/12/19 documented as of this encounter
--- OUTSIDE RECORDS SUMMARY | 2025-07-01 12:23 | XMS_ITS | Encounter Summary ---
Author Organization [facility] Address [address] [place] [address] Care Team Providers Care Geothermal Operations Manager Name Role Phone Miki Ibrahim MD Primary Care Provider [phone] Encounter Details Date Type Department Care Team (Late st Contact Info) Description 04/22/2023 Orders Only [facility] [place] [facility] [address] [facility] [place] [address] Vale Benedict MA Social History Tobacco Use [...] on filedocumented in this encounter Care Teams Geothermal Operations Manager Relationship Specialty Start Date End Date Miki Ibrahim MD [address] [place] [address] PCP - General Cardiology 04/28/23 documented as of this encounter
--- OUTSIDE RECORDS SUMMARY | 2025-07-01 12:23 | XMS_ITS | Clinical Summary ---
Author Organization [facility] Address [address] [place] [address] Care Team Providers Care Custodial Worker Name Role Phone Unavailable Primary Care Provider Unavailabl e Social History Tobacco Use Types Packs/Day Years Used Date Smoking Tobacco: Never Assessed Comments Unknown Sex and Gender Information Value Date Recorded Sex Assigned at Not on file Legal Sex Female 12:13 AM EDT Gender Identity Not on file [...]
--- OUTSIDE RECORDS SUMMARY | 2025-07-01 12:23 | XMS_ITS | Clinical Summary ---
Author Organization [facility] Address [address] [place] [address] Phone Care Team Providers Care Marriage Counselor Minister Name Role Phone Unavailable Primary Care Provider [...] of 1 - Stand igor series) 1998 Hepatitis C Screening 2015 Hepatitis B Vaccines (1 of 3 - 19+ 3-dose series) 2016 Cervical Cancer Screening 2018 HPV/Cotest 2018 Pap Smear 2018 DTaP/Tdap/Td Vaccines (1 - Tdap) 2019 HPV Vaccines (1 - 3-dose sta ndard series) 2024 COVID-19 Vaccine (1 - 2023-2 5 season) 2024 Influenza Vaccine (#1) 2025 Zoster Vaccines (1 of 2) 2047 [...]
--- OUTSIDE RECORDS SUMMARY | 2025-07-01 12:23 | XMS_ITS | Encounter Summary ---
Author Organization [facility] Address [address] [place] [address] Care Team Providers Care Manufacturing Process Technician Name Role Phone Miki Ibrahim MD Primary Care Provider [phone] Encounter Details Date Type Department Care Team (Late st Contact Info) Description 03/16/2025 Orders Only [facility] [email or web address] [place] [address] Angelika Alfred LPN [address] [place] [id number] Social History Tobacco Use Types Packs/Day Years [...] EDT) Swab Cervical swab / Unknown Tank Galvez DO LAB CYTOLOGY ORDERABLES Final Re sult EXTERNAL LAB documented in this encounter Visit Diagnoses Not on filedocumented in this encounter Care Teams Manufacturing Process Technician Relationship Specialty Start Date End Date Miki Ibrahim MD [address] [place] [address] PCP - General Cardiology 04/28/23 documented as of this encounter
--- OUTSIDE RECORDS SUMMARY | 2025-07-01 12:23 | XMS_ITS | Encounter Summary ---
Author Organization [facility] Address [address] [place] [address] Care Team Providers Care Home Health Aide Caregiver Name Role Phone Miki Ibrahim MD Primary Care Provider [phone] Encounter Details Date Type Department Care Team (Late st Contact Info) Description 06/08/2023 Orders Only [facility] [address] [place] [address] Chandana Mcdonnell DO [address] [facility] [place] [address] Social History Tobacco Use Types Packs/Day Years [...] clean catch procedure / Unknown Chandana S Biedenbach DO LAB URINE ORDERABLES Final Result documented in this encounter Visit Diagnoses Not on filedocumented in this encounter Care Teams Home Health Aide Caregiver Relationship Specialty Start Date End Date Miki Ibrahim MD [address] [place] [address] PCP - General Cardiology 04/28/23 documented as of this encounter
--- OUTSIDE RECORDS SUMMARY | 2025-07-01 12:23 | XMS_ITS | Encounter Summary ---
Author Organization [facility] Address [address] [facility], [address] [place] [address] Care Team Providers Care Rotary Engraver Name Role Phone Miki Ibrahim MD Primary Care Provider + Reason for Visit * Reason Comments Other Encounter Details Date Type Department Care Team (Late st Contact Info) Description 02/12/2014 Adiel Solitario Congenital Contract Administration Specialist [address] [facility] [address] [place] [address] Alexis Rehman MD [address] [facility] [address] [place] [address] Other Social History Tobacco Use Types Packs/Day [...] on filedocumented in this encounter Care Teams Rotary Engraver Relationship Specialty Start Date End Date Miki Ibrahim MD [address] [place] [address] PCP - General Family Medicine 07/12/19 documented as of this encounter
--- OUTSIDE RECORDS SUMMARY | 2025-07-01 12:23 | XMS_ITS | Clinical Summary ---
Author Organization [facility] Address [address] [facility], [address] [place] [address] Care Team Providers Care Channel Development Director Name Role Phone Miki Ibrahim MD Primary Care Provider + Allergies No known active allergies Medications ondansetron (ZOFRAN-ODT) 4 MG disintegrating tablet 9 Active Vit w/Av-Nirnysiaj-WA (PNV PO) Take by mouth Active ibuprofen [...] Overview (10/24/2019): Pt saw Dr. Herron in [place], [place]. Transfer of care at 38w2d gestation. Pt transferred care as she has a macrosomic infant and desires vaginal delivery. Pt desires to deliver at a facility with a level 3 NICU. Assessment & Plan (10/24/2019 8:08 AM EST): Pt saw Dr. Herron in [place], [place]. Transfer of care at 38w2d gestation. Pt transferred care as she has a macrosomic infant and desires vaginal delivery. Pt desires to deliver at a facility with a level 3 NICU. High-risk 10/21/2019 Overview (10/21/2019): Pts mother had hemorrhage and cardiac arrest with delivery of pts brother Pt desires to deliver at [facility] due to family history Late transfer of care from [facility] at 38w2d gestation macrosomia 10/21/2019 Overview (10/24/2019): [...] Plan of Treatment Not on file Insurance [facility] Advance Directives * Full Code (Latest Code Status on File) Date Activated Date Inactivated Comments 10/27/2019 7:14 PM 10/29/2019 2:42 PM * Full Code Date Activated Date Inactivated Comments 10/26/2019 8:54 AM 10/27/2019 6:44 PM Care Teams Channel Development Director Relationship Specialty Start Date End Date Miki Ibrahim MD [address] [place] [address] PCP - General Family Medicine 07/12/19
--- OUTSIDE RECORDS SUMMARY | 2025-07-01 12:23 | XMS_ITS | Encounter Summary ---
Author Organization [facility] Address [address] [facility], [address] [place] [address] Care Team Providers Care Supervisor Fiberglass Boat Assembly Name Role Phone Miki Ibrahim MD Primary Care Provider + Reason for Visit * Reason Comments Other Encounter Details Date Type Department Care Team (Late st Contact Info) Description 04/25/2014 Adiel Solitario Congenital Informatics Manager [address] [facility] [address] [place] [phone] Alexis Rehman MD [address] [facility] [address] [place], [place] [phone] Other Social History Tobacco Use Types Packs/Day [...] on filedocumented in this encounter Care Teams Supervisor Fiberglass Boat Assembly Relationship Specialty Start Date End Date Miki Ibrahim MD [address] [place] [address] PCP - General Family Medicine 07/12/19 documented as of this encounter
--- OUTSIDE RECORDS SUMMARY | 2025-07-01 12:23 | XMS_ITS | Clinical Summary ---
Author Organization [facility] Healthcare Address [address] [place] [address] Care Team Providers Care Drafter Marine Name Role Phone Miki Ibrahim MD Primary Care Provider [phone] Allergies No known active allergies Medications medroxyPROGESTER one (Provera) 10 MG tabletIndication s:Anovulation,PC OS (polycystic ovarian syndrome),Female infertility Take 1 tablet (10 mg) by mouth Daily for 10 days 10 tablet 5 Active clomiPHENE (Clomid) 50 MG tabletIndication s:Anovulation Take 2 tablets (100 mg) by mouth Daily for 5 days 10 tablet 5 06/17/20 25 Active Problems Problem Noted Date Diagnosed Date Acid reflux 04/27/2023 Anovulation 04/27/2023 Cephalopelvic disproportion due to unusually large fetus ([facility]) 04/27/2023 Hypertrophy tonsils 04/27/2023 Heartburn 04/27/2023 Hypotension 04/27/2023 Irregular periods 04/27/2023 Smoker 04/27/2023 Anemia 10/27/2019 Family history of cardiac arrest 10/27/2019 state ([facility]) 10/27/2019 Obesity 10/27/2019 macrosomia during , antepartum ([facility]) 10/21/2019 Overview (04/27/2023): Estimated weight 9#4 on 10/19/19 [...] high risk pre gnancy, unspecified, unspecified trimester ([facility]) 10/21/2019 Overview (04/27/2023): Pts mother had hemorrhage and cardiac arrest with delivery of pts brother Pt desires to deliver at [facility] due to family history Late transfer of care from [facility] at 38w2d gestation Chest pain 03/05/2014 Generalized headaches 03/05/2014 Dysautonomia 02/22/2014 Exercise-induced asthma 10/30/2011 Overview (04/27/2023): Controlled, no meds Neurologic cardiac syncope 10/30/2011 Overview (04/27/2023): Follows with Dr. Rehman Pt reports that her last syncopal episode was in early August 2019 Pt takes no medications daily Encounters Date Type Department Care Team Description 06/12/2025 Telephone [facility] [address] [facility] [place] [address] Angelika Alfred LPN 05/12/2025 Telephone [facility] [address] [facility] [place] [address] Tank Galvez DO 05/06/2025 Clinisync Result Encounter [facility] External Department Unsolicited Tank Galvez, 04/18/2025 Refill [facility] [address] [facility] [place] [address] Angelika Alfred LPN Anovulation 04/17/2025 Telephone [facility] [address] [facility] [place] [address] Angelika Alfred LPN 04/03/2025 Telephone [facility] [address] [facility] [place] [address] Tank Galvez DO from Last 3 Months Immunizations Immunization Administration [...] Due Date Last Done Comments Influenza Vaccine (#1) 2025 Procedures Procedure Name Priority Date/Time Associated Diagnosis Comments ALL PROGESTERONE Routine 05/06/2025 12:4 9 PM EDT from Last 3 Months Results * ALL PROGESTERONE (05/06/2025 12:49 PM EDT) PROGESTERONE 5.4 . ng/mL TB Comment: Follicular phase 0.1 - 0.9 Luteal phase 1.8 - 23.9 Ovulation phase 0.1 - 12.0 First trimester 11.0 - 44.3 Second trimester 25.4 - 83.3 Third trimester 58.7 - 214.0 Postmenopausal 0.0 - 0.1 Performed at: - [facility] [id number] Fuse Maker: Vivek Talbert PhD, Phone: [phone] 05/06/2025 12:4 9 PM EDT 05/06/2025 12:50 PM EDT Narrative [facility] - 05/08/2025 11:09 AM EDT us Tank Marinoo DO [facility] Final Result [facility] from Last 3 Months Insurance [employer] Care Teams Drafter Marine Relationship Specialty Start Date End Date Miki Ibrahim MD [address] [place] [phone] PCP - General Cardiology 04/28/23
--- OUTSIDE RECORDS SUMMARY | 2025-07-01 12:23 | XMS_ITS | Clinical Summary ---
Author Organization [employer] [facility] Address [id number] [address] [place] [address] Care Team Providers Care Sales Assistant Displays Name Role Phone Miki Ibrahim MD Primary Care Provider [phone] Allergies No known active allergies Medications ibuprofen [...] file Medical Devices Not on file Insurance [facility] [employer] Care Teams Sales Assistant Displays Relationship Specialty Start Date End Date Miki Ibrahim MD PCP - General 07/19/14
--- OUTSIDE RECORDS SUMMARY | 2025-07-01 12:23 | XMS_ITS | Encounter Summary ---
Author Organization [facility] Address [address], [address] [place] [address] Care Team Providers Care Organizational Development Consultant Name Role Phone Miki Ibrahim MD Primary Care Provider + Reason for Visit * Reason Comments Other Encounter Details Date Type Department Care Team (Late st Contact Info) Description 10/08/2013 Adiel Solitario Congenital Gunite Nozzle Operator [address] [place] [id number] Alexis Rehman MD [address] [address] [place] [address] Other Social History Tobacco Use Types Packs/Day [...] on filedocumented in this encounter Care Teams Organizational Development Consultant Relationship Specialty Start Date End Date Miki Ibrahim MD [address] [place] [id number] PCP - General Family Medicine 07/12/19 documented as of this encounter
--- OUTSIDE RECORDS SUMMARY | 2025-07-01 12:24 | XMS_ITS | CCD ---
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 INR?s ?Less Intensive Anticoagulation? 2.0 ? 3.0 Conventional Range 3.0 ? 4.5 Performed By: #### 2 [id number], [id number], [id number] ####[facility] [address] [place] [address] PT Coag (PPP) [Time] 11.6 second(s) Normal 9.4-12.5 [facility] Comment on above: Result Comment: 15 [...] the same coagulation reagent and instrumentation [place] [facility] [place] Currently there are no coagulation studies available worldwide for children to 14 days, and no normal ranges. Performed By: #### 2 [id number], [id number], [id number] ####[facility] [address] [place] [address] U BetaHcg Qualon 04-20-2023 HCG.beta subunit (U) [Moles/Vol] Negative Normal [facility] Comment on above: Performed By: #### 2 [id number] ####[facility] [address] [place] [address] Quick Strepon 03-10-2023 S. pyogenes Org specific cx Ql (Throat) [employer] Other [employer] Strep [employer] Other Quick Strepon 02-18-2023 S. pyogenes Org specific cx Ql (Throat) Negative [employer] Other Quick Strep [employer] Other US Pelvic, Transvaginalon US Pelvic, Transvaginal [...] by Markie Friedman on 07/08/2022 1609 Normal [facility] [employer] Quick Strepon 06-11-2022 S. pyogenes Org specific cx Ql (Throat) Negative [employer] Other [employer] Strep Private.Me Other CT CSPINE WO CONon CT CSPINE [...] Harmeet NUNEZ Date: 2021-10-29 18:25 Normal [facility] CBC auto differentialon 11-2 9-2019 Basophils (Bld) [#/Vol] 10*3/uL [place] Basophils/100 WBC (Bld) 0 % 0 - 2 % [place] Differential Type NOT REPORTED [place] Eosinophils (Bld) [#/Vol] 10*3/uL [place] Eosinophils/100 WBC (Bld) 0 % Low 1 - 4 % [place] Erythrocyte distribution width (RBC) [Ratio] 13.8 % 11.8 - 14.4 % [place] Hematocrit (Bld) [Volume fraction] 29.3 % Low 36.3 - 47.1 % [place] Hemoglobin (Bld) [Mass/Vol] 8.9 g/dL Low 11.9 - 15.1 g/dL [place] Immature granulocytes (Bld) [#/Vol] 0.05 10*3/uL [place] Immature granulocytes (Bld) [#/Vol] 0 % 0 [place] Interpretation and review of laboratory results Abnormal [place] Lymphocytes (Bld) [#/Vol] 1.03 10*3/uL Low [place] Lymphocytes/100 WBC (Bld) 8 % Low 24 - 43 % [place] MCH (RBC) [Entitic mass] 26.2 pg 25.2 - 33.5 pg [place] MCHC (RBC) [Mass/Vol] 30.4 g/dL 28.4 - 34.8 g/dL [place] MCV (RBC) [Entitic vol] 86.2 fL 82.6 - 102.9 fL [place] Monocytes (Bld) [#/Vol] 0.69 10*3/uL [place] Monocytes/100 WBC (Bld) 6 % 3 - 12 % [place] Platelet mean volume (Bld) [Entitic vol] 12.0 fL 8.1 - 13.5 fL [place] Platelets (Bld) [#/Vol] 199 10*3/uL [place] Platelets (Bld) [#/Vol] NOT REPORTED [place] RBC (Bld) [#/Vol] 3.40 10*6/uL Low 3.95 - 5.1 1 m/uL [place] RBC morphology finding Nom (Bld) NOT REPORTED [place] Segmented neutrophils/100 WBC (Bld) 86 % High 36 - 65 % [place] Segs Absolute 10.64 [place] WBC (Bld) [#/Vol] 12.4 10*3/uL [place] WBC (Bld) [#/Vol] 0.0 10*3/uL 0.0 per 10 0 WBC [place] WBC Morphology NOT REPORTED [place] CBC with Diffon 10-28-2019 Abs. Basophil <0.03 Normal 0.00-0.20 [facility] Comment on above: Performed By: #### C DP #### [place] [address] [employer] Machine Operator: Rico Nicole MD Abs.Imm.Granulocyt e 0.05 k/uL Normal 0.00-0.30 [facility] Comment on above: Performed By: #### C DP #### [address] [address] [employer] Operator: Rico Nicole MD Abs.Neutrophil (Seg) 10.64 k/uL High 1.50-8.10 [facility] Comment on above: Performed By: #### C DP #### [address] [address] [employer] Operator: Rico Nicole MD Basophils/100 WBC (Bld) 0 % Normal 0-2 [facility] Comment on above: Performed By: #### C DP #### [address] [address] [employer] Operator: Rico Nicole MD Eosinophils (Bld) [#/Vol] 10*3/uL Normal 0.00-0.44 [facility] Comment on above: Performed By: #### C DP #### [address] [address] [employer] Operator: Rico Nicole MD Eosinophils/100 WBC (Bld) 0 % Low 1-4 [facility] Comment on above: Performed By: #### C DP #### [address] [address] [employer] Machine Operator: Rico Nicole MD Erythrocyte distribution width (RBC) [Ratio] 13.8 % Normal 11.8-14.4 [facility] Comment on above: Performed By: #### C DP #### [address] [address] [employer] Operator: Rico Nicole MD Hematocrit (Bld) [Volume fraction] 29.3 % Low 36.3-47.1 [facility] Comment on above: Performed By: #### C DP #### [address] [address] [employer] Operator: Rico Nicole MD Hemoglobin (Bld) [Mass/Vol] 8.9 g/dL Low 11.9-15.1 [facility] Comment on above: Performed By: #### C DP #### [address] [address] [employer] Operator: Rico Nicole MD Immature granulocytes (Bld) [#/Vol] 0 % Normal 0 [facility] Comment on above: Performed By: #### C DP #### [place] [address] [employer] Operator: Rico Nicole MD Lymphocytes (Bld) [#/Vol] 1.03 10*3/uL Low 1.10-3.70 [facility] Comment on above: Performed By: #### C DP #### [address] [address] [employer] Operator: Rico Nicole MD Lymphocytes/100 WBC (Bld) 8 % Low 24-43 [facility] Comment on above: Performed By: #### C DP #### [address] [address] [employer] Operator: Rico Nicole MD MCH (RBC) [Entitic mass] 26.2 pg Normal 25.2-33.5 [facility] Comment on above: Performed By: #### C DP #### [address] [address] [employer] Operator: Rico Nicole MD MCHC (RBC) [Mass/Vol] 30.4 g/dL Normal 28.4-34.8 [facility] Comment on above: Performed By: #### C DP #### [address] [address] [employer] Operator: Rico Nicole MD MCV (RBC) [Entitic vol] 86.2 fL Normal 82.6-102.9 [facility] Comment on above: Performed By: #### C DP #### [address] [address] [employer] Operator: Rico Nicole MD Monocytes (Bld) [#/Vol] 0.69 10*3/uL Normal 0.10-1.20 [facility] Comment on above: Performed By: #### C DP #### [address] [address] [employer] Operator: Rico Nicole MD Monocytes/100 WBC (Bld) 6 % Normal 3-12 [facility] Comment on above: Performed By: #### C DP #### [address] [address] [employer] Operator: Rico Nicole MD Neutrophil (Seg) 86 % High 36-65 [facility] Comment on above: Performed By: #### C DP #### [address] [address] [employer] Operator: Rico Nicole MD NRBC Automated 0.0 per 100 WBC Normal 0.0 [facility] Comment on above: Performed By: #### C DP #### [address] [address] [employer] Operator: Rico Nicole MD Platelet mean volume (Bld) [Entitic vol] 12.0 fL Normal 8.1-13.5 [facility] Comment on above: Performed By: #### C DP #### [address] [address] [employer] Operator: Rico Nicole MD Platelets (Bld) [#/Vol] 199 10*3/uL Normal 138-453 [facility] Comment on above: Performed By: #### C DP #### [address] [address] [employer] Operator: Rico Nicole MD RBC (Bld) [#/Vol] 3.40 10*6/uL Low 3.95-5.11 [facility] Comment on above: Performed By: #### C DP #### [address] [address] [employer] Operator: Rico Nicole MD WBC (Bld) [#/Vol] 12.4 10*3/uL High 3.5-11.3 [facility] Comment on above: Performed By: #### C DP #### [address] [address] [employer] Operator: Rico Nicole MD Auto Diff Performed NOT REPORTED Normal [facility] Comment on above: Performed By: #### C DP #### [address] [address] [employer] Operator: Rico Nicole MD Platelets (Bld) [#/Vol] NOT REPORTED Normal [facility] Comment on above: Performed By: #### C DP #### [employer] [address] [place] [address] [phone] [employer] Operator: Rico Nicole MD RBC morphology finding Nom (Bld) NOT REPORTED Normal [facility] Comment on above: Performed By: #### C DP #### [facility] [address] [place] [address] [phone] [employer] Operator: Rico Nicole MD WBC Morphology NOT REPORTED Normal [facility] Comment on above: Performed By: #### C DP #### [facility] [address] [place] [address] [phone] [employer] Operator: Rico Nicole MD Surgical Pathologyon [facility] Surgical Pathology (NOTE) [id number] [facility] ANATOMIC PATHOLOGY [address] [place] [id number] SURGICAL PATHOLOGY CONSULTATION Patient Name: GISELL GA [facility] Rec: [id number] Path Number: [id number] Collected: 10/27/2019 Received: 10/31/2019 Reported: 11/01/2019 09:33 [...] PLACENTA, CORD AND MEMBRANES Gross Description GISELL GA, PLACENTA Placenta with attached membranes and umbilical [...] capillaries: Not increased Other: Few microcalcifications Normal [facility] Comment on above: Performed By: #### P PPVS #### [facility] [place] [address] [employer] Operator: Rico Nicole MD CBC auto differentialon 10-01 Basophils (Bld) [#/Vol] 0.03 10*3/uL [place] Basophils/100 WBC (Bld) 0 % 0 - 2 % [place] Differential Type NOT REPORTED [place] Eosinophils (Bld) [#/Vol] 0.04 10*3/uL [place] Eosinophils/100 WBC (Bld) 0 % Low 1 - 4 % [place] Erythrocyte distribution width (RBC) [Ratio] 13.6 % 11.8 - 14.4 % [place] Hematocrit (Bld) [Volume fraction] 33.2 % Low 36.3 - 47.1 % [place] Hemoglobin (Bld) [Mass/Vol] 10.3 g/dL Low 11.9 - 15.1 g/dL [place] Immature granulocytes (Bld) [#/Vol] 1 % High 0 [place] Immature granulocytes (Bld) [#/Vol] 0.07 10*3/uL [place] Interpretation and review of laboratory results Abnormal [place] Lymphocytes (Bld) [#/Vol] 2.41 10*3/uL [place] Lymphocytes/100 WBC (Bld) 24 % 24 - 43 % [place] MCH (RBC) [Entitic mass] 26.3 pg 25.2 - 33.5 pg [place] MCHC (RBC) [Mass/Vol] 31.0 g/dL 28.4 - 34.8 g/dL [place] MCV (RBC) [Entitic vol] 84.7 fL 82.6 - 102.9 fL [place] Monocytes (Bld) [#/Vol] 0.76 10*3/uL [place] Monocytes/100 WBC (Bld) 8 % 3 - 12 % [place] Platelet mean volume (Bld) [Entitic vol] 12.5 fL 8.1 - 13.5 fL [place] Platelets (Bld) [#/Vol] NOT REPORTED [place] Platelets (Bld) [#/Vol] 248 10*3/uL [place] RBC (Bld) [#/Vol] 3.92 10*6/uL Low 3.95 - 5.1 1 m/uL [place] RBC morphology finding Nom (Bld) NOT REPORTED [place] Segmented neutrophils/100 WBC (Bld) 67 % High 36 - 65 % [place] Segs Absolute 6.63 [place] WBC (Bld) [#/Vol] 0.0 10*3/uL 0.0 per 10 0 WBC [place] WBC (Bld) [#/Vol] 9.9 10*3/uL [place] WBC Morphology NOT REPORTED [place] CBC with Diffon 10-26-2019 Abs. Basophil 0.03 k/uL Normal 0.00-0.20 [facility] Comment on above: Performed By: #### RADHA CHANDLER #### [facility] [address] [place] [address] [employer] Operator: Rico Nicole MD Abs.Imm.Granulocyt e 0.07 k/uL Normal 0.00-0.30 [facility] Comment on above: Performed By: #### C DP, TREP #### [address] [address] [employer] Operator: Rico Nicole MD Abs.Neutrophil (Seg) 6.63 k/uL Normal 1.50-8.10 [facility] Comment on above: Performed By: #### C DP, TREP #### [place] [address] [employer] Operator: Rioc Nicole MD Basophils/100 WBC (Bld) 0 % Normal 0-2 [facility] Comment on above: Performed By: #### C DP, TREP #### [place] [address] [employer] Operator: Rico Nicole MD Eosinophils (Bld) [#/Vol] 0.04 10*3/uL Normal 0.00-0.44 [facility] Comment on above: Performed By: #### C DP, TREP #### [place] [address] [employer] Operator: Rico Nicole MD Eosinophils/100 WBC (Bld) 0 % Low 1-4 [facility] Comment on above: Performed By: #### C DP, TREP #### [place] [address] [employer] Operator: Rico Nicole MD Erythrocyte distribution width (RBC) [Ratio] 13.6 % Normal 11.8-14.4 [facility] Comment on above: Performed By: #### C DP, TREP #### [place] [address] [employer] Operator: Rico Nicole MD Hematocrit (Bld) [Volume fraction] 33.2 % Low 36.3-47.1 [facility] Comment on above: Performed By: #### C DP, TREP #### [address] [address] [employer] Operator: Rico Nicole MD Hemoglobin (Bld) [Mass/Vol] 10.3 g/dL Low 11.9-15.1 [facility] Comment on above: Performed By: #### C DP, TREP #### [address] [address] [employer] Operator: Rico Nicole MD Immature granulocytes (Bld) [#/Vol] 1 % High 0 [facility] Comment on above: Performed By: #### C DP, TREP #### [address] [address] [employer] Operator: Rico Nicole MD Lymphocytes (Bld) [#/Vol] 2.41 10*3/uL Normal 1.10-3.70 [facility] Comment on above: Performed By: #### C DP, TREP #### [address] [address] [employer] Operator: Rico Nicole MD Lymphocytes/100 WBC (Bld) 24 % Normal 24-43 [facility] Comment on above: Performed By: #### C DP, TREP #### [address] [address] [employer] Operator: Rico Nicole MD MCH (RBC) [Entitic mass] 26.3 pg Normal 25.2-33.5 [facility] Comment on above: Performed By: #### C DP, TREP #### [address] [address] [employer] Operator: Rico Nicole MD MCHC (RBC) [Mass/Vol] 31.0 g/dL Normal 28.4-34.8 [facility] Comment on above: Performed By: #### C DP, TREP #### [address] [address] [employer] Operator: Rico Nicole MD MCV (RBC) [Entitic vol] 84.7 fL Normal 82.6-102.9 [facility] Comment on above: Performed By: #### C DP, TREP #### [address] [address] [employer] Operator: Rico Nicole MD Monocytes (Bld) [#/Vol] 0.76 10*3/uL Normal 0.10-1.20 [facility] Comment on above: Performed By: #### C DP, TREP #### [address] [address] [employer] Operator: Rico Nicole MD Monocytes/100 WBC (Bld) 8 % Normal 3-12 [facility] Comment on above: Performed By: #### C DP, TREP #### [place] [address] [employer] Operator: Rico Nicole MD Neutrophil (Seg) 67 % High 36-65 [facility] Comment on above: Performed By: #### C DP, TREP #### [address] [address] [employer] Operator: Rico Nicole MD NRBC Automated 0.0 per 100 WBC Normal 0.0 [facility] Comment on above: Performed By: #### C DP, TREP #### [place] [address] [employer] Operator: Rico Nicole MD Platelet mean volume (Bld) [Entitic vol] 12.5 fL Normal 8.1-13.5 [facility] Comment on above: Performed By: #### C DP, TREP #### [address] [address] [employer] Operator: Rico Nicole MD Platelets (Bld) [#/Vol] 248 10*3/uL Normal 138-453 [facility] Comment on above: Performed By: #### C DP, TREP #### [facility] [place] [address] [employer] Operator: Rico Nicole MD RBC (Bld) [#/Vol] 3.92 10*6/uL Low 3.95-5.11 [facility] Comment on above: Performed By: #### C DP, TREP #### [address] [address] [employer] Operator: Rico Nicole MD WBC (Bld) [#/Vol] 9.9 10*3/uL Normal 3.5-11.3 [facility] Comment on above: Performed By: #### C DP, TREP #### [address] [address] [employer] Operator: Rico Nicole MD Auto Diff Performed NOT REPORTED Normal [facility] Comment on above: Performed By: #### C DP, TREP #### [address] [address] [employer] Operator: Rico Nicole MD Platelets (Bld) [#/Vol] NOT REPORTED Normal [facility] Comment on above: Performed By: #### C DP, TREP #### [address] [address] [employer] Operator: Rico Nicole MD RBC morphology finding Nom (Bld) NOT REPORTED Normal [facility] Comment on above: Performed By: #### C DP, TREP #### [address] [address] [employer] Operator: Rico Nicole MD WBC Morphology NOT REPORTED Normal [facility] Comment on above: Performed By: #### C DP, TREP #### [address] [address] [employer] Operator: Rico Nicole MD Drug Scr, Abuse, Uron 2018 Amphetamine(s),Ur Negative Normal NEG [facility] Comment on above: Result Comment: (Positive cutoff 1000 ng/mL) Performed By: #### D AU #### [facility] [address] [address] [employer] Operator: Rico Nicole MD Barbiturate(s),Ur Negative Normal NEG [facility] Comment on above: Result Comment: (Positive cutoff 200 ng/mL) Performed By: #### D AU #### [address] [address] [employer] Operator: Rico Nicole MD Base excess Calc (Bld) [Moles/Vol] Negative Normal NEG [facility] Comment on above: Result Comment: (Positive cutoff 300 ng/mL) Performed By: #### D AU #### [address] [address] [employer] Operator: Rico Nicole MD Benzodiazepine(s) Negative Normal NEG [facility] Comment on above: Result Comment: (Positive cutoff 200 ng/mL) Performed By: #### D AU #### [facility] [address] [address] [employer] Machine Operator: Rico Nicole MD Cannabinoid(s),Ur Negative Normal NEG [facility] Comment on above: Result Comment: (Positive cutoff 50 ng/mL) Performed By: #### D AU #### [facility] [address] [address] [employer] Operator: Rico Nicole MD Interpretive Info Assay provides medic al screening only. The absence of expected drug(s) and/or Normal [facility] Comment on above: Result Comment: meta bolite(s) may indicate diluted or adulterated urine, limitations of testing or timing of collection. Testing for legal purposes should be confirmed by another method. To request confirmation of test result, please call the lab within 7 days of sample submission. Performed By: #### D AU #### [facility] [address] [place] [address] [employer] Operator: Rico Nicole MD Methadone Ql (U) Negative Normal NEG [facility] Comment on above: Result Comment: (Positive cutoff 300 ng/mL) Performed By: #### D AU #### [facility] [address] [place] [address] [employer] Operator: Rico Nicole MD Opiate(s), Ur Negative Normal NEG [facility] Comment on above: Result Comment: (Positive cutoff 300 ng/mL) Performed By: #### D AU #### [facility] [address] [place] [address] [employer] Operator: Rioc Nicole MD Oxycodone, Urine Negative Normal NEG [facility] Comment on above: Result Comment: (Positive cutoff 100 ng/mL) Performed By: #### D AU #### [facility] [address] [place] [address] [employer] Operator: Rico Nicole MD Phencyclidine, Ur Negative Normal NEG [facility] Comment on above: Result Comment: (Positive cutoff 25 ng/mL) Performed By: #### D AU #### [facility] [address] [place] [address] [employer] Operator: Rico Nicole MD Buprenorphrine, Ur NOT REPORTED Normal NEG [facility] Comment on above: Performed By: #### D AU #### [employer] [address] [place] [phone] [employer] Operator: Rico Nicole MD MDMA, Urine NOT REPORTED Normal NEG [facility] Comment on above: Performed By: #### D AU #### [employer] [address] [place] [address] [employer] Operator: Rico Nicole MD Methamphetamine, Ur NOT REPORTED Normal NEG [facility] Comment on above: Performed By: #### D AU #### [facility] [place] [address] [employer] Operator: Rico Nicole MD Propoxyphene,Urine NOT REPORTED Normal NEG [facility] Comment on above: Performed By: #### D AU #### [facility] [address] [place] [address] [employer] Operator: Rico Nicole MD Tricyclic antidepressants Screen Ql (U) NOT REPORTED Normal NEG [facility] Comment on above: Performed By: #### D AU #### [facility] [address] [place] [address] [employer] Operator: Rico Nicole MD T. pallidum Abon 10-26-2019 T. pallidum, IgG NONREACTIVE NONREACTIVE [place] Comment on above: T. pallidum antibodies are not detected. There is no serological evidence of infection with T. pallidum (early primary syphilis cannot be excluded). Retest in 2-4 weeks if syphilis is clinically suspect. T.pallidum Ab Screenon 10-26 T.pallidum Ab Screen NONREACTIVE Normal NR [facility] Comment on above: Result Comment: T. pallidum antibodies are not detected. There is no serological evidence of infection with T. pallidum (early primary syphilis cannot be excluded). Retest in 2-4 weeks if syphilis is clinically suspect. Performed By: #### C DP, TREP #### [facility] [address] [place] [address] [employer] Operator: Rico Nicole MD TYPE AND SCREENon 10-26-2019 ABO/Rh Positive [place], [place] Arm Band Number BE [id number] [place], [place] Expiration Date 10/29/2019,2359 [place], [place] Type + Screenon 10-26-2019 Type + Screen Sample Expiration 10/29/2019,2359 Arm Band Number BE [id number] ABO/Rh(D) O POSITIVE Antibody Screen NEGATIVE Normal [facility] Comment on above: Performed By: #### T YS #### [facility] [address] [place] [address] [employer] Operator: Rico Nicole MD Urine Drug Screenon 10-26-20 19 Amphetamine Screen, Ur Negative NEGATIVE [facility], [place] Comment on above: (Positive cutoff 1000 ng/mL) Barbiturate Screen, Ur Negative NEGATIVE [facility], [place] Comment on above: (Positive cutoff 200 ng/mL) Benzodiazepine Screen, Urine Negative NEGATIVE [facility] Comment on above: (Positive cutoff 200 ng/mL) Buprenorphine Urine NOT REPORTED NEGATIVE [facility] Cannabinoid Scrn, Ur Negative NEGATIVE [facility], [place] Comment on above: (Positive cutoff 50 ng/mL) Cocaine Metabolite, Urine Negative NEGATIVE [facility] Comment on above: (Positive cutoff 300 ng/mL) MDMA, Urine NOT REPORTED NEGATIVE [facility] [place] Methadone Screen, Urine Negative NEGATIVE [facility], [place] Comment on above: (Positive cutoff 300 ng/mL) Methamphetamine, Urine NOT REPORTED NEGATIVE [facility] Opiates, Urine Negative NEGATIVE [facility] [place] Comment on above: (Positive cutoff 300 ng/mL) Oxycodone Screen, Ur Negative NEGATIVE [facility] Comment on above: (Positive cutoff 100 ng/mL) Phencyclidine, Urine Negative NEGATIVE [facility] Comment on above: (Positive cutoff 25 ng/mL) Propoxyphene, Urine NOT REPORTED NEGATIVE [facility] Test Information Assay provides medic al screening only. The absence of expected drug(s) and/or metabolite(s) may indicate diluted or adulterated urine, limitations of testing or timing of collection. [facility] Comment on above: Testing for legal pu rposes should be confirmed by another method. To request confirmation of test result, please call the lab within 7 days of sample submission. Tricyclic Antidepressants, Urine NOT REPORTED NEGATIVE [facility] Maternal Serum Scr 4on 07-14 Determined by Ultrasound Normal [facility] Comment on above: Performed By: #### A QUADM #### [facility] [address] [place] [address] Paper Coating Machine Operator: Rico Nicole MD [facility] [address] [place], [place] [phone] Paper Coating Machine Operator: Aryan Morris MD Dimeric Inhibin A 393 pg/mL [facility] Comment on above: Performed By: #### A QUADM #### [address] [address] Paper Coating Machine Operator: Rico Nicole MD [facility] [address] [place] [address] Paper Coating Machine Operator: Aryan Morris MD Due Date SEE NOTE [facility] Comment on above: Result Comment: Resu lts for Estimated Due Date: 11 02 19 Performed By: #### A QUADM #### [address] [address] Paper Coating Machine Operator: Rico Nicole MD [address] [phone] Paper Coating Machine Operator: Aryan Morris MD Family History No Normal [facility] Comment on above: Performed By: #### A QUADM #### [address] [address] Paper Coating Machine Operator: Rico Nicole MD [address] [phone] Paper Coating Machine Operator: Aryan Morris MD Gestat Age (exact) 23 wks, 6 days Normal [facility] Comment on above: Performed By: #### A QUADM #### [address] [address] Paper Coating Machine Operator: Rico Nicole MD [address] [phone] Paper Coating Machine Operator: [place] [address] IU/L [facility] Comment on above: Performed By: #### A QUADM #### [address] [place] [address] Paper Coating Machine Operator: Rico Nicole MD [address] [address] Paper Coating Machine Operator: Aryan Morris MD Hx Aneuploidy Unknown Normal [facility] Comment on above: Performed By: #### A QUADM #### [address] [address] Paper Coating Machine Operator: Rico Nicole MD [address] [address] Paper Coating Machine Operator: Aryan Morris MD Ins Req Matern Diab No Normal [facility] Comment on above: Performed By: #### A QUADM #### [address] [address] Paper Coating Machine Operator: Rico Nicole MD [address] [address] Paper Coating Machine Operator: Aryan Morris MD Interpretation Screen Neg Normal [facility] Comment on above: Result Comment: (NOT E) INTERPRETATION: SCREEN NEGATIVE Neural Tube Defects (NTD) Negative Down syndrome (DS) Negative Trisomy 18 (T18) Negative Pre-Test Post-Test Cutoff Neural Tube Defects Risks 1:1030 < 1:32360 1:250 Down Syndrome Risks 1:1110 1:604 1:150 Trisomy 18 Risks 1:4330 < 1:97584 1:100 Comments: The risk of an open neural tube defect is less than the screening cut-off. The risk of Down syndrome is less than the screening cut-off. The risk of trisomy 18 is less than the screening cut-off. Test developed and characteristics determined by [employer]. See Compliance Statement B: [employer].Greekdrop/CS Performed By: #### A QUADM #### [address] [address] Paper Coating Machine Operator: Rico Nicole MD [address] [address] Paper Coating Machine Operator: Aryan Morris MD Mat Scr Enhanced Rpt See Note [facility] Comment on above: Result Comment: (NOT E) Access P[employer] Enhanced Report using either link below: -Direct access: [email or web address] -Enter Username, Password: [email or web address] Username: [email or web address] Password: [email or web address] Performed by [employer], [address] [place] [address] [email or web address], Aryan Morris MD, Lab. Director Performed By: #### A QUADM #### [facility] [address] [address] Paper Coating Machine Operator: Rico Nicole MD [address] [address] Paper Coating Machine Operator: Aryan Morris MD [age] [facility] Comment on above: Performed By: #### A QUADM #### [address] [address] Paper Coating Machine Operator: Rico Nicole MD [address] [phone] Paper Coating Machine Operator: Aryan Morris MD Maternal Race Nonblack [facility] Comment on above: Performed By: #### A QUADM #### [address] [address] Paper Coating Machine Operator: Rico Nicole MD [address] [address] Paper Coating Machine Operator: Aryan Morris MD MoM Dimeric Inhib A 1.53 [facility] Comment on above: Performed By: #### A QUADM #### [address] [address] Paper Coating Machine Operator: Rico Nicole MD [address] [phone] Paper Coating Machine Operator: Aryan Morris MD MoM for AFP 0.70 [facility] Comment on above: Performed By: #### A QUADM #### [address] [address] Paper Coating Machine Operator: Rico Nicole MD [facility] [address] [place] [address] Paper Coating Machine Operator: Aryan Morris MD MoM for HCG, Tri 2 1.97 [facility] Comment on above: Performed By: #### A QUADM #### [address] [address] Paper Coating Machine Operator: Rico Nicole MD [address] [phone] Paper Coating Machine Operator: Aryan Morris MD MoM for uE3 1.03 [facility] Comment on above: Performed By: #### A QUADM #### [address] [address] Paper Coating Machine Operator: Rico Nicole MD [address] [phone] Paper Coating Machine Operator: Aryan Morris MD Number of Fetuses Trevino Normal [facility] Comment on above: Performed By: #### A QUADM #### [address] [address] Paper Coating Machine Operator: Rico Nicole MD [facility] [address] [place] [address] Paper Coating Machine Operator: Aryan Morris MD Patient's AFP 63 ng/mL [facility] Comment on above: Performed By: #### A QUADM #### [address] [address] Paper Coating Machine Operator: Rico Nicoel MD [facility] [address] [place] [address] Paper Coating Machine Operator: Aryan Morris MD Patient's uE3 3.28 ng/mL [facility] Comment on above: Performed By: #### A QUADM #### [address] [address] Paper Coating Machine Operator: Rico Nicole MD [facility] [address] [place], [place] [phone] Paper Coating Machine Operator: Aryan Morris MD Smoking Unknown [facility] Comment on above: Performed By: #### A QUADM #### [address] [address] Paper Coating Machine Operator: Rico Nicole MD [facility] [address] [place], [place] [id number] Paper Coating Machine Operator: Aryan Morris MD Specimen See Note [facility] Comment on above: Result Comment: Init ial sample Performed By: #### A QUADM #### [address] [address] Paper Coating Machine Operator: Rico Nicole MD [facility] [address] [place] [address] Paper Coating Machine Operator: Aryan Morris MD Maternal Serum Scr 4on 07-[address] [facility] Comment on above: Performed By: #### A QUADM #### [address] [address] Paper Coating Machine Operator: Rico Nicole MD [facility] [address] [place], [place] [id number] Paper Coating Machine Operator: Aryan Morris MD Diabetic NO [facility] Comment on above: Performed By: #### A QUADM #### [address] [address] Paper Coating Machine Operator: Rico Nicole MD [facility] [address] [place], [place] [phone] Paper Coating Machine Operator: Aryan Morris MD Estimated Due Date 11/02/2019 [facility] Comment on above: Performed By: #### A QUADM #### [address] [address] Paper Coating Machine Operator: Rico Nicole MD [facility] [address] [place] [address] Paper Coating Machine Operator: Aryan Morris MD Family History NO [facility] Comment on above: Performed By: #### A QUADM #### [address] [address] Paper Coating Machine Operator: Rico Nicole MD [facility] [address] [place], [place] [phone] Paper Coating Machine Operator: Aryan Morris MD Maternal date 1995 [facility] Comment on above: Performed By: #### A QUADM #### [address] [address] Paper Coating Machine Operator: Rico Nicole MD [facility] [address] [place], [place] [phone] Paper Coating Machine Operator: Aryan Morris MD Race (Maternal) [facility] Comment on above: Performed By: #### A QUADM #### [address] [address] Paper Coating Machine Operator: Rico Nicole MD [facility] [address] [place], [place] [phone] Paper Coating Machine Operator: Aryan Morris MD Repeat Specimen NO [facility] Comment on above: Performed By: #### A QUADM #### [address] [address] Paper Coating Machine Operator: Rico Nicole MD [facility] [address] [place] [address] Paper Coating Machine Operator: Aryan Morris MD Current Smoking NOT REPORTED [facility] Comment on above: Performed By: #### A QUADM #### [address] [address] Paper Coating Machine Operator: Rico Nicole MD [facility] [address] [place] [address] Paper Coating Machine Operator: Aryan Morris MD In Vitro Fertalizat NOT REPORTED Normal [facility] Comment on above: Performed By: #### A QUADM #### [address] [address] Paper Coating Machine Operator: Rico Nicole MD [address] [address] Paper Coating Machine Operator: Aryan Morris MD LMP date NOT REPORTED Normal [facility] Comment on above: Performed By: #### A QUADM #### [address] [address] Paper Coating Machine Operator: Rico Nicole MD [facility] [address] [place] [address] Paper Coating Machine Operator: Aryan Morris MD Monochorionic Twins NOT REPORTED Normal [facility] Comment on above: Performed By: #### A QUADM #### [address] [address] Paper Coating Machine Operator: Rico Nicole MD [address] [address] Paper Coating Machine Operator: Aryan Morris MD Prev Trisomy Preg NOT REPORTED Normal [facility] Comment on above: Performed By: #### A QUADM #### [address] [address] Paper Coating Machine Operator: Rico Nicole MD [facility] [address] [place] [address] Paper Coating Machine Operator: Aryan Morris MD Valproic/Carbamaze p NOT REPORTED Normal [facility] Comment on above: Performed By: #### A QUADM #### [place] [address] [place] [address] Paper Coating Machine Operator: Rico Nicole MD [address] [address] Paper Coating Machine Operator: Aryan Morris MD Chlamydia/GC/Trich NAAon Chlamydia Trachomotis, MALINI Negative Normal Negative [facility] Comment on above: Order Comment: [facility] SPECIMEN SOURCE/DESCRIPTION URINE Performed By: #### G CCHLAMTRI #### [facility] , #### CUU #### [facility] [address] [place] [address] [place] Neisseria Gonorrhoeae, MALINI Negative Normal Negative [facility] Comment on above: Order Comment: [facility] SPECIMEN SOURCE/DESCRIPTION URINE Performed By: #### G CCHLAMTRI #### [facility] , #### CUU #### [facility] [address] [place] [address] [place] Trichomonas MALINI Negative Normal Negative [facility] Comment on above: Order Comment: [facility] SPECIMEN SOURCE/DESCRIPTION URINE Result Comment: Perf ormed at: =G - [facility] [address] [id number] Paper Coating Machine Operator: Emilia Hankins MD, Phone: [phone] PERFORMED BY: [place] [address] PATHOLOGIST [employer]CH[employer]ING AGENT JONI FLEMING M.D. Performed By: #### G CCHLAMTRI #### [facility] , #### CUU #### [facility] [address] [place] [address] [place] Urine Cultureon 02-27-2019 Bacteria identified Cx Nom (U) [facility] 30,000 colonies/ml mixed bacterial skin contaminants 2 Days PERFORMED BY: [place] [address] PATHOLOGIST [employer]CH[employer]ING AGENT JONI FLEMING M.D. Normal [facility] Comment on above: Performed By: #### G CCHLAMTRI #### [facility] , #### CUU #### [facility] [address] Vital Signs Date Time Vital Sign Value Performing Clinician Facility 03-06-2025 10:19-0400 Body mass index (BMI) [Ratio] 40.9 kg/m2 Tank Leonor DO Work Phone: [facility] 03-06-2025 10:19-0400 Body weight 114.94 kg Tank Leonor DO Work Phone: [facility] 03-06-2025 10:19-0400 Diastolic blood pressure 74 mm[Hg] Tank Leonor DO Work Phone: [facility] 03-06-2025 10:19-0400 Systolic blood pressure 116 mm[Hg] Tank Leonor DO Work Phone: [facility] 01-30-2025 10:03-0500 Body mass index (BMI) [Ratio] 40.42 kg/m2 Tank Leonor DO Work Phone: [facility] 01-30-2025 10:03-0500 Body weight 113.58 kg Tank Leonor DO Work Phone: [facility] 01-30-2025 10:03-0500 Diastolic blood pressure 82 mm[Hg] Tank Leonor DO Work Phone: [facility] 01-30-2025 10:03-0500 Systolic blood pressure 100 mm[Hg] Tank Leonor DO Work Phone: [facility] 12-16-2023 16:55-0500 Body height 170.18 cm Aline Garcia Other [facility] Other 12-16-2023 16:55-0500 Body mass index (BMI) [Ratio] 38.49 kg/m2 Aline Garcia Other [facility] Other 12-16-2023 16:55-0500 Body temperature 101.4 [degF] Aline Garcia Other [facility] Other 12-16-2023 16:55-0500 Body weight 111.49 kg Aline Garcia Other [facility] Other 12-16-2023 16:55-0500 Diastolic blood pressure 90 mm[Hg] Aline Colemond Other [facility] Other 12-16-2023 16:55-0500 Respiratory rate 18 /min Aline Garcia Other [facility] Other 12-16-2023 16:55-0500 SaO2% (BldA) [Mass fraction] 98 % Aline Garcia Other [facility] Other 12-16-2023 16:55-0500 Systolic blood pressure 130 mm[Hg] Aline Garcia Other [facility] Other 03-10-2023 16:50-0400 Body height 170.18 cm Karol Carrasquillo Other [facility] Other 03-10-2023 16:50-0400 Body mass index (BMI) [Ratio] 36.02 kg/m2 Karol Carrasquillo Other [facility] Other 03-10-2023 16:50-0400 Body temperature 97.5 [degF] Karol Carrasquillo Other [facility] Other 03-10-2023 16:50-0400 Body weight 104.33 kg Karol Carrasquillo Other [facility] Other 03-10-2023 16:50-0400 Respiratory rate 18 /min Karol Carrasquillo Other [facility] Other 03-10-2023 16:50-0400 SaO2% (BldA) [Mass fraction] 98 % Karol Carrasquillo Other [facility] Other 02-18-2023 10:30-0400 Body height 170.18 cm Aline Radha Other [facility] Other 02-18-2023 10:30-0400 Body mass index (BMI) [Ratio] 37.43 kg/m2 Aline Radha Other [facility] Other 02-18-2023 10:30-0400 Body temperature 98.1 [degF] Aline Radha Other [facility] Other 02-18-2023 10:30-0400 Body weight 108.41 kg Aline Radha Other [facility] Other 02-18-2023 10:30-0400 Respiratory rate 18 /min Aline Colemond Other [facility] Other 02-18-2023 10:30-0400 SaO2% (BldA) [Mass fraction] 100 % Aline Radha Other [facility] Other 06-11-2022 16:15-0400 Body height 170.18 cm Aline Radha Other [facility] Other 06-11-2022 16:15-0400 Body mass index (BMI) [Ratio] 34.45 kg/m2 Aline Radha Other [facility] Other 06-11-2022 16:15-0400 Body temperature 98.9 [degF] Aline Garcia Other [facility] Other 06-11-2022 16:15-0400 Body weight 99.79 kg Aline Garcia Other [facility] Other 06-11-2022 16:15-0400 Respiratory rate 18 /min Aline Garcia Other [facility] Other 06-11-2022 16:15-0400 SaO2% (BldA) [Mass fraction] 98 % Aline Garcia Other [facility] Other 04-04-2022 13:15-0400 Body height 170.18 cm Slim Castellon Other [facility] Other 04-04-2022 13:15-0400 Body mass index (BMI) [Ratio] 34.45 kg/m2 Slim Castellon Other [facility] Other 04-04-2022 13:15-0400 Body temperature 96.2 [degF] Slim Castellon Other [facility] Other 04-04-2022 13:15-0400 Body weight 99.79 kg Slim Castellon Other [facility] Other 04-04-2022 13:15-0400 Respiratory rate 18 /min lSim Castellon Other [facility] Other 04-04-2022 13:15-0400 SaO2% (BldA) [Mass fraction] 98 % Slim Ravinder Other [facility] Other 10-29-2019 08:00-0500 Body Temperature 97.9 [degF] Pennie Goldberg [facility], [place] 10-29-2019 08:00-0500 BP Diastolic 76 mm[Hg] [facility] [place] 10-29-2019 08:00-0500 BP Systolic 114 mm[Hg] Pennie [facility] , [place] 10-29-2019 08:00-0500 Pulse (Heart Rate) 86 /min Pennie [facility] 10-29-2019 08:00-0500 Respiratory Rate 16 /min Pennie [facility], [place] 10-28-2019 16:45-0500 Pulse Oximetry 98 % Pennie [facility] [place] 10-26-2019 10:00-0500 BMI (Body Mass Index) 35.51 kg/m2 [facility] [place] [place] 10-26-2019 10:00-0500 Body weight 99.[address] [facility] [place] 10-26-2019 10:00-0500 Height 167.6 cm [facility] , [place] 07-14-2019 18:01-0400 Body weight 192.0 lbs. [facility] Comment on above: Performed By: #### AQUADM #### [facility] [address] [place] [address] Paper Coating Machine Operator: Rico Nicole MD [facility] [address] [place] [address] Paper Coating Machine Operator: Aryan Morris MD 07-12-2019 17:34-0400 Body weight 192 [facility] Comment on above: Performed By: #### AQUADM #### [facility] [address] [place] [address] Paper Coating Machine Operator: Rico Nicole MD [facility] [address] [place] [address] Paper Coating Machine Operator: Aryan Morris MD 07-12-2019 17:34-0400 Body weight LBS PENNIE GOLDBERG [facility] Comment on above: Performed By: #### AQUADM #### [facility] [address] [place] [address] Paper Coating Machine Operator: Rico Nicoel MD [address] [address] Paper Coating Machine Operator: Aryan Morris MD Encounters Encounter Date Encounter Type Care Provider Facility Start: 05-06-2025 End: 05-08-2025 Clinisync Result Encounter Tank Leonor DO Work Phone: [facility] External Department Unsolicited Start: 05-06-2025 End: 05-08-2025 Clinisync Result Encounter Tank Leonor DO Work Phone: [facility] External Department Unsolicited Start: 03-06-2025 End: 03-06-2025 Bamboo flowsheet Tank [...] 12-16-2023 End: 12-16-2023 ambulatory Aline Garcia Other [facility] Other Start: 12-16-2023 Office outpatient vi sit 15 minutes Alinethad Garcia [facility] Start: 04-22-2023 End: 04-22-2023 ambulatory Chandana S Kecia [place] Start: 04-20-2023 End: 04-21-2023 ambulatory Chandana S Kecia [place] [place] Start: 03-10-2023 End: 03-10-2023 ambulatory Karol Carrasquillo Other [facility] Other Start: 03-10-2023 Office outpatient vi sit 25 minutes Karol Carrasquillo [facility] Start: 02-18-2023 End: 02-18-2023 ambulatory Aline Garcia Other [facility] Other Start: 02-18-2023 Office outpatient vi sit 15 minutes Aline Garcia [facility] Start: 06-12-2022 End: 06-12-2022 ambulatory Aline Garcia Other [facility] Other Start: 06-12-2022 Encounter by adal Verasela Radha [facility] Start: 06-11-2022 End: 06-11-2022 ambulatory Aline Garcia Other [facility] Other Start: 06-11-2022 Office outpatient vi sit 15 minutes Aline Garcia [facility] Start: 04-04-2022 End: 04-04-2022 ambulatory Slim Castellon Other [facility] Other Start: 04-04-2022 Office outpatient vi sit 15 minutes Slim Castellon [facility] Start: 10-29-2021 End: 10-29-[address] MIKI KRUGER Facility: Start: 10-26-2019 End: 10-29-2019 Evaluation and management of inpatient PENNIE GOLDBERG [facility] Start: 10-26-2019 End: 10-29-2019 Evaluation and management of inpatient Pennie Goldberg Work Phone: [facility] Post Comment on above: [facility] 10/27/19 M Apg 8,9 Wt 9#8 (Primary Dx) Start: 07-12-2019 End: 07-13-2019 Patient encounter procedure BENJAMIN HARTLEY [facility] Start: 07-12-2019 End: 07-12-2019 Subsequent hospital visit by physician Miki Kruger [facility] Start: 02-28-2019 End: 03-01-2019 Patient encounter procedure DEFAULT PHYSICIAN Facility:[facility] Start: 02-27-2019 End: 02-27-2019 Patient encounter procedure Marlena Taveras Facility:[facility] Procedures Date Procedure Procedure Detail Performing Clinician Start: 05-06-2025 ALL PROGESTERONE Tank Leonor DO Work Phone: Start: 03-06-2025 Urnls dip stick/tabl et rgnt non-auto w/o micrscp Tank Leonor DO Work Phone: Start: 03-06-2025 IGP,APTIMA HPV,AGE GDLN Tank Leonor DO Work Phone: Start: 01-30-2025 MLR HEMOGLOBIN A1C Naomy Galvez DO Work Phone: Start: 10-29-2019 INCENTIVE SPIROMETRY [...] ADVANCE DIET TOLE RATED (NURSING COMMUNICATION) PENNIE GOLBDERG Start: 10-27-2019 REASON FOR NO CHEMIC AL VTE PROPHYLAXIS PENNIE GOLDBERG Start: 10-27-2019 MISCELLANEOUS NURSIN G CARE ORDER (SPECIFY) PENNIE GOLDBERG Start: 10-27-2019 BEDREST PENNIE BURROWS Start: 10-27-2019 Continuous pulse oximetry PENNIE GOLDBERG Start: 10-27-2019 ENCOURAGE DEEP BREAT PARKER AND COUGHING PENNEI GOLDBERG Start: 10-27-2019 INITIATE OXYGEN THER APY PROTOCOL PENNIE GOLDBERG Start: 10-27-2019 NOTIFY PHYSICIAN (SPECIFY) PENNIE GOLDBERG Start: 10-27-2019 NURSING COMMUNICATION Rosi MARTINEZLOKESH GOLDBERG Start: 10-27-2019 VITAL SIGNS PENNIE BURROWS [...] - Td) DTaP/Tdap/Td vaccine (2 - Td) [place], [place] Start: 07-31-2025 Influenza vaccination Influenz a Vaccine (Season Ended) [facility] Start: 03-06-2025 End: 03-06-2025 Patient encounter procedure 03/06/2025 9:40 AM EDT Office Visit [facility] [address] [place] [id number] Tank Galvez DO [address] [place] [address] [facility] Start: 01-30-2025 End: 01-30-2026 Antimullerian hormone (AMH) Antimullerian hormone (AMH) Lab Routine Anovulation PCOS (polycystic ovarian syndrome) Female infertility Expected: 01/30/2025 (Approximate), Expires: 01/30/2026 [facility] Comment on above: Expected: 01/30/2025 (Approximate), Expires: 01/30/2026 Start: 01-30-2025 End: 01-30-2026 Progesterone Progesterone Lab Routine Anovulation PCOS (polycystic ovarian syndrome) Female infertility Expected: 01/30/2025 (Approximate), Expires: 01/30/2026 [facility] Comment on above: Expected: 01/30/2025 (Approximate), Expires: 01/30/2026 Start: 07-31-2024 Influenza vaccination Influenza Vacc ine (#1) [facility] Start: 07-31-2019 Influenza vaccination Flu vaccine (# 1) [place], [place] Start: 2018 Cervical cancer screen Cervical canc er screen [place] Start: 2016 DTaP/Tdap/Td vaccine (1 - Tdap) DTaP/Tdap/Td vaccine (1 - Tdap) [place] Start: 2013 Chlamydia screen Chlamydia screen [place], [place] Start: 2012 HIV screen HIV screen [place], [place] Start: 2012 HPV vaccine (1 - Fem louie 3-dose series) HPV vaccine (1 - Female 3-dose series) [place] Start: 2010 Varicella Vaccine (1 of 2 - 13+ 2-dose series) Varicella Vaccine (1 of 2 - 13+ 2-dose series) [place] Start: 2008 HPV vaccine (1 - Fem louie 2-dose series) HPV vaccine (1 - Female 2-dose series) [place] Start: 2003 Pneumococcal 0-64 ye ars Vaccine (1 of 1 - PPSV23) Pneumococcal 0-64 years Vaccine (1 of 1 - PPSV23) [place] Start: 1998 Varicella Vaccine (1 of 2 - 2-dose childhood series) Varicella Vaccine (1 of 2 - 2-dose childhood series) [place] Cytology Cervical or vaginal smear or scraping study Pap Smear Pathology and Cytology Routine Well woman exam with routine gynecological exam Ordered: 03/06/2025 [facility] Work Phone: Comment on above: Ordered: 03/06/2025 hCG, quantitative hCG, quantitat mami Lab Routine Anovulation PCOS (polycystic ovarian syndrome) Female infertility Ordered: 01/30/2025 [facility] Comment on above: Ordered: 01/30/2025 Hemoglobin A1c/Hemoglobin.total in Blood Hemoglobin A1c Lab Routine Anovulation PCOS (polycystic ovarian syndrome) Female infertility Ordered: 01/30/2025 [facility] Comment on above: Ordered: 01/30/2025 Incentive spirometry Incentive s pirometry Respiratory Care Routine Every 2hr while awake until discontinued starting 10/27/2019 [place] Comment on above: Every 2hr while awak e until discontinued starting 10/27/2019 Initiate Oxygen Ther apy Protocol Initiate Oxygen Therapy Protocol Respiratory Care Routine Daily until discontinued starting 10/27/2019 [place] Comment on above: Daily until disconti nued starting 10/27/2019 Maternal screen 4 Maternal scree n 4 Lab Routine 07/12/2019 11:00 AM EDT [place] Phase I & II - meter ed glucose Phase I & II - metered glucose Point of Care Testing Routine As Needed until discontinued starting 10/27/2019 [place] Comment on above: As Needed until disc ontinued starting 10/27/2019 Thyrotropin [Units/volume] in Serum or Plasma TSH Lab Routine Anovulation PCOS (polycystic ovarian syndrome) Female infertility Ordered: 01/30/2025 [facility] Work Phone: Comment on above: Ordered: 01/30/2025 Thyroxine (T4) free [Mass/volume] in Serum or Plasma T4, free Lab Routine Anovulation PCOS (polycystic ovarian syndrome) Female infertility Ordered: 01/30/2025 [facility] Comment on above: Ordered: 01/30/2025 Immunizations Immunization Date Immunization Notes Care Provider Fa [facility] 10-29-2019 tetanus toxoid, redu eric diphtheria toxoid, and acellular pertussis vaccine, adsorbed Pennie Ashlyn [facility] 10-27-2019 diphtheria, tetanus toxoids and acellular pertussis vaccine, unspecified formulation Pennie Goldberg [place], [place] 08-18-2012 hepatitis B vaccine, pediatric or pediatric/adolescent dosage Tank Leonor DO Work Phone: [facility] 05-25-2012 varicella virus vaccine Core y Leonor DO Work Phone: [facility] 02-18-2011 meningococcal polysaccharide (groups A, C, Y and W-135) diphtheria toxoid conjugate vaccine (MCV4P) Tank Leonor DO Work Phone: [facility] 02-18-2011 tetanus toxoid, redu eric diphtheria toxoid, and acellular pertussis vaccine, adsorbed Tank Leonor DO Work Phone: [facility] 10-08-1998 measles, mumps and rubella virus vaccine Tank Leonor DO Work Phone: [facility] 1997 hepatitis B vaccine, pediatric or pediatric/adolescent dosage Tank Leonor DO Work Phone: [facility] Payers Date Payer Category Payer Blue [employer] Blue Shield [id number] 2023 Blue Cross Blue Shield [id number] 2023 Unknown [id number] 2023 Unknown 2019 Private Health Insurance [id number] 2019 Self-pay 2018 Private Health Insurance [id number] 2018 Private Health Insurance xxx [id number] 1997 Unknown [id number] 2.16.8 [id number] 1997 Unknown [id number] 2.16.8 [id number] 1997 Unknown [id number] 2.16.8 [id number] 1997 Unknown [id number] 2.16.84 [id number] 1997 Unknown [id number] 2.16.8 [id number] 1997 Unknown [id number] 2.16.8 [id number] 1997 Unknown [id number] 2.16. [id number] 1997 Unknown [id number] 2.16.84 [id number] 1997 Unknown [id number] 2.16.84 [id number] 1959 Private Health Insurance [id number] Blue Cross Blue Shield [id number] Unknown [id number] 2.16.84 [id number] Unknown [id number] 2.16.84 [id number] Unknown [id number] 2.16.8 [id number] Social History Date Type Detail Facility Start: 07-12-2019 End: 10-26-2019 Tobacco smoking status TNIS [place] sm[place] Start: 10-26-2019 Alcohol intake Ex-drinker (finding) [place] Start: 02-09-2019 [place] Sex Assigned At [place] on file [place] Start: 07-12-2019 End: 01-30-2025 Alcohol intake Not Currently [place] Start: 04-27-2023 Tobacco smoking stat [facility] Ex-smoker [facility] History of tobacco use Current smoker [facility] History of tobacco use Cigarette Smoker N [facility] Start: 04-27-2023 Tobacco use and exposure User of smokeless tobacco [facility] Start: 11-03-2023 End: 03-06-2025 Alcoholic beverage intake Current drinker of alcohol (finding) [facility] Start: 11-03-2023 End: 01-30-2025 History of Social function [facility] Start: 10-21-2023 Alcohol Comment caffeine: 1-2 cups per day [facility] Start: 1997 Sex assigned at Female [facility] Start: 11-02-2023 Gender identity Identifies as female gender (finding) [facility] Clinical Notes 04-04-2022 to 03-06-2025 Gay Hanks NP - 03/06/2025 9:40 AM Richi Montes De Oca LPN - 01/30/2025 9:50 AM EST Note Date & Type Note Facility 03-06-2025 History of Presen t illness Narrative Reason for Appointment: Patient ID: Gisell Ga is a 29 y.o. female who presents [...] Tank Galvez DO documented in this encounter [facility] 01-30-2025 History of Presen t illness Narrative Reason for Appointment: Patient ID: Gisell Ga is a 29 y.o. female who presents for Discuss Fertility Patient presents today for Consult appointment. MEDICATIONS No current outpatient medications ALLERGIES No Known Allergies PROBLEMS Active Ambulatory Problems Diagnosis Date Noted Acid reflux 04/27/2023 Anemia 10/27/2019 macrosomia during , antepartum 10/21/2019 Anovulation 04/27/2023 Cephalopelvic disproportion due to unusually large fetus 04/27/2023 Chest pain 03/05/2014 Dysautonomia ([facility]) 02/22/2014 Exercise-induced asthma ([facility]) 10/30/2011 Family history of cardiac arrest 10/27/2019 [...] nursing note reviewed. Exam conducted with a travel registered nurse nicu present. Vitals: Estimated body mass index is [...] starts to have Clomid 100mg sent to [facility] in [place]. Patient to schedule follow up in 4 weeks along with annual appointment. Documented by Marlyn Montes De Oca LPN on behalf of: Tank Galvez DO documented in this encounter [facility] 12-16-2023 Evaluation note Encounter Date Diagnosis Assessment [...] (suspected) exposure to covid-19 (ICD-10 - Z20.822) [facility] Other 05-22-2023 Note [id number]:127[facility] 03-10-2023 Evaluation note* Encounter Date Diagnosis [...] Encouraged salt water gargles, increasing fluids, Tylenol [id number] for additional relief. Advised patient if that if symptoms continue she needs a follow-up with ENT for evaluation. Advised that we will not continue to see her for this issue in that UC setting, as we are not a follow-up facility. Patient verbalizes understanding and is agreeable with treatment plan. [facility] Other 03-22-2023 Evaluation note* Encounter Date Diagnosis [...] the ER for worsening symptoms or concern [facility] Other 07-13-2022 Evaluation note* Encounter Date Diagnosis [...] Throat infectio n: Strep material was printed [facility] Other 05-06-2022 Evaluation note* Encounter Date Diagnosis [...] She understands and agrees with the plan. [facility] Other Evaluation noteNo InformationNortSiConnect Other Evaluation note* Diagnosis Anovulation Female infertility [...] Medical History PCOS Surgical History knee surgery [facility] Other History general Narrative - Reported* Type Description Date Medical History Dysautonomia Medical History Cardioinhibited Neurogenic Synco pe Medical History PCOS Surgical History knee surgery Surgical History C section Surgical History tonsillectomy [facility] Other Summary Purpose Family History No Family History Records FoundNo Family History Records FoundNo Family History Records FoundNo Family History Records FoundNo Family History Records FoundNo Family History Records FoundNo Family History Records FoundNo Family History Records FoundNo Family History Records Found Advance Directives Documents on File Type Date Recorded Patient Parts Data Writer Expl anation Advance Directives and Living Will Power of Relocation Specialist Latest Code Status on File Code Status [...] your doctor if you can take an [id number] medicine. If you think your pain medicine [...] take. When should you call for help? [id number] anytime you think you may need emergency [...] Where can you learn more? Go to [email or web address] and sign in to your [employer] account. Enter M806 in the Search Health Information box to learn more about Section: What to Expect at Home. If you do not have an account, please click on the Sign Up Now link. Current as of: August 04, 2018 Content Version: [id number] [employer]. Care instructions adapted under license by [employer]. If youhave questions about a medical condition or this instruction, always ask your healthcare professional. [employer] disclaims any warranty or liability for your [...] Vitals: 10/28/19 0800 10/28/19 1200 10/28/19 1645 10/28/19 2000 BP: 108/73 103/63 102/69 100/72 Pulse: 101 [...] patient Attending Physician: Dr. Jorge Rodriguez DO Cover Mat Machine Operator Resident 10/29/2019, 12:22 AM Attending Physician Statement [...] Whitley DO - 10/28/2019 12:11 PM EST DENTAL SCHEDULING COORDINATOR Resident Interval Note Patient labs reviewed below. 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 Infant sleeping, [...] reviewed with patient Attending Physician: Dr. Selvin Garcia, DO Cover Mat Machine Operator Resident 10/28/2019, 7:52 AM Date: 10/28/2019 Time: [...] teaching physician. Attending's Name: Teresa Montalvo DO * Chadwick Patel DO - 10/27/2019 8:46 AM EST Obstetric/Gynecology [...] for counseling and decision. Janeth Garcia DO DENTAL SCHEDULING COORDINATOR Resident, PGY1 [place], [place] 10/27/2019, 8:46 AM Attending Physician Statement [...] S/P Cytotec 25 Buccal Kwame Denny DO Cover Mat Machine Operator Resident 10/27/2019, 3:56 AM * Kwame Denny [...] in agreement with plan Kwame Denny DO Cover Mat Machine Operator Resident 10/26/2019, 11:26 PM * Pennie Goldberg MD - 10/26/2019 9:33 AM EST Senior resident Progress Note In to discuss plan of care with patient. Patient with suspected macrosomic infant at 4479g in M on 10/26. Patient counseled on risks of shoulder dystocia, higher degree lacerations, permanent neurological damage to , and post hemorrhage. Patient states she wishes to proceed with vaginal delivery at this time and is declining primary section. Patient counseled by typewriter assembler as well as attending. Additionally discussed safest route of delivery for infants is vaginal delivery followed by planned section. Patient voices understanding that highest risk for infant is with failed attempted vaginal delivery. Patient requesting additional time to consider her options. Patient offered support and given time to discuss options with . April Villarreal DENTAL SCHEDULING COORDINATOR Resident, PGY3 Pager: [phone] [place], [place] 10/26/19 9:42 AM Patient additionally counseled [...] section and content) DATE CREATED AUTHOR 03/03/[address] [facility] DATE CREATED AUTHOR AUTHOR'S ORGANIZ ATION 03/09/2019 [facility] DATE CREATED AUTHOR AUTHOR'S ORGANIZ ATION 03/12/2019 [facility] DATE CREATED AUTHOR AUTHOR'S ORGANIZ ATION 11/03/2019 [facility] DATE CREATED AUTHOR AUTHOR'S ORGANIZ ATION 02/22/2022 [facility] DATE CREATED AUTHOR AUTHOR'S ORGANIZ ATION 07/09/2022 [facility] DATE CREATED AUTHOR AUTHOR'S ORGANIZ ATION [facility]20[facility] DATE CREATED AUTHOR AUTHOR'S ORGANIZ ATION 08/04/2023 [facility] DATE CREATED AUTHOR AUTHOR'S ORGANIZ ATION 03/07/2025 [facility] Specialists EPIC Reason for Visit (unrecogniz ed section and content) Reason Comments Scheduled Induction Status Reason Specialty Diagnoses / Procedures Referre d By Contact Referred To Contact Diagnoses HRP (high risk ), unspecified trimester Pennie Goldberg MD [address] [place] [address] [facility] Reason Comments Discuss Fertility Reason Comments Well Women Visit Care Teams (unrecognized sec tion and content) Olive Picker Relationship Specialty Start Date End Date Miki Kruger MD [address] [place] [address] PCP - General Cardiology 04/28/23 Olive Picker Relationship Specialty Start Date End Date Miki Kruger MD [address] [place] [address] PCP - General Cardiology 04/28/23 Olive Picker Relationship Specialty Start Date End Date Miki Kruger MD [address] [place] [address] PCP - General Cardiology 04/28/23 Olive Picker Relationship Specialty Start Date End Date Miki Kruger MD [address] [place] [address] PCP - General Cardiology 04/28/23 Olive Picker Relationship Specialty Start Date End Date Miki Kruger MD [address] [place] [address] PCP - General Cardiology 04/28/23 FOR RECORDS [...] BE BASED ON THE PRIMARY CLINICAL RECORDS. [employer] [facility]. provides no warranty or guarantee of the accuracy or completeness of information in this document.
== END 2025-07-29 23:59 | disposition home or self-care (01) ==
LOC: LAB 12:21
PROVIDERS: Visit Provider Obstetrics & Gynecology
DX: N97.0 Female infertility associated with anovulation (principal); E28.2 Polycystic ovarian syndrome; N97.9 Female infertility, unspecified
CPT/HCPCS: 36415; 84144

== ENCOUNTER 2025-07-29 11:47 | Outpatient (OUT) | payer SELFPAY ==
--- OUTSIDE RECORDS SUMMARY | 2022-11-06 07:00 | XMS_ITS | Continuity of Care Document ---
Author Organization [facility] [place] Address [address] [place] [address] Phone Care Team Providers Care Cylinder Handler Name Role Phone Irwin Cox Unavailable Unavailable [...] Diagnoses Date Provider Providers Copied on Encounter [facility] [place], [address] [place] [address], [id number], tel:[phone] [facility] Encounter for pre-employment examination 2 Nickolas Sheth. [address] [place] [address], [id number] , [place]. tel: [phone] OFFICE/OUTPAT IENT VISIT, [facility], [address] [place] [address], [id number], [place] tel:[phone] [employer] Work Physical (chief complaint) Pre-employment examinationBody mass index [BMI] 36.0-36.9, adult 2 Dean Stringer. [address] [place] [address], [id number] , [place]. tel:[phone] OFFICE/OUTPAT IENT VISIT, [facility], [address] [place] [address], [id number], [place] tel:[phone] [employer] School Physical (chief complaint) School physical exam 2 Dean JOHNSON Siomara. [address] [place] [address], [place], [place], [id number] , . tel:[phone] Family History Family Member Type Diagnosis Age [...] Registry Payers Payer name Insurance type Covered constitution party ID Authoriza tion(s) Self Pay Indigent 09 [id number] Self Pay Indigent [id number] Social History Type Description Quantity Date Captured [...] Patient here for work physical. Starts at [employer]. States she has no health issues. She has no primary care doctor.Needs TB test today.Flu Shot: Refused//Sierra RNNoted above. Pt seen in August for school physical. No change in history. No current medical concerns. 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 Rayshawn JOHNSON School Physical School physical today.Women's Health: JuneDental: NoneFlu Shot: Declined.//Sierra RNNoted above. 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 PMH cardiogenic syncope and mild eczema.PCP is Dr. Ibrahim. School Adjustment Counselor is in [place]. Has not seen either in several years. No syncope in 3 years. No daily medication. No control. Vapes, no ETOH, daily caffeine (coffee and energy drinks), no drug use.No current physical, social or mental health concerns. 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
--- OUTSIDE RECORDS SUMMARY | 2025-07-29 11:50 | XMS_ITS | Encounter Summary ---
Author Organization [facility] Address [address], [address] [place] [address] Care Team Providers Care Diabetic Educator Name Role Phone Miki Ibrahim MD Primary Care Provider + Reason for Visit * Reason Comments Other Encounter Details Date Type Department Care Team (Late st Contact Info) Description 10/08/2013 Adiel Solitario Congenital Chiropractic Teacher [address] [place] [address] Alexis Rehman MD [address] [place] [address] Other Social History Tobacco Use Types Packs/Day [...] on filedocumented in this encounter Care Teams Diabetic Educator Relationship Specialty Start Date End Date Miki Ibrahim MD [address] [place] [address] PCP - General Family Medicine 07/12/19 documented as of this encounter
--- OUTSIDE RECORDS SUMMARY | 2025-07-29 11:50 | XMS_ITS | Clinical Summary ---
Author Organization [employer] Address [id number] [address] [place] [address] Care Team Providers Care Instrument And Electrical Technician Name Role Phone Miki Ibrahim MD Primary Care Provider Allergies No known active allergies Medications ibuprofen [...] file Medical Devices Not on file Insurance [facility] [employer] Care Teams Instrument And Electrical Technician Relationship Specialty Start Date End Date Miki Ibrahim MD PCP - General 07/19/14
--- OUTSIDE RECORDS SUMMARY | 2025-07-29 11:50 | XMS_ITS | Clinical Summary ---
Author Organization [facility] Address [address] [place] [address] Care Team Providers Care Assistant Elementary Teacher Name Role Phone Unavailable Primary Care Provider [...]
--- OUTSIDE RECORDS SUMMARY | 2025-07-29 11:50 | XMS_ITS | Encounter Summary ---
Author Organization [facility] Address [address] [place] [address] Care Team Providers Care Refractory Mixer Name Role Phone Miki Ibrahim MD Primary Care Provider [phone] Encounter Details Date Type Department Care Team (Late st Contact Info) Description 06/08/2023 Orders Only [facility] [place] [facility] [address] [place] [address] Chandana Mcdonnell DO [address] [facility] [place] [address] Social History Tobacco Use Types Packs/Day Years [...] on filedocumented in this encounter Care Teams Refractory Mixer Relationship Specialty Start Date End Date Miki Ibrahim MD [address] [place] [address] PCP - General Cardiology 04/28/23 documented as of this encounter
--- OUTSIDE RECORDS SUMMARY | 2025-07-29 11:50 | XMS_ITS | Encounter Summary ---
Author Organization [facility] Address [address] [place] [address] Care Team Providers Care Spindle Plumber Name Role Phone Miki Ibrahim MD Primary Care Provider [phone] Encounter Details Date Type Department Care Team (Late st Contact Info) Description 04/22/2023 Orders Only [facility] [place] [facility] [address] [facility] [address] Vale Benedict MA Social History Tobacco Use [...] on filedocumented in this encounter Care Teams Spindle Plumber Relationship Specialty Start Date End Date Miki Ibrahim MD [address] [place] [address] PCP - General Cardiology 04/28/23 documented as of this encounter
--- OUTSIDE RECORDS SUMMARY | 2025-07-29 11:50 | XMS_ITS | Encounter Summary ---
Author Organization [facility] Address [address], [address] [place] [address] Care Team Providers Care Cap Blocker Name Role Phone Miki Ibrahim MD Primary Care Provider + Reason for Visit * Reason Comments Other Encounter Details Date Type Department Care Team (Late st Contact Info) Description 04/25/2014 Adiel Solitario Congenital Tourism Radio Presenter [address] [place] [phone] Alexis Rehman MD [address] [place], [place] [phone] Other Social History Tobacco Use Types Packs/Day [...] on filedocumented in this encounter Care Teams Cap Blocker Relationship Specialty Start Date End Date Miki Ibrahim MD [address] [place] [address] PCP - General Family Medicine 07/12/19 documented as of this encounter
--- OUTSIDE RECORDS SUMMARY | 2025-07-29 11:50 | XMS_ITS | Encounter Summary ---
Author Organization [facility] Address [address], [address] [place] [address] Care Team Providers Care Software Quality Engineer Name Role Phone Miki Ibrahim MD Primary Care Provider + Reason for Visit * Reason Comments Other Encounter Details Date Type Department Care Team (Late st Contact Info) Description 11/16/2014 Adiel Solitario Congenital Registered Radiologic Technologist [address] [place] [phone] Alexis Rehman MD [address] [place], [place] [phone] Other Social History Tobacco Use Types Packs/Day [...] on filedocumented in this encounter Care Teams Software Quality Engineer Relationship Specialty Start Date End Date Miki Ibrahim MD [address] [place] [address] PCP - General Family Medicine 07/12/19 documented as of this encounter
--- OUTSIDE RECORDS SUMMARY | 2025-07-29 11:50 | XMS_ITS | Clinical Summary ---
Author Organization [facility] Address [address] [place] [address] Care Team Providers Care Nurse Plastics Name Role Phone Miki Ibrahim MD Primary Care Provider [phone] Allergies No known active allergies Medications medroxyPROGESTER one (Provera) 10 MG tabletIndication s:Anovulation,PC OS (polycystic ovarian syndrome),Female infertility Take 1 tablet (10 mg) by mouth Daily for 10 days 10 tablet 5 Active clomiPHENE (Clomid) 50 MG tabletIndication s:Anovulation Take 2 tablets (100 mg) by mouth Daily for 5 days 10 tablet 5 07/15/20 25 Active Problems Problem Noted Date Diagnosed Date Acid reflux 04/27/2023 Anovulation 04/27/2023 Cephalopelvic disproportion due to unusually large fetus ([facility]) 04/27/2023 Hypertrophy tonsils 04/27/2023 Heartburn 04/27/2023 Hypotension 04/27/2023 Irregular periods 04/27/2023 Smoker 04/27/2023 Anemia 10/27/2019 Family history of cardiac arrest 10/27/2019 state ([facility]) 10/27/2019 Obesity 10/27/2019 macrosomia during , antepartum ([facility]) 10/21/2019 Overview (04/27/2023): Estimated weight 9#4 on [...] high risk pre gnancy, unspecified, unspecified trimester ([facility]) 10/21/2019 Overview (04/27/2023): Pts mother had hemorrhage and cardiac arrest with delivery of pts brother Pt desires to deliver at [facility] due to family history Late transfer of care from [facility] at 38w2d gestation Chest pain 03/05/2014 Generalized headaches 03/05/2014 Dysautonomia 02/22/2014 Exercise-induced asthma 10/30/2011 Overview (04/27/2023): Controlled, no meds Neurologic cardiac syncope 10/30/2011 Overview (04/27/2023): Follows with Dr. Rehman Pt reports that her last syncopal episode was in early August 2019 Pt takes no medications daily Encounters Date Type Department Care Team Description 07/28/2025 Telephone [facility] [address] [place] [address] Tank Galvez, 07/10/2025 Telephone [facility] [address] [place] [address] Angelika Alfred LPN 07/10/2025 Abstract [facility] [address] [place] [address] Tank Galvez, 07/01/2025 Clinisync Result Encounter [facility] External Department Unsolicited Tank Galvez DO 06/12/2025 Telephone [facility] [address] [place] [address] Angelika Alfred, MAGO 05/12/2025 Telephone [facility] [address] [place] [address] Tank Galvez DO 05/06/2025 Clinisync Result Encounter [facility] External Department Unsolicited Tank Galvez DO from Last 3 Months [...] Date/Time Associated Diagnosis Comments ALL PROGESTERONE Routine 07/01/2025 12:3 8 PM EDT ALL PROGESTERONE Routine 05/06/2025 12:4 9 PM EDT from Last 3 Months Results * ALL PROGESTERONE (07/01/2025 12:38 PM EDT) Only the most recent of2 resultswithin the time period is included. PROGESTERONE 13.0 . ng/mL [facility] Comment: Follicular phase 0.1 - 0.9 Luteal phase 1.8 - 23.9 Ovulation phase 0.1 - 12.0 First trimester 11.0 - 44.3 Second trimester 25.4 - 83.3 Third trimester 58.7 - 214.0 Postmenopausal 0.0 - 0.1 Performed at: - [facility] [id number] Combat Control: Vivek Talbert PhD, Phone: [phone] 07/01/2025 12:3 8 PM EDT 07/01/2025 12:39 PM EDT Narrative [facility] - 07/02/2025 6:38 AM EDT Tank Galvez DO [facility] Final Result [facility] from Last 3 Months Insurance [facility] Care Teams Nurse Plastics Relationship Specialty Start Date End Date Miki Ibrahim MD [address] [place] [address] PCP - General Cardiology 04/28/23
--- OUTSIDE RECORDS SUMMARY | 2025-07-29 11:50 | XMS_ITS | Encounter Summary ---
Author Organization [facility] Address [address] [place] [address] Care Team Providers Care Air Technician Name Role Phone Miki Ibrahim MD Primary Care Provider [phone] Encounter Details Date Type Department Care Team (Late st Contact Info) Description 03/16/2025 Orders Only [facility] [address] [place] [address] Angelika Alfred LPN [address] [place] [id number] Social History Tobacco Use Types Packs/Day Years [...] on filedocumented in this encounter Care Teams Air Technician Relationship Specialty Start Date End Date Miki Ibrahim MD [address] [place] [address] PCP - General Cardiology 04/28/23 documented as of this encounter
--- OUTSIDE RECORDS SUMMARY | 2025-07-29 11:50 | XMS_ITS | Encounter Summary ---
Author Organization [facility] Address [address] [facility] [place] [address] Care Team Providers Care Fire Alarm Inspector Name Role Phone Miki Ibrahim MD Primary Care Provider [phone] Encounter Details Date Type Department Care Team (Late st Contact Info) Description 07/10/2025 Abstract [facility] [address] [place] [id number] Tnak Galvez DO [address] [place] [address] Social History Tobacco Use Types Packs/Day Years [...] on filedocumented in this encounter Care Teams Fire Alarm Inspector Relationship Specialty Start Date End Date Miki Ibrahim MD [address] [place] [address] PCP - General Cardiology 04/28/23 documented as of this encounter
--- OUTSIDE RECORDS SUMMARY | 2025-07-29 11:50 | XMS_ITS | Encounter Summary ---
Author Organization [facility] Address [address] [facility] [place] [address] Care Team Providers Care Environmental Services Aide Name Role Phone Miki Ibrahim MD Primary Care Provider [phone] Encounter Details Date Type Department Care Team (Late st Contact Info) Description 07/28/2025 Telephone [facility] [address] [place] [address] Tank Galvez DO [address] [place], [facility] Social History Tobacco Use Types Packs/Day Years [...] on file documented as of this encounter Miscellaneous Notes * Telephone Encounter - Grace Mcelroy LPN - 07/28/2025 11:23 AM EDT I just had a a couple questions about my progesterone blood draw. I am supposed to have it today because today is cycle day 21. But I monitor my ovulation and io2 days ago and I was wondering if I should still go and get the blood draws on today because of the cycle date or if I should be waiting, I pretty much just ovulate if you could give me a call back when number is [phone]. Thank you. Patient call was returned and she was advised she should get the labs drawn as we are watching the number and seeing where this is and how medication is working and if needs increased she states so it doesn't have anything to do with ovulation she was advised we try to capture but the number is us more. Patient states that she will get drawn then. documented in this encounter Plan of Treatment Not on file documented as of this encounter Visit Diagnoses Not on filedocumented in this encounter Care Teams Environmental Services Aide Relationship Specialty Start Date End Date Miki Ibrahim MD [address] [place] [address] PCP - General Cardiology 04/28/23 documented as of this encounter
--- OUTSIDE RECORDS SUMMARY | 2025-07-29 11:51 | XMS_ITS | Clinical Summary ---
Author Organization [facility] Address [address] [place] [address] Phone Care Team Providers Care Television News Video Editor Name Role Phone Unavailable Primary Care Provider [...]
--- OUTSIDE RECORDS SUMMARY | 2025-07-29 11:51 | XMS_ITS | CCD ---
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 [Relative time] 1.0 {INR} Invalid Interpretation Code [facility] Comment on above: Result Comment: INR results are specifically intended to assess patients stabilized on long-term Anticoagulation therapy suggested INR?s ?Less Intensive Anticoagulation? 2.0 ? 3.0 Conventional Range 3.0 ? 4.5 Performed By: #### 2 [id number], [id number], [id number] ####[facility] [address] [place] [address] PT Coag (PPP) [Time] 11.6 second(s) Normal 9.4-12.5 [facility] Comment on above: Result Comment: 15 d [...] the same coagulation reagent and instrumentation as [facility]. Currently there are no coagulation studies available worldwide for children to 14 days, and no normal ranges. Performed By: #### 2 [id number], [id number], [id number] ####[facility] [address] [place] [address] U BetaHcg Qualon 04-20-2023 HCG.beta subunit (U) [Moles/Vol] Negative Normal [facility] Comment on above: Performed By: #### 2 [id number] ####[facility] [address] [place] [address] Quick Strepon 03-10-2023 S. pyogenes Org specific cx Ql (Throat) nwgative Capablue Other Quick Strep Capablue Other Quick Strepon 02-18-2023 S. pyogenes Org specific cx Ql (Throat) Negative Capablue Other Incentient Other US Pelvic, Transvaginalon US Pelvic, Transvaginal [...] by Markie Friedman on 07/08/2022 1609 Normal [facility] Quick Strepon 06-11-2022 S. pyogenes Org specific cx Ql (Throat) Negative Capablue Other Incentient Other CT CSPINE WO CONon CT CSPINE [...] by: Harmeet NUNEZ Date: 2021-10-29 18:25 Normal [facility] CBC auto differentialon 10-01 Basophils (Bld) [#/Vol] 10*3/uL [place] Basophils/100 WBC (Bld) 0 % 0 - 2 % [place] Differential Type NOT REPORTED [place] Eosinophils (Bld) [#/Vol] 10*3/uL [place] Eosinophils/100 WBC (Bld) 0 % Low 1 - 4 % [place] Erythrocyte distribution width (RBC) [Ratio] 13.8 % 11.8 - 14.4 % [place] Hematocrit (Bld) [Volume fraction] 29.3 % Low 36.3 - 47.1 % [place] Hemoglobin (Bld) [Mass/Vol] 8.9 g/dL Low 11.9 - 15.1 g/dL [place] Immature granulocytes (Bld) [#/Vol] 0.05 10*3/uL [place] Immature granulocytes (Bld) [#/Vol] 0 % 0 [place] Interpretation and review of laboratory results Abnormal [place] Lymphocytes (Bld) [#/Vol] 1.03 10*3/uL Low [place] Lymphocytes/100 WBC (Bld) 8 % Low 24 - 43 % [place] MCH (RBC) [Entitic mass] 26.2 pg 25.2 - 33.5 pg [place] MCHC (RBC) [Mass/Vol] 30.4 g/dL 28.4 - 34.8 g/dL [place] MCV (RBC) [Entitic vol] 86.2 fL 82.6 - 102.9 fL [place] Monocytes (Bld) [#/Vol] 0.69 10*3/uL [place] Monocytes/100 WBC (Bld) 6 % 3 - 12 % [place] Platelet mean volume (Bld) [Entitic vol] 12.0 fL 8.1 - 13.5 fL [place] Platelets (Bld) [#/Vol] 199 10*3/uL [place] Platelets (Bld) [#/Vol] NOT REPORTED [place] RBC (Bld) [#/Vol] 3.40 10*6/uL Low 3.95 - 5.1 1 m/uL [place] RBC morphology finding Nom (Bld) NOT REPORTED [place] Segmented neutrophils/100 WBC (Bld) 86 % High 36 - 65 % [place] Segs Absolute 10.64 High [place] WBC (Bld) [#/Vol] 12.4 10*3/uL High [place] WBC (Bld) [#/Vol] 0.0 10*3/uL 0.0 per 10 0 WBC [place] WBC Morphology NOT REPORTED [place], [place] CBC with Diffon 10-28-2019 Abs. Basophil <0.03 Normal 0.00-0.20 [facility] Comment on above: Performed By: #### C DP #### [facility] [address] [place], [place] [id number] Recovery Operator Helper: Rico Nicole MD Abs.Imm.Granulocyt e 0.05 k/uL Normal 0.00-0.30 [facility] Comment on above: Performed By: #### C DP #### [facility] [address] [place], [place] [id number] Recovery Operator Helper: Rico Nicole MD Abs.Neutrophil (Seg) 10.64 k/uL High 1.50-8.10 [facility] Comment on above: Performed By: #### C DP #### [address] [address] Recovery Operator Helper: Rico Nicole MD Basophils/100 WBC (Bld) 0 % Normal 0-2 [facility] Comment on above: Performed By: #### C DP #### [address] [address] Recovery Operator Helper: Rico Nicole MD Eosinophils (Bld) [#/Vol] 10*3/uL Normal 0.00-0.44 [facility] Comment on above: Performed By: #### C DP #### [address] [address] Recovery Operator Helper: Rico Nicole MD Eosinophils/100 WBC (Bld) 0 % Low 1-4 [facility] Comment on above: Performed By: #### C DP #### [address] [address] Recovery Operator Helper: Rico Nicole MD Erythrocyte distribution width (RBC) [Ratio] 13.8 % Normal 11.8-14.4 [facility] Comment on above: Performed By: #### C DP #### [address] [address] Recovery Operator Helper: Rico Nicole MD Hematocrit (Bld) [Volume fraction] 29.3 % Low 36.3-47.1 [facility] Comment on above: Performed By: #### C DP #### [address] [address] Recovery Operator Helper: Rico Nicole MD Hemoglobin (Bld) [Mass/Vol] 8.9 g/dL Low 11.9-15.1 [facility] Comment on above: Performed By: #### C DP #### [address] [address] Recovery Operator Helper: Rico Nicole MD Immature granulocytes (Bld) [#/Vol] 0 % Normal 0 [facility] Comment on above: Performed By: #### C DP #### [address] [address] Recovery Operator Helper: Rico Nicole MD Lymphocytes (Bld) [#/Vol] 1.03 10*3/uL Low 1.10-3.70 [facility] Comment on above: Performed By: #### C DP #### [place] [address] Recovery Operator Helper: Rico Nicole MD Lymphocytes/100 WBC (Bld) 8 % Low 24-43 [facility] Comment on above: Performed By: #### C DP #### [place] [address] Recovery Operator Helper: Rico Nicole MD MCH (RBC) [Entitic mass] 26.2 pg Normal 25.2-33.5 [facility] Comment on above: Performed By: #### C DP #### [place] [address] Recovery Operator Helper: Rico Nicole MD MCHC (RBC) [Mass/Vol] 30.4 g/dL Normal 28.4-34.8 [facility] Comment on above: Performed By: #### C DP #### [place] [address] Recovery Operator Helper: Rico Nicole MD MCV (RBC) [Entitic vol] 86.2 fL Normal 82.6-102.9 [facility] Comment on above: Performed By: #### C DP #### [place] [address] Recovery Operator Helper: Rico Nicole MD Monocytes (Bld) [#/Vol] 0.69 10*3/uL Normal 0.10-1.20 [facility] Comment on above: Performed By: #### C DP #### [address] [address] Recovery Operator Helper: Rico Nicole MD Monocytes/100 WBC (Bld) 6 % Normal 3-12 [facility] Comment on above: Performed By: #### C DP #### [address] [address] Recovery Operator Helper: Rico Nicole MD Neutrophil (Seg) 86 % High 36-65 [facility] Comment on above: Performed By: #### C DP #### [address] [address] Recovery Operator Helper: Rico Nicole MD NRBC Automated 0.0 per 100 WBC Normal 0.0 [facility] Comment on above: Performed By: #### C DP #### [address] [address] Recovery Operator Helper: Rico Nicole MD Platelet mean volume (Bld) [Entitic vol] 12.0 fL Normal 8.1-13.5 [facility] Comment on above: Performed By: #### C DP #### [address] [address] Recovery Operator Helper: Rico Nicole MD Platelets (Bld) [#/Vol] 199 10*3/uL Normal 138-453 [facility] Comment on above: Performed By: #### C DP #### [address] [address] Recovery Operator Helper: Rico Nicole MD RBC (Bld) [#/Vol] 3.40 10*6/uL Low 3.95-5.11 [facility] Comment on above: Performed By: #### C DP #### [address] [address] Recovery Operator Helper: Rico Nicole MD WBC (Bld) [#/Vol] 12.4 10*3/uL High 3.5-11.3 [facility] Comment on above: Performed By: #### C DP #### [address] [address] Recovery Operator Helper: Rico Nicole MD Auto Diff Performed NOT REPORTED Normal [facility] Comment on above: Performed By: #### C DP #### [address] [address] Recovery Operator Helper: Rico Nicole MD Platelets (Bld) [#/Vol] NOT REPORTED Normal [facility] Comment on above: Performed By: #### C DP #### [address] [address] Recovery Operator Helper: Rico Nicole MD RBC morphology finding Nom (Bld) NOT REPORTED Normal [facility] Comment on above: Performed By: #### C DP #### [address] [address] Recovery Operator Helper: Rico Nicole MD WBC Morphology NOT REPORTED Normal [facility] Comment on above: Performed By: #### C DP #### [address] [address] Recovery Operator Helper: Rico Nicole MD Surgical Pathologyon [facility] Surgical Pathology (NOTE) [id number] [facility] [employer] CONSULTING PATHOLOGISTS [facility] EMERGENCY DEPARTMENT ANATOMIC PATHOLOGY [address] [place] [phone] SURGICAL PATHOLOGY CONSULTATION Patient Name: GISELL ALVAREZ [facility] Rec: [id number] Path Number: [id number] Collected: 10/27/2019 Received: 10/31/2019 Reported: 11/01/2019 09:33 [...] capillaries: Not increased Other: Few microcalcifications Normal [facility] Comment on above: Performed By: #### P PPVS #### [address] [place] [address] Recovery Operator Helper: Rico Nicole MD CBC auto differentialon 10-01 Basophils (Bld) [#/Vol] 0.03 10*3/uL [facility] [employer] [place] Basophils/100 WBC (Bld) 0 % 0 - 2 % [employer] [place] Differential Type NOT REPORTED [facility] [place] Eosinophils (Bld) [#/Vol] 0.04 10*3/uL [employer] Eosinophils/100 WBC (Bld) 0 % Low 1 - 4 % [employer] [employer] [place] Erythrocyte distribution width (RBC) [Ratio] 13.6 % 11.8 - 14.4 % [employer] [place] Hematocrit (Bld) [Volume fraction] 33.2 % Low 36.3 - 47.1 % [place] Hemoglobin (Bld) [Mass/Vol] 10.3 g/dL Low 11.9 - 15.1 g/dL [place] Immature granulocytes (Bld) [#/Vol] 1 % High 0 [place] Immature granulocytes (Bld) [#/Vol] 0.07 10*3/uL [place] Interpretation and review of laboratory results Abnormal [place] Lymphocytes (Bld) [#/Vol] 2.41 10*3/uL [place] Lymphocytes/100 WBC (Bld) 24 % 24 - 43 % [place] MCH (RBC) [Entitic mass] 26.3 pg 25.2 - 33.5 pg [place] MCHC (RBC) [Mass/Vol] 31.0 g/dL 28.4 - 34.8 g/dL [place] MCV (RBC) [Entitic vol] 84.7 fL 82.6 - 102.9 fL [place] Monocytes (Bld) [#/Vol] 0.76 10*3/uL [place] Monocytes/100 WBC (Bld) 8 % 3 - 12 % [place] Platelet mean volume (Bld) [Entitic vol] 12.5 fL 8.1 - 13.5 fL [place] Platelets (Bld) [#/Vol] NOT REPORTED [place] Platelets (Bld) [#/Vol] 248 10*3/uL [place] RBC (Bld) [#/Vol] 3.92 10*6/uL Low 3.95 - 5.1 1 m/uL [place] RBC morphology finding Nom (Bld) NOT REPORTED [place] Segmented neutrophils/100 WBC (Bld) 67 % High 36 - 65 % [place] Segs Absolute 6.63 [place] WBC (Bld) [#/Vol] 0.0 10*3/uL 0.0 per 10 0 WBC [place] WBC (Bld) [#/Vol] 9.9 10*3/uL [place] WBC Morphology NOT REPORTED [place] CBC with Diffon 10-26-2019 Abs. Basophil 0.03 k/uL Normal 0.00-0.20 [facility] Comment on above: Performed By: #### C DP, TREP #### [address] [address] Recovery Operator Helper: Rico Nicole MD Abs.Imm.Granulocyt e 0.07 k/uL Normal 0.00-0.30 [facility] Comment on above: Performed By: #### C DP, TREP #### [address] [address] Recovery Operator Helper: Rico Nicole MD Abs.Neutrophil (Seg) 6.63 k/uL Normal 1.50-8.10 [facility] Comment on above: Performed By: #### C DP, TREP #### [address] [address] Recovery Operator Helper: Rico Nicole MD Basophils/100 WBC (Bld) 0 % Normal 0-2 [facility] Comment on above: Performed By: #### C DP, TREP #### [address] [address] Recovery Operator Helper: Rico Nicole MD Eosinophils (Bld) [#/Vol] 0.04 10*3/uL Normal 0.00-0.44 [facility] Comment on above: Performed By: #### C DP, TREP #### [address] [address] Recovery Operator Helper: Rico Nicole MD Eosinophils/100 WBC (Bld) 0 % Low 1-4 [facility] Comment on above: Performed By: #### C DP, TREP #### [address] [address] Recovery Operator Helper: Rico Nicole MD Erythrocyte distribution width (RBC) [Ratio] 13.6 % Normal 11.8-14.4 [facility] Comment on above: Performed By: #### C DP, TREP #### [address] [address] Recovery Operator Helper: Rico Nicole MD Hematocrit (Bld) [Volume fraction] 33.2 % Low 36.3-47.1 [facility] Comment on above: Performed By: #### C DP, TREP #### [address] [address] Recovery Operator Helper: Rico Nicole MD Hemoglobin (Bld) [Mass/Vol] 10.3 g/dL Low 11.9-15.1 [facility] Comment on above: Performed By: #### C DP, TREP #### [address] [address] Recovery Operator Helper: Rico Nicole MD Immature granulocytes (Bld) [#/Vol] 1 % High 0 [facility] Comment on above: Performed By: #### C DP, TREP #### [address] [address] Recovery Operator Helper: Rico Nicole MD Lymphocytes (Bld) [#/Vol] 2.41 10*3/uL Normal 1.10-3.70 [facility] Comment on above: Performed By: #### C DP, TREP #### [address] [address] Recovery Operator Helper: Rico Nicole MD Lymphocytes/100 WBC (Bld) 24 % Normal 24-43 [facility] Comment on above: Performed By: #### C DP, TREP #### [address] [address] Recovery Operator Helper: Rico Nicole MD MCH (RBC) [Entitic mass] 26.3 pg Normal 25.2-33.5 [facility] Comment on above: Performed By: #### C DP, TREP #### [place] [address] Recovery Operator Helper: Rico Nicole MD MCHC (RBC) [Mass/Vol] 31.0 g/dL Normal 28.4-34.8 [facility] Comment on above: Performed By: #### C DP, TREP #### [place] [address] Recovery Operator Helper: Rico Nicole MD MCV (RBC) [Entitic vol] 84.7 fL Normal 82.6-102.9 [facility] Comment on above: Performed By: #### C DP, TREP #### [place] [address] Recovery Operator Helper: Rico Nicole MD Monocytes (Bld) [#/Vol] 0.76 10*3/uL Normal 0.10-1.20 [facility] Comment on above: Performed By: #### C DP, TREP #### [place] [address] Recovery Operator Helper: Rico Nicole MD Monocytes/100 WBC (Bld) 8 % Normal 3-12 [facility] Comment on above: Performed By: #### C DP, TREP #### [place] [address] Recovery Operator Helper: Rico Nicole MD Neutrophil (Seg) 67 % High 36-65 [facility] Comment on above: Performed By: #### C DP, TREP #### [place] [address] Recovery Operator Helper: Rico Nicole MD NRBC Automated 0.0 per 100 WBC Normal 0.0 [facility] Comment on above: Performed By: #### C DP, TREP #### [address] [address] Recovery Operator Helper: Rico Nicole MD Platelet mean volume (Bld) [Entitic vol] 12.5 fL Normal 8.1-13.5 [facility] Comment on above: Performed By: #### C DP, TREP #### [address] [address] Recovery Operator Helper: Rico Nicole MD Platelets (Bld) [#/Vol] 248 10*3/uL Normal 138-453 [facility] Comment on above: Performed By: #### C DP, TREP #### [address] [address] Recovery Operator Helper: Rico Nicole MD RBC (Bld) [#/Vol] 3.92 10*6/uL Low 3.95-5.11 [facility] Comment on above: Performed By: #### C DP, TREP #### [address] [address] Recovery Operator Helper: Rico Nicole MD WBC (Bld) [#/Vol] 9.9 10*3/uL Normal 3.5-11.3 [facility] Comment on above: Performed By: #### C DP, TREP #### [address] [address] Recovery Operator Helper: Rico Nicole MD Auto Diff Performed NOT REPORTED Normal [facility] Comment on above: Performed By: #### C DP, TREP #### [address] [address] Recovery Operator Helper: Rico Nicole MD Platelets (Bld) [#/Vol] NOT REPORTED Normal [facility] Comment on above: Performed By: #### C DP, TREP #### [address] [address] Recovery Operator Helper: Rico Nicole MD RBC morphology finding Nom (Bld) NOT REPORTED Normal [facility] Comment on above: Performed By: #### C RADHA UMANZOR #### [address] [address] Recovery Operator Helper: Rico Nicole MD WBC Morphology NOT REPORTED Normal [facility] Comment on above: Performed By: #### C ODALYS UMANZORP #### [address] [address] Recovery Operator Helper: Rico Nicole MD Drug Scr, Abuse, Uron 2018 Amphetamine(s),Ur Negative Normal NEG [facility] Comment on above: Result Comment: (Positive cutoff 1000 ng/mL) Performed By: #### D AU #### [place] [address] Recovery Operator Helper: Rico Nicole MD Barbiturate(s),Ur Negative Normal NEG [facility] Comment on above: Result Comment: (Positive cutoff 200 ng/mL) Performed By: #### D AU #### [place] [address] Recovery Operator Helper: Rico Nicole MD Base excess Calc (Bld) [Moles/Vol] Negative Normal NEG [facility] Comment on above: Result Comment: (Positive cutoff 300 ng/mL) Performed By: #### D AU #### [address] [address] Recovery Operator Helper: Rico Nicole MD Benzodiazepine(s) Negative Normal NEG [facility] Comment on above: Result Comment: (Positive cutoff 200 ng/mL) Performed By: #### D AU #### [address] [address] Recovery Operator Helper: Rico Nicole MD Cannabinoid(s),Ur Negative Normal NEG [facility] Comment on above: Result Comment: (Positive cutoff 50 ng/mL) Performed By: #### D AU #### [address] [address] Recovery Operator Helper: Rico Nicole MD Interpretive Info Assay provides medic al screening only. The absence of expected drug(s) and/or Normal [facility] Comment on above: Result Comment: meta bolite(s) may indicate diluted or adulterated urine, limitations of testing or timing of collection. Testing for legal purposes should be confirmed by another method. To request confirmation of test result, please call the lab within 7 days of sample submission. Performed By: #### D AU #### [address] [address] Recovery Operator Helper: Rico Nicole MD Methadone Ql (U) Negative Normal NEG [facility] Comment on above: Result Comment: (Positive cutoff 300 ng/mL) Performed By: #### D AU #### [address] [address] Recovery Operator Helper: Rico Nicole MD Opiate(s), Ur Negative Normal NEG [facility] Comment on above: Result Comment: (Positive cutoff 300 ng/mL) Performed By: #### D AU #### [address] [address] Recovery Operator Helper: Rico Nicole MD Oxycodone, Urine Negative Normal NEG [facility] Comment on above: Result Comment: (Positive cutoff 100 ng/mL) Performed By: #### D AU #### [facility] [address] [place] [address] Recovery Operator Helper: Rico Nicole MD Phencyclidine, Ur Negative Normal NEG [facility] Comment on above: Result Comment: (Positive cutoff 25 ng/mL) Performed By: #### D AU #### [address] [address] Recovery Operator Helper: Rico Nicole MD Buprenorphrine, Ur NOT REPORTED Normal NEG [facility] Comment on above: Performed By: #### D AU #### [facility] [address] [place] [address] Recovery Operator Helper: Rico Nicole MD MDMA, Urine NOT REPORTED Normal NEG [facility] Comment on above: Performed By: #### D AU #### [facility] [address] [place] [address] Recovery Operator Helper: Rico Nicole MD Methamphetamine, Ur NOT REPORTED Normal NEG [facility] Comment on above: Performed By: #### D AU #### [address] [address] Recovery Operator Helper: Rico Nicole MD Propoxyphene,Urine NOT REPORTED Normal NEG [facility] Comment on above: Performed By: #### D AU #### [address] [address] Recovery Operator Helper: Rico Nicole MD Tricyclic antidepressants Screen Ql (U) NOT REPORTED Normal NEG [facility] Comment on above: Performed By: #### D AU #### [address] [address] Recovery Operator Helper: Rico Nicole MD T. pallidum Abon 10-26-2019 T. pallidum, IgG NONREACTIVE NONREACTIVE [place], [place] Comment on above: T. pallidum antibodies are not detected. There is no serological evidence of infection with T. pallidum (early primary syphilis cannot be excluded). Retest in 2-4 weeks if syphilis is clinically suspect. T.pallidum Ab Screenon 10-26 T.pallidum Ab Screen NONREACTIVE Normal NR [facility] Comment on above: Result Comment: T. pallidum antibodies are not detected. There is no serological evidence of infection with T. pallidum (early primary syphilis cannot be excluded). Retest in 2-4 weeks if syphilis is clinically suspect. Performed By: #### C DP, TREP #### [address] [place] [address] Recovery Operator Helper: Rico Nicole MD TYPE AND SCREENon 10-26-2019 ABO/Rh Positive [facility] [place] Number [id number] [facility]ass[facility] [place] Expiration Date 10/29/2019,2359 [facility] [place] Type + Screenon 10-26-2019 Type + Screen Sample Expiration 10/29/2019,2359 [place] Number [id number] ABO/Rh(D) O POSITIVE Antibody Screen NEGATIVE Normal [facility] Comment on above: Performed By: #### T YS #### [address] [place] [address] Recovery Operator Helper: Rico Nicole MD Urine Drug Screenon 10-26-20 19 Amphetamine Screen, Ur Negative NEGATIVE [facility] [place] Comment on above: (Positive cutoff 1000 ng/mL) Barbiturate Screen, Ur Negative NEGATIVE [facility] [place] [place] Comment on above: (Positive cutoff 200 ng/mL) Benzodiazepine Screen, Urine Negative NEGATIVE [facility] [place] Comment on above: (Positive cutoff 200 ng/mL) Buprenorphine Urine NOT REPORTED NEGATIVE [facility] [place] [place] Cannabinoid Scrn, Ur Negative NEGATIVE [facility] [place] Comment on above: (Positive cutoff 50 ng/mL) Cocaine Metabolite, Urine Negative NEGATIVE [facility] [place] Comment on above: (Positive cutoff 300 ng/mL) MDMA, Urine NOT REPORTED NEGATIVE [facility] [place] [place] Methadone Screen, Urine Negative NEGATIVE [facility] [place] [...] 25 ng/mL) Propoxyphene, Urine NOT REPORTED NEGATIVE [facility] [place] Test Information Assay provides medic al screening only. The absence of expected drug(s) and/or metabolite(s) may indicate diluted or adulterated urine, limitations of testing or timing of collection. [facility] DAVID Comment on above: Testing for legal pu rposes should be confirmed by another method. To request confirmation of test result, please call the lab within 7 days of sample submission. Tricyclic Antidepressants, Urine NOT REPORTED NEGATIVE [place], [place] Maternal Serum Scr 4on - Determined by Ultrasound Normal [facility] Comment on above: Performed By: #### A QUADM #### [address] [address] Recovery Operator Helper: Rico Nicole MD [address] [phone] Recovery Operator Helper: Aryan Morris MD Dimeric Inhibin A 393 pg/mL Normal [facility] Comment on above: Performed By: #### A QUADM #### [address] [address] Recovery Operator Helper: Rico Nicole MD [facility] [address] [place] [address] [phone] Recovery Operator Helper: Aryan Morris MD Due Date SEE NOTE Normal [facility] Comment on above: Result Comment: Resu lts for Estimated Due Date: 11 02 19 Performed By: #### A QUADM #### [address] [address] Recovery Operator Helper: Rico Nicole MD [facility] [address], [place] [phone] Recovery Operator Helper: Aryan Morris MD Family History No Normal [facility] Comment on above: Performed By: #### A QUADM #### [address] [address] Recovery Operator Helper: Rico Nicole MD [facility] [address], [place] [phone] Recovery Operator Helper: Aryan Morris MD Gestat Age (exact) 23 wks, 6 days Normal [facility] Comment on above: Performed By: #### A QUADM #### [address] [address] Recovery Operator Helper: Rico Nicole MD [address] [address] Recovery Operator Helper: [place] [address] IU/L [facility] Comment on above: Performed By: #### A QUADM #### [address] [address] Recovery Operator Helper: Rico Nicole MD [address] [phone] Recovery Operator Helper: Aryan Morris MD Hx Aneuploidy Unknown [facility] Comment on above: Performed By: #### A QUADM #### [address] [address] Recovery Operator Helper: Rico Nicole MD [address] [address] Recovery Operator Helper: Aryan Morris MD Ins Req Matern Diab No [facility] Comment on above: Performed By: #### A QUADM #### [address] [address] Recovery Operator Helper: Rico Nicole MD [address] [address] Recovery Operator Helper: Aryan Morris MD Interpretation Screen Neg Normal [facility] Comment on above: Result Comment: (NOT E) INTERPRETATION: SCREEN NEGATIVE Neural Tube Defects (NTD) Negative Down syndrome (DS) Negative Trisomy 18 (T18) Negative Pre-Test Post-Test Cutoff Neural Tube Defects Risks 1:1030 < 1:70541 1:250 Down Syndrome Risks 1:1110 1:604 1:150 Trisomy 18 Risks 1:4330 < 1:64014 1:100 Comments: The risk of an open neural tube defect is less than the screening cut-off. The risk of Down syndrome is less than the screening cut-off. The risk of trisomy 18 is less than the screening cut-off. Test developed and characteristics determined by [facility]. See Compliance Statement B: [facility]/ Performed By: #### A QUADM #### [facility] [address] [address] Recovery Operator Helper: Rico Nicole MD [address] [phone] Recovery Operator Helper: Aryan Morris MD [facility] Enhanced Rpt See Note [facility] Comment on above: Result Comment: (NOT E) Access [facility] Enhanced Report using either link below: -Direct access: [email or web address] -Enter Username, Password: [email or web address] Username: [email or web address] Password: [email or web address] Performed by [facility], [address] [place] [id number] www.[facility], Aryan Morris MD, Lab. Director Performed By: #### A QUADM #### [address] [address] Recovery Operator Helper: Rico Nicole MD [address] [phone] Recovery Operator Helper: Aryan Morris MD [age] [facility] Comment on above: Performed By: #### A QUADM #### [facility] [address] [place] [address] Recovery Operator Helper: Rico Nicole MD [address] [address] Recovery Operator Helper: Aryan Morris MD Maternal Race Nonblack [facility] Comment on above: Performed By: #### A QUADM #### [address] [address] Recovery Operator Helper: Rico Nicole MD [facility] [address] [place] [address] Recovery Operator Helper: Aryan Morris MD MoM Dimeric Inhib A 1.53 [facility] Comment on above: Performed By: #### A QUADM #### [address] [address] Recovery Operator Helper: Rico Nicole MD [facility] [address] [place] [address] Recovery Operator Helper: Aryan Morris MD MoM for AFP 0.70 [facility] Comment on above: Performed By: #### A QUADM #### [address] [address] Recovery Operator Helper: Rico Nicole MD [address] [phone] Recovery Operator Helper: Aryan Morris MD MoM for HCG, Tri 2 1.97 [facility] Comment on above: Performed By: #### A QUADM #### [address] [address] Recovery Operator Helper: Rico Nicole MD [address] [address] Recovery Operator Helper: Aryan Morris MD MoM for uE3 1.03 Normal [facility] Comment on above: Performed By: #### A QUADM #### [address] [address] Recovery Operator Helper: Rico Nicole MD [facility] [address], [place] [phone] Recovery Operator Helper: Aryan Morris MD Number of Fetuses Trevino Normal [facility] Comment on above: Performed By: #### A QUADM #### [address] [address] Recovery Operator Helper: Rico Nicole MD [facility] [address] [place] [address] Recovery Operator Helper: Aryan Morris MD Patient's AFP 63 ng/mL [facility] Comment on above: Performed By: #### A QUADM #### [address] [address] Recovery Operator Helper: Rico Nicole MD [facility] [address] [place] [address] Recovery Operator Helper: Aryan Morris MD Patient's uE3 3.28 ng/mL [facility] Comment on above: Performed By: #### A QUADM #### [address] [address] Recovery Operator Helper: Rico Nicole MD [address] [phone] Recovery Operator Helper: Aryan Morris MD Smoking Unknown [facility] Comment on above: Performed By: #### A QUADM #### [address] [address] Recovery Operator Helper: Rico Nicole MD [facility] [address], [place] [phone] Recovery Operator Helper: Aryan Morris MD Specimen See Note [facility] Comment on above: Result Comment: Init ial sample Performed By: #### A QUADM #### [address] [address] Recovery Operator Helper: Rico Nicole MD [facility] [address], [place] [phone] Recovery Operator Helper: Aryan Morris MD Maternal Serum Scr 4on 07-12 Dating [facility] Comment on above: Performed By: #### A QUADM #### [address] [address] Recovery Operator Helper: Rico Nicole MD [facility] [address] [place] [address] Recovery Operator Helper: Aryan Morris MD Diabetic NO [facility] Comment on above: Performed By: #### A QUADM #### [address] [address] Recovery Operator Helper: Rico Nicole MD [facility] [address] [place] [address] Recovery Operator Helper: Aryan Morris MD Estimated Due Date 11/02/2019 [facility] Comment on above: Performed By: #### A QUADM #### [address] [address] Recovery Operator Helper: Rico Nicole MD [facility] [address], [place] [phone] Recovery Operator Helper: Aryan Morris MD Family History [facility] Comment on above: Performed By: #### A QUADM #### [address] [address] Recovery Operator Helper: Rico Nicole MD [facility] [address], [place] [phone] Recovery Operator Helper: Aryan Morris MD Maternal date 1995 [facility] Comment on above: Performed By: #### A QUADM #### [address] [address] Recovery Operator Helper: Rico Nicole MD [facility] [address] [place] [address] Recovery Operator Helper: Aryan Morris MD Race (Maternal) [facility] Comment on above: Performed By: #### A QUADM #### [address] [address] Recovery Operator Helper: Rico Nicole MD [facility] [address] [place] [address] Recovery Operator Helper: Aryan Morris MD Repeat Specimen NO Normal [facility] Comment on above: Performed By: #### A QUADM #### [address] [address] Recovery Operator Helper: Rico Nicole MD [facility] [address] [place] [address] Recovery Operator Helper: Aryan Morris MD Current Smoking NOT REPORTED Normal [facility] Comment on above: Performed By: #### A QUADM #### [address] [address] Recovery Operator Helper: Rico Nicole MD [address] [address] Recovery Operator Helper: Aryan Morris MD In Vitro Fertalizat NOT REPORTED Normal [facility] Comment on above: Performed By: #### A QUADM #### [address] [address] Recovery Operator Helper: Rico Nicole MD [address] [address] Recovery Operator Helper: Aryan Morris MD LMP date NOT REPORTED Normal [facility] Comment on above: Performed By: #### A QUADM #### [address] [address] Recovery Operator Helper: Rico Nicole MD [facility] [address] [place] [address] Recovery Operator Helper: Aryan Morris MD Monochorionic Twins NOT REPORTED Normal [facility] Comment on above: Performed By: #### A QUADM #### [facility] [address] [address] Recovery Operator Helper: Rico Nicole MD [facility] [address] [place] [address] Recovery Operator Helper: Aryan Morris MD Prev Trisomy Preg NOT REPORTED Normal [facility] Comment on above: Performed By: #### A QUADM #### [facility] [address] [place] [address] Recovery Operator Helper: Rico Nicole MD [facility] [address] [facility] [place], [place] [phone] Recovery Operator Helper: Aryan Morris MD Valproic/Carbamaze p NOT REPORTED Normal [facility] Comment on above: Performed By: #### A QUADM #### [facility] [address] [place] [address] Recovery Operator Helper: Rico Nicole MD [facility] [address] [place] [address] Recovery Operator Helper: Aryan Morris MD Chlamydia/GC/Trich NAAon Chlamydia Trachomotis, MALINI Negative Normal Negative [facility] Comment on above: Order Comment: [facility] SPECIMEN SOURCE/DESCRIPTION URINE Performed By: #### G CCHLAMTRI #### [facility] , #### CUU #### [facility] [address] Neisseria Gonorrhoeae, MALINI Negative Normal Negative [facility] Comment on above: Order Comment: [facility] SPECIMEN SOURCE/DESCRIPTION URINE Performed By: #### G CCHLAMTRI #### [facility] , #### CUU #### [facility] [address] Trichomonas MALINI Negative Normal Negative [facility] Comment on above: Order Comment: [facility] SPECIMEN SOURCE/DESCRIPTION URINE Result Comment: Perf ormed at: =G - [facility] [address] [place] [phone] Recovery Operator Helper: Emilia Hankins MD, Phone: [phone] PERFORMED BY: [place] [address] PATHOLOGIST SLASHER HAND JONI FLEMING M.D. Performed By: #### G CCHLAMTRI #### [facility] , #### CUU #### [facility] [address] Urine Cultureon 02-27-2019 Bacteria identified Cx Nom (U) [facility] 30,000 colonies/ml mixed bacterial skin contaminants 2 Days PERFORMED BY: [place] [address] PATHOLOGIST SLASHER HAND JONI FLEMING M.D. [facility] Comment on above: Performed By: #### G CCHLAMTRI #### [facility] , #### CUU #### [facility] [address] Vital Signs Date Time Vital Sign Value Performing Clinician Facility 03-06-2025 10:19-0400 Body mass index (BMI) [Ratio] 40.9 kg/m2 Tank Leonor DO Work Phone: [facility] 03-06-2025 10:19-0400 Body weight 114.94 kg Tank Leonor DO Work Phone: [facility] 03-06-2025 10:19-0400 Diastolic blood pressure 74 mm[Hg] Tank Leonor DO Work Phone: [facility] 03-06-2025 10:19-0400 Systolic blood pressure 116 mm[Hg] Tank Leonor DO Work Phone: [facility] 01-30-2025 10:03-0500 Body mass index (BMI) [Ratio] 40.42 kg/m2 Tnak Leonor DO Work Phone: [facility] 01-30-2025 10:03-0500 Body weight 113.58 kg Tank Leonor DO Work Phone: [facility] 01-30-2025 10:03-0500 Diastolic blood pressure 82 mm[Hg] Tank Leonor DO Work Phone: [facility] 01-30-2025 10:03-0500 Systolic blood pressure 100 mm[Hg] Tank Leonor DO Work Phone: [facility] 12-16-2023 16:55-0500 Body height 170.18 cm Aline Garcia Other [facility] Other 12-16-2023 16:55-0500 Body mass index (BMI) [Ratio] 38.49 kg/m2 Aline Colemond Other [facility] Other 12-16-2023 16:55-0500 Body temperature 101.4 [degF] Aline Garcia Other [facility] Other 12-16-2023 16:55-0500 Body weight 111.49 kg Aline Garcia Other [facility] Other 12-16-2023 16:55-0500 Diastolic blood pressure 90 mm[Hg] Aline Garcia Other [facility] Other 12-16-2023 16:55-0500 Respiratory rate 18 /min Aline Garcia Other [facility] Other 12-16-2023 16:55-0500 SaO2% (BldA) [Mass fraction] 98 % Aline Garcia Other [facility] Other 12-16-2023 16:55-0500 Systolic blood pressure 130 mm[Hg] Aline Colemond Other [facility] Other 03-10-2023 16:50-0400 Body height 170.18 cm Karol Carrasquillo Other [facility] Other 03-10-2023 16:50-0400 Body mass index (BMI) [Ratio] 36.02 kg/m2 Karol Carrasquillo Other [facility] Other 03-10-2023 16:50-0400 Body temperature 97.5 [degF] Karol Foreign Other [facility] Other 03-10-2023 16:50-0400 Body weight 104.33 kg Karol Carrasquillo Other [facility] Other 03-10-2023 16:50-0400 Respiratory rate 18 /min Karol Carrasquillo Other [facility] Other 03-10-2023 16:50-0400 SaO2% (BldA) [Mass fraction] 98 % Karol Carrasquillo Other [facility] Other 02-18-2023 10:30-0400 Body height 170.18 cm Aline Colemond Other [facility] Other 02-18-2023 10:30-0400 Body mass index (BMI) [Ratio] 37.43 kg/m2 Aline Radha Other [facility] Other 02-18-2023 10:30-0400 Body temperature 98.1 [degF] Aline Radha Other [facility] Other 02-18-2023 10:30-0400 Body weight 108.41 kg Aline Radha Other [facility] Other 02-18-2023 10:30-0400 Respiratory rate 18 /min Aline Radha Other [facility] Other 02-18-2023 10:30-0400 SaO2% (BldA) [Mass fraction] 100 % Alinethad Garcia Other [facility] Other 06-11-2022 16:15-0400 Body height 170.18 cm Aline Colemond Other [facility] Other 06-11-2022 16:15-0400 Body mass index (BMI) [Ratio] 34.45 kg/m2 Aline Radha Other [facility] Other 06-11-2022 16:15-0400 Body temperature 98.9 [degF] Aline Colemond Other [facility] Other 06-11-2022 16:15-0400 Body weight 99.79 kg Aline Colemond Other [facility] Other 06-11-2022 16:15-0400 Respiratory rate 18 /min Aline Garcia Other [facility] Other 06-11-2022 16:15-0400 SaO2% (BldA) [Mass fraction] 98 % Aline Garcia Other [facility] Other 04-04-2022 13:15-0400 Body height 170.18 cm Slim Castellon Other [facility] Other 04-04-2022 13:15-0400 Body mass index (BMI) [Ratio] 34.45 kg/m2 Slim Castellon Other [facility] Other 04-04-2022 13:15-0400 Body temperature 96.2 [degF] Slim Castellon Other [facility] Other 04-04-2022 13:15-0400 Body weight 99.79 kg Slim Castellon Other [facility] Other 04-04-2022 13:15-0400 Respiratory rate 18 /min Slim Castellon Other [facility] Other 04-04-2022 13:15-0400 SaO2% (BldA) [Mass fraction] 98 % Slim Castellon Other [facility] Other 10-29-2019 08:00-0500 Body Temperature 97.9 [degF] [facility] [place] 10-29-2019 08:00-0500 BP Diastolic 76 mm[Hg] [facility], [facility] , [place] 10-29-2019 08:00-0500 BP Systolic 114 mm[Hg] Pennie [facility] , [place] 10-29-2019 08:00-0500 Pulse (Heart Rate) 86 /min [facility] [place] 10-29-2019 08:00-0500 Respiratory Rate 16 /min [facility] [place] 10-28-2019 16:45-0500 Pulse Oximetry 98 % Pennie [facility] [place] 10-26-2019 10:00-0500 BMI (Body Mass Index) 35.51 kg/m2 [facility] 10-26-2019 10:00-0500 Body weight 99.79 kg Pennie [facility] [place] 10-26-2019 10:00-0500 Height 167.6 cm Pennie [place] 07-14-2019 18:01-0400 Body weight 192.0 lbs. [facility] Comment on above: Performed By: #### AQUADM #### [facility] [address] [place] [address] Recovery Operator Helper: Rico Nicole MD [facility] [address] [place] [phone] Recovery Operator Helper: Aryan Morris MD 07-12-2019 17:34-0400 Body weight [address] [facility] Comment on above: Performed By: #### AQUADM #### [facility] [address] [place] [address] Recovery Operator Helper: Rico Nicole MD [facility] [address], [place] [phone] Recovery Operator Helper: Aryan Morris MD 07-12-2019 17:34-0400 Body weight LBS PENNIE GOLDBERG [facility] Comment on above: Performed By: #### AQUADM #### [facility] [address] [place] [address] [phone] Recovery Operator Helper: Rico Nicole MD [facility] [address] [place] [address] Recovery Operator Helper: Aryan Morris MD Encounters Encounter Date Encounter Type Care Provider Facility Start: 07-01-2025 End: 07-02-2025 Clinisync Result Encounter Tank Leonor DO Work Phone: [facility] External Department Unsolicited Start: 07-01-2025 End: 07-02-2025 [facility] Result Encounter Tank Leonor DO Work [...] 12-16-2023 End: 12-16-2023 ambulatory Aline Garcia Other [employer] Other Start: 12-16-2023 Office outpatient vi sit 15 minutes Aline Garcia [facility] Start: 04-22-2023 End: 04-22-2023 ambulatory Cabins Lonny Mcdonnell Facility[place] Start: 04-20-2023 End: 04-21-2023 ambulatory Chandana Mcdonnell Facility:[facility] Start: 03-10-2023 End: 03-10-2023 ambulatory Karol Carrasquillo Other [facility] Other Start: 03-10-2023 Office outpatient vi sit 25 minutes Karol Carrasquillo [facility] Start: 02-18-2023 End: 02-18-2023 ambulatory Aline Radha Other [facility] Other Start: 02-18-2023 Office outpatient vi sit 15 minutes Aline Radha [facility] Start: 06-12-2022 End: 06-12-2022 ambulatory Aline Radha Other [facility] Other Start: 06-12-2022 Encounter by adal jameson Aline Radha [facility] Start: 06-11-2022 End: 06-11-2022 ambulatory Aline Radha Other [facility] Other Start: 06-11-2022 Office outpatient vi sit 15 minutes Aline Radha [facility] Start: 04-04-2022 End: 04-04-2022 ambulatory Slim Castellon Other [facility] Other Start: 04-04-2022 Office outpatient vi sit 15 minutes Slim Castellon [facility] Start: 10-29-2021 End: 10-29-[address] MIKI KRUGER Facility: Start: 10-26-2019 End: 10-29-2019 Evaluation and management of inpatient PENNIE GOLDBERG [facility] Start: 10-26-2019 End: 10-29-2019 Evaluation and management of inpatient Pennie Goldberg Work Phone: [facility] Post Comment on above: [facility] 10/27/19 M Apg 8,9 Wt 9#8 (Primary Dx) Start: 07-12-2019 End: 07-13-2019 Patient encounter procedure BENJAMIN [facility] Start: 07-12-2019 End: 07-12-2019 Subsequent hospital visit by physician Miki [facility]IR[facility] Start: 02-28-2019 End: 03-01-2019 Patient encounter procedure DEFAULT PHYSICIAN Facility:[facility] Start: 02-27-2019 End: 02-27-2019 Patient encounter procedure Marlena Taveras Facility:[facility] Procedures Date Procedure Procedure Detail Performing Clinician Start: 07-01-2025 ALL PROGESTERONE Tank Leonor DO Work Phone: Start: 05-06-2025 ALL PROGESTERONE Tank Leonor DO [...] 10-26-2019 Blood typing serologic abo [employer] Work Phone: Start: 10-26-2019 Blood count complete auto&auto difrntl wbc Mariia Marta [employer] Work Phone: Start: 10-26-2019 T. PALLIDUM AB [employer] Work Phone: Start: 10-26-2019 PATIENT STATUS (DIRECT) PENNIE GOLDBERG Start: 10-26-2019 Drug screen class list a [employer] Work Phone: Start: 07-12-2019 MATERNAL SCREEN 4 FLASH GOLDBERG Plan of Treatment Date Care Activity Detail Author Start: 10-29-2029 DTaP/Tdap/Td vaccine (2 - Td) DTaP/Tdap/Td vaccine (2 - Td) [place] Start: 07-31-2025 Influenza vaccination N [facility] Start: 03-06-2025 End: 03-06-2025 Patient encounter procedure 03/06/2025 9:40 AM EDT Office Visit [facility] [address] [place] [id number] Tank Galvez DO [address] [place] [address] [facility] Start: 01-30-2025 End: 01-30-2026 Antimullerian hormone (AMH) Antimullerian hormone (AMH) Lab Routine Anovulation PCOS (polycystic ovarian syndrome) Female infertility Expected: 01/30/2025 (Approximate), Expires: 01/30/2026 [facility] Comment on above: Expected: 01/30/2025 (Approximate), Expires: 01/30/2026 Start: 01-30-2025 End: 01-30-2026 Progesterone Progesterone Lab Routine Anovulation PCOS (polycystic ovarian syndrome) Female infertility Expected: 01/30/2025 (Approximate), Expires: 01/30/2026 [facility] Comment on above: Expected: 01/30/2025 (Approximate), Expires: 01/30/2026 Start: 07-31-2024 Influenza vaccination Influenza Vacc ine (#1) [facility] Start: 07-31-2019 Influenza vaccination Flu vaccine (# 1) [place], [place] Start: 2018 Cervical cancer screen Cervical canc er screen [place], [place] Start: 2016 DTaP/Tdap/Td vaccine (1 - Tdap) DTaP/Tdap/Td vaccine (1 - Tdap) [place] Start: 2013 Chlamydia screen Chlamydia screen [place], [place] Start: 2012 HIV screen HIV screen [place], [place] Start: 2012 HPV vaccine (1 - Fem louie 3-dose series) HPV vaccine (1 - Female 3-dose series) [place], [place] Start: 2010 Varicella Vaccine (1 of 2 - 13+ 2-dose series) Varicella Vaccine (1 of 2 - 13+ 2-dose series) [place] Start: 2008 HPV vaccine (1 - Fem louie 2-dose series) HPV vaccine (1 - Female 2-dose series) [place] Start: 2003 Pneumococcal 0-64 ye ars Vaccine (1 of 1 - PPSV23) Pneumococcal 0-64 years Vaccine (1 of 1 - PPSV23) [place], [place] Start: 1998 Varicella Vaccine (1 of 2 - 2-dose childhood series) Varicella Vaccine (1 of 2 - 2-dose childhood series) [place] Cytology Cervical or vaginal smear or scraping study Pap Smear Pathology and Cytology Routine Well woman exam with routine gynecological exam Ordered: 03/06/2025 [facility] Work Phone: Comment on above: Ordered: 03/06/2025 hCG, quantitative hCG, quantitat mami Lab Routine Anovulation PCOS (polycystic ovarian syndrome) Female infertility Ordered: 01/30/2025 [facility] [facility] Comment on above: Ordered: 01/30/2025 Hemoglobin A1c/Hemoglobin.total in Blood Hemoglobin A1c Lab Routine Anovulation PCOS (polycystic ovarian syndrome) Female infertility Ordered: 01/30/2025 [facility] Comment on above: Ordered: 01/30/2025 Incentive spirometry Incentive s pirometry Respiratory Care Routine Every 2hr while awake until discontinued starting 10/27/2019 [place], [place] Comment on above: Every 2hr while awak e until discontinued starting 10/27/2019 Initiate Oxygen Ther apy Protocol Initiate Oxygen Therapy Protocol Respiratory Care Routine Daily until discontinued starting 10/27/2019 [place], [place] Comment on above: Daily until disconti nued starting 10/27/2019 Maternal screen 4 Maternal scree n 4 Lab Routine 07/12/2019 11:00 AM EDT [place] Phase I & II - meter ed glucose Phase I & II - metered glucose Point of Care Testing Routine As Needed until discontinued starting 10/27/2019 [place] Comment on above: As Needed until disc ontinued starting 10/27/2019 Thyrotropin [Units/volume] in Serum or Plasma TSH Lab Routine Anovulation PCOS (polycystic ovarian syndrome) Female infertility Ordered: 01/30/2025 [facility] Work Phone: Comment on above: Ordered: 01/30/2025 Thyroxine (T4) free [Mass/volume] in Serum or Plasma T4, free Lab Routine Anovulation PCOS (polycystic ovarian syndrome) Female infertility Ordered: 01/30/2025 [facility] Comment on above: Ordered: 01/30/2025 Immunizations Immunization Date Immunization Notes Care Provider Yue mackay 10-29-2019 tetanus toxoid, redu eric diphtheria toxoid, and acellular pertussis vaccine, adsorbed Pennie Goldberg [facility] 10-27-2019 diphtheria, tetanus toxoids and acellular pertussis vaccine, unspecified formulation Pennie Goldberg [place], [place] 08-18-2012 hepatitis B vaccine, pediatric or pediatric/adolescent dosage Tank Leonor DO Work Phone: [facility] 05-25-2012 varicella virus vaccine Core y Leonor DO Work Phone: [facility] 02-18-2011 meningococcal polysaccharide (groups A, C, Y and W-135) diphtheria toxoid conjugate vaccine (MCV4P) Tank Leonor DO Work Phone: [facility] 02-18-2011 tetanus toxoid, redu eric diphtheria toxoid, and acellular pertussis vaccine, adsorbed Tank Leonor DO Work Phone: [facility] 10-08-1998 measles, mumps and rubella virus vaccine Tank Leonor DO Work Phone: [facility] 1997 hepatitis B vaccine, pediatric or pediatric/adolescent dosage Tank Leonor DO Work Phone: [facility] Payers Date Payer Category Payer [employer] [id number] 2023 [employer] [id number] 2023 Unknown [id number] 2023 Unknown 2019 Private Health Insurance [id number] 2019 Self-pay 2018 Private Health Insurance [id number] 2018 Private Health Insurance xxx [id number] 1997 Unknown [id number] 2.16.8 [id number] 1997 Unknown [id number] 2.16.8 [id number] 1997 Unknown [id number] 2.16.8 [id number] 1997 Unknown [id number] 2.16.84 [id number] 1997 Unknown [id number] 2.16.8 [id number] 1997 Unknown [id number] 2.16.8 [id number] 1997 Unknown [id number] 2.16. [id number] 1997 Unknown [id number] 2.16.84 [id number] 1997 Unknown [id number] 2.16.84 [id number] 1959 Private Health Insurance [id number] [facility] [id number] Unknown [id number] 2.16.84 [id number] Unknown [id number] 2.16.84 [id number] Unknown [id number] 2.16.8 [id number] Social History Date Type Detail Facility Start: 07-12-2019 End: 10-26-2019 Tobacco smoking status ORIS Never smoker [place] Start: 10-26-2019 Alcohol intake Ex-drinker (finding) [place] Start: 02-09-2019 [place] Sex Assigned At Not on file [place] Start: 07-12-2019 End: 01-30-2025 Alcohol intake Not Currently [place] Start: 04-27-2023 Tobacco smoking stat [facility] Ex-smoker [facility] History of tobacco use Current smoker [facility] History of tobacco use Cigarette Smoker [facility] Start: 04-27-2023 Tobacco use and exposure User of smokeless tobacco [facility] Start: 11-03-2023 End: 03-06-2025 Alcoholic beverage intake Current drinker of alcohol (finding) [facility] Start: 11-03-2023 End: 01-30-2025 History of Social function [facility] Start: 10-21-2023 Alcohol Comment caffeine: 1-2 cups per day [facility] Start: 1995 Sex assigned at Female [facility] Start: 11-02-2023 Gender identity Identifies as female gender (finding) [facility] Clinical Notes 04-04-2022 to 03-06-2025 Gay [...] Tank Galvez DO documented in this encounter [facility] 01-30-2025 History of Presen t illness [...] large fetus 04/27/2023 Chest pain 03/05/2014 Dysautonomia ([facility]) 02/22/2014 Exercise-induced asthma ([facility]) 10/30/2011 Family history of cardiac arrest 10/27/2019 [...] nursing note reviewed. Exam conducted with a evaporator supervisor present. Vitals: Estimated body mass index is [...] starts to have Clomid 100mg sent to [facility] in [place]. Patient to schedule follow up in 4 weeks along with annual appointment. Documented by Marlyn Montes De Oca LPN on behalf of: Tank Galvez DO documented in this encounter [facility] 12-16-2023 Evaluation note Encounter Date Diagnosis [...] (suspected) exposure to covid-19 (ICD-10 - Z20.822) [facility] Other 05-22-2023 Note [id number]:[email or web address] 03-10-2023 Evaluation note* Encounter Date Diagnosis Assessment [...] Encouraged salt water gargles, increasing fluids, Tylenol [id number] for additional relief. Advised patient if that if symptoms continue she needs a follow-up with ENT for evaluation. Advised that we will not continue to see her for this issue in that UC setting, as we are not a follow-up facility. Patient verbalizes understanding and is agreeable with treatment plan. [facility] Other 03-22-2023 Evaluation note* Encounter Date Diagnosis [...] the ER for worsening symptoms or concern [facility] 07-13-2022 Evaluation note* Encounter Date Diagnosis [...] Throat infectio n: Strep material was printed [facility] Other 05-06-2022 Evaluation note* Encounter Date Diagnosis [...] She understands and agrees with the plan. [facility] Other Evaluation noteNo [employer] Other Evaluation note* Diagnosis Anovulation Female infertility [...] Medical History PCOS Surgical History knee surgery [facility] Other History general Narrative - Reported* Type Description Date Medical History Dysautonomia Medical History Cardioinhibited Neurogenic Synco pe Medical History PCOS Surgical History knee surgery Surgical History C section Surgical History tonsillectomy [facility] Other Summary Purpose Family History No Family History Records FoundNo Family History Records FoundNo Family History Records FoundNo Family History Records FoundNo Family History Records FoundNo Family History Records FoundNo Family History Records FoundNo Family History Records FoundNo Family History Records Found Advance Directives Documents on File Type Date Recorded Patient Pony Rougher Expl anation Advance Directives and Living Will Power of Advertising Space Clerk Latest Code Status on File Code Status [...] your doctor if you can take an lvvc-ojq-wjgzdzk medicine. If you think your pain medicine [...] take. When should you call for help? [id number] anytime you think you may need emergency [...] Where can you learn more? Go to [email or web address] and sign in to your Review Trackers account. Enter M806 in the Search Health Information box to learn more about Section: What to Expect at Home. If you do not have an account, please click on the Sign Up Now link. Current as of: August 04, 2018 Content Version: [id number] [employer]. Care instructions adapted under license by [email or web address]. If youhave questions about a medical condition or this instruction, always ask your healthcare professional. [employer] disclaims any warranty or liability for your [...] patient Attending Physician: Dr. Jorge Rodriguez DO Loan Interviewer Mortgage Resident 10/29/2019, 12:22 AM Attending Physician Statement [...] Whitley DO - 10/28/2019 12:11 PM EST COMMERCIAL SUBCONTRACTOR Resident Interval Note Patient labs reviewed below. [...] 1.03 (L) 1.10 - 3.70 k/uL Absolute Lamar # 0.69 0.10 - 1.20 k/uL Absolute Eos # <0.03 0.00 - 0.44 k/uL Basophils Absolute <0.03 0.00 - 0.20 k/uL Absolute Immature Granulocyte 0.05 0.00 - 0.30 k/uL Mi Whitley DO Loan Interviewer Mortgage Resident Pager: [phone] 10/28/2019 12:11 PM * Teresa Montalvo DO [...] 105/72 Pulse: 82 80 101 97 Resp: 16 18 18 Temp: 98.3 F (36.8 [...] patient Attending Physician: Dr. Selvin Garcia DO Loan Interviewer Mortgage Resident 10/28/2019, 7:52 AM Date: 10/28/2019 Time: [...] for counseling and decision. Janeth Garcia DO COMMERCIAL SUBCONTRACTOR Resident, PGY1 [place], [place] 10/27/2019, 8:46 AM Attending Physician Statement [...] S/P Cytotec 25 Buccal Kwame Denny DO Loan Interviewer Mortgage Resident 10/27/2019, 3:56 AM YN * Kwame Denny DO - 10/26/2019 11:26 [...] in agreement with plan Kwame Denny DO Loan Interviewer Mortgage Resident 10/26/2019, 11:26 PM * Pennie Goldberg MD - 10/26/2019 9:33 AM EST Senior resident Progress Note In to discuss plan of care with patient. Patient with suspected macrosomic infant at 4479g in [facility] on 10/26. Patient counseled on risks of shoulder dystocia, higher degree lacerations, permanent neurological damage to infant, and post hemorrhage. Patient states she wishes to proceed with vaginal delivery at this time and is declining primary section. Patient counseled by contract technical writer as well as attending. Additionally discussed safest route of delivery for infants is vaginal delivery followed by planned section. Patient voices understanding that highest risk for infant is with failed attempted vaginal delivery. Patient requesting additional time to consider her options. Patient offered support and given time to discuss options with . April Villarreal COMMERCIAL SUBCONTRACTOR Resident, PGY3 Pager: [phone] [place], [place] 10/26/19 9:42 AM Patient additionally counseled [...] and content) DATE CREATED AUTHOR 03/03/2019 [facility] DATE CREATED AUTHOR AUTHOR'S ORGANIZ ATION 03/09/[address] [facility] DATE CREATED AUTHOR AUTHOR'S ORGANIZ ATION 03/12/[address] [facility] DATE CREATED AUTHOR AUTHOR'S ORGANIZ ATION 11/03/2019 [facility] DATE CREATED AUTHOR AUTHOR'S ORGANIZ ATION 02/22/2022 [facility] DATE CREATED AUTHOR AUTHOR'S ORGANIZ ATION 07/09/2022 [facility] dical Specialist DATE CREATED AUTHOR AUTHOR'S ORGANIZ ATION 05/20/2023 [facility] DATE CREATED AUTHOR AUTHOR'S ORGANIZ ATION 08/04/2023 [facility] ical Center DATE CREATED AUTHOR AUTHOR'S ORGANIZ ATION 03/07/2025 [facility] dical Specialists EPIC Reason for Visit (unrecogniz ed section and content) Reason Comments Scheduled Induction Status Reason Specialty Diagnoses / Procedures Referre d By Contact Referred To Contact Diagnoses HRP (high risk ), unspecified trimester Pennie Goldberg MD [address] [place] [address] [facility] Reason Comments Discuss Fertility Reason Comments Well Women Visit Care Teams (unrecognized sec tion and content) Fur Examiner Relationship Specialty Start Date End Date Miki Kruger MD [address] [place] [phone] PCP - General Cardiology 04/28/23 Fur Examiner Relationship Specialty Start Date End Date Miki Kruger MD [address] [place] [phone] PCP - General Cardiology 04/28/23 Fur Examiner Relationship Specialty Start Date End Date Miki Kruger MD [address] [place] [phone] PCP - General Cardiology 04/28/23 Fur Examiner Relationship Specialty Start Date End Date Miki Kruger MD [address] [place] [phone] PCP - General Cardiology 04/28/23 Fur Examiner Relationship Specialty Start Date End Date Miki Kruger MD [address] [place] [address] PCP - General Cardiology 04/28/23 FOR RECORDS [...] BE BASED ON THE PRIMARY CLINICAL RECORDS. [facility]. provides no warranty or guarantee of the accuracy or completeness of information in this document.
--- OUTSIDE RECORDS SUMMARY | 2025-07-29 11:51 | XMS_ITS | Clinical Summary ---
Author Organization [facility] Address [address], [address] [place] [address] Care Team Providers Care Form Drafter Name Role Phone Miki Ibrahim MD Primary Care Provider + Allergies No known active allergies Medications ondansetron (ZOFRAN-ODT) 4 MG disintegrating tablet 9 Active Vit w/Rs-Ocqfsbkru-ML (PNV PO) Take by mouth Active ibuprofen [...] Overview (10/24/2019): Pt saw Dr. Herron in [place], [place]. Transfer of care at 38w2d gestation. Pt transferred care as she has a macrosomic infant and desires vaginal delivery. Pt desires to deliver at a facility with a level 3 NICU. Assessment & Plan (10/24/2019 8:08 AM EST): Pt saw Dr. Herron in [place], [place]. Transfer of care at 38w2d gestation. Pt transferred care as she has a macrosomic and desires vaginal delivery. Pt desires to deliver at a facility with a level 3 NICU. High-risk 10/21/2019 Overview (10/21/2019): Pts mother had hemorrhage and cardiac arrest with delivery of pts brother Pt desires to deliver at [facility] due to family history Late transfer of care from [facility] at 38w2d gestation macrosomia 10/21/2019 Overview [...] Plan of Treatment Not on file Insurance [facility] Advance Directives * Full Code (Latest Code Status on File) Date Activated Date Inactivated Comments 10/27/2019 7:14 PM 10/29/2019 2:42 PM * Full Code Date Activated Date Inactivated Comments 10/26/2019 8:54 AM 10/27/2019 6:44 PM Care Teams Form Drafter Relationship Specialty Start Date End Date Miki Ibrahim MD [address] [place] [address] PCP - General Family Medicine 07/12/19
--- OUTSIDE RECORDS SUMMARY | 2025-07-29 11:51 | XMS_ITS | Encounter Summary ---
Author Organization [facility] Address [address], [address] [place] [address] Care Team Providers Care Envelope Stamping Machine Operator Name Role Phone Miki Ibrahim MD Primary Care Provider + Reason for Visit * Reason Comments Other Encounter Details Date Type Department Care Team (Late st Contact Info) Description 02/12/2014 Adiel Solitario Congenital Release And Technical Records Clerk [address] [place] [phone] Alexis Rehman MD [address] [place] [address] Other Social History Tobacco Use Types Packs/Day [...] on filedocumented in this encounter Care Teams Envelope Stamping Machine Operator Relationship Specialty Start Date End Date Miki Ibrahim MD [address] [place] [address] PCP - General Family Medicine 07/12/19 documented as of this encounter
== END 2025-07-29 11:48 | disposition home or self-care (01) ==
LOC: LAB 11:48
PROVIDERS: Visit Provider Obstetrics & Gynecology
DX: N97.0 Female infertility associated with anovulation (principal); E28.2 Polycystic ovarian syndrome; N97.9 Female infertility, unspecified
CPT/HCPCS: 36415; 84144

== ENCOUNTER 2025-09-08 11:31 | Outpatient (OUT) | payer BC, SELFPAY ==
--- OUTSIDE RECORDS SUMMARY | 2025-09-08 11:39 | XMS_ITS | CCD ---
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 [facility] Comment on above: Performed By: #### 2 [id number] ####[facility] [address] [place] [address] Quick Strepon 03-10-2023 S. pyogenes Org specific cx Ql (Throat) nwgative [facility] Other [facility] Other [employer] Strepon 02-18-2023 S. pyogenes Org specific cx Ql (Throat) Negative [facility] Other [facility] Other US Pelvic, Transvaginalon US Pelvic, Transvaginal [...] by Markie Friedman on 07/08/2022 1609 Normal [facility] Quick Strepon 06-11-2022 S. pyogenes Org specific cx Ql (Throat) Negative [facility] Other Inuvo Other CT CSPINE WO CONon 1 CT [...] by: Harmeet NUNEZ Date: 2021-10-29 18:25 Normal [facility] CBC auto differentialon 10-01 Basophils (Bld) [#/Vol] 10*3/uL [place] Basophils/100 WBC (Bld) 0 % 0 - 2 % [place] Differential Type NOT REPORTED [place] Eosinophils (Bld) [#/Vol] 10*3/uL [place] Eosinophils/100 WBC (Bld) 0 % Low 1 - 4 % [place] Erythrocyte distribution width (RBC) [Ratio] 13.8 % 11.8 - 14.4 % [place] Hematocrit (Bld) [Volume fraction] 29.3 % Low 36.3 - 47.1 % [place] Hemoglobin (Bld) [Mass/Vol] 8.9 g/dL Low 11.9 - 15.1 g/dL [place] Immature granulocytes (Bld) [#/Vol] 0.05 10*3/uL [place] Immature granulocytes (Bld) [#/Vol] 0 % 0 [place] Interpretation and review of laboratory results Abnormal [place] Lymphocytes (Bld) [#/Vol] 1.03 10*3/uL Low [place] Lymphocytes/100 WBC (Bld) 8 % Low 24 - 43 % [place] MCH (RBC) [Entitic mass] 26.2 pg 25.2 - 33.5 pg [place] MCHC (RBC) [Mass/Vol] 30.4 g/dL 28.4 - 34.8 g/dL [place] MCV (RBC) [Entitic vol] 86.2 fL 82.6 - 102.9 fL [place] Monocytes (Bld) [#/Vol] 0.69 10*3/uL [place] Monocytes/100 WBC (Bld) 6 % 3 - 12 % [place] Platelet mean volume (Bld) [Entitic vol] 12.0 fL 8.1 - 13.5 fL [place] Platelets (Bld) [#/Vol] 199 10*3/uL [place] Platelets (Bld) [#/Vol] NOT REPORTED [place] RBC (Bld) [#/Vol] 3.40 10*6/uL Low 3.95 - 5.1 1 m/uL [place] RBC morphology finding Nom (Bld) NOT REPORTED [place] Segmented neutrophils/100 WBC (Bld) 86 % High 36 - 65 % [place] Segs Absolute 10.64 High [place] WBC (Bld) [#/Vol] 12.4 10*3/uL [place] WBC (Bld) [#/Vol] 0.0 10*3/uL 0.0 per 10 0 WBC [place] WBC Morphology NOT REPORTED [place] CBC with Diffon 10-28-2019 Abs. Basophil <0.03 Normal 0.00-0.20 [facility] Comment on above: Performed By: #### C DP #### [address] [address] Mail Examiner: Rico Nicole MD Abs.Imm.Granulocyt e 0.05 k/uL Normal 0.00-0.30 [facility] Comment on above: Performed By: #### C DP #### [address] [address] Mail Examiner: Rico Nicole MD Abs.Neutrophil (Seg) 10.64 k/uL High 1.50-8.10 [facility] Comment on above: Performed By: #### C DP #### [address] [address] Mail Examiner: Rico Nicole MD Basophils/100 WBC (Bld) 0 % Normal 0-2 [facility] Comment on above: Performed By: #### C DP #### [address] [address] Mail Examiner: Rico Nicole MD Eosinophils (Bld) [#/Vol] 10*3/uL Normal 0.00-0.44 [facility] Comment on above: Performed By: #### C DP #### [address] [address] Mail Examiner: Rico Nicole MD Eosinophils/100 WBC (Bld) 0 % Low 1-4 [facility] Comment on above: Performed By: #### C DP #### [address] [address] Mail Examiner: Rico Nicole MD Erythrocyte distribution width (RBC) [Ratio] 13.8 % Normal 11.8-14.4 [facility] Comment on above: Performed By: #### C DP #### [address] [address] Mail Examiner: Rico Nicole MD Hematocrit (Bld) [Volume fraction] 29.3 % Low 36.3-47.1 [facility] Comment on above: Performed By: #### C DP #### [address] [address] Mail Examiner: Rico Nicole MD Hemoglobin (Bld) [Mass/Vol] 8.9 g/dL Low 11.9-15.1 [facility] Comment on above: Performed By: #### C DP #### [address] [address] Mail Examiner: Rico Nicole MD Immature granulocytes (Bld) [#/Vol] 0 % Normal 0 [facility] Comment on above: Performed By: #### C DP #### [address] [address] Mail Examiner: Rico Nicole MD Lymphocytes (Bld) [#/Vol] 1.03 10*3/uL Low 1.10-3.70 [facility] Comment on above: Performed By: #### C DP #### [address] [address] Mail Examiner: Rico Nicole MD Lymphocytes/100 WBC (Bld) 8 % Low 24-43 [facility] Comment on above: Performed By: #### C DP #### [address] [address] Mail Examiner: Rico Nicole MD MCH (RBC) [Entitic mass] 26.2 pg Normal 25.2-33.5 [facility] Comment on above: Performed By: #### C DP #### [address] [address] Mail Examiner: Rico Nicole MD MCHC (RBC) [Mass/Vol] 30.4 g/dL Normal 28.4-34.8 [facility] Comment on above: Performed By: #### C DP #### [address] [place] [address] Mail Examiner: Rico Nicole MD MCV (RBC) [Entitic vol] 86.2 fL Normal 82.6-102.9 [facility] Comment on above: Performed By: #### C DP #### [address] [address] Mail Examiner: Rico Nicole MD Monocytes (Bld) [#/Vol] 0.69 10*3/uL Normal 0.10-1.20 [facility] Comment on above: Performed By: #### C DP #### [place] [address] Mail Examiner: Rico Nicole MD Monocytes/100 WBC (Bld) 6 % Normal 3-12 [facility] Comment on above: Performed By: #### C DP #### [place] [address] Mail Examiner: Rico Nicole MD Neutrophil (Seg) 86 % High 36-65 [facility] Comment on above: Performed By: #### C DP #### [address] [address] Mail Examiner: Rico Nicole MD NRBC Automated 0.0 per 100 WBC Normal 0.0 [facility] Comment on above: Performed By: #### C DP #### [place] [address] Mail Examiner: Rico Nicole MD Platelet mean volume (Bld) [Entitic vol] 12.0 fL Normal 8.1-13.5 [facility] Comment on above: Performed By: #### C DP #### [address] [address] Mail Examiner: Rico Nicole MD Platelets (Bld) [#/Vol] 199 10*3/uL Normal 138-453 [facility] Comment on above: Performed By: #### C DP #### [facility] [place] [address] Mail Examiner: Rico Nicole MD RBC (Bld) [#/Vol] 3.40 10*6/uL Low 3.95-5.11 [facility] Comment on above: Performed By: #### C DP #### [address] [address] Mail Examiner: Rico Nicole MD WBC (Bld) [#/Vol] 12.4 10*3/uL High 3.5-11.3 [facility] Comment on above: Performed By: #### C DP #### [address] [address] Mail Examiner: Rico Nicole MD Auto Diff Performed NOT REPORTED Normal [facility] Comment on above: Performed By: #### C DP #### [address] [address] Mail Examiner: Rico Nicole MD Platelets (Bld) [#/Vol] NOT REPORTED Normal [facility] Comment on above: Performed By: #### C DP #### [address] [address] Mail Examiner: Rico Nicole MD RBC morphology finding Nom (Bld) NOT REPORTED Normal [facility] Comment on above: Performed By: #### C DP #### [facility] [address] [place] [address] Mail Examiner: Rico Nicole MD WBC Morphology NOT REPORTED Normal [facility] Comment on above: Performed By: #### C DP #### [address] [address] Mail Examiner: Rico Nicole MD Surgical Pathologyon [id number] Surgical Pathology (NOTE) [id number] [facility] ANATOMIC PATHOLOGY [address] [place] [id number] SURGICAL PATHOLOGY CONSULTATION Patient Name: GISELL ALVAREZ [facility] Rec: [id number] Path Number: [id number] Collected: 10/27/2019 Received: 10/31/2019 Reported: 11/01/2019 09:33 [...] capillaries: Not increased Other: Few microcalcifications Normal [facility] Comment on above: Performed By: #### P PPVS #### [facility] [address] [place] [address] Mail Examiner: Rico Nicole MD CBC auto differentialon 10-01 Basophils (Bld) [#/Vol] 0.03 10*3/uL [place] Basophils/100 WBC (Bld) 0 % 0 - 2 % [place] Differential Type NOT REPORTED [place] Eosinophils (Bld) [#/Vol] 0.04 10*3/uL [place] Eosinophils/100 WBC (Bld) 0 % Low 1 - 4 % [place] Erythrocyte distribution width (RBC) [Ratio] 13.6 % 11.8 - 14.4 % [place] Hematocrit (Bld) [Volume fraction] 33.2 % Low 36.3 - 47.1 % [place] Hemoglobin (Bld) [Mass/Vol] 10.3 g/dL Low 11.9 - 15.1 g/dL [place] Immature granulocytes (Bld) [#/Vol] 1 % High 0 [place] Immature granulocytes (Bld) [#/Vol] 0.07 10*3/uL [place] Interpretation and review of laboratory results Abnormal [place] Lymphocytes (Bld) [#/Vol] 2.41 10*3/uL [place] Lymphocytes/100 WBC (Bld) 24 % 24 - 43 % [place] MCH (RBC) [Entitic mass] 26.3 pg 25.2 - 33.5 pg [place] MCHC (RBC) [Mass/Vol] 31.0 g/dL 28.4 - 34.8 g/dL [place] MCV (RBC) [Entitic vol] 84.7 fL 82.6 - 102.9 fL [place] Monocytes (Bld) [#/Vol] 0.76 10*3/uL [place] Monocytes/100 WBC (Bld) 8 % 3 - 12 % [place] Platelet mean volume (Bld) [Entitic vol] 12.5 fL 8.1 - 13.5 fL [place] Platelets (Bld) [#/Vol] NOT REPORTED [place] Platelets (Bld) [#/Vol] 248 10*3/uL [place] RBC (Bld) [#/Vol] 3.92 10*6/uL Low 3.95 - 5.1 1 m/uL [place] RBC morphology finding Nom (Bld) NOT REPORTED [place] Segmented neutrophils/100 WBC (Bld) 67 % High 36 - 65 % [place] Segs Absolute 6.63 [place] WBC (Bld) [#/Vol] 0.0 10*3/uL 0.0 per 10 0 WBC [place] WBC (Bld) [#/Vol] 9.9 10*3/uL [place] WBC Morphology NOT REPORTED [place] CBC with Diffon 10-26-2019 Abs. Basophil 0.03 k/uL Normal 0.00-0.20 [facility] Comment on above: Performed By: #### C DP, TREP #### [place] [address] Mail Examiner: Rico Nicole MD Abs.Imm.Granulocyt e 0.07 k/uL Normal 0.00-0.30 [facility] Comment on above: Performed By: #### C DP, TREP #### [address] [address] Mail Examiner: Rico Nicole MD Abs.Neutrophil (Seg) 6.63 k/uL Normal 1.50-8.10 [facility] Comment on above: Performed By: #### C DP, TREP #### [address] [address] Mail Examiner: Rico Nicole MD Basophils/100 WBC (Bld) 0 % Normal 0-2 [facility] Comment on above: Performed By: #### C DP, TREP #### [address] [id number] Mail Examiner: Rico Nicole MD Eosinophils (Bld) [#/Vol] 0.04 10*3/uL Normal 0.00-0.44 [facility] Comment on above: Performed By: #### C DP, TREP #### [address] [address] Mail Examiner: Rico Nicole MD Eosinophils/100 WBC (Bld) 0 % Low 1-4 [facility] Comment on above: Performed By: #### C DP, TREP #### [place] [address] Mail Examiner: Rico Nicole MD Erythrocyte distribution width (RBC) [Ratio] 13.6 % Normal 11.8-14.4 [facility] Comment on above: Performed By: #### C DP, TREP #### [place] [address] Mail Examiner: Rico Nicole MD Hematocrit (Bld) [Volume fraction] 33.2 % Low 36.3-47.1 [facility] Comment on above: Performed By: #### C DP, TREP #### [address] [address] Mail Examiner: Rico Nicole MD Hemoglobin (Bld) [Mass/Vol] 10.3 g/dL Low 11.9-15.1 [facility] Comment on above: Performed By: #### C DP, TREP #### [place] [address] Mail Examiner: Rico Nicole MD Immature granulocytes (Bld) [#/Vol] 1 % High 0 [facility] Comment on above: Performed By: #### C DP, TREP #### [address] [address] Mail Examiner: Rico Nicole MD Lymphocytes (Bld) [#/Vol] 2.41 10*3/uL Normal 1.10-3.70 [facility] Comment on above: Performed By: #### C DP, TREP #### [address] [address] Mail Examiner: Rico Nicole MD Lymphocytes/100 WBC (Bld) 24 % Normal 24-43 [facility] Comment on above: Performed By: #### C DP, TREP #### [address] [address] Mail Examiner: Rico Nicole MD MCH (RBC) [Entitic mass] 26.3 pg Normal 25.2-33.5 [facility] Comment on above: Performed By: #### C DP, TREP #### [address] [address] Mail Examiner: Rico Nicole MD MCHC (RBC) [Mass/Vol] 31.0 g/dL Normal 28.4-34.8 [facility] Comment on above: Performed By: #### C DP, TREP #### [address] [address] Mail Examiner: Rico Nicole MD MCV (RBC) [Entitic vol] 84.7 fL Normal 82.6-102.9 [facility] Comment on above: Performed By: #### C DP, TREP #### [address] [address] Mail Examiner: Rico Nicole MD Monocytes (Bld) [#/Vol] 0.76 10*3/uL Normal 0.10-1.20 [facility] Comment on above: Performed By: #### C DP, TREP #### [address] [address] Mail Examiner: Rico Nicole MD Monocytes/100 WBC (Bld) 8 % Normal 3-12 [facility] Comment on above: Performed By: #### C DP, TREP #### [address] [address] Mail Examiner: Rico Nicole MD Neutrophil (Seg) 67 % High 36-65 [facility] Comment on above: Performed By: #### C DP, TREP #### [address] [address] Mail Examiner: Rico Nicole MD NRBC Automated 0.0 per 100 WBC Normal 0.0 [facility] Comment on above: Performed By: #### C DP, TREP #### [address] [address] Mail Examiner: Rico Nicole MD Platelet mean volume (Bld) [Entitic vol] 12.5 fL Normal 8.1-13.5 [facility] Comment on above: Performed By: #### C DP, TREP #### [address] [address] Mail Examiner: Rico Nicole MD Platelets (Bld) [#/Vol] 248 10*3/uL Normal 138-453 [facility] Comment on above: Performed By: #### C DP, TREP #### [address] [address] Mail Examiner: Rico Nicole MD RBC (Bld) [#/Vol] 3.92 10*6/uL Low 3.95-5.11 [facility] Comment on above: Performed By: #### C DP, TREP #### [address] [address] Mail Examiner: Rico Nicole MD WBC (Bld) [#/Vol] 9.9 10*3/uL Normal 3.5-11.3 [facility] Comment on above: Performed By: #### C DP, TREP #### [address] [address] Mail Examiner: Rico Nicole MD Auto Diff Performed NOT REPORTED Normal [facility] Comment on above: Performed By: #### C DP, TREP #### [address] [address] Mail Examiner: Rico Nicole MD Platelets (Bld) [#/Vol] NOT REPORTED Normal [facility] Comment on above: Performed By: #### C DP, TREP #### [address] [address] Mail Examiner: Rico Nicole MD RBC morphology finding Nom (Bld) NOT REPORTED Normal [facility] Comment on above: Performed By: #### C DP, TREP #### [address] [address] Mail Examiner: Rico Nicole MD WBC Morphology NOT REPORTED Normal [facility] Comment on above: Performed By: #### C DP, TREP #### [address] [address] Mail Examiner: Rico Nicole MD Drug Scr, Abuse, Uron 2018 Amphetamine(s),Ur Negative Normal NEG [facility] Comment on above: Result Comment: (Positive cutoff 1000 ng/mL) Performed By: #### D AU #### [address] [address] Mail Examiner: Rico Nicole MD Barbiturate(s),Ur Negative Normal NEG [facility] Comment on above: Result Comment: (Positive cutoff 200 ng/mL) Performed By: #### D AU #### [address] [address] Mail Examiner: Rico Nicole MD Base excess Calc (Bld) [Moles/Vol] Negative Normal NEG [facility] Comment on above: Result Comment: (Positive cutoff 300 ng/mL) Performed By: #### D AU #### [address] [place] [address] Mail Examiner: Rico Nicole MD Benzodiazepine(s) Negative Normal NEG [facility] Comment on above: Result Comment: (Positive cutoff 200 ng/mL) Performed By: #### D AU #### [address] [address] Mail Examiner: Rico Nicole MD Cannabinoid(s),Ur Negative Normal NEG [facility] Comment on above: Result Comment: (Positive cutoff 50 ng/mL) Performed By: #### D AU #### [address] [address] Mail Examiner: Rico Nicole MD Interpretive Info Assay provides medic al screening only. The absence of expected drug(s) and/or Normal [facility] Comment on above: Result Comment: meta bolite(s) may indicate diluted or adulterated urine, limitations of testing or timing of collection. Testing for legal purposes should be confirmed by another method. To request confirmation of test result, please call the lab within 7 days of sample submission. Performed By: #### D AU #### [address] [address] Mail Examiner: Rico Nicole MD Methadone Ql (U) Negative Normal NEG [facility] Comment on above: Result Comment: (Positive cutoff 300 ng/mL) Performed By: #### D AU #### [address] [address] Mail Examiner: Rico Nicole MD Opiate(s), Ur Negative Normal NEG [facility] Comment on above: Result Comment: (Positive cutoff 300 ng/mL) Performed By: #### D AU #### [address] [address] Mail Examiner: Rico Nicole MD Oxycodone, Urine Negative Normal NEG [facility] Comment on above: Result Comment: (Positive cutoff 100 ng/mL) Performed By: #### D AU #### [facility] [address] [place] [address] Mail Examiner: Rico Nicole MD Phencyclidine, Ur Negative Normal NEG [facility] Comment on above: Result Comment: (Positive cutoff 25 ng/mL) Performed By: #### D AU #### [address] [address] Mail Examiner: Rico Nicole MD Buprenorphrine, Ur NOT REPORTED Normal NEG [facility] Comment on above: Performed By: #### D AU #### [address] [address] Mail Examiner: Rico Nicole MD MDMA, Urine NOT REPORTED Normal NEG [facility] Comment on above: Performed By: #### D AU #### [facility] [address] [place] [address] Mail Examiner: Rico Nicole MD Methamphetamine, Ur NOT REPORTED Normal NEG [facility] Comment on above: Performed By: #### D AU #### [address] [address] Mail Examiner: Rico Nicole MD Propoxyphene,Urine NOT REPORTED Normal NEG [facility] Comment on above: Performed By: #### D AU #### [address] [address] Mail Examiner: Rico Nicole MD Tricyclic antidepressants Screen Ql (U) NOT REPORTED Normal NEG [facility] Comment on above: Performed By: #### D AU #### [address] [address] Mail Examiner: Rico Nicole MD T. pallidum Rosa 10-26-2019 T. pallidum, IgG NONREACTIVE NONREACTIVE [place] Comment on above: T. pallidum antibodies are not detected. There is no serological evidence of infection with T. pallidum (early primary syphilis cannot be excluded). Retest in 2-4 weeks if syphilis is clinically suspect. T.pallidum Ab Screenon 10-26 T.pallidum Ab Screen NONREACTIVE Normal NR [facility] Comment on above: Result Comment: T. pallidum antibodies are not detected. There is no serological evidence of infection with T. pallidum (early primary syphilis cannot be excluded). Retest in 2-4 weeks if syphilis is clinically suspect. Performed By: #### C DP, TREP #### [facility] [address] [place] [address] Mail Examiner: Rico Nicole MD TYPE AND SCREENon 10-26-2019 ABO/Rh Positive [place], [place] Arm Band Number BE [id number] [place], [place] Expiration Date 10/29/2019,2359 [place], [place] Type + Screenon 10-26-2019 Type + Screen Sample Expiration 10/29/2019,2359 Arm Band Number BE [id number] ABO/Rh(D) O POSITIVE Antibody Screen NEGATIVE Normal [facility] Comment on above: Performed By: #### T YS #### [facility] [address] [place] [address] Mail Examiner: Rico Nicole MD Urine Drug Screenon 10-26-20 19 Amphetamine Screen, Ur Negative NEGATIVE [place] Comment on above: (Positive cutoff 1000 ng/mL) Barbiturate Screen, Ur Negative NEGATIVE [place] Comment on above: (Positive cutoff 200 ng/mL) Benzodiazepine Screen, Urine Negative NEGATIVE [facility], [place] Comment on above: (Positive cutoff 200 ng/mL) Buprenorphine Urine NOT REPORTED NEGATIVE [facility], [place] Cannabinoid Scrn, Ur Negative NEGATIVE [facility], [place] Comment on above: (Positive cutoff 50 ng/mL) Cocaine Metabolite, Urine Negative NEGATIVE [facility], [place] Comment on above: (Positive cutoff 300 ng/mL) MDMA, Urine NOT REPORTED NEGATIVE [facility], [place] Methadone Screen, Urine Negative NEGATIVE [facility], [place] Comment on above: (Positive cutoff 300 ng/mL) Methamphetamine, Urine NOT REPORTED NEGATIVE [employer] [place], [place] Opiates, Urine Negative NEGATIVE [facility] [place] Comment on above: (Positive cutoff 300 ng/mL) Oxycodone Screen, Ur Negative NEGATIVE [employer] [place] Comment on above: (Positive cutoff 100 ng/mL) Phencyclidine, Urine Negative NEGATIVE [employer] [place] Comment on above: (Positive cutoff 25 ng/mL) Propoxyphene, Urine NOT REPORTED NEGATIVE [employer] [place] Test Information Assay provides medic al screening only. The absence of expected drug(s) and/or metabolite(s) may indicate diluted or adulterated urine, limitations of testing or timing of collection. [employer], [place]ID Comment on above: Testing for legal pu rposes should be confirmed by another method. To request confirmation of test result, please call the lab within 7 days of sample submission. Tricyclic Antidepressants, Urine NOT REPORTED NEGATIVE [facility] [place] [place], [place] Maternal Serum Scr 4on - Determined by Ultrasound Normal [facility] Comment on above: Performed By: #### A QUADM #### [facility] [address] [place] [address] Mail Examiner: Rico Nicole MD [address] [address] Mail Examiner: Aryan Morris MD Dimeric Inhibin A 393 pg/mL Normal [facility] Comment on above: Performed By: #### A QUADM #### [facility] [address] [place] [address] Mail Examiner: Rico Nicole MD [employer] [facility] [address] [place] [address] Mail Examiner: Aryan Morris MD Due Date SEE NOTE Normal [facility] Comment on above: Result Comment: Resu lts for Estimated Due Date: 11 02 19 Performed By: #### A QUADM #### [facility] [address] [place] [address] Mail Examiner: Rico Nicole MD [facility] [address] [place] [address] Mail Examiner: Aryan Morris MD Family History No [facility] Comment on above: Performed By: #### A QUADM #### [address] [address] Mail Examiner: Rico Nicole MD [address] [address] Mail Examiner: Aryan Morris MD Gestat Age (exact) 23 wks, [address] [facility] Comment on above: Performed By: #### A QUADM #### [address] [address] Mail Examiner: Rico Nicole MD [address] [address] Mail Examiner: [place] [id number] IU/L [facility] Comment on above: Performed By: #### A QUADM #### [address] [address] Mail Examiner: Rico Nicole MD [address] [address] Mail Examiner: Aryan Morris MD Hx Aneuploidy Unknown [facility] Comment on above: Performed By: #### A QUADM #### [address] [address] Mail Examiner: Rico Nicole MD [address] [address] Mail Examiner: Aryan Morris MD Ins Req Matern Diab [facility] Comment on above: Performed By: #### A QUADM #### [address] [address] Mail Examiner: Rico Nicole MD [address] [address] Mail Examiner: Aryan Morris MD Interpretation Screen Neg Normal [facility] Comment on above: Result Comment: (NOT E) INTERPRETATION: SCREEN NEGATIVE Neural Tube Defects (NTD) Negative Down syndrome (DS) Negative Trisomy 18 (T18) Negative Pre-Test Post-Test Cutoff Neural Tube Defects Risks 1:1030 < 1:86631 1:250 Down Syndrome Risks 1:1110 1:604 1:150 Trisomy 18 Risks 1:4330 < 1:84475 1:100 Comments: The risk of an open neural tube defect is less than the screening cut-off. The risk of Down syndrome is less than the screening cut-off. The risk of trisomy 18 is less than the screening cut-off. Test developed and characteristics determined by [employer]. See Compliance Statement B: [employer]/ Performed By: #### A QUADM #### [address] [address] Mail Examiner: Rico Nicole MD [facility] [address] [place] [address] Mail Examiner: Aryan Morris MD [facility] Enhanced Rpt See Note Normal [facility] Comment on above: Result Comment: (NOT E) Access [employer] Enhanced Report using either link below: -Direct access: [email or web address] -Enter Username, Password: [email or web address] Username: [email or web address] Password: [email or web address] Performed by [facility], [address] [place] [address] [email or web address], Aryan Morris MD, Lab. Director Performed By: #### A QUADM #### [address] [address] Mail Examiner: Rico Nicole MD [facility] [address] [place] [address] Mail Examiner: Aryan Morris MD [age] [facility] Comment on above: Performed By: #### A QUADM #### [address] [address] Mail Examiner: Rico Nicole MD [facility] [address] [place] [address] Mail Examiner: Aryan Morris MD Maternal Race Nonblack [facility] Comment on above: Performed By: #### A QUADM #### [address] [address] Mail Examiner: Rico Nicole MD [address] [id number] Mail Examiner: Aryan Morris MD MoM Dimeric Inhib A 1.53 [facility] Comment on above: Performed By: #### A QUADM #### [address] [address] Mail Examiner: Rico Nicole MD [address] [id number] Mail Examiner: Aryan Morris MD MoM for AFP 0.70 [facility] Comment on above: Performed By: #### A QUADM #### [address] [address] Mail Examiner: Rico Nicole MD [facility] [address] [place], [place] [id number] Mail Examiner: Aryan Morris MD MoM for HCG, Tri 2 1.97 [facility] Comment on above: Performed By: #### A QUADM #### [address] [address] Mail Examiner: Rico Nicole MD [facility] [address] [place], [place] [id number] Mail Examiner: Aryan Morris MD MoM for uE3 1.03 [facility] Comment on above: Performed By: #### A QUADM #### [address] [address] Mail Examiner: Rico Nicole MD [address] [address] Mail Examiner: Aryan Morris MD Number of Fetuses Trevino Normal [facility] Comment on above: Performed By: #### A QUADM #### [address] [address] Mail Examiner: Rico Nicole MD [address] [address] Mail Examiner: Aryan Morris MD Patient's AFP 63 ng/mL [facility] Comment on above: Performed By: #### A QUADM #### [address] [address] Mail Examiner: Rico Nicole MD [address] [address] Mail Examiner: Aryan Morris MD Patient's uE3 3.28 ng/mL [facility] Comment on above: Performed By: #### A QUADM #### [address] [address] Mail Examiner: Rico Nicole MD [address] [address] Mail Examiner: Aryan Morris MD Smoking Unknown [facility] Comment on above: Performed By: #### A QUADM #### [address] [address] Mail Examiner: Rico Nicole MD [facility] [address] [place] [address] Mail Examiner: Aryan Morris MD Specimen See Note [facility] Comment on above: Result Comment: Init ial sample Performed By: #### A QUADM #### [address] [address] Mail Examiner: Rico Nicole MD [facility] [address] [place] [address] Mail Examiner: Aryan Morris MD Maternal Serum Scr 4on 07-12 Dating [facility] Comment on above: Performed By: #### A QUADM #### [address] [address] Mail Examiner: Rico Nicole MD [address] [address] Mail Examiner: Aryan Morris MD Diabetic [facility] Comment on above: Performed By: #### A QUADM #### [address] [address] Mail Examiner: Rico Nicole MD [address] [phone] Mail Examiner: Aryan Morris MD Estimated Due Date 11/02/2019 [facility] Comment on above: Performed By: #### A QUADM #### [address] [address] Mail Examiner: Rico Nicole MD [address] [address] Mail Examiner: Aryan Morris MD Family History [facility] Comment on above: Performed By: #### A QUADM #### [address] [address] Mail Examiner: Rico Nicole MD [facility] [address] [place] [address] Mail Examiner: Aryan Morris MD Maternal date 1995 [facility] Comment on above: Performed By: #### A QUADM #### [address] [place] [address] Mail Examiner: Rico Nicole MD [facility] [address] [place] [address] Mail Examiner: Aryan Morris MD Race (Maternal) Normal [facility] Comment on above: Performed By: #### A QUADM #### [address] [address] Mail Examiner: Rico Nicole MD [facility] [address] [place] [address] Mail Examiner: Aryan Morris MD Repeat Specimen NO Normal [facility] Comment on above: Performed By: #### A QUADM #### [address] [address] Mail Examiner: Rico Nicole MD [address] [address] Mail Examiner: Aryan Morris MD Current Smoking NOT REPORTED Normal [facility] Comment on above: Performed By: #### A QUADM #### [address] [address] Mail Examiner: Rico Nicole MD [address] [address] Mail Examiner: Aryan Morris MD In Vitro Fertalizat NOT REPORTED Normal [facility] Comment on above: Performed By: #### A QUADM #### [address] [address] Mail Examiner: Rico Nicole MD [facility] [address] [place] [address] Mail Examiner: Aryan Morris MD LMP date NOT REPORTED Normal [facility] Comment on above: Performed By: #### A QUADM #### [address] [address] Mail Examiner: Rico Nicole MD [facility] [address] [place] [address] Mail Examiner: Aryan Morris MD Monochorionic Twins NOT REPORTED Normal [facility] Comment on above: Performed By: #### A QUADM #### [address] [address] Mail Examiner: Rico Nicole MD [facility] [address] [place] [address] Mail Examiner: Aryan Morris MD Prev Trisomy Preg NOT REPORTED Normal [facility] Comment on above: Performed By: #### A QUADM #### [address] [address] Mail Examiner: Rico Nicole MD [address] [address] Mail Examiner: Aryan Morris MD Valproic/Carbamaze p NOT REPORTED Normal [facility] Comment on above: Performed By: #### A QUADM #### [address] [address] Mail Examiner: Rico Nicole MD [facility] [address] [place] [address] Mail Examiner: Aryan Morris MD Chlamydia/GC/Trich NAAon Chlamydia Trachomotis, MALINI Negative Normal Negative [facility] Comment on above: Order Comment: [facility] SPECIMEN SOURCE/DESCRIPTION URINE Performed By: #### G CCHLAMTRI #### [facility] , #### CUU #### [facility] [address] Neisseria Gonorrhoeae, MALINI Negative Normal Negative [facility] Comment on above: Order Comment: [facility] SPECIMEN SOURCE/DESCRIPTION URINE Performed By: #### G CCHLAMTRI #### [facility] , #### CUU #### [facility] [address] [place] [address] Trichomonas MALINI Negative Normal Negative [facility] Comment on above: Order Comment: [facility] SPECIMEN SOURCE/DESCRIPTION URINE Result Comment: Perf ormed at: =G - [facility] [address] [place] [id number] Mail Examiner: Emilia Hankins MD, Phone: [phone] PERFORMED BY: [place] [id number] PATHOLOGIST CATTLE KILLER JONI FLEMING M.D. Performed By: #### G CCHLAMTRI #### [facility] , #### CUU #### [facility] [address] [place] [address] Urine Cultureon 02-27-2019 Bacteria identified Cx Nom (U) [facility] 30,000 colonies/ml mixed bacterial skin contaminants 2 Days PERFORMED BY: [place] [id number] PATHOLOGIST CATTLE KILLER JONI FLEMING M.D. [facility] Comment on above: Performed By: #### G CCHLAMTRI #### [facility] , #### CUU #### [address] Vital Signs Date Time Vital Sign Value Performing Clinician Facility 03-06-2025 10:040 Body mass index (BMI) [Ratio] 40.9 kg/m2 Narus DO Work Phone: [facility] 03-06-2025 10:040 Body weight 114.94 kg Tank Leonor DO Work Phone: [facility] 03-06-2025 10:040 Diastolic blood pressure 74 mm[Hg] [employer] Leonor DO Work Phone: [facility] 03-06-2025 10:19040 Systolic blood pressure 116 mm[Hg] Tank Leonor DO Work Phone: [facility] 01-30-2025 10:03-0500 Body mass index (BMI) [Ratio] 40.42 kg/m2 Tank Leonor DO Work Phone: [facility] 01-30-2025 10:03-0500 Body weight 113.58 kg Tank Leonor DO Work Phone: [facility] 01-30-2025 10:03-0500 Diastolic blood pressure 82 mm[Hg] Tank Leonor DO Work Phone: [facility] 01-30-2025 10:03-0500 Systolic blood pressure 100 mm[Hg] Tank Leonor DO Work Phone: [facility] 12-16-2023 16:55-0500 Body height 170.18 cm Aline Garcia Other [facility] Other 12-16-2023 16:55-0500 Body mass index (BMI) [Ratio] 38.49 kg/m2 Aline Garcia Other [facility] Other 12-16-2023 16:55-0500 Body temperature 101.4 [degF] Aline Garcia Other [facility] Other 12-16-2023 16:55-0500 Body weight 111.49 kg Aline Garcia Other [facility] Other 12-16-2023 16:55-0500 Diastolic blood pressure 90 mm[Hg] Alinethad Garcia Other [facility] Other 12-16-2023 16:55-0500 Respiratory rate 18 /min Aline Garcia Other [facility] Other 12-16-2023 16:55-0500 SaO2% (BldA) [Mass fraction] 98 % Aline Garcia Other [facility] Other 12-16-2023 16:55-0500 Systolic blood pressure 130 mm[Hg] Aline Radha Other [facility] Other 03-10-2023 16:50-0400 Body height 170.18 cm Karol Carrasquillo Other [facility] Other 03-10-2023 16:50-0400 Body mass index (BMI) [Ratio] 36.02 kg/m2 Karol Carrasquillo Other [facility] Other 03-10-2023 16:50-0400 Body temperature 97.5 [degF] Karol Carrasquillo Other [facility] Other 03-10-2023 16:50-0400 Body weight 104.33 kg Karol Carrasquillo Other [facility] Other 03-10-2023 16:50-0400 Respiratory rate 18 /min Karol Carrasquillo Other [facility] Other 03-10-2023 16:50-0400 SaO2% (BldA) [Mass fraction] 98 % Karol Carrasquillo Other [facility] Other 02-18-2023 10:30-0400 Body height 170.18 cm Aline Radha Other [facility] Other 02-18-2023 10:30-0400 Body mass index (BMI) [Ratio] 37.43 kg/m2 Aline Radha Other [facility] Other 02-18-2023 10:30-0400 Body temperature 98.1 [degF] Aline Garcia Other [facility] Other 02-18-2023 10:30-0400 Body weight 108.41 kg Aline Colemond Other [facility] Other 02-18-2023 10:30-0400 Respiratory rate 18 /min Aline Radha Other [facility] Other 02-18-2023 10:30-0400 SaO2% (BldA) [Mass fraction] 100 % Aline Radha Other [facility] Other 06-11-2022 16:15-0400 Body height 170.18 cm Aline Colemond Other [facility] Other 06-11-2022 16:15-0400 Body mass index (BMI) [Ratio] 34.45 kg/m2 Aline Radha Other [facility] Other 06-11-2022 16:15-0400 Body temperature 98.9 [degF] Aline Radha Other [facility] Other 06-11-2022 16:15-0400 Body weight 99.79 kg Aline Radha Other [facility] Other 06-11-2022 16:15-0400 Respiratory rate 18 /min Aline Radha Other [facility] Other 06-11-2022 16:15-0400 SaO2% (BldA) [Mass fraction] 98 % Aline Radha Other [facility] Other 04-04-2022 13:15-0400 Body height 170.18 cm Slim Castellon Other [facility] Other 04-04-2022 13:15-0400 Body mass index (BMI) [Ratio] 34.45 kg/m2 Slim Castellon Other [facility] Other 04-04-2022 13:15-0400 Body temperature 96.2 [degF] Slim Castellon Other [facility] Other 04-04-2022 13:15-0400 Body weight 99.79 kg Slim Castellon Other [facility] Other 04-04-2022 13:15-0400 Respiratory rate 18 /min Slim Castellon Other [facility] Other 04-04-2022 13:15-0400 SaO2% (BldA) [Mass fraction] 98 % Slim Castellon Other [facility] Other 10-29-2019 08:00-0500 Body Temperature 97.9 [degF] [place] 10-29-2019 08:00-0500 BP Diastolic 76 mm[Hg] Pennie [employer] [place] , [place] 10-29-2019 08:00-0500 BP Systolic 114 mm[Hg] Pennie [employer] [place] , [place] 10-29-2019 08:00-0500 Pulse (Heart Rate) 86 /min [place] 10-29-2019 08:00-0500 Respiratory Rate 16 /min [place] 10-28-2019 16:45-0500 Pulse Oximetry 98 % Penn[place] 10-26-2019 10:00-0500 BMI (Body Mass Index) 35.51 kg/m2 Pennie [employer] [place] 10-26-2019 10:00-0500 Body weight 99.79 kg Pennie [facility] , [place] 10-26-2019 10:00-0500 Height 167.6 cm Pennie [facility] , [place] 07-14-2019 18:01-0400 Body weight 192.0 lbs. PENNIE [facility] Comment on above: Performed By: #### AQUADM #### [facility] [place] [address] Mail Examiner: iRco Nicole MD [facility] [address] [place] [address] Mail Examiner: Aryan Morris MD 07-12-2019 17:34-0400 Body weight 192 PENNIE [facility] Comment on above: Performed By: #### AQUADM #### [facility] [address] [place] [address] Mail Examiner: Rico Nicole MD [facility] [address] [place] [address] Mail Examiner: Aryan Morris MD 07-12-2019 17:34-0400 Body weight LBS PENNIE [facility] Comment on above: Performed By: #### AQUADM #### [facility] [address] [address] Mail Examiner: Rico Nicole MD [address] [address] Mail Examiner: Aryan Morris MD Encounters Encounter Date Encounter Type Care Provider Facility Start: 07-29-2025 End: 07-30-2025 Clinisync Result Encounter Tank Leonor DO Work Phone: [facility] External Department Unsolicited Start: 07-29-2025 End: 07-30-2025 Clinisync Result Encounter Tank Leonor DO Work [...] Department Unsolicited Start: 01-30-2025 End: 01-30-2025 ambulatory TANKAmber JUNIORO Not Available Start: 01-30-2025 End: 01-30-2025 Office outpatient visit 15 minutes Tank Leonor DO Work Phone: [facility] Comment on above: Anovulation; PCOS (polycystic ovarian syndrome); Female infertility Start: 12-16-2023 End: 12-16-2023 ambulatory Aline Garcia Other [facility] Other Start: 12-16-2023 Office outpatient vi sit 15 minutes Aline Radha [facility] Start: 04-22-2023 End: 04-22-2023 ambulatory Chandana Mcdonnell Facility:[facility] Start: 04-20-2023 End: 04-21-2023 ambulatory Chandana Mcdonnell Facility:[facility] Start: 03-10-2023 End: 03-10-2023 ambulatory Karol Carrasquillo Other [facility] Other Start: 03-10-2023 Office outpatient vi sit 25 minutes Karol Carrasquillo [facility] Start: 02-18-2023 End: 02-18-2023 ambulatory Alinethad Garcia Other [facility] Other Start: 02-18-2023 Office outpatient vi sit 15 minutes Alinethad Garcia [facility] Start: 06-12-2022 End: 06-12-2022 ambulatory Aline Radha Other [facility] Other Start: 06-12-2022 Encounter by adal Garcia [facility] Start: 06-11-2022 End: 06-11-2022 ambulatory Aline Garcia Other [facility] Other Start: 06-11-2022 Office outpatient vi sit 15 minutes Aline Garcia [facility] Start: 04-04-2022 End: 04-04-2022 ambulatory Slim Castellon Other [facility] Other Start: 04-04-2022 Office outpatient vi sit 15 minutes Slim Castellon [facility] Start: 10-29-2021 End: 10-29-[address] MIKI KRUGER Facility: Start: 10-26-2019 End: 10-29-2019 Evaluation and management of inpatient PENNIE GOLDBERG [facility] Start: 10-26-2019 End: 10-29-2019 Evaluation and management of inpatient Pennie Goldberg Work Phone: [facility] Comment on above: PLTCS 10/27/19 M Apg 8,9 Wt 9#8 (Primary Dx) Start: 07-12-2019 End: 07-13-2019 Patient encounter procedure BENJAMIN Gerson NAEEM [facility] Start: 07-12-2019 End: 07-12-2019 Subsequent hospital visit by physician Miki Kruger [facility] Start: 02-28-2019 End: 03-01-2019 Patient encounter procedure DEFAULT PHYSICIAN Facility:[facility] Start: 02-27-2019 End: 02-27-2019 Patient encounter procedure Marlena Taveras Facility:[facility] Procedures Date Procedure Procedure Detail Performing Clinician Start: 07-29-2025 ALL PROGESTERONE Tank Leonor DO Work Phone: Start: 07-01-2025 ALL PROGESTERONE Tank Leonor DO [...] DONELL GOLDBERG Start: 10-27-2019 BLADDER SCAN PENNIE MA STORMY Start: 10-27-2019 DIET GENERAL PENNIEZULAY BURROWS Start: 10-27-2019 ENCOURAGE DEEP BREAT PARKER AND COUGHING PENNIE GOLDBERG Start: 10-27-2019 FULL CODE PENNIEZULAY BURROWS Start: 10-27-2019 INCENTIVE SPIROMETRY RT PENNIE GOLDBERG Start: 10-27-2019 INITIATE OXYGEN THER APY PROTOCOL PENNIE GOLDBERG Start: 10-27-2019 INTAKE AND OUTPUT FLASH GOLDBERG Start: 10-27-2019 IP CONSULT TO PENNIE GOLDBREG Start: 10-27-2019 MISCELLANEOUS NURSIN G CARE ORDER (SPECIFY) PENNIE GOLDBERG Start: 10-27-2019 NOTIFY PHYSICIAN (SPECIFY) PENNIE TRUJILLOOY Start: 10-27-2019 STRAIGHT CATH PNENIE NAVAS Start: 10-27-2019 VITAL SIGNS PENNIE BURROWS [...] 10-26-2019 Drug screen class list a Mariia Lozano Jennifer Work Phone: Start: 07-12-2019 MATERNAL SCREEN 4 FLASH GOLDBERG Plan of Treatment Date Care Activity Detail Author Start: 10-29-2029 DTaP/Tdap/Td vaccine (2 - Td) DTaP/Tdap/Td vaccine (2 - Td) [place] Start: 07-31-2025 [facility] Start: 03-06-2025 End: 03-06-2025 Patient encounter procedure 03/06/2025 9:40 AM EDT Office Visit [facility] [address] [place] [id number] Tank Galvez DO [address] [place] [address] [facility] Start: 01-30-2025 End: 01-30-2026 Antimullerian hormone (AMH) Antimullerian hormone (AMH) Lab Routine Anovulation PCOS (polycystic ovarian syndrome) Female infertility Expected: 01/30/2025 (Approximate), Expires: 01/30/2026 [facility] Comment on above: Expected: 01/30/2025 (Approximate), Expires: 01/30/2026 Start: 01-30-2025 End: 01-30-2026 Progesterone Progesterone Lab Routine Anovulation PCOS (polycystic ovarian syndrome) Female infertility Expected: 01/30/2025 (Approximate), Expires: 01/30/2026 [facility] Healthcare Comment on above: Expected: 01/30/2025 (Approximate), Expires: 01/30/2026 Start: 07-31-2024 Influenza vaccination Influenza Vacc ine (#1) [facility] Start: 07-31-2019 Influenza vaccination Flu vaccine (# 1) [place], [place] Start: 2018 Cervical cancer screen Cervical canc er screen [place], [place] Start: 2016 DTaP/Tdap/Td vaccine (1 - Tdap) DTaP/Tdap/Td vaccine (1 - Tdap) [place] Start: 2013 Chlamydia screen Chlamydia screen [place], [place] Start: 2012 HIV screen HIV screen [place], [place] Start: 2012 HPV vaccine (1 - Fem louie 3-dose series) HPV vaccine (1 - Female 3-dose series) [place] Start: 2010 Varicella Vaccine (1 of 2 - 13+ 2-dose series) Varicella Vaccine (1 of 2 - 13+ 2-dose series) [place] Start: 2008 HPV vaccine (1 - Fem louie 2-dose series) HPV vaccine (1 - Female 2-dose series) [place] Start: 2003 Pneumococcal 0-64 ye ars Vaccine (1 of 1 - PPSV23) Pneumococcal 0-64 years Vaccine (1 of 1 - PPSV23) [place] Start: 1998 Varicella Vaccine (1 of 2 - 2-dose childhood series) Varicella Vaccine (1 of 2 - 2-dose childhood series) [place] Cytology Cervical or vaginal smear or scraping study Pap Smear Pathology and Cytology Routine Well woman exam with routine gynecological exam Ordered: 03/06/2025 [facility] Work Phone: Comment on above: Ordered: 03/06/2025 hCG, quantitative hCG, quantitat mami Lab Routine Anovulation PCOS (polycystic ovarian syndrome) Female infertility Ordered: 01/30/2025 [facility] Comment on above: Ordered: 01/30/2025 Hemoglobin A1c/Hemoglobin.total in Blood Hemoglobin A1c Lab Routine Anovulation PCOS (polycystic ovarian syndrome) Female infertility Ordered: 01/30/2025 [facility] Comment on above: Ordered: 01/30/2025 Incentive spirometry Incentive s pirometry Respiratory Care Routine Every 2hr while awake until discontinued starting 10/27/2019 [place] Comment on above: Every 2hr while awak e until discontinued starting 10/27/2019 Initiate Oxygen Ther apy Protocol Initiate Oxygen Therapy Protocol Respiratory Care Routine Daily until discontinued starting 10/27/2019 [place] Comment on above: Daily until disconti nued starting 10/27/2019 Maternal screen 4 Maternal scree n 4 Lab Routine 07/12/2019 11:00 AM EDT [place] Phase I & II - meter ed glucose Phase I & II - metered glucose Point of Care Testing Routine As Needed until discontinued starting 10/27/2019 [place] Comment on above: As Needed until disc ontinued starting 10/27/2019 Thyrotropin [Units/volume] in Serum or Plasma TSH Lab Routine Anovulation PCOS (polycystic ovarian syndrome) Female infertility Ordered: 01/30/2025 [facility] Work Phone: Comment on above: Ordered: 01/30/2025 Thyroxine (T4) free [Mass/volume] in Serum or Plasma T4, free Lab Routine Anovulation PCOS (polycystic ovarian syndrome) Female infertility Ordered: 01/30/2025 [facility] Comment on above: Ordered: 01/30/2025 Immunizations Immunization Date Immunization Notes Care Provider [facility] 10-29-2019 tetanus toxoid, redu eric diphtheria toxoid, and acellular pertussis vaccine, adsorbed Pennie Ashlyn [facility] 10-27-2019 diphtheria, tetanus toxoids and acellular pertussis vaccine, unspecified formulation Pennie Ashlyn [place] 08-18-2012 hepatitis B vaccine, pediatric or pediatric/adolescent dosage Tank Leonor DO Work Phone: [facility] 05-25-2012 varicella virus vaccine Core Leonor DO Work Phone: [facility] 02-18-2011 meningococcal polysaccharide (groups A, C, Y and W-135) diphtheria toxoid conjugate vaccine (MCV4P) Tank Leonor DO Work Phone: [facility] 02-18-2011 tetanus toxoid, redu eric diphtheria toxoid, and acellular pertussis vaccine, adsorbed Tank Leonor DO Work Phone: [facility] 10-08-1998 measles, mumps and rubella virus vaccine Tank Leonor DO Work Phone: [facility] 1997 hepatitis B vaccine, pediatric or pediatric/adolescent dosage Tank Leonor DO Work Phone: [facility] Payers Date Payer Category Payer Blue Cross Blue Shield [id number] 2023 Blue Cross Blue Shield [id number] 2023 Unknown [id number] 2023 Unknown 2019 Private Health Insurance [id number] 2019 Self-pay 2018 Private Health Insurance [id number] 2018 Private Health Insurance xxx [id number] 1997 Unknown [id number] 2.16.8 [id number] 1997 Unknown [id number] 2.16.8 [id number] 1997 Unknown [id number] 2.16.8 40.1.411966.3.579.2.175 1997 Unknown [id number] 2.16.84 [id number] 1997 Unknown [id number] 2.16.8 40.1.142652.3.579.2.727 1997 Unknown [id number] 2.16.8 [id number] 1997 Unknown [id number] 2.16. [id number] 1997 Unknown [id number] 2.16.84 [id number] 1997 Unknown [id number] 2.16.84 [id number] 1959 Private Health Insurance [id number] Blue Cross Blue Shield [id number] Unknown [id number] 2.16.84 [id number] Unknown [id number] 2.16.84 [id number] Unknown [id number] 2.16.8 [id number] Social History Date Type Detail Facility Start: 07-12-2019 End: 10-26-2019 Tobacco smoking status PAIS Never smoker [place] Start: 10-26-2019 Alcohol intake Ex-drinker (finding) [place] Start: 02-09-2019 [place] Sex Assigned At Not on file [place] Start: 07-12-2019 End: 01-30-2025 Alcohol intake Not Currently [place] Start: 04-27-2023 Tobacco smoking stat [facility] Ex-smoker [facility] History of tobacco use Current smoker [facility] History of tobacco use Cigarette Smoker [facility] Start: 04-27-2023 Tobacco use and exposure User of smokeless tobacco [facility] Start: 11-03-2023 End: 03-06-2025 Alcoholic beverage intake Current drinker of alcohol (finding) [facility] Start: 11-03-2023 End: 01-30-2025 History of Social function [facility] Start: 10-21-2023 Alcohol Comment caffeine: 1-2 cups per day [facility] Start: 1997 Sex assigned at Female N [facility] Start: 11-02-2023 Gender identity Identifies as female gender (finding) [facility] Clinical Notes 04-04-2022 to 03-06-2025 Gay [...] Tank Galvez DO documented in this encounter [facility] 01-30-2025 History of Presen t illness [...] large fetus 04/27/2023 Chest pain 03/05/2014 Dysautonomia ([facility]) 02/22/2014 Exercise-induced asthma ([facility]) 10/30/2011 Family history of cardiac arrest [...] nursing note reviewed. Exam conducted with a flag signaler present. Vitals: Estimated body mass index is [...] starts to have Clomid 100mg sent to [facility] in [place]. Patient to schedule follow up in 4 weeks along with annual appointment. Documented by Marlyn Montes De Oca LPN on behalf of: Tank Galvez DO documented in this encounter [facility] 12-16-2023 Evaluation note Encounter Date Diagnosis [...] (suspected) exposure to covid-19 (ICD-10 - Z20.822) [facility] Other 05-22-2023 Note [id number]:127[facility] 03-10-2023 Evaluation note* Encounter Date Diagnosis [...] Encouraged salt water gargles, increasing fluids, Tylenol oqjn-pjz-eggyhuc for additional relief. Advised patient if that if symptoms continue she needs a follow-up with ENT for evaluation. Advised that we will not continue to see her for this issue in that UC setting, as we are not a follow-up facility. Patient verbalizes understanding and is agreeable with treatment plan. [facility] Other 03-22-2023 Evaluation note* Encounter Date Diagnosis [...] the ER for worsening symptoms or concern [facility] Other 07-13-2022 Evaluation note* Encounter Date Diagnosis [...] Throat infectio n: Strep material was printed [facility] Other 05-06-2022 Evaluation note* Encounter Date Diagnosis [...] She understands and agrees with the plan. [facility] Other Evaluation noteNo [facility]ort[facility] Other Evaluation note* Diagnosis Anovulation Female infertility [...] Medical History PCOS Surgical History knee surgery [facility] Other History general Narrative - Reported* Type Description Date Medical History Dysautonomia Medical History Cardioinhibited Neurogenic Synco pe Medical History PCOS Surgical History knee surgery Surgical History C section Surgical History tonsillectomy [facility] Other Summary Purpose Family History No Family History Records FoundNo Family History Records FoundNo Family History Records FoundNo Family History Records FoundNo Family History Records FoundNo Family History Records FoundNo Family History Records FoundNo Family History Records FoundNo Family History Records Found Advance Directives Documents on File Type Date Recorded Patient Phy Therapist Expl anation Advance Directives and Living Will Power of Locomotive Lubricating Systems Clerk Latest Code Status on File Code [...] your doctor if you can take an rzac-lay-lwjbnhq medicine. If you think your pain medicine [...] take. When should you call for help? [email or web address] anytime you think you may need emergency [...] Where can you learn more? Go to [email or web address] and sign in to your [email or web address] account. Enter M806 in the Search Health Information box to learn more about Section: What to Expect at Home. If you do not have an account, please click on the Sign Up Now link. Current as of: August 04, 2018 Content Version: 12.1 0955-2750 [employer]. Care instructions adapted under license by [employer]. If youhave questions about a medical condition or this instruction, always ask your healthcare professional. [employer] disclaims any warranty or liability for your [...] patient Attending Physician: Dr. Jorge Rodriguez DO Academic Hospitalist Resident 10/29/2019, 12:22 AM Attending Physician Statement [...] Whitley DO - 10/28/2019 12:11 PM EST BRICK OFFBEARER Resident Interval Note Patient labs reviewed below. Hgb on POD#1 is 8.9. Pt clinically asymptomatic. Will prescribe PO iron supplementation on DC. Vitals: 11/28/19 1955 10/28/19 0000 10/28/19 0415 10/28/19 0800 [...] 1.03 (L) 1.10 - 3.70 k/uL Absolute [place] # 0.69 0.10 - 1.20 k/uL Absolute Eos # <0.03 0.00 - 0.44 k/uL Basophils Absolute <0.03 0.00 - 0.20 k/uL Absolute Immature Granulocyte 0.05 0.00 - 0.30 k/uL Mi Whitley DO Academic Hospitalist Resident Pager: [phone] 10/28/2019 12:11 PM * Teresa Montalvo DO [...] with patient Attending Physician: Dr. Selvin Garcia, Academic Hospitalist Resident 10/28/2019, 7:52 AM Date: 10/28/2019 Time: [...] for counseling and decision. Janeth Garcia DO BRICK OFFBEARER Resident, PGY1 [place], [place] 10/27/2019, 8:46 AM Attending Physician Statement [...] S/P Cytotec 25 Buccal Kwame Denny DO Academic Hospitalist Resident 10/27/2019, 3:56 AM * Kwame Denny [...] in agreement with plan Kwame Denny DO Academic Hospitalist Resident 10/26/2019, 11:26 PM Pennie Johnson MD - 10/26/2019 9:33 AM EST Senior resident Progress Note In to discuss plan of care with patient. Patient with suspected macrosomic at 4479g in M on 10/26. Patient counseled on risks of shoulder dystocia, higher degree lacerations, permanent neurological damage to , and post hemorrhage. Patient states she wishes to proceed with vaginal delivery at this time and is declining primary section. Patient counseled by assembly instructions writer as well as attending. Additionally discussed safest route of delivery for infants is vaginal delivery followed by planned section. Patient voices understanding that highest risk for is with failed attempted vaginal delivery. Patient requesting additional time to consider her options. Patient offered support and given time to discuss options with . April Villarreal BRICK OFFBEARER Resident, PGY3 Pager: [phone] [place], [place] 10/26/19 9:42 AM Patient additionally counseled [...] section and content) DATE CREATED AUTHOR 03/03/2019 [facility] DATE CREATED AUTHOR AUTHOR'S ORGANIZ ATION 03/09/2019 [facility] DATE CREATED AUTHOR AUTHOR'S ORGANIZ ATION 03/12/2019 [facility] DATE CREATED AUTHOR AUTHOR'S ORGANIZ ATION 11/03/2019 [facility] DATE CREATED AUTHOR AUTHOR'S ORGANIZ ATION 02/22/2022 [facility] pital DATE CREATED AUTHOR AUTHOR'S ORGANIZ ATION 07/09/2022 [facility] dical Specialist DATE CREATED AUTHOR AUTHOR'S ORGANIZ ATION 05/20/2023 [facility] ical Center DATE CREATED AUTHOR AUTHOR'S ORGANIZ ATION 08/04/2023 [facility] [place] ical Center DATE CREATED AUTHOR AUTHOR'S ORGANIZ ATION 03/07/2025 [facility] dical Specialists EPIC Reason for Visit (unrecogniz ed section and content) Reason Comments Scheduled Induction Status Reason Specialty Diagnoses / Procedures Referre d By Contact Referred To Contact Diagnoses HRP (high risk ), unspecified trimester Pennie Goldberg MD [address] [place] [address] [facility] Reason Comments Discuss Fertility Reason Comments Well Women Visit Care Teams (unrecognized sec tion and content) Injection Molding Machine Offbearer Relationship Specialty Start Date End Date Miki Kruger MD [address] [place] [address] PCP - General Cardiology 04/28/23 Injection Molding Machine Offbearer Relationship Specialty Start Date End Date Miki Kruger MD [address] [place] [phone] PCP - General Cardiology 04/28/23 Injection Molding Machine Offbearer Relationship Specialty Start Date End Date Miki Kruger MD [address] [place] [address] PCP - General Cardiology 04/28/23 Injection Molding Machine Offbearer Relationship Specialty Start Date End Date Miki Kruger MD [address] [place] [phone] PCP - General Cardiology 04/28/23 Injection Molding Machine Offbearer Relationship Specialty Start Date End Date Miki Kruger MD [address] [place] [address] PCP - General Cardiology 04/28/23 FOR RECORDS [...] BE BASED ON THE PRIMARY CLINICAL RECORDS. [employer] [facility]. provides no warranty or guarantee of the accuracy or completeness of information in this document.
[2025-09-09 08:09] LABS: FSH 3.5 mIU/mL (.)
== END 2025-09-08 11:32 | disposition home or self-care (01) ==
DX: E22.1 Hyperprolactinemia (principal); Z13.29 Encounter for screening for other suspected endocrine disorder
CPT/HCPCS: 36415; 82670; 83001; 83002; 84146

== ENCOUNTER 2025-09-22 07:37 | Outpatient (OUT) | payer BC, SELFPAY ==
--- OUTSIDE RECORDS SUMMARY | 2022-11-06 07:00 | XMS_ITS | Continuity of Care Document ---
Author Organization [facility] Address [address] [place] [address] Phone Care Team Providers Care Merchandising Professor Name Role Phone Irwin Cox Unavailable Unavailable [...] Diagnoses Date Provider Providers Copied on Encounter [facility], [address] [place] [address], [id number], tel:[phone] [facility] Encounter for pre-employment examination 2 Nickolas Sheth. [address] [place] [address], [id number] , [place]. tel: [phone] OFFICE/OUTPAT IENT VISIT, [facility], [address] [place] [address], [id number], [place] tel:[phone] [employer] Work Physical (chief complaint) Pre-employment examinationBody mass index [BMI] 36.0-36.9, adult 2 Dean Stringer. [address] [place] [address], [id number] , [place]. tel:[phone] OFFICE/OUTPAT IENT VISIT, [facility], [address] [place] [address], [id number], [place] tel:[phone] [employer] School Physical (chief complaint) School physical exam 2 Dena JOHNSON Siomara. [address] [place] [address], [place], [place], [id number] , . tel:[phone] Family History Family Member Type Diagnosis Age [...] ID Authoriza tion(s) Self Pay Indigent [id number] Self Pay Indigent 09 [id number] Social History Type Description Quantity Date Captured [...] Patient here for work physical. Starts at [employer]. States she has no health issues. She has no primary care doctor.Needs TB test today.Flu Shot: Refused//Sierra RNNoted above. Pt seen in August for school physical. No change in history. No current medical concerns. 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 Rayshawn JOHNSON School Physical School physical today.Women's Health: JuneDental: NoneFlu Shot: Declined.//Sierra RNNoted above. 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 PMH cardiogenic syncope and mild eczema.PCP is Dr. Ibrahim. Programmer Analyst Consultant is in [place]. Has not seen either in several years. No syncope in 3 years. No daily medication. No control. Vapes, no ETOH, daily caffeine (coffee and energy drinks), no drug use.No current physical, social or mental health concerns. 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
--- OUTSIDE RECORDS SUMMARY | 2025-09-14 11:50 | XMS_ITS | Encounter Summary ---
Author Organization [facility] Address [address] [place] [address] Care Team Providers Care Herbarium Worker Name Role Phone Miki Ibrahim MD Primary Care Provider [phone] Reason for Referral * Imaging (Routine) - Pending ReviewSpecialtyDiagnoses / ProceduresReferred By ContactReferred To Contact Diagnoses Hyperprolactinemia (HCC) Procedures MR brain w and wo contrast routine Tank Galvez DO [address] [place] [address] Phone: tel: fax: Referral IDStatusReasonStart DateExpiration DateVisits RequestedVisits [id number]/ Reason for Visit * ReasonCommentsFollow-up Encounter Details DateTypeDepartmentCare Team (Latest Contact Info)Izvzjbbwrgg01/16/2025 11:50 AM EDTOffice Visit [facility] [address] [place] [phone] Tank Galvez DO [address] [place], [place] [id number] Hyperprolactinemia (HCC) Social History Tobacco UseTypesPacks/DayYears UsedDateSmoking Tobacco: FormerCigarettes Smokeless Tobacco: CurrentAlcohol UseStandard Drinks/WeekCommentsYes0 (1 standard drink = 0.6 oz pure alcohol)caffeine: 1-2 cups per dayComments NoSex and Gender InformationValueDate RecordedSex Assigned at BirthFemale 11/02/2023 1:41 PM ESTLegal YigSrngaz63/15/2023 11:38 PM EDTGender Identity Djhxbd7211/02/2023 1:41 PM ESTSexual OrientationNot on filedocumented as of this encounter Last Filed Vital Signs Vital SignReadingTime TakenCommentsBlood Boitqluu598/8409/14/2025 12:00 PM EDT Pulse--Temperature--Respiratory Rate--Oxygen Saturation--Inhaled Oxygen Concentration--Ysgywp574 kg (247 lb 8 oz)09/14/2025 12:00 PM EDTHeight--Body Mass Index39.9511/03/2023 1:13 PM ESTdocumented in this encounter Progress Notes * Marlyn Montes De Oca LPN - 09/14/2025 11:50 AM EDT Reason for Appointment: Patient ID: Gisell Ga is a 30 y.o. female who presents for Follow-up Patient presents today for Consult appointment. MEDICATIONS Current Outpatient Medications Medication Instructions medroxyPROGESTERone (PROVERA) 10 mg, Oral, Daily ALLERGIES No Known Allergies PROBLEMS Active Ambulatory Problems Diagnosis Date Noted Acid reflux 04/27/2023 Anemia 10/27/2019 macrosomia during , antepartum ([facility]) 10/21/2019 Anovulation 04/27/2023 Cephalopelvic disproportion due to unusually large fetus ([facility]) 04/27/2023 Chest pain 03/05/2014 Dysautonomia ([facility]) 02/22/2014 Exercise-induced asthma ([facility]) 10/30/2011 Family history of cardiac arrest 10/27/2019 Hypertrophy tonsils 04/27/2023 Heartburn 04/27/2023 Generalized headaches 03/05/2014 Hypotension 04/27/2023 Irregular periods 04/27/2023 Neurologic cardiac syncope 10/30/2011 Smoker 04/27/2023 state ([facility]) 10/27/2019 Obesity 10/27/2019 Supervision of high risk , unspecified, unspecified trimester ([facility]) 10/21/2019 Resolved Ambulatory Problems Diagnosis Date Noted [...] Negative. Allergic/Immunologic: Negative. OBJECTIVE Objective: Physical Exam Constitutional: Appearance: Normal [...] nursing note reviewed. Exam conducted with a senior software quality analyst present. Vitals: Estimated body mass index is 39.95 kg/m?? as calculated from the following: Height as of 11/03/23: 5' 6 . Weight as of this encounter: 247 lb 8 oz. BP: 118/84 Patient's last menstrual period was 09/01/2025 (approximate). ASSESSMENT & PLAN ICD-10-CM 1. Hyperprolactinemia (HCC) E22.1 Patient voiced that she was seen by Fertility specialist Dr. Charles ([facility]) in [place]. Patient voiced that she had done HSG and all is well. Patient voiced that she has not heard from specialist inregards to prolactin level. Patient is to be given order for MRI Pituitary. Pt to reach out to Specialist and see what their plan of care would be for follow up. Patient will reach out to office with plan of care. Patient voiced that over the past few years she has had increase in headaches and nipple leakage. Patient inquired as to how long of break she would need to have from fertility meds. Patient was informed that plan of care will be up to [facility] and if need be then she will be able to reachback out to office if/when [facility] is complete with management of fertility. Documented by Marlyn Montes De Oca LPN on behalf of: Tank Galvez DO documented in this encounter Plan of Treatment NameTypePriorityAssociated DiagnosesOrder ScheduleMR brain w and wo contrast routineImagingRoutine Hyperprolactinemia (HCC) Expected: 09/14/2025 (Approximate), Expires: 09/14/2026documented as of this encounter Visit Diagnoses Diagnosis Hyperprolactinemia (HCC) Other and unspecified anterior pituitary hyperfunction documented in this encounter Care Teams Team MemberRelationshipSpecialtyStart DateEnd Date Miki Ibrahim MD [address] [place] [address] PCP - GeneralCardiology04/28/23documented as of this encounter
--- OUTSIDE RECORDS SUMMARY | 2025-09-22 07:39 | XMS_ITS | Clinical Summary ---
Author Organization [employer] tem Address [id number] [address] [place] [address] Care Team Providers Care Broadband Engineer Name Role Phone Miki Ibrahim MD Primary Care Provider [phone] Allergies No known active allergies Medications MedicationSigDispense QuantityRefillsLast FilledStart DateEnd DateStatus ibuprofen (ADVIL,MOTRIN) 800 mg tablet Take 1 tablet (800 mg total) by mouth every 8 (eight) hours as needed for pain or fever. 21 tablet 07/31/2021ctive acetaminophen (TYLENOL) 500 mg tablet Take 1 tablet (500 mg total) by mouth every 6 (six) hours as needed for pain or fever. 30 tablet 07/31/2021ctive Social History Tobacco UseTypesPacks/DayYears UsedDateSmoking Tobacco: Every DayCigarettes Vaping/E-cigarettesSmokeless Tobacco: NeverAlcohol UseStandard Drinks/Week CommentsNo0 (1 standard drink = 0.6 oz pure alcohol)ChildcareAnswerDate Recorded DncfcemwpGuvrmfo14/12/2019EmploymentAnswerDate RecordedEmploymentUnknown 05/11/2019Purpose - LifeAnswerDate RecordedPurpose and direction in lifeUnknown 1CommentsNoSex and Gender InformationValueDate RecordedSex Assigned at FepkbThqoxz75/19/2021 6:44 PM EDTLegal NscPpiurl95/06/2015 12:09 PM EDTGender SejklogdDfuicl74/19/2021 6:44 PM EDTSexual OrientationNot on file Last Filed Vital Signs Vital SignReadingTime TakenCommentsBlood Lcxivezu932/6909 2:05 AM EDT Ghqfp04511 2:05 AM PMBSytljxpmmiy89.7 ??C (99.9 ??F)07/31/2021 2:05 AM EDTRespiratory Vqfz3984 2:05 AM EDTOxygen Afikzlhepi37%07/31/2021 2:05 AM EDTInhaled Oxygen Concentration--Ajmjor22.7 kg (200 lb)07/31/2021 12:22 AM HBJHwnucz809.1 cm (5' 5 )07/31/2021 12:22 AM EDTBody Mass Index33.28007/31/2021 12:22 AM EDT Plan of Treatment Not on file Medical Devices [place] [address] Care Teams Team MemberRelationshipSpecialtyStart DateEnd Date Miki Ibrahim MD [facility]07/19/14
--- OUTSIDE RECORDS SUMMARY | 2025-09-22 07:39 | XMS_ITS | Encounter Summary ---
Author Organization [facility] Address [address] [place] [address] Care Team Providers Care Income Tax Advisor Name Role Phone Miki Ibrahim MD Primary Care Provider [phone] Encounter Details DateTypeDepartmentCare Team (Latest Contact Info)Cgmyhcmsgoz66/16/2025Telephone [facility] [address] [place] [address] [place] [address] Marlyn Montes De Oca LPN Social History Tobacco UseTypesPacks/DayYears UsedDateSmoking Tobacco: FormerCigarettes Smokeless Tobacco: CurrentAlcohol UseStandard Drinks/WeekCommentsYes0 (1 standard drink = 0.6 oz pure alcohol)caffeine: 1-2 cups per dayComments NoSex and Gender InformationValueDate RecordedSex Assigned at BirthFemale 11/02/2023 1:41 PM ESTLegal BsnOhnbcp12/15/2023 11:38 PM EDTGender Identity Pbkbgc3711/02/2023 1:41 PM ESTSexual OrientationNot on filedocumented as of this encounter Miscellaneous Notes * Telephone Encounter - Marlyn Montes De Oca LPN - 09/14/2025 12:14 PM EDT Reach out to [facility] for semen analysis results--ss Called [facility]'s Medical records and requested semen analysis results be sent to office for review. Results received and patient notified. Nursing also sent results to patient in [employer] Message to have for her own records. --Marlyn S., INSIDE SALES ADVISOR documented in this encounter Plan of Treatment Not on file documented as of this encounter Visit Diagnoses Not on filedocumented in this encounter Care Teams Team MemberRelationshipSpecialtyStart DateEnd Date Miki Ibrahim MD [address] [place] [address] PCP - GeneralCardiology04/28/23documented as of this encounter
--- OUTSIDE RECORDS SUMMARY | 2025-09-22 07:39 | XMS_ITS | Clinical Summary ---
Author Organization [facility] Address [address] [place] [address] Care Team Providers Care Sales And Training Specialist Name Role Phone Unavailable Primary Care Provider Unavailabl e Social History Tobacco UseTypesPacks/DayYears UsedDateSmoking Tobacco: Never Assessed CommentsUnknownSex and Gender InformationValueDate RecordedSex Assigned at Not on fileLegal MivDpdvlp20/30/2022 12:13 AM EDTGender IdentityNot on file Sexual OrientationNot on file Last Filed Vital Signs Vital SignReadingTime TakenCommentsBlood Knujaaux118/7404 11:04 AM EDT Xuvah409603/15/2019 11:04 AM EDTTemperature--Respiratory Rate--Oxygen Saturation 100%03/15/2019 11:04 AM EDTInhaled Oxygen Concentration--Fllarn22.6 kg (168 lb 15.7 oz)03/15/2019 11:00 AM EDTHeight--Body Mass Index-- Plan of Treatment Not on file
--- OUTSIDE RECORDS SUMMARY | 2025-09-22 07:40 | XMS_ITS | Clinical Summary ---
Author Organization [facility] Address [address] [place] [address] Phone Care Team Providers Care Airbrush Painter Name Role Phone Unavailable Primary Care Provider Unavailabl e Social History Tobacco UseTypesPacks/DayYears UsedDateSmoking Tobacco: Never Assessed CommentsUnknownSex and Gender InformationValueDate RecordedSex Assigned at Not on fileLegal JmdGgcigl02/05/2023 9:13 AM EDTGender IdentityNot on fileSexual OrientationNot on file Plan of Treatment Health MaintenanceDue DateLast DoneCommentsHIV Bwuvktqam1997Lipid Panel 1997Yearly Adult Ylmsnjzp1997MMR Vaccines (1 of 1 - Standard series) 1998Hepatitis C Luundekxs27/19/2015Hepatitis B Vaccines (1 of 3 - 19+ 3- dose series)2016Cervical Cancer Opbckevlo22/19/2018HPV/Ufwfhb1005/18/2018Pap Smear2018DTaP/Tdap/Td Vaccines (1 - Tdap)2019HPV Vaccines (1 - 3- dose standard series)2024Influenza Vaccine (#1)2025OVID-19 Vaccine ( - 2024- season)2025Zoster Vaccines (1 of 2)2047HIB VaccinesAged OutNo longer eligible based on patient's age to complete this topicHepatitis A VaccinesAged OutNo longer eligible based on patient's age to complete this topic IPV VaccinesAged OutNo longer eligible based on patient's age to complete this topicMeningococcal VaccineAged OutNo longer eligible based on patient's age to complete this topicPneumococcal Vaccine: Pediatrics and At-Risk Adult Patients Aged OutNo longer eligible based on patient's age to complete this topic Rotavirus VaccinesAged OutNo longer eligible based on patient's age to complete this topic
--- OUTSIDE RECORDS SUMMARY | 2025-09-22 07:40 | XMS_ITS | Clinical Summary ---
Author Organization [facility] Address [address], [address] [place] [address] Care Team Providers Care Straight Line Press Setter Name Role Phone Miki Ibrahim MD Primary Care Provider + Allergies No known active allergies Medications MedicationSigDispense QuantityRefillsLast FilledStart DateEnd DateStatus ondansetron (ZOFRAN-ODT) 4 MG disintegrating tablet 06/22/2019Active Vit w/Ix-Rdhmgkbjr-YR (PNV PO) Take by mouthActive ibuprofen (ADVIL;MOTRIN) 800 MG tablet Take 1 tablet by mouth every 8 hours as needed for Pain 60 tablet Active docusate sodium (COLACE, DULCOLAX) 100 MG CAPS Take 100 mg by mouth 2 times daily 60 capsule 10/28/2019Active ferrous sulfate (FE TABS) 325 (65 Fe) MG EC tablet Take 1 tablet by mouth 2 times daily (with meals) 60 tablet Active Active Problems ProblemNoted DateDiagnosed DateFamily history of cardiac zhqofk0210/27/2019Anemia 10/27/20190324Riqadap25/28/2019PLTCS 10/27/19 M Apg 8,9 Wt 9#8112/27/2018HRP (high risk ), unspecified svynrzpso20/27/2019Late transfer of care10/24/2019 Overview (10/24/2019): Pt saw Dr. Herron in [place], [place]. Transfer of care at 38w2d gestation. Pt transferred care as she has a macrosomic infant and desires vaginal delivery. Pt desires to deliver at a facility with a level 3 NICU. Assessment & Plan (10/24/2019 8:08 AM EST): Pt saw Dr. Herron in [place], [place]. Transfer of care at 38w2d gestation. Pt transferred care as she has a macrosomic and desires vaginal delivery. Pt desires to deliver at a facility with a level 3 NICU. High-risk rlygfxjlz75/22/2019 Overview (10/21/2019): Pts mother had hemorrhage and cardiac arrest with delivery of pts brother Pt desires to deliver at [facility] due to family history Late transfer of care from [facility] at 38w2d gestation glollubexa04/22/2019 Overview (10/24/2019): Estimated weight 9#4 on 10/19/19 [...] the baby's head is delivered. The delivery doesnot progress because of the baby's shoulders being lodged in the canal behind the pubic bone.Signs also include very large babies who are [...] baby will need to be delivered via aC-section. For babies who are at risk of shoulder dystocia because of their large size, a C-sectionmay be scheduled. Prevention Shoulder dystocia cannot be prevented. Babies who are at risk of shoulder dystocia because of largesize can be evaluated prior to delivery with regular care and ultrasound testing. Women with diabetes or who are very overweight should have the size of their babies estimated. Babies at risk for shoulder dystocia should have a delivery scheduled. Generalized zzcrfjnwi94/06/2014Chest pain03/05/20144725Oyiqjugqumhn00/26/2014 Neurologic cardiac jrxmoyu7310/30/2011 Overview (10/24/2019): Follows with Dr. Rehman Pt reports that her last syncopal episode was in early August 2019 Pt takes no medications daily Exercise-induced hqbvxn5210/30/2011 Overview (10/21/2019): Controlled, no meds Cephalopelvic disproportion due to unusually large fetus Immunizations ImmunizationAdministration DatesNext DueTDaP, ADACEL (age 10y-64y), BOOSTRIX (age 10y+), IM, 0.5mL10/29/2019 Family History Medical HistoryRelationNameCommentsSeizuresMotherRelationNameStatusComments BrotherAliveFatherAliveMotherAlive Social History Tobacco UseTypesPacks/DayYears UsedDateSmoking Tobacco: NeverSmokeless Tobacco: Never Tobacco Cessation:Counseling Given: No Alcohol UseStandard Drinks/WeekCommentsNot Currently0 (1 standard drink = 0.6 oz pure alcohol)PHQ-2AnswerDate RecordedPHQ-2 Olhfs54712/21/2018CommentsNoSex and Gender InformationValueDate RecordedSex Assigned at BirthNot on fileLegal AblSwiqtk25/10/2013 1:44 PM ESTGender IdentityNot on fileSexual OrientationNot on file Last Filed Vital Signs Vital SignReadingTime TakenCommentsBlood Syfssdyw939/7911/03/2019 10:44 AM EST Yyqtk892711/03/2019 10:44 AM VRWImfrindrjuy89.6 ??C (97.9 ??F)10/29/2019 8:00 AM ESTRespiratory Ayap761212/29/2018 8:00 AM ESTOxygen Imkgaikqts74%10/28/2019 4:45 PM ESTInhaled Oxygen Concentration--Wturyh76.6 kg (202 lb)11/03/2019 10:44 AM ZNWQuxyeh003.6 cm (5' 6 )11/03/2019 10:44 AM ESTBody Mass Index32.6101/04/2019 10:44 AM EST Plan of Treatment Not on file Insurance Advance Directives * Full Code (Latest Code Status on File) Date ActivatedDate QyukayzpgvsLsrlfzff26/28/2019 7:14 PM10/29/2019 2:42 PM * Full Code Date ActivatedDate OvkbcqrcvqeUfvfeibj93/27/2019 8:54 AM10/27/2019 6:44 PM Care Teams Team MemberRelationshipSpecialtyStart DateEnd Date Miki Ibrahim MD [address] [place] [address] PCP - GeneralFamily Medicine07/12/19
--- OUTSIDE RECORDS SUMMARY | 2025-09-22 07:40 | XMS_ITS | Clinical Summary ---
Author Organization [facility] Address [address] [place] [address] Care Team Providers Care Hatch Tender Name Role Phone Miki Ibrahim MD Primary Care Provider [phone] Allergies No known active allergies Medications MedicationSigDispense QuantityRefillsLast FilledStart DateEnd DateStatus medroxyPROGESTERone (Provera) 10 MG tablet Indications:Anovulation,PCOS (polycystic ovarian syndrome),Female infertility Take 1 tablet (10 mg) by mouth Daily for 10 days 10 tablet 5Active Active Problems ProblemNoted DateDiagnosed DateAcid hytgog6804/27/20235331Hmhwivjjzhn21/29/2023 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 Shoulder Dystocia Counseling completed: Typically, babies born with shoulder dystocia do not suffer long-term complications. If complications do occur, they are usuallybecause the baby has become stuck too long in the canal. Complications include: For the baby:Lack of oxygen Broken arm or collarbone Arm [...] overweight Mother's pelvic opening being too small toallow the baby's shoulders to fit Narrow Pelvic Opening Risk Factors The following factors increasethe chance of a baby suffering from shoulder dystocia: Mothers who are diabetic Mothers who are significantly overweight Mothers, often small themselves, who may have a small pelvic structure Signs and Symptoms The signs of shoulder dystocia become apparent when the baby's head is delivered. The del skye does not progress because of the baby's shoulders being lodged in the canal behind the pubic bone. Signs also include very large babies who are likely to have problems being delivered vaginally. Diagnosis Shoulder dystocia cannot actually be diagnosed until delivery. It can sometimes bepredicted by determining the weight and size of [...] Babies who are at risk of shoulder dystociabecause of large size can be evaluated prior to delivery with regular care and ultrasound testing. Women with diabetes or who are very overweight should have the size of their babies estimated. Babies at risk for shoulder dystocia should have a delivery scheduled. Supervision of high risk , unspecified, unspecified trimester ([facility]) 10/21/2019 Overview (04/27/2023): Pts mother had hemorrhage and cardiacarrest with delivery of pts brother Pt desires to deliver at [facility] due to family history Late transfer of care from [facility] at 38w2d gestation Chest pain03/05/2014Generalized uqntcxond57/06/0650Pnoulddaktan99/26/2014 Exercise-induced unhksl7010/30/2011 Overview (04/27/2023): Controlled, no meds Neurologic cardiac kafcjsl3110/30/2011 Overview (04/27/2023): Follows with Dr. Rehman Pt reports that her last syncopal episode was in early August 2019 Pt takes no medications daily Encounters DateTypeDepartmentCare XkzzJabxkdnjuol11/16/2025 11:50 AM EDTOffice Visit [facility] [address] [place] [address] Tank Galvez DO Hyperprolactinemia ([facility])09/14/2025Telephone [facility] [address] [place] [address] Marlyn Montes De Oca, MAGO 08/09/2025Telephone [facility] [address] [place] [address] Angelika Alfred, MAGO 08/08/2025Telephone [facility] [address] [place] [address] Angelika Alfred, RETAIL MERCHANDISING SPECIALIST 5Clinisync Result Encounter [facility] External Department Unsolicited Tank Galvez DO 07/28/2025Telephone [facility] [address] [place] [address] Tank Galvez DO 07/10/2025Telephone [facility] [address] [place] [address] Angelika Alfred LPN 5Abstract [facility] [address] [place] [address] Tank Galvez DO 5Clinisync Result Encounter [facility] External Department Unsolicited Tank Galvez DO from Last 3 Months Immunizations ImmunizationAdministration DatesNext DueHep B, Adolescent or Ltzuoujqe06/19/2012 ,1997MMR112/08/1997Meningococcal URE1U2802/18/2011Tdap112/29/2018,02/18/2011 Dofbwlsjz81/26/2012 Family History RelationNameStatusCommentsBrotherAliveFatherAliveMaternal GrandfatherAlive Maternal GrandmotherAliveMotherAlivePaternal GrandfatherDeceasedPaternal GrandmotherAlive Social History Tobacco UseTypesPacks/DayYears UsedDateSmoking Tobacco: FormerCigarettes Smokeless Tobacco: Current Tobacco Cessation:Ready to Q uit: Not Asked; Counseling Given: Not Answered Alcohol UseStandard Drinks/WeekCommentsYes0 (1 standard drink = 0.6 oz pure alcohol)caffeine: 1-2 cups per dayCommentsNoSex and Gender Information ValueDate RecordedSex Assigned at QpfxjBfcoex58/04/2023 1:41 PM ESTLegal Sex Vphgbv5602/11/2023 11:38 PM EDTGender VrvtmgdgOovemo45/04/2023 1:41 PM ESTSexual OrientationNot on file Last Filed Vital Signs Vital SignReadingTime TakenCommentsBlood Rdwacdrk490/8409/14/2025 12:00 PM EDT Pulse--Temperature--Respiratory Rate--Oxygen Saturation--Inhaled Oxygen Concentration--Iqvudf795 kg (247 lb 8 oz)09/14/2025 12:00 PM QVZEolvjs341.6 cm (5' 6 )11/03/2023 1:13 PM ESTBody Mass Index39.9512 1:13 PM EST Plan of Treatment Not on file Procedures Procedure NamePriorityDate/TimeAssociated DiagnosisCommentsALL PROGESTERONE Hgrvuzh3707/29/2025 11:53 AM EDT ALL TCBQTVZJLLAJKrtsbed46/02/2025 12:38 PM EDT from Last 3 Months Results * ALL PROGESTERONE (07/29/2025 11:53 AM EDT) Only the most recent of2 resultswithin the time period is included. ComponentValueRef RangeTest MethodAnalysis TimePerformed AtPathologist Signature TIRYHOTZIVCN86.2. ng/mLTBHComment: ? Follicular phase ? 0.1 - ?? 0.9 ? Luteal phase ? 1.8 - ??23.9 ? Ovulation phase ?0.1 - ??12.0 ?First trimester ?11.0 - ??44.3 ?Second trimester ?? 25.4 - ??83.3 ?Third trimester ?58.7 - 214.0 ? Postmenopausal ? 0.0 - ?? 0.1 Performed at: ??CB - [facility] [address] [facility], [place], [place] [id number] Draw String Knotter: Vivek Talbert PhD, Phone: ??[phone] Specimen (Source)Anatomical Location / LateralityCollection Method / Volume Collection TimeReceived Time07/29/2025 11:53 AM EDT07/29/2025 11:54 AM EDT Narrative [facility] - 07/30/2025 7:07 AM EDT Authorizing ProviderResult TypeResult StatusCorey Leonor DOCLINISYNCFinal Result Performing OrganizationAddressCity/State/ZIP CodePhone Number [facility] from Last 3 Months Insurance Care Teams Team MemberRelationshipSpecialtyStart DateEnd Date Miki Ibrahim MD [address] [place] [address] PCP - GeneralCardiology04/28/23
--- OUTSIDE RECORDS SUMMARY | 2025-09-22 07:41 | XMS_ITS | CCD ---
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 acetaminophen-hydrocodone (acetaminophen-hydrocodone 325 mg-7.5 mg oral tablet) amoxicillin-clavulanate (Augmentin) naproxen (Naprosyn) Procedure History Arthroscopy of [...] Follow Up with Chandana Mcdonnell When: Where: [facility] [address] [address]- [phone] Business (1) Medications What How Much When Instructions Next Dose New acetaminophen-hydrocodone (acetaminophen-hydrocodone 325 mg-7.5 mg oral tablet) 1 Tablets By Mouth Every 6 hours as needed for for pain Duration: 7 Days Pickup at [facility] #[id number] Unchanged acetaminophen (Tylenol) 2,000 mg. By Mouth Every 8 hours as needed for as needed for pain Unchanged amoxicillin-clavulanate (Augmentin) one tab By Mouth Every 12 hours Unchanged naproxen (Naprosyn) 4 Tablets By Mouth Every 6 hours as needed for as needed for pain Pharmacy Information [id number]: [address], [place] [phone] [employer] [place], [place] Chandana Mcdonnell, DO DISCHARGE INSTRUCTIONS: TONSILLECTOMY [...] sooner chewing and swallowing begins, the quicker thepain will subside. Take the pain medication as [...] bleeding occurs, go immediately to the nearest [facility] Room where your doctor will be notified at once. BAD BREATHE: Bad breathe following T&A is common. The whitish patches on the back of you throatare not infection. These are scabs that form in the area where the tonsils were removed. The whitish discoloration is from th (more content not included)...[facility] CenterComment on above:Result Comment: Electronically Signed By: Sonu CARBALLO, Dean Aranda\.br\Date and Time Signed: 04/22/23 09:24 EDTH&P Updateon 04-22-2023H&P Update [id number]:127NoOhioHealth Riverside Methodist HospitalInpatient Patient Summaryon 41-35-3748Bmatanlkm Patient Summary [place] [id number] [facility] Clinical Discharge Instructions PERSON INFORMATION Name: GISELL ALVAREZ PHYSICIANS Admitting Physician: Chandana Mcdonnell DO Attending Physician: Chandana Mcdonnell DO PCP: MIKI KRUGER MD Discharge Diagnosis: Chronic tonsillitis Comment: PATIENT EDUCATION INFORMATION Instructions: Post Op Patient Instructions - FT (CUSTOM); Kecia-Tonsillectomy & Adenoidectomy Adult(CUSTOM) Medication Leaflets: Follow up: With: Address: When: Chandana Mcdonnell [facility] [address], [address] [place] [phone] Business (1) MEDICATION LIST New Medications [id number], [address], [place] [id number], [phone] acetaminophen-hydrocodone (acetaminophen-hydrocodone 325 mg-7.5 mg oral tablet) 1 Tablets By Mouth every 6 hours as needed for pain for 7 Days. Refills: 0. Medications to Continue with No Changes Other Medications acetaminophen (Tylenol) 2,000 mg. By Mouth every 8 hours as needed as needed for pain. amoxicillin-clavulanate (Augmentin) one tab By Mouth every 12 hours. naproxen (Naprosyn) 4 Tablets By Mouth every 6 hours as needed as needed for pain. Comment:[facility] CenterMain OR PACU I Recordon [id number] OR PACU I RecordPACU Phase I Document Type FT Summary Primary Physician: Chandana Mcdonnell DO Finalized Date/Time: 04/22/23 10:08:50 Pt. Name: GISELL ALVAREZ/Sex: 1995 Female Med Rec #: [id number] Physician: Chandana Mcdonnell DO Financial #: [id number] Pt. Type: A Room/Bed: [facility]/ Admit/Disch: 04/22/23 06:26:38 - Institution: [...] I Outcomes Met? Yes Last Modified By: Calrita Bender RN 04/22/23 10:08:34 Post-Care Text: The patient demonstrates knowledge of the expected response to the operative or invasive procedure The patient's care is consistent with the individualized perioperative plan of care The patient's rightto privacy is maintained The patient's value system, [...] with or improved from baseline levels established preoperativelyThe patient's cardiovascular status is consistent with or improved from baseline levels established preoperatively The patient's cardiovascular status is consistent with or improved from baseline levels established preoperatively The patient demonstrates and/or reports adequate pain control throughout the perioperative period The patient received appropriate medication(s), safely administered during the perioperativeperiod Acuity Level PACU I FT Entry 1 Start Time 04/22/23 09:04:00 Stop Time 04/22/23 09:54:00 Acuity Level Acuity Level I Last Modified By: Clarita Bender RN 04/22/23 10:08:46 Finalized By: Clarita Bender RN Document Signatures Signed By: Clarita Bender RN 04/22/23 10:08[facility] CenterMain OR Preoperative Recordon [id number] OR Preoperative RecordPreOp Document Type FT Summary Primary Physician: Chandana Mcdonnell DO Finalized Date/Time: 04/22/23 08:40:46 Pt. Name: GISELL ALVAREZ/Sex: 1995 Female Med Rec #: [id number] Physician: Chandana Mcdonnell DO Financial #: [id number] Pt. Type: A Room/Bed: [facility] Admit/Disch: 05/24/23 06:26:38 - Institution: Case Times PreOp FT [...] Signatures Signed By: Carolyn Anaya RN 04/22/23 08:40NoOhioHealth Riverside Methodist HospitalMonitor Recordon 08-78-1776Jeihphq Record [id number]:127[facility] Medical CenterOperative Reporton 84-22-0869Mdbegdypk ReportPatient: GISELL ALVAREZ Age: 27 years Sex: Female : 1995 Associated Diagnoses: None Author: Chandana Mcdonnell DO Postoperative Information Preoperative Diagnosis: Chronic tonsillitis History of peritonsilar abscess. Postoperative Diagnosis: Same. Procedure: Tonsillectomy. Anesthesia Method: General. Performed by: Chandana Mcdonnell DO. Specimens Removed: Tonsils. Estimated Blood Loss: 75 ml. Complications: None. tonsillectomy Anesthesia type: General.[facility] Medical CenterComment on above: Result Comment: Electronically Signed By: Chandana Mcdonnell DO\.br\Date and Time Signed: 04/22/23 09:04 EDTOutpatient Surgery Discharge Instructionon 53-23-4059Ivujrkqemu Surgery Discharge Instruction [place] [id number] Patient Discharge Instructions PERSON INFORMATION Name: ILIANA ALVAREZMIKE Briggs Date of : 1995 Current Date: 04/22/2023 [...] were given Patient Signature Date Clinican/Nurse Signature Date Follow up: With: Address: When: Chandana Mcdonnell [facility] [address], [address] [place] [phone] Business (1) Pharmacy Information: You may receive a survey from Hayden Jones asking you to rate your care experience. Your feedback is important and will help us understand what we do well and how we can improve the quality of care we provide to you, your loved ones and our community. It?s an honor to serve you. Thank you for choosing [facility] HERE ARE THE MEDICATION CHANGES THAT OCCURRED DURING YOUR HOSPITAL STAY New Medications [id number], [address], [place] [phone], [phone] acetaminophen-hydrocodone (acetaminophen-hydrocodone 325 mg-7.5 mg oral tablet) 1 Tablets By Mouth every 6 hours as needed for pain for 7 Days. Refills: 0. Medications to Continue with No Changes Other Medications acetaminophen (Tylenol) 2,000 mg. By Mouth every 8 hours as needed as needed for pain. amoxicillin-clavulanate (Augmentin) one tab By Mouth every 12 hours. naproxen (Naprosyn) 4 Tablets By Mouth every 6 hours as needed as needed for pain. PATIENT EDUCATION INFORMATION Instructions: [place], [place] Chandana Mcdonnell, DO DISCHARGE INSTRUCTIONS: TONSILLECTOMY [...] sooner chewing and swallowing begins, the quicker thepain will subside. Take the pain medication as [...] hours following their T&A. (more content not included)...Normal [facility] HospitalPatient Education - Texton 15-99-4885Jzbwikz Education - Text [place], [place] Chandana Mcdonnell, DO DISCHARGE INSTRUCTIONS: TONSILLECTOMY [...] sooner chewing and swallowing begins, the quicker thepain will subside. Take the pain medication as [...] bleeding occurs, go immediately to the nearest [facility] Room where your doctor will be notified at once. BAD BREATHE: Bad breathe following T&A is common. The whitish patches on the back of you throatare not infection. These are scabs that form in the area where the tonsils were removed. The whitish discoloration is from them being wet with salvia. These scabs can cause bad breath as they degenerate and eventually fall off. If the bad breath becomes particularly offensive, you may gargle with aweak saltwater solution (1/4 tsp of table salt [...] to call the office at . Reviewed: 01/07[facility] Medical CenterProgress Note-Physicianon 20-51-7410Zoijqbfi Note-PhysicianPatient: GISELL ALVAREZ Age: 27 years Sex: Female : 1995 Associated Diagnoses: None Author: Raghavendra Hunt Jr., DO Postoperative Information Postoperative disposition: Postoperative disposition: Home. Optimetrix number: Optimetrix number [id number]. Anesthetic utilized: General. Physical Examination Vital Signs [...] to Ambulatory Surgery Unit, and To home ).[facility] Comment on above:Result Comment: Electronically Signed By: Raghavendra Hunt Jr., DO\.br\Date and Time Signed: 04/22/23 09:51 EDTProgress Note-PhysicianPatient: GISELL ALVAREZ Age: 27 years Sex: Female [...] hr transdermal film, extended release: 1 patch(es), Patch- ER, TransDermal, Once, Stop date 04/22/23 7:00:00 EDT, [...] All Problems Acid reflux / SNOMED CT 808588422 / Confirmed Heartburn / SNOMED CT 17550471 / Confirmed Hypertrophy tonsils / SNOMED CT 08235041 / Confirmed Hypotension / SNOMED CT 879833063 / Confirmed Smoker / SNOMED CT 721629795 / Confirmed Inactive: Neurocardiogenic syncope / SNOMED CT 3395641049 Histories Past Medical History: No active or resolved past medical history items have been selected or recorded. Procedure history: Arthroscopy of knee (243594635). section (97931979). Social History Social & Psychosocial Habits Alcohol [...] Auto 49.8 % Lymph Auto 38.1 % [place] Auto 9.2 % Eos Auto 2.1 % Basophil Auto 0.8 % Neutro Absolute 3.6 E9/L Lymph Absolute 2.7 E9/L [place] Absolute 0.7 E9/L Eos Absolute 0.1 E9/L Basophil Absolute 0.1 E9/L PT 11.6 second(s) INR 1.0 NA PTT 36.1 second(s) U beta hCG Ql Negative . ECG interpretation: Normal sinus rhythm. Plan [place] [employer]esthesi[employer] (ASA) physical status classification: Class II. Anesthetic Preoperative Plan: Anesthesia General.[facility] Medical CenterComment on above:Result Comment: Electronically Signed By: Raghavendra Hunt Jr., DO\Date and Time Signed: 04/22/23 06:53 EDTAuto Diffon 04-20-2023 Basophils/100 WBC (Bld)0.8 %Normal0.0-2.0[facility] Board[facility] HospitalComment on above:Order Comment: Order Added by Discern Expert.Performed By: #### [id number], 0303756, [id number] ####[address] [address]Aauqracgk/Leukocytes Auto (Bld) [Pure # fraction]0.1 E9/L Normal0.0-0.2FAvita Health System Galion HospitalComment on above:Order Comment: Order Added by Discern Expert.Performed By: #### 6695566, 0840045, [id number] ####[address] [address]Deletclcwkl/100 WBC (Bld)2.1 %Normal0.0-8.0[facility] Board[facility] HospitalComment on above:Order Comment: Order Added by Discern Expert.Performed By: #### [id number], 9555446, [id number] ####[address] [address]Eknvbpianwa/Leukocytes Auto (Bld) [Pure # fraction]0.1 E9/LNormal0.0-0.[address] [facility] Board[facility] HospitalComment on above:Order Comment: Order Added by Discern Expert.Performed By: #### 2850629, 2368941, [id number] ####[address] [address]Inaifyiebdo/100 WBC (Bld)38.1 %Rbqpfc75.0-50.0[facility] Board[facility] HospitalComment on above:Order Comment: Order Added by Discern Expert.Performed By: #### 3019247, 6655902, [id number] ####[address] [address]Htblxvhbrsh/Leukocytes Auto (Bld) [Pure # fraction]2.7 E9/LNormal1.0-4.[address] [facility] Board[facility] HospitalComment on above:Order Comment: Order Added by Discern Expert.Performed By: #### 0689841, 5599525, [id number] ####[address] [address]Liriyzjlj/100 WBC (Bld)9.2 %Normal4.0-14.0[facility] HospitalComment on above:Order Comment: Order Added by Discern Expert.Performed By: #### 1510196, 7271005, [id number] ####[address] [address]Qwuwgyxqi/Leukocytes Auto (Bld) [Pure # fraction]0.7 E9/LNormal0.2-1.[address] [facility] Board[facility] HospitalComment on above:Order Comment: Order Added by Discern Expert.Performed By: #### 5985002, 1429970, 60262189 ####[address] [address]Tperbggdfyy/100 WBC (Bld)49.8 %Cfchpy35.0-75.0[facility] HospitalComment on above:Order Comment: Order Added by Discern Expert.Performed By: #### 2486916, 2400044, [id number] ####[address] [address]Hufgsfnfhhp/Leukocytes Auto (Bld) [Pure # fraction]3.6 E9/LNormal2.0-7.[address] [facility] Board[facility] HospitalComment on above:Order Comment: Order Added by Discern Expert.Performed By: #### 1178851, 1943066, [id number] ####[address] [place] [address]JCE w/ Auto Diffon 62-78-6384Zueabkqphzt distribution width (RBC) [Ratio]14.2 %Bfvxhn11.9-14.[address] [facility] Board[facility] HospitalComment on above:Performed By: #### 8848118, 3678308, 62329322 ####[address] [address]Qtfemrdhbh (Bld) [Volume fraction]42.4 %Dsglmz09.0-46.0[facility] HospitalComment on above:Performed By: #### 9170813, 3675011, 05458866 ####[address] [address]Gvzwkykgqk (Bld) [Mass/Vol]13.7 g/fOFvduit23.0-16.0[facility] HospitalComment on above: Performed By: #### 4979078, 0775280, 77786418 ####[address] [address]MMN (RBC) [Entitic mass]29.0 pgNormal 27.0-34.0[facility] Board[facility] HospitalComment on above:Performed By: #### 0827787, 3866540, 29271578 ####[address] [address]GBGS (RBC) [Mass/Vol]32.3 g/zLQzpoif41.4-36.0[facility] HospitalComment on above:Performed By: #### 1309268, 5651405, 31929099 ####[address] [address]HNR (RBC) [Entitic vol]89.7 qGHeleji66.0-100.0[facility] Board[facility] HospitalComment on above:Performed By: #### 3288717, 1429248, 61411833 ####[address] [address]Jkofssqm mean volume (Bld) [Entitic vol]9.1 fLNormal6.4-10.8[facility] Board[facility] HospitalComment on above: Performed By: #### 6276960, 8690953, 59445013 ####[place] [address] [place], [place] [address]Vpdtncwxa (Bld) [#/Vol]295.0 E9/L Sebawp790.0-500.0[facility] Board[facility] HospitalComment on above:Performed By: #### 6946474, 0079986, 64063366 ####[address] [address]NPD (Bld) [#/Vol]4.7 E12/LNormal4.3-5.9[facility] Board[facility] HospitalComment on above:Performed By: #### 3675363, 6493796, 43515642 ####[address] [address]AXW corrected for nucl RBC Auto (Bld) [#/Vol]7.2 E9/LNormal4.0-11.0[facility] Board[facility] HospitalComment on above:Performed By: #### 9676138, 2234157, 32299027 ####[address] [address] Consent for Procedure/Surgeryon 80-75-3871Dugnkta for Procedure/Surgery [id number]#[id number]:127[facility] Medical CenterConsent for Treatmenton 47-00-8699Kxnwhgr for Treatment [id number]#1.00CD:127NoOhioHealth Riverside Methodist HospitalPT & PTTon 56-54-7448qSKA Coag (PPP) [Time]36.1 second(s)Oqqgfz44.1-36.[address] [facility] Board[facility] HospitalComment on above:Result Comment: Parameter 15 days - 4 weeks 1 - 5 months 6 - 11 months 1 - 5 years 6 - 10 years 11 - 17 years PTT Mean: 35.4 (27.6-45.6) Mean: 33.5 (24.8-40.7) Mean: 32.4 (25.1-40.7) Mean: 31.6 (24.0-39.2) Mean: 31.6 (26.9-38.7) Mean: 31.0 (24.6-38.4) Pediatric Reference ranges were obtained from a study by drew Han prepared from 1437 samples obtained at 7 different centers using the same coagulation reagent and instrumentation as [facility]. Currently there are no coagulation studies available worldwide for children to 14 days, andno normal ranges. Heparin therapeutic range (represented by Anti-Factor Xa activity of 0.2 - 0.4 U/mL) corresponds to PTT of 56.6 - 109.0 sec.Performed By: #### 1817799, 5152534, 25524670 ####Christiano [facility] [address] [place], [place] [address]IOE Coag (PPP) [Relative time]1.0 {INR}Invalid Interpretation CodeFisher [facility] Medical CenterComment on above:Result Comment: INR results are specifically intended to assess patients stabilized on long-term Anticoagulation therapy suggested INR?s ?Less Intensive Anticoagulation? 2.0 ? 3.0 Conventional Range 3.0 ? 4.5Performed By: #### 7726434, 4401110, 60849244 ####Christiano [facility] [address] [place], [place] [address]GW Coag (PPP) [Time]11.6 second(s)Normal9.4-12.5FAvita Health System Galion HospitalComment on above:Result Comment: 15 days - 4 weeks 1 - 5 months 6 -11 months 1-5 years 6-10 years 11 -17 years Mean: 11.2 (9.5-12.6) Mean: 11.0 (9.7-12.8) Mean: 11.0 (9.8-13.0) Mean: 11.3 (9.9-13.4) Mean: 11.7 (10.0-14.6) Mean: 11.8 (10.0 - 14.1) Pediatric Reference ranges were obtained from a study by drew Han prepared from 1437 samples obtained at 7 different centers using the same coagulation reagent and instrumentation as [facility]. Currently there are no coagulation studies available worldwide for children to 14 days, andno normal ranges.Performed By: #### 5395341, 5244748, 95142865 ####Alvarado [facility] [address] [place], [place] [address] BetaHcg Qualon 78-35-9849PHC.beta subunit (U) [Moles/Vol]NegativeFirelands Regional Medical CenterComment on above:Performed By: #### [id number] ####Alvarado [facility] [address] [place], [place] [address]Tmmyw Strepon 03-10-2023S. pyogenes Org specific cx Ql (Throat)nwsamaritan hospitalAppAssure Software Other Popcorn networkypk Mobule Other quick Syndiant 02-18-2023S. pyogenes Org specific cx Ql (Throat)LikeWhere Other TotalHousehold Other us Pelvic, Transvaginalon 93-82-3553BJ Pelvic, TransvaginalHISTORY: Infertility FINDINGS: (Transvaginal imaging was performed.) Uterus [...] and signed by Markie Friedman on 07/08/2022 1609Children's Hospital of ColumbusQustacy Strepon 06-11-2022. pyogenes Org specific cx Ql (Throat)NegativeQuantapore Other TotalHousehold Other CT CSPINE WO CONon 57-00-2079WI CSPINE WO CON EXAMINATION: [facility] WO CON HISTORY: MUSCLE WEAKNESS (GENERALIZED) COMPARISON: [...] Electronically authenticated by: Harmeet NUNEZ Date: 2021-10-29 18:25[facility] auto differentialon 52-61-6531Kdrsuaxyw (Bld) [#/Vol]10*3/[facility] [place], KYBasophils/100 WBC (Bld)0 %0 - 2 %[facility], GADifferential TypeNOT REPORTEDCincinnati Shriners Hospital, KYEosinophils (Bld) [#/Vol]10*3/[facility] [place], KYEosinophils/100 WBC (Bld)0 %Low1 - 4 %[facility], [place] Erythrocyte distribution width (RBC) [Ratio]13.8 %11.8 - 14.4 %[facility], KYHematocrit (Bld) [Volume fraction]29.3 %Low36.3 - 47.1 %[facility], [place] Hemoglobin (Bld) [Mass/Vol]8.9 g/dLLow11.9 - 15.1 g/dLCincinnati Shriners Hospital, [place] Immature granulocytes (Bld) [#/Vol]0.05 10*3/[facility] [place], KYImmature granulocytes (Bld) [#/Vol]0 %0[facility], GAInterpretation and review of laboratory resultsAbnormalCincinnati [facility]ers [facility], KYLymphocytes (Bld) [#/Vol]1.03 10*3/uLLowSt. Charles Hospital- [place], KYLymphocytes/100 WBC (Bld)8 %Low24 - 43 %[facility], GAMCH (RBC) [Entitic mass]26.2 pg25.2 - 33.5 pgCincinnati Shriners Hospital, [place] MCHC (RBC) [Mass/Vol]30.4 g/dL28.4 - 34.8 g/dLCincinnati Shriners Hospital, GAMCV (RBC) [Entitic vol]86.2 fL82.6 - 102.9 fLCincinnati Shriners Hospital, GAMonocytes (Bld) [#/Vol] 0.69 10*3/uLCincinnati Shriners Hospital, KYMonocytes/100 WBC (Bld)6 %3 - 12 %[facility], GAPlatelet mean volume (Bld) [Entitic vol]12.0 fL8.1 - 13.5 fLCincinnati Shriners Hospital, GAPlatelets (Bld) [#/Vol]199 10*3/uLCincinnati Shriners Hospital, GAPlatelets (Bld) [#/Vol]NOT REPORTEDCincinnati Shriners Hospital, GARBC (Bld) [#/Vol]3.40 10*6/uLLow3.95 - 5.11 m/uLCincinnati Shriners Hospital, GARB morphology finding Nom (Bld)NOT REPORTEDCincinnati Shriners Hospital, GASegmented neutrophils/100 WBC (Bld)86 %High36 - 65 %[facility], GASegs Jyrgptxg81.64HighCincinnati Shriners Hospital, GAWBC (Bld) [#/Vol]12.4 10*3/uL HighCincinnati Shriners Hospital, GAWBC (Bld) [#/Vol]0.0 10*3/uL0.0 per 100 WBCCincinnati Shriners Hospital, GAWBC MorphologyNOT REPORTEDCincinnati Shriners Hospital, [facility] with Diffon 10-28-2019 Abs. Basophil<0.81Qtfkzf5.00-0.20[facility] HospitalComment on above:Performed By: #### CDP #### [address] [address] Boilermaker'S Assistant: MDAbs. AutmunImm.Granulocyte0.05 k/uLNormal0.00-0.30[facility] HospitalComment on above:Performed By: #### CDP #### [address] [address] Boilermaker'S Assistant: MDAbs. AutumnNeutrophil (Seg)10.64 k/uLHigh1.50-8.10[facility] HospitalComment on above:Performed By: #### CDP #### [address] [address] Boilermaker'S Assistant: Rico Nicole MDBasophils/100 WBC (Bld)0 %Normal0-2MJohn Muir Concord Medical CenterComment on above:Performed By: #### CDP #### [address] [address] Boilermaker'S Assistant: Rico Nicole MDEosinophils (Bld) [#/Vol]10*3/uLNormal0.00-0.44 [facility] HospitalComment on above:Performed By: #### CDP #### [address] [address] Boilermaker'S Assistant: ILNA Leyvaosinophils/100 WBC (Bld)0 %Low1-4[facility] HospitalComment on above:Performed By: #### CDP #### [address] [address] Boilermaker'S Assistant: Rico Nicole MDErythrocyte distribution width (RBC) [Ratio]13.8 %Fuqhbj75.8-14.4[facility] HospitalComment on above:Performed By: #### CDP #### [address] [address] Boilermaker'S Assistant: Rico Nicole MDHematocrit (Bld) [Volume fraction]29.3 %Low 36.3-47.1MJohn Muir Concord Medical CenterComment on above:Performed By: #### CDP #### [address] [address] Boilermaker'S Assistant: Rico Nicole MDHemoglobin (Bld) [Mass/Vol]8.9 g/dLLow11.9-15.1 [facility] HospitalComment on above:Performed By: #### CDP #### [address] [address] Boilermaker'S Assistant: Rico Nicole MDImmature granulocytes (Bld) [#/Vol]0 %Normal0 [facility] HospitalComment on above:Performed By: #### CDP #### [address] [address] Boilermaker'S Assistant: Rico Nicole MDLymphocytes (Bld) [#/Vol]1.03 10*3/uLLow 1.10-3.70[facility] HospitalComment on above:Performed By: #### CDP #### [address] [address] Boilermaker'S Assistant: Espinoza Leyvamphocytes/100 WBC (Bld)8 %Def31-25RalttSheltering Arms HospitalComment on above:Performed By: #### CDP #### [address] [address] Boilermaker'S Assistant: NATALIYA LeyvaCH (RBC) [Entitic mass]26.2 gwKkzwur85.2-33.5 [facility] HospitalComment on above:Performed By: #### CDP #### [address] [address] Boilermaker'S Assistant: NATALIYA LeyvaCHC (RBC) [Mass/Vol]30.4 g/kLIqyerq98.4-34.8 [facility] HospitalComment on above:Performed By: #### CDP #### [place] [address] Boilermaker'S Assistant: NATALIYA LeyvaCV (RBC) [Entitic vol]86.2 hSTlxyke77.6-102.9 [facility] HospitalComment on above:Performed By: #### CDP #### [place] [address] Boilermaker'S Assistant: NATALIYA Leyvaonocytes (Bld) [#/Vol]0.69 10*3/uLNormal 0.10-1.20[facility] HospitalComment on above:Performed By: #### CDP #### [place] [address] Boilermaker'S Assistant: NATALIYA Leyvaonocytes/100 WBC (Bld)6 %Normal3-12[facility] HospitalComment on above:Performed By: #### CDP #### [place] [address] Boilermaker'S Assistant: Misbah Leyvautrophil (Seg)86 %Iiea65-34FeqysSheltering Arms HospitalComment on above:Performed By: #### CDP #### [place] [address] Boilermaker'S Assistant: Rico Nicole MDNRBC Automated0.0 per 100 WBCNormal0.0S[facility] HospitalComment on above:Performed By: #### CDP #### [place] [address] Boilermaker'S Assistant: CHRISTIANO Leyvalatelet mean volume (Bld) [Entitic vol]12.0 fL Normal8.1-13.5Sheltering Arms HospitalComment on above:Performed By: #### CDP #### [address] [place] [address] Boilermaker'S Assistant: Junior Leyva (Bld) [#/Vol]199 10*3/kCGcneqq916-780 [facility] Arms HospitalComment on above:Performed By: #### CDP #### [facility] [address] [place] [address] Boilermaker'S Assistant: ASAF Leyva (Bld) [#/Vol]3.40 10*6/uLLow3.95-5.11Sheltering Arms HospitalComment on above:Performed By: #### CDP #### [address] [address] Boilermaker'S Assistant: ANTHONY Leyva (Bld) [#/Vol]12.4 10*3/uLHigh3.5-11.3MJohn Muir Concord Medical CenterComment on above:Performed By: #### CDP #### [address] [address] Boilermaker'S Assistant: Torsten Leyva Diff PerformedNOT REPORTEDNormalSheltering Arms HospitalComment on above:Performed By: #### CDP #### [address] [address] Boilermaker'S Assistant: Junior Leyva (Bld) [#/Vol]NOT REPORTEDNormalSheltering Arms HospitalComment on above:Performed By: #### CDP #### [facility] [address] [place] [address] Boilermaker'S Assistant: ASAF Leyva morphology finding Nom (Bld)NOT REPORTED NormalSheltering Arms HospitalComment on above:Performed By: #### CDP #### [facility] [address] [place] [address] Boilermaker'S Assistant: ANTHONY Leyva MorphologyNOT REPORTEDNormalSheltering Arms HospitalComment on above:Performed By: #### CDP #### Built In [address] [place] [id number] Boilermaker'S Assistant: JACKIE Leyvaurgical Pathologyon [id number] Pathology(NOTE) [id number] [employer] CONSULTING PATHOLOGISTS [facility] ANATOMIC PATHOLOGY [address] [place] [phone] SURGICAL PATHOLOGY CONSULTATION Patient Name: GISELL ALVAREZ [facility] Rec: [id number] Path Number: [id number] Collected: 10/27/2019 Received: 10/31/2019 Reported: 11/01/2019 09:33 [...] PLACENTA, CORD AND MEMBRANES Gross Description GISELL ALAVREZ, PLACENTA Placenta with attached membranes and umbilical [...] in villous capillaries: Not increased Other: Few microcalcificationsNormalSheltering Arms HospitalComment on above:Performed By: #### PPPVS #### Built In [address] [place] [address] Boilermaker'S Assistant: Rico Nicole [facility] auto differentialon [id number] (Bld) [#/Vol]0.03 10*3/[facility]- [place], KYBasophils/100 WBC (Bld)0 %0 - 2 % [facility], KYDifferential TypeNOT REPORTEDGreen Cross Hospital [place], KYEosinophils (Bld) [#/Vol]0.04 10*3/[facility]- [place], KYEosinophils/100 WBC (Bld)0 %Low1 - 4 %[facility]- [place], KYErythrocyte distribution width (RBC) [Ratio]13.6 %11.8 - 14.4 %[facility]- [place], KYHematocrit (Bld) [Volume fraction]33.2 %Low36.3 - 47.1 %[facility] [place], KYHemoglobin (Bld) [Mass/Vol]10.3 g/dLLow11.9 - 15.1 g/dLGreen Cross Hospital [place], KYImmature granulocytes (Bld) [#/Vol]1 %Keol7SmwixSt. Charles Hospital- [place], KYImmature granulocytes (Bld) [#/Vol]0.07 10*3/[facility]- [place], [place] Interpretation and review of laboratory resultsAbnormCleveland Clinic [facility]- [place], [place] Lymphocytes (Bld) [#/Vol]2.41 10*3/[facility]- [place], KYLymphocytes/100 WBC (Bld)24 %24 - 43 %[facility]- [place], KYMCH (RBC) [Entitic mass]26.3 pg25.2 - 33.5 pgSt. Charles Hospital- [place], KYMCHC (RBC) [Mass/Vol]31.0 g/dL28.4 - 34.8 g/dLSt. Charles Hospital- [place], KYMCV (RBC) [Entitic vol]84.7 fL82.6 - 102.9 fLSt. Charles Hospital- [place], [place] Monocytes (Bld) [#/Vol]0.76 10*3/uLMercy Health- [place], KYMonocytes/100 WBC (Bld)8 %3 - 12 %[facility], KYPlatelet mean volume (Bld) [Entitic vol]12.5 fL8.1 - 13.5 fLCincinnati Shriners Hospital, KYPlatelets (Bld) [#/Vol]NOT REPORTEDCincinnati [facility] Hospital, KYPlatelets (Bld) [#/Vol]248 10*3/uLCincinnati Shriners Hospital, KYRBC (Bld) [#/Vol] 3.92 10*6/uLLow3.95 - 5.11 m/uLCincinnati Shriners Hospital, GARBC morphology finding Nom (Bld)NOT REPORTEDCinc[facility], GASegmented neutrophils/100 WBC (Bld)67 %High 36 - 65 %[facility], DAVIDSegs Absolute6.63[facility], KYWBC (Bld) [#/Vol]0.0 10*3/uL0.0 per 100 WBCCincinnati Shriners Hospital, KYWBC (Bld) [#/Vol]9.9 10*3/uLCincinnati Shriners Hospital, KYWBC MorphologyNOT REPORTEDCincinnati Shriners Hospital, GACBC with Diffon [id number]. Basophil0.03 k/uLNormal0.00-0.20Sheltering Arms HospitalComment on above:Performed By: #### ADRIAN, TREP #### Built In [address] [place] [address] Boilermaker'S Assistant: Marilee Leyva.Imm.Granulocyte0.07 k/uLNormal0.00-0.30Sheltering Arms HospitalComment on above:Performed By: #### ADRIAN, TREP #### Built In [facility] [place] [address] Boilermaker'S Assistant: Marilee Leyva.Neutrophil (Seg)6.63 k/uLNormal1.50-8.10 Sheltering Arms HospitalComment on above:Performed By: #### ADRIAN, TREP #### Built In [address] [place] [address] Boilermaker'S Assistant: Rico Nicole MDBasophils/100 WBC (Bld)0 %Normal0-2MJohn Muir Concord Medical CenterComment on above:Performed By: #### CDP, TREP #### [address] [address] Boilermaker'S Assistant: Rico Nicole MDEosinophils (Bld) [#/Vol]0.04 10*3/uLNormal 0.00-0.44Sheltering Arms HospitalComment on above:Performed By: #### CDP, TREP #### [address] [address] Boilermaker'S Assistant: Rico Nicole MDEosinophils/100 WBC (Bld)0 %Low1-4Sheltering Arms HospitalComment on above:Performed By: #### ADRIAN, TREP #### [place] [address] Boilermaker'S Assistant: Rico Nicole MDErythrocyte distribution width (RBC) [Ratio]13.6 %Ofoaet66.8-14.4Sheltering Arms HospitalComment on above:Performed By: #### ADRIAN, TREP #### [address] [address] Boilermaker'S Assistant: Rico Nicole MDHematocrit (Bld) [Volume fraction]33.2 %Low 36.3-47.1MJohn Muir Concord Medical CenterComment on above:Performed By: #### ADRIAN, TREP #### [place] [address] Boilermaker'S Assistant: Rico Nicole MDHemoglobin (Bld) [Mass/Vol]10.3 g/dLLow11.9-15.1 [facility] Arms HospitalComment on above:Performed By: #### CDP, TREP #### [place] [address] Boilermaker'S Assistant: Rico Nicole MDImmature granulocytes (Bld) [#/Vol]1 %Fqqr0ZfwerSheltering Arms HospitalComment on above:Performed By: #### ADRIAN, TREP #### [address] [address] Boilermaker'S Assistant: Rico Nicole MDLymphocytes (Bld) [#/Vol]2.41 10*3/uLNormal 1.10-3.70Shel[facility] Arms HospitalComment on above:Performed By: #### ADRIAN, TREP #### [address] [address] Boilermaker'S Assistant: Espinoza Leyvamphocytes/100 WBC (Bld)24 %Nouteo40-44NjglaSheltering Arms HospitalComment on above:Performed By: #### ADRIAN, TREP #### [address] [address] Boilermaker'S Assistant: NATALIYA LeyvaCH (RBC) [Entitic mass]26.3 fvYqgjrh27.2-33.5 [facility] HospitalComment on above:Performed By: #### ADRIAN, TREP #### [address] [address] Boilermaker'S Assistant: NATALIYA LeyvaCHC (RBC) [Mass/Vol]31.0 g/jNTvzkbj41.4-34.8 [facility] HospitalComment on above:Performed By: #### ADRIAN, TREP #### [address] [address] Boilermaker'S Assistant: NATALIYA LeyvaCV (RBC) [Entitic vol]84.7 hZUinuny72.6-102.9 [facility] HospitalComment on above:Performed By: #### CDP, TREP #### [address] [address] Boilermaker'S Assistant: Rico Nicole MDMonocytes (Bld) [#/Vol]0.76 10*3/uLNormal 0.10-1.20Shel[facility] Arms HospitalComment on above:Performed By: #### ADRIAN, TREP #### [address] [address] Boilermaker'S Assistant: NATALIYA Leyvaonocytes/100 WBC (Bld)8 %Normal3-12Sheltering Arms HospitalComment on above:Performed By: #### CDP, TREP #### [address] [address] Boilermaker'S Assistant: Adam Leyvaophil (Seg)67 %Miox54-68KctygSheltering Arms HospitalComment on above:Performed By: #### ADRIAN, TREP #### [address] [address] Boilermaker'S Assistant: Rico Nicole MDNRROGERS Automated0.0 per 100 WBCNormal0.0Sheltering Arms HospitalComment on above:Performed By: #### ADRIAN, TREP #### [address] [address] Boilermaker'S Assistant: CHRISTIANO Leyvalatelet mean volume (Bld) [Entitic vol]12.5 fL Normal8.1-13.5Sheltering Arms HospitalComment on above:Performed By: #### ADRIAN, TREP #### [address] [address] Boilermaker'S Assistant: Rico Nicole MDPlatelets (Bld) [#/Vol]248 10*3/uXPdiflz257-688 [facility] HospitalComment on above:Performed By: #### ADRIAN, TREP #### [address] [address] Boilermaker'S Assistant: Rico Nicole MDRBC (Bld) [#/Vol]3.92 10*6/uLLow3.95-5.11[facility] Foundation HospitalComment on above:Performed By: #### CDP, TREP #### [facility] [address] [place] [address] Boilermaker'S Assistant: ANTHONY Leyva (Bld) [#/Vol]9.9 10*3/uLNormal3.5-11.3[facility] HospitalComment on above:Performed By: #### CDP, TREP #### [facility] [address] [place] [address] Boilermaker'S Assistant: Torsten Leyva Diff PerformedNOT REPORTEDNormalSheltering Arms HospitalComment on above:Performed By: #### CDP, TREP #### [facility] [address] [place] [address] Boilermaker'S Assistant: Gautam Leyvalets (Bld) [#/Vol]NOT REPORTEDNormalMerKaiser Foundation HospitalComment on above:Performed By: #### CDP, TREP #### [facility] [address] [place] [address] Boilermaker'S Assistant: ASAF eLyva morphology finding Nom (Bld)NOT REPORTED NormalSheltering Arms HospitalComment on above:Performed By: #### CDP, TREP #### [facility] [address] [place] [address] Boilermaker'S Assistant: ANTHONY Leyva MorphologyNOT REPORTEDrmalSheltering Arms HospitalComment on above:Performed By: #### CDP, TREP #### [facility] [address] [place] [address] Boilermaker'S Assistant: Vijay Leyva Scr, Abuse, Uron 10-26-2019 Amphetamine(s),UrNegativeNormalNEGSheltering Arms HospitalComment on above:Result Comment: (Positive cutoff 1000 ng/mL)Performed By: #### LEONCIO #### [address] [address] Boilermaker'S Assistant: Rico Nicole MDBarbiturate(s),UrNegativeNormalNEGSheltering Arms HospitalComment on above:Result Comment: (Positive cutoff 200 ng/mL)Performed By: #### LEONCIO #### [address] [address] Boilermaker'S Assistant: Rico Nicole MDBase excess Calc (Bld) [Moles/Vol]NegativeNormal NEGSheltering Arms HospitalComment on above:Result Comment: (Positive cutoff 300 ng/mL)Performed By: #### LEONCIO #### [address] [address] Boilermaker'S Assistant: Rico Nicole MDBenzodiazepine(s)NegativeNormalNEGSheltering Arms HospitalComment on above:Result Comment: (Positive cutoff 200 ng/mL)Performed By: #### LEONCIO #### [address] [address] Boilermaker'S Assistant: CLARA Leyvaannabinoid(s),UrNegativeChildren'S Mercy NorthlandalNEGSheltering Arms HospitalComment on above:Result Comment: (Positive cutoff 50 ng/mL)Performed By: #### LEONCIO #### [address] [address] Boilermaker'S Assistant: Rico Nicole MDInterpretive InfoAssay provides medical screening only. The absence of expected drug(s) and/orNormalMercy Kaiser Foundation HospitalComment on above:Result Comment: metabolite(s) may indicate diluted or adulterated urine, limitations of testing or timing of collection. Testing for legal purposes should be confirmed by another method. To request confirmation of test result, please call the lab within 7 days of sample submission.Performed By: #### LEONCIO #### [facility] [address] [place] [address] Boilermaker'S Assistant: NATALIYA Leyvaethadone Ql (U)NegativeNormalNEGMercy Kaiser Foundation HospitalComment on above:Result Comment: (Positive cutoff 300 ng/mL)Performed By: #### LEONCIO #### [address] [address] Boilermaker'S Assistant: Rico Nicole MDOpiate(s), UrNegativeNormalNEGMercy Kaiser Foundation HospitalComment on above:Result Comment: (Positive cutoff 300 ng/mL)Performed By: #### LEONCIO #### [address] [address] Boilermaker'S Assistant: Rico Nicole MDOxycodone, UrineNegativeNormalNEGSheltering Arms HospitalComment on above:Result Comment: (Positive cutoff 100 ng/mL)Performed By: #### LEONCIO #### [address] [address] Boilermaker'S Assistant: CHRISTIANO Leyvahencyclidine, UrNegativeNormalNEGMerKaiser Foundation HospitalComment on above:Result Comment: (Positive cutoff 25 ng/mL)Performed By: #### LEONCIO #### [address] [address] Boilermaker'S Assistant: Rico Nicole MDBuprenorphrine, UrNOT REPORTEDNormalNEGMercy Kaiser Foundation HospitalComment on above:Performed By: #### LEONCIO #### [address] [address] Boilermaker'S Assistant: NATALIYA LeyvaDMA, UrineNOT REPORTEDNormalNEGMercy Kaiser Foundation HospitalComment on above:Performed By: #### LEONCIO #### [address] [address] Boilermaker'S Assistant: NATALIYA Leyvaethamphetamine, UrNOT REPORTEDNormalNEGMercy Kaiser Foundation HospitalComment on above:Performed By: #### LEONCIO #### [facility] [address] [place] [address] Boilermaker'S Assistant: CHRISTIANO Leyvaropoxyphene,UrineNOT REPORTEDNormalNEGSheltering Arms HospitalComment on above:Performed By: #### LEONCIO #### [facility] [address] [place] [address] Boilermaker'S Assistant: Rico Nicole MDTricyclic antidepressants Screen Ql (U)NOT REPORTEDNormalNEGSheltering Arms HospitalComment on above:Performed By: #### LEONCIO #### [facility] [address] [place] [address] Boilermaker'S Assistant: Rico Nicole MDT. pallidum Abon 10-26-2019T. pallidum, IgG NONREACTIVENONRESumma Health Akron Campus, KYComment on above: T. pallidum antibodies are not detected. There is no serological evidence of infection with T. pallidum (early primary syphilis cannot be excluded). Retest in 2-4 weeks if syphilis is clinically suspect. T.pallidum Ab Screenon 10-26-2019T.pallidum Ab ScreenNONREACTIVEOhioHealth O'Bleness HospitalComment on above:Result Comment: T. pallidum antibodies are not detected. There is no serological evidence of infection with T. pallidum (early primary syphilis cannot be excluded). Retest in 2-4 weeks if syphilis is clinically suspect.Performed By: #### CDP, TREP #### [facility] [place] [address] Boilermaker'S Assistant: Rico Nicole MDTYPE AND SCREENon [id number]/RhPositiveC[facility], KYArm Band NumberBE [id number] Shriners Hospital, KYExpiration Date 10/29/2019,2359[facility], KYType + Screenon [id number] + ScreenSample Expiration 10/29/2019,2359 Arm Band Number BE [id number] ABO/Rh(D) O POSITIVE Antibody Screen NEGATIVEGlenbeigh HospitalComment on above: Performed By: #### TYS #### Built In [address] [place] [id number] Boilermaker'S Assistant: Tanner Leyva Drug Screenon [id number] Screen, UrNegativeNEGATIVEMercy Health- [place], KYComment on above: (Positive cutoff 1000 ng/mL) Barbiturate Screen, UrNegativeNEGATIVEMercy Health- [place], KYComment on above: (Positive cutoff 200 ng/mL) Benzodiazepine Screen, UrineNegativeNEGATIVEMercy Health- [place], KYComment on above: (Positive cutoff 200 ng/mL) Buprenorphine UrineNOT REPORTEDNEGATIVEMercy Health- [place], KYCannabinoid Scrn, Ur NegativeNEGATIVEMercy Health- [place], KYComment on above: (Positive cutoff 50 ng/mL) Cocaine Metabolite, UrineNegativeNEGATIVEMercy Health- [place], KYComment on above: (Positive cutoff 300 ng/mL) MDMA, UrineNOT REPORTEDNEGATIVEMercy Health- [place], KYMethadone Screen, Urine NegativeNEGATIVEMercy Health- [place], KYComment on above: (Positive cutoff 300 ng/mL) Methamphetamine, UrineNOT REPORTEDNEGATIVEMercy Health- [place], KYOpiates, Urine NegativeNEGATIVEMercy Health- [place], KYComment on above: (Positive cutoff 300 ng/mL) Oxycodone Screen, UrNegativeNEGATIVEMercy Health- [place], KYComment on above: (Positive cutoff 100 ng/mL) Phencyclidine, UrineNegativeNEGATIVEMercy Health- [place], KYComment on above: (Positive cutoff 25 ng/mL) Propoxyphene, UrineNOT REPORTEDNEGATIVEMercy Health- [place], KYTest InformationAssay provides medical screening only. The absence of expected drug(s) and/or metabolite(s) may indicate diluted or adulterated urine, limitations of testing or timing of collection.[facility]- [place], KYComment on above:Testing for legal purposes should be confirmed by another method. To request confirmation of test result, please call the lab within 7 days of sample submission. Tricyclic Antidepressants, UrineNOT REPORTEDNEGATIVEMercy Health- [place], KYMaternal Serum Scr 4on [id number] byUltrasoundNormMercy Health – The Jewish HospitalComment on above:Performed By: #### AQUADM #### [facility] [address] [place] [address] Boilermaker'S Assistant: Rico Nicole MD [facility] [address] [place] [address] Boilermaker'S Assistant: Rand Soriano Inhibin A393 pg/mLNVeterans Health AdministrationComment on above:Performed By: #### AQUADM #### [facility] [address] [place] [address] Boilermaker'S Assistant: Rico Nicole MD [facility] [address] [place] [phone] Boilermaker'S Assistant: Antonio Soriano NOTEGlenbeigh HospitalComment on above:Result Comment: Results for Estimated Due Date: 11 02 19Performed By: #### AQUADM #### [address] [address] Boilermaker'S Assistant: Rico Nicole MD [facility] [address] [place] [phone] Boilermaker'S Assistant: Juan Alberto Soriano HistoryMercer County Community HospitalComment on above:Performed By: #### AQUADM #### [facility] [address] [address] Boilermaker'S Assistant: Rico Nicole MD [facility] [address] [place] [address] Boilermaker'S Assistant: Aryan Morris MDGestat Age (exact)23 wks, 6 daysGlenbeigh HospitalComment on above:Performed By: #### AQUADM #### [facility] [address] [place] [address] Boilermaker'S Assistant: Rico Nicole MD [facility] [address] [place] [address] Boilermaker'S Assistant: Aryan Morris MDHarmeet [id number] IU/LNVeterans Health AdministrationComment on above:Performed By: #### AQUADM #### [facility] [address] [place] [address] Boilermaker'S Assistant: Rico Nicole MD [address] [address] Boilermaker'S Assistant: Aryan Morris MDHx AneuploidyUnknowThe University of Toledo Medical CenterComment on above:Performed By: #### AQUADM #### [facility] [address] [address] Boilermaker'S Assistant: Rico Nicole MD [address] [address] Boilermaker'S Assistant: Aryan Morris MDIns Req Matern DiabMercer County Community HospitalComment on above:Performed By: #### AQUADM #### [address] [address] Boilermaker'S Assistant: Rico Nicole MD [address] [address] Boilermaker'S Assistant: Aryan Morris MDInterpretationScreen NegGlenbeigh HospitalComment on above:Result Comment: (NOTE) INTERPRETATION: SCREEN NEGATIVE Neural Tube Defects (NTD) Negative Down syndrome (DS) Negative Trisomy 18 (T18) Negative Pre-Test Post-Test Cutoff Neural Tube Defects Risks 1:1030 < 1:34214 1:250 Down Syndrome Risks 1:1110 1:604 1:150 Trisomy 18 Risks 1:4330 < 1:50036 1:100 Comments: The risk of an open neural tube defect is less than the screening cut-off. The risk of Down syndrome is less than the screening cut-off. The risk of trisomy 18 is less than the screening cut-off. Test developed and characteristics determined by [employer]. See Compliance Statement B: [employer].com/CSPerformed By: #### AQUADM #### [facility] [address] [address] Boilermaker'S Assistant: Rico Nicole MD [address] [address] Boilermaker'S Assistant: Jase Soriano Scr Enhanced RptSee NoteGlenbeigh HospitalComment on above:Result Comment: (NOTE) Access [facility] Enhanced Report using either link below: -Direct access: [email or web address] -Enter Username, Password: [email or web address] Username: [email or web address] Password: [email or web address] Performed by [address] [id number] [email or web address], Aryan Morris MD, Lab. DirectorPerformed By: #### AQUADM #### [address] [address] Boilermaker'S Assistant: Rico Nicole MD [address] [phone] Boilermaker'S Assistant: Charles Soriano Age at Del[age] yrGlenbeigh HospitalComment on above:Performed By: #### AQUADM #### [address] [address] Boilermaker'S Assistant: Rico Nicole MD [address] [phone] Boilermaker'S Assistant: Kenneth Sorianoternal RaceNonblackGlenbeigh HospitalComment on above:Performed By: #### AQUADM #### [address] [address] Boilermaker'S Assistant: Rico Nicole MD [address] [phone] Boilermaker'S Assistant: NATALIYA SorianooM Dimeric Inhib A1.53Glenbeigh HospitalComment on above:Performed By: #### AQUADM #### [facility] [address] [address] Boilermaker'S Assistant: Rico Nicole MD [address] [address] Boilermaker'S Assistant: Sd Soriano for AFP0.70Glenbeigh HospitalComment on above:Performed By: #### AQUADM #### [address] [address] Boilermaker'S Assistant: Rico Nicole MD [address] [address] Boilermaker'S Assistant: Sd Soriano for HCG, Tri 21.97Glenbeigh HospitalComment on above:Performed By: #### AQUADM #### [address] [address] Boilermaker'S Assistant: Rico Nicole MD [address] [address] Boilermaker'S Assistant: Sd Soriano for uE31.03Glenbeigh HospitalComment on above:Performed By: #### AQUADM #### [address] [address] Boilermaker'S Assistant: Rico Nicole MD [address] [address] Boilermaker'S Assistant: HAYDEE Sorianoumber of FetusesSingletonNoMcKitrick HospitalComment on above:Performed By: #### AQUADM #### [facility] [address] [address] Boilermaker'S Assistant: Rico Nicole MD [address] [address] Boilermaker'S Assistant: Joelle Soriano's AFP63 ng/mLNormalSheltering Arms HospitalComment on above:Performed By: #### AQUADM #### [address] [address] Boilermaker'S Assistant: Rico Nicole MD [facility] [address] [place] [address] Boilermaker'S Assistant: Robbie Soriano uE33.28 ng/mLNVeterans Health AdministrationComment on above:Performed By: #### AQUADM #### [address] [address] Boilermaker'S Assistant: Rico Nicole MD [facility] [address] [place] [phone] Boilermaker'S Assistant: Rosie SorianoUniversity Hospitals Health SystemComment on above:Performed By: #### AQUADM #### [address] [address] Boilermaker'S Assistant: Rico Nicole MD [address] [address] Boilermaker'S Assistant: JACKIE Sorianosaint cabrini hospitalRichardUniversity Hospitals TriPoint Medical CenterComment on above:Result Comment: Initial samplePerformed By: #### AQUADM #### [address] [address] Boilermaker'S Assistant: Rico Nicole MD [facility] [address] [place] [phone] Boilermaker'S Assistant: Kenneth Sorianosan dim[facility] community hospital Serum Scr 4on [id number] Hamilton HospitalComment on above:Performed By: #### AQUADM #### [address] [address] Boilermaker'S Assistant: Rico Nicole MD [facility] [address] [place] [address] Boilermaker'S Assistant: ALYSIA SorianoCherrington Hospital Comment on above:Performed By: #### AQUADM #### [facility] [address] [place] [address] Boilermaker'S Assistant: Rico Nicole MD [facility] [address] [place], [place] [phone] Boilermaker'S Assistant: Aryan Morris MDEstimated Due Date11/02/2019Glenbeigh HospitalComment on above:Performed By: #### AQUADM #### [facility] [address] [place] [address] Boilermaker'S Assistant: Rico Nicole MD [facility] [address] [place] [address] Boilermaker'S Assistant: Candy SorianoClermont County HospitalComment on above:Performed By: #### AQUADM #### [facility] [address] [place] [address] Boilermaker'S Assistant: Rico Nicole MD [facility] Laboratories [address] [place] [address] [id number] Boilermaker'S Assistant: Kenneth Sorianoternal date1997Glenbeigh HospitalComment on above:Performed By: #### AQUADM #### [facility] [address] [place] [address] Boilermaker'S Assistant: Rico Nicole MD [facility] [address] [place], [place] [id number] Boilermaker'S Assistant: Rosy Soriano (Maternal)CAUCASIANGlenbeigh HospitalComment on above:Performed By: #### AQUADM #### [facility] [address] [place] [address] Boilermaker'S Assistant: Rico Nicole MD [facility] [address] [place] [address] Boilermaker'S Assistant: Shukri Sorianot [facility] Specialty HospitalComment on above:Performed By: #### AQUADM #### [facility] [address] [place] [address] Boilermaker'S Assistant: Rico Nicole MD [address] [address] Boilermaker'S Assistant: CLARA Sorianourrent SmokingNOT REPORTEDNormalSheltering Arms HospitalComment on above:Performed By: #### AQUADM #### [facility] [address] [place] [address] Boilermaker'S Assistant: Rico Nicole MD [address] [address] Boilermaker'S Assistant: Diego Soriano Vitro FertalizatNOT REPORTEDrmalSheltering Arms HospitalComment on above:Performed By: #### AQUADM #### [address] [address] Boilermaker'S Assistant: Rico Nicole MD [address] [address] Boilermaker'S Assistant: Aryan Morris MDLMP dateNOT REPORTEDNormalSheltering Arms HospitalComment on above:Performed By: #### AQUADM #### [address] [address] Boilermaker'S Assistant: Rico Nicole MD [address] [address] Boilermaker'S Assistant: Ángel Sorianonic TwinsNOT REPORTEDNormalMerKaiser Foundation HospitalComment on above:Performed By: #### AQUADM #### [facility] [address] [place] [address] Boilermaker'S Assistant: Rico Nicole MD [address] [address] Boilermaker'S Assistant: Jarrett Soriano Trisomy PregNOT REPORTEDNormalMerKaiser Foundation HospitalComment on above:Performed By: #### AQUADM #### [facility] [address] [place] [address] Boilermaker'S Assistant: Rico Nicole MD [facility] [address] [place] [address] Boilermaker'S Assistant: Aryan Morris MDValproic/CarbamazepNOT REPORTEDNormalMercy Kaiser Foundation HospitalComment on above:Performed By: #### AQUADM #### [facility] [address] [place] [address] Boilermaker'S Assistant: Rico Nicole MD [facility] [address] [place] [address] Boilermaker'S Assistant: CLARA Sorianohlamydia/GC/Trich NAAon 41-23-7107Yqbcxvybo Trachomotis, NAANegativeNormalNegativeSycamore Medical CenterComment on above:Order Comment: [facility] SPECIMEN SOURCE/DESCRIPTION URINEPerformed By: #### GCCHLAMTRI #### [facility] , #### CUU #### [facility] [address] [place] [address] USANeisseria Gonorrhoeae, NAANegativeNormalNegMarymount HospitalComment on above:Order Comment: [facility] SPECIMEN SOURCE/DESCRIPTION URINEPerformed By: #### GCCHLAMTRI #### [facility] , #### CUU #### [facility] [address] [place] [address] USATrichomonas NAANegativeNormalNegMarymount HospitalComment on above:Order Comment: [facility] SPECIMEN SOURCE/DESCRIPTION URINEResult Comment: Performed at: = - [facility] [id number] Boilermaker'S Assistant: Emilia Hankins MD, Phone: [phone] PERFORMED BY: [place] [address] PATHOLOGIST FLATWORK ASSEMBLER JONI FLEMING M.D.Performed By: #### GCCHLAMTRI #### [facility] , #### CUU #### [facility] [address] StreetUrine Cultureon 22-56-9576Wwykypbv identified Cx Nom (U) [facility] 30,000 colonies/ml mixed bacterial skin contaminants 2 Days PERFORMED BY: [facility] [address] [place] [address] PATHOLOGIST FLATWORK ASSEMBLER JONI FLEMING M.D.[facility] HospitalComment on above: Performed By: #### GCCHLAMTRI #### [facility] , #### CUU #### [facility] [address] Vital Signs Date TimeVital SignValuePerforming RevlhlucbMfwrmuxy22-01-4000 12:00-0400Body mass index (BMI) [Ratio]39.95 kg/j3Ljszk Leonor DO Work Phone: [phone] [place], [place] [address]Hlrldwfsix60-96-2700 12:00-0400Body skoeqf863.27 kgCorey Leonor DO Work Phone: [phone] [place] [address]-16-2025 12:00-0400Diastolic blood upcxqewt84 mm[Hg]Tank Leonor DO Work Phone: [phone] [place], [place] [address]Piucrlokwo10-11-7651 12:00-0400Systolic blood hnlqlpej631 mm[Hg]Tank Leonor DO Work Phone: [phone] [place], [place] [address]Wzuodtcvyk74-41-6050 10:19-0400Body mass index (BMI) [Ratio]40.9 kg/f1Kzghe Leonor DO Work Phone: [phone] [place], [place] [address]Luukazcejv91-48-7758 10:19-0400Body ykgptk404.94 kgCorey Leonor DO Work Phone: [phone] [place], [place] [address]Kuiyzrszxh97-94-2561 10:19-0400Diastolic blood aoljoigi97 mm[Hg]Tank Leonor DO Work Phone: [phone]-[facility] Health CenterTpvakgwpzu60-20-7591 10:19-0400Systolic blood qgcvodcf575 mm[Hg]Tank Leonor DO Work Phone: noBerkshire FilmsVgsfrfqofr83-13-5311 10:03-0500Body mass index (BMI) [Ratio]40.42 kg/r7Lpckf Leonor DO Work Phone: noNE Qojepuruas68-38-6812 10:03-0500Body ylwhex913.58 kgCorey Leonor DO Work Phone: noNE Bojghapepz50-80-8046 10:03-0500Diastolic blood exgxbfiw30 mm[Hg]Tank Leonor DO Work Phone: noBerkshire FilmsLryvpawyay01-37-9908 10:03-0500Systolic blood pyjskflb857 mm[Hg]Tank Leonor DO Work Phone: noBerkshire FilmsPpnlorshqy08-35-1108 16:55-0500Body ddiget155.18 cmPameloz Garcia Other [employer] Other 01-17-2024 16:55-0500Body mass index (BMI) [Ratio] 38.49 kg/s8YewssrAline Garcia Other [employer] Other 01-17-2024 16:55-0500Body tpffonmeaio273.4 [degF] Aline Garcia Other [employer] Other 01-17-2024 16:55-0500Body afbwbh643.49 kgFannyoz Radha Other [employer] Other 01-17-2024 16:55-0500Diastolic blood tugkpavs01 mm[Hg] Aline Garcia Other [employer] Other 01-17-2024 16:55-0500Respiratory rate18 /minAline Garcia Other [employer] Other 01-17-2024 16:55-4907AlN7% (BldA) [Mass fraction]98 % Aline Garcia Other [employer] Other 01-17-2024 16:55-0500Systolic blood nqqncrgo144 mm[Hg] Aline Radha Other [employer] Other 04-11-2023 16:50-0400Body hxwurj736.18 cmAsneha Carrasquillo Other [employer] Other 04-11-2023 16:50-0400Body mass index (BMI) [Ratio] 36.02 kg/o4NhvdbKarol Carrasquillo Other [employer] Other 04-11-2023 16:50-0400Body tilcdfbwuij41.5 [degF]Karol Carrasquillo Other [employer] Other 04-11-2023 16:50-0400Body ggphny392.33 kgKarol Carrasquillo Other [employer] Other 04-11-2023 16:50-0400Respiratory rate18 /minKarol Carrasquillo Other [employer] Other 04-11-2023 16:50-0227ZhL3% (BldA) [Mass fraction]98 % Karol Carrasquillo Other [employer] Other 03-22-2023 10:30-0400Body xyuhyi415.18 Blu Garcia Other [employer] Other 03-22-2023 10:30-0400Body mass index (BMI) [Ratio] 37.43 kg/w8Ndhuta Radha Other [employer] Other 03-22-2023 10:30-0400Body edjxltmbhjx26.1 [degF]Alien Radha Other [employer] Other 03-22-2023 10:30-0400Body vmxmys169.41 kgPamela Radha Other [employer] Other 03-22-2023 10:30-0400Respiratory rate18 /minPamela Radha Other [employer] Other 03-22-2023 10:30-9828MeP7% (BldA) [Mass fraction]100 % Aline Radha Other [employer] Other 07-13-2022 16:15-0400Body aetftz076.18 cmPamela Radha Other [employer] Other 07-13-2022 16:15-0400Body mass index (BMI) [Ratio] 34.45 kg/k6Vwmzxq Radha Other [employer] Other 07-13-2022 16:15-0400Body thkbjpecfqg60.9 [degF]Aline Radha Other [employer] Other 07-13-2022 16:15-0400Body hvdmyf02.79 kgPamela Radha Other [employer] Other 07-13-2022 16:15-0400Respiratory rate18 /minPamela Radha Other [employer] Other 07-13-2022 16:15-6026ShV7% (BldA) [Mass fraction]98 % Aline Garcia Other [employer] Other 05-06-2022 13:15-0400Body robhtm914.18 cmThomas Ravinder Other [employer] Other 05-06-2022 13:15-0400Body mass index (BMI) [Ratio] 34.45 kg/o0Gvwmqx Ravinder Other [employer] Other 05-06-2022 13:15-0400Body wgzoubroiku72.2 [degF]Slim Ravinder Other [employer] Other 05-06-2022 13:15-0400Body ltbxau14.79 kgThomas Ravinder Other [employer] Other 05-06-2022 13:15-0400Respiratory rate18 /minThomas Ravinder Other [employer] Other 05-06-2022 13:15-4277AwC1% (BldA) [Mass fraction]98 % Slim Ravinder Other [employer] Other 11-30-2019 08:00-0500Body Friziernybg64.9 [degF] PennieBilbusUNIVERSITY HOSPITAL, XF51-45-5508 08:00-0500BP Owbcdbmky85 mm[Hg] [facility] HospitalHYLA MobileMercy Health St. Anne HospitalCubeit.fmUNIVERSITY HOSPITAL, KW72-84-4381 08:00-0500BP Vqbsuozu611 mm[Hg] PennieSoftware TechnologyMercy Health St. Anne HospitalCubeit.fmUNIVERSITY HOSPITAL, GQ04-72-7981 08:00-0500Pulse (Heart Rate)86 /min [facility], JO67-64-5632 08:00-0500Respiratory Rate16 /min [facility], FF03-97-5951 16:45-0500Pulse Dkgzktyc94 %[facility], NO34-03-4047 10:00-0500BMI (Body Mass Index)35.51 kg/m2 [facility], DG07-30-0808 10:00-0500Body vhvpuu40.79 kgBarnesville Hospital, IB92-03-8942 10:00-0915Xeydtw427.6 cmBarnesville Hospital, CK47-87-6413 18:01-0400Body uddoww918.0 lbs.The Jewish HospitalComment on above:Performed By: #### AQUADM #### [facility] [address] [address] Boilermaker'S Assistant: Rico Nicole MD [address] [address] Boilermaker'S Assistant: Aryan Morris MD08-13-2019 17:34-0400Body cdnwtx679JMESAVOOhioHealth Nelsonville Health CenterComment on above:Performed By: #### AQUADM #### [facility] [address] [place] [address] Boilermaker'S Assistant: Rico Nicole MD [facility] [address] [place] [address] Boilermaker'S Assistant: Aryan Morris MD08-13-2019 17:34-0400Body weightLBSOhioHealth Nelsonville Health CenterComment on above:Performed By: #### AQUADM #### [facility] [address] [place] [address] Boilermaker'S Assistant: Rico Nicole MD [facility] [address] [place] [address] Boilermaker'S Assistant: Aryan Morris MD Encounters Encounter DateEncounter TypeCare ProviderFacilityStart: 09-14-2025 End: 92-37-5314Vpxqpm outpatient visit 15 minutesCorey Leonor DO Work Phone: [facility] [place] OBGYNComment on above:Hyperprolactinemia (HCC)Start: 09-14-2025 End: 40-90-0503ajkdzrjbkaDZMEW FAZIONot AvailableStart: 07-29-2025 End: 29-73-4586Snsofjsbl Result EncounterCorey Leonor DO Work Phone: NOWK External Department UnsolicitedStart: 07-29-2025 End: 92-53-9815Cupwmiomm Result EncounterCorey Leonor DO Work Phone: NONN External Department UnsolicitedStart: 07-01-2025 End: 16-90-6692Shzzuuuqn Result EncounterCorey Leonor DO Work Phone: NOSB External Department UnsolicitedStart: 07-01-2025 End: 27-72-2630Aldtdzgij Result EncounterCorey Leonor DO Work Phone: noms External Department UnsolicitedStart: 05-06-2025 End: 23-31-9039Pypmefknd Result EncounterCorey Leonor DO Work Phone: NOVA External Department UnsolicitedStart: 05-06-2025 End: 58-78-7850Ljkbbfrbt Result EncounterCorey Leonor DO Work Phone: NOGK External Department UnsolicitedStart: 03-06-2025 End: 61-29-4153Ztruno flowsheetCorey Leonor DO Work Phone: [facility]OM[facility] BCP OBStart: 03-06-2025 End: 59-81-6434Apehdk flowsheetCorey Leonor DO Work Phone: [facility] BCP OBStart: 03-06-2025 End: 40-10-6405Aqiiwtmkv Result EncounterCorey Leonor DO Work Phone: noms External Department UnsolicitedStart: 03-06-2025 End: 82-48-4092hisuetsrvkAQGME FAZIONot AvailableStart: 03-06-2025 End: 38-74-8063Khgpiry encounter procedureCorey Leonor DO Work Phone: [facility] Work Phone: Start: 03-06-2025 End: 44-01-3767Fnovpgin preventive med est patient 18-39 yrsCorey Leonor DO Work Phone: noms BCP OBComment on above:Well woman exam with routine gynecological examStart: 01-30-2025 End: 03-71-6932Cnabrs flowsheetCorey Leonor DO Work Phone: noms BCP OBStart: 01-30-2025 End: 19-51-2352Jrvkdg flowsheetCorey Leonor DO Work Phone: noms BCP OBStart: 01-30-2025 End: 57-48-2557Kcocfxrbc Result EncounterCorey Leonor DO Work Phone: noms External Department UnsolicitedStart: 01-30-2025 End: 82-57-0189efjouujyhmNEYPJ FAZIONot AvailableStart: 01-30-2025 End: 52-58-9002Fuxgjk outpatient visit 15 minutesCorey Leonor DO Work Phone: noms BCP OBComment on above:Anovulation; PCOS (polycystic ovarian syndrome); Female infertilityStart: 12-16-2023 End: 74-40-9726ooriscygetFwhhfs Dymond [facility] [employer] Other Start: 63-83-3221Bndymu outpatient visit 15 minutes [facility]ine [facility] ClydeStart: 04-22-2023 End: 27-26-8018dwepprqhlzStnt S BiedenbachFacility:FTMCStart: 04-20-2023 End: 57-55-7080xtwawjpjexQksi S BiedenbachFacility:FTMCStart: 03-10-2023 End: 53-32-7015adyjnvekfwViwtl Keller Other [employer] Other Start: 35-89-5248Sirqby outpatient visit 25 minutes Karol KellerFPG [facility] Care ClydeStart: 02-18-2023 End: 76-62-6764yiektrifzcWuwlhg Radha Other [employer] Other Start: 22-78-8553Xiludj outpatient visit 15 minutes Aline DymondFPG Urgent Care ClydeStart: 06-12-2022 End: 99-89-7530qmcgxjeqowYkfull Radha Other [employer] Other Start: 15-92-2575Wxzxdpcqi by computer linkPamela DymondFPG Urgent Care ClydeStart: 06-11-2022 End: 73-55-8338wymunatatwQeucmd Radha Other [facility] [employer] Other Start: 53-92-6138Kcqygx outpatient visit 15 minutes Aline DymondFPG Urgent Care ClydeStart: 04-04-2022 End: 49-19-5564laqzvjflprUlndqf Ravinder Other [facility] [employer] Other Start: 43-94-2073Yeqjeb outpatient visit 15 minutes Slim RavinderFPG Urgent Care ClydeStart: 10-29-2021 End: 22-59-1117fslquuulliYY MIKI A NADERERFacility:O8Drpyi: 10-26-2019 End: 53-38-6915Beyhpdipxp and management of inpatientKATHRDIA S MALOYMerSaint Elizabeth Community Hospitaltart: 10-26-2019 End: 60-27-6600Hvkpcenrkb and management of inpatientKathrdia S Ashlyn Work Phone: stvz 7C Post PartumComment on above:PLTCS 10/27/19 M Apg 8,9 Wt 9#8 (Primary Dx)Start: 07-12-2019 End: 42-98-9949Daagkkh encounter procedureSMARIVEL Nieto ANUPPhoebe Kindred Hospitaltart: 07-12-2019 End: 82-12-0165Aqybcryebo hospital visit by physicianMiki JoycerSTVZ Laboratory Start: 02-28-2019 End: 14-90-4792Rqzsuyf encounter procedureDEFAULT PHYSICIANFacility:UTMCStart: 02-27-2019 End: 58-93-2758Csjqizy encounter procedureStepleigh ann TaverasFacility:[facility] Procedures DateProcedureProcedure DetailPerforming ClinicianStart: 66-07-5842QBP PROGESTERONECorey Leonor DO Work Phone: Start: 05-61-1438UEV PROGESTERONECorey Leonor DO Work Phone: Start: 67-40-6890HNJ PROGESTERONECorey Leonor DO Work Phone: Start: 08-16-0256Uwevk dip stick/tablet rgnt non-auto w/o micrscpCorey Leonor DO Work Phone: Start: 04-52-3003SXX,APTIMA HPV,AGE GDLNCorey Leonor DO Work Phone: Start: 47-52-0969QMB HEMOGLOBIN H5WPmxvf Leonor DO Work Phone: Start: 91-30-5103SHXREAQTM SPIROMETRY RTKATHRYN ASHLYN Start: 99-42-1827GBLKNZLRO PATIENTKATHRYN MALOYStart: 27-11-9390JRSDHNPPW SPIROMETRY RTKATHRYN MALOYStart: 95-10-8562PGGXXFDBA SPIROMETRY RTKATHRYN ASHLYN Start: 51-24-2935SDKSKVPZ OXYGEN THERAPY PROTOCOLKATHRYN MALOYStart: 10-29-2019 INCENTIVE SPIROMETRY RTKATHRYN MALOYStart: 76-12-9593XSKIIWYDJ SPIROMETRY RT PENNIE MALOYStart: 33-76-4036QZKHIIRSW SPIROMETRY RTKATHRYN MALOYStart: 15-65-7901TCQNUFURV SPIROMETRY RTKATHRYChuck MALOYStart: 06-37-7407JJHSCGXG REMOVAL PENNIE MALOYStart: 61-01-4797ONHOXY LOCK IVMAIRAHRYN MALOYStart: 10-28-2019 INCENTIVE SPIROMETRY RTKSAIDA IRAHETAOYStart: 47-32-1461ZXHEISBND SPIROMETRY RT PENNIE VUtart: 82-39-1981VFVNJFUPI SPIROMETRY RTKSAIDA MALOYStart: 45-27-6967Oizag count complete auto&auto difrntl wbcKATHRYN MALOYStart: 47-90-4695NRBLJSSGU SPIROMETRY RTKATHLOKESH MALOYStart: 37-54-5273Lgafa count complete auto&auto difrntl wbcMariia Rodriguez Work Phone: Start: 87-24-6836DEUEDAYRW SPIROMETRY RTKSAIDA GOLDBERG Start: 24-91-5030TFMXTHPP OXYGEN THERAPY PROTOCOLKATHRYN MALTATIANAtart: 10-28-2019 INCENTIVE SPIROMETRY PATRICK VUtart: 31-69-7870CKCDALNIF SPIROMETRY RT PENNIE VUtart: 11-12-8803OZDFL INTERMITTENT PNEUMATIC COMPRESSION DEVICE PENNIE ESEQUIELOYStart: 02-69-9313WRFMKUPT PATIENTKATHRYN MALOYStart: 10-27-2019 BLADDER SCANKATHRYN MALOYStart: 97-04-5059LARP GENERALKATHRYN MALOYStart: 26-95-2653JFFGUXHNU DEEP BREATHING AND COUGHINGKATHRYN MALOYStart: 10-27-2019 FULL CODEKATHRYN MALOYStart: 77-23-7617QFGDYGSRK SPIROMETRY PATRICK GOLDBERG Start: 40-93-9389JNUIJZZU OXYGEN THERAPY PROTOCOLKATHRYN MALOYStart: 10-27-2019 INTAKE AND OUTPUTKATHRYN MALOYStart: 19-31-4581TW CONSULT TO LACTATIONKATHRYN MALOYStart: 10-82-9536DAMYIEUNKZFXP NURSING CARE ORDER (SPECIFY)PENNIEDIA GOLDBERG Start: 87-18-5338FVYHRL PHYSICIAN (SPECIFY)PENNIE MALOYStart: 10-27-2019 STRAIGHT CATHKATHRYN MALOYStart: 16-98-2881ETMIG SIGNSKATHRYN MALOYStart: 58-14-9827ZKIIR CAREKATHRYN MALOYStart: 67-68-7342GTXZFCU DIET TOLERATED (NURSING COMMUNICATION)PENNIE VUtart: 08-55-0995XOVGYT FOR NO CHEMICAL VTE PROPHYLAXISPENNIE VUtart: 83-31-9226OAXSTMMTZKUYF NURSING CARE ORDER (SPECIFY)PENNIE VUtart: 68-18-2690NIFBLSUGYGQACP MALOYStart: 10-27-2019 Continuous pulse oximetryPENNIE VUtart: 88-71-2317QVJNAIOVA DEEP BREATHING AND COUGHINGPENNIE VUtart: 58-92-4741YOMZNFEA OXYGEN THERAPY PROTOCOL PENNIE VUtart: 47-20-3650TQARZX PHYSICIAN (SPECIFY)PENNIE VUtart: 19-13-4980DCQUONB COMMUNICATIONPENNIE VUtart: 67-80-0420ADLTM SIGNSPENNIE VUtart: 96-13-7916VLFFYATO PATIENTKATANH VUtart: 02-09-4753EOUM AND SCREENPENNIE VUtart: 09-42-8924Zjrqgdhw treponema pallidumPENNIE GOLDBERG Start: 66-29-8329Tsuco count complete auto&auto difrntl wbcPENNIE VUtart: 28-60-0712Zahk screen class list aKATHRYChuck VUtart: 67-36-7315Ahozuepn screen Pennie Vutart: 51-50-4879Cwhnn typing serologic aboMariia Rodriguez Work Phone: Start: 55-84-5442Pynis count complete auto&auto difrntl wbcMariia Rodriguez Work Phone: Start: 10-26-2019T. PALLIDUM ABSnadya Rodriguez Work Phone: Start: 04-18-4367ZWYLJKF STATUS (DIRECT)PENNIE GOLDBERG Start: 10-15-1972Dsfj screen class list Tari Rodriguez Work Phone: Start: 34-77-1472XJXNRJFU SCREEN 4PENNIE GOLDBERG Plan of Treatment DateCare ActivityDetailAuthorStart: 59-60-3944UPfQ/Tdap/Td vaccine (2 - Td) DTaP/Tdap/Td vaccine (2 - Td)[facility]: 09-14-2025 End: 29-80-5482ZW Brain WO and W contrast IVMR brain w and wo contrast routine Imaging Routine Hyperprolactinemia (HCC) Expected: 09/14/2025 (Approximate), Expires: 09/14/2026[facility] Work Phone: comment on above:Expected: 09/14/2025 (Approximate), Expires: 09/14/2026Start: 30-86-1882Cymxbxbtx vaccinationPARK CITY HOSPITAL HealthcareStart: 03-06-2025 End: 82-68-5698Ozguejl encounter fqsblwvri37/07/2025 9:40 AM EDT Office Visit [facility] [address] [place] [id number] Tank Galvez, DO [address] [place], [place] [id number] [facility] BCP OBStart: 01-30-2025 End: 84-09-3180Xjvtfufhpieke hormone (AMH)Antimullerian hormone (AMH) Lab Routine Anovulation PCOS (polycystic ovarian syndrome) Female infertility Expected: 01/30/2025 (Approximate), Expires: 01/30/2026[facility] HealthcareComment on above:Expected: 01/30/2025 (Approximate), Expires: 01/30/2026Start: 01-30-2025 End: 13-53-0372KejacwexxzlrIzfekspbobmy Lab Routine Anovulation PCOS (polycystic ovarian syndrome) Female infertility Expected: 01/30/2025 (Approximate), Expires: 01/30/2026NONE HealthcareComment on above:Expected: 01/30/2025 (Approximate), Expires: 01/30/2026Start: 04-50-0801Igzjkwqvs vaccination Influenza Vaccine (#1)[facility] HealthcareStart: 66-04-1796Qpunzbcgn vaccinationFlu vaccine (#1)[facility]: 31-56-0165Aepghvmm cancer screenCervical cancer screenSuburban Community Hospital & [facility]: 69-29-1259CZeP/Tdap/Td vaccine (1 - Tdap)DTaP/Tdap/Td vaccine (1 - Tdap)[facility]: 2013 Chlamydia screenChlamydia screenSuburban Community Hospital & [facility]: 12-64-8827JLS screen HIV screenSuburban Community Hospital & [facility]: 91-64-5836GJJ vaccine (1 - Female 3-dose series)HPV vaccine (1 - Female 3-dose series)[facility]: 80-59-7230Jnbfbvarg Vaccine (1 of 2 - 13+ 2-dose series)Varicella Vaccine (1 of 2 - 13+ 2-dose series)[facility]: 06-29-3406FZO vaccine (1 - Female 2-dose series)HPV vaccine (1 - Female 2-dose series)[facility]: 46-21-3085Ryslonbiiyxk 0-64 years Vaccine (1 of 1 - PPSV23)Pneumococcal 0-64 years Vaccine (1 of 1 - PPSV23)[facility]: 1998 Varicella Vaccine (1 of 2 - 2-dose childhood series)Varicella Vaccine (1 of 2 - 2-dose childhood series)[place], [place]Cytjefferson dav[facility] community hospital Cervical or vaginal smear or scraping studyPap Smear Pathology and Cytology Routine Well woman exam with routine gynecological exam Ordered: 03/06/2025[facility] Work Phone: comment on above:Ordered: 03/06/2025hCG, quantitative hCG, quantitative Lab Routine Anovulation PCOS (polycystic ovarian syndrome) Female infertility Ordered: 01/30/2025[facility] HealthcareComment on above:Ordered: 01/30/2025Hemoglobin A1c/Hemoglobin.total in BloodHemoglobin A1c Lab Routine Anovulation PCOS (polycystic ovarian syndrome) Female infertility Ordered: 01/30/2025[facility] HealthcareComment on above:Ordered: 01/30/2025Incentive spirometryIncentive spirometry Respiratory Care Routine Every 2hr while awake until discontinued starting 10/27/2019[place], KYComment on above:Every 2hr while awake until discontinued starting 10/27/2019Initiate Oxygen Therapy ProtocolInitiate Oxygen Therapy Protocol Respiratory Care Routine Daily until discontinued starting 10/27/2019[facility], GAComment on above:Daily until discontinued starting 10/27/2019Maternal screen 4Maternal screen 4 Lab Routine 07/12/2019 11:00 AM [facility] KYPhase I & II - metered glucosePhase I & II - metered glucose Point of Care Testing Routine As Needed until discontinued starting 10/27/2019[facility], KYComment on above:As Needed until discontinued starting 10/27/2019Thyrotropin [Units/volume] in Serum or PlasmaTSH Lab Routine Anovulation PCOS (polycystic ovarian syndrome) Female infertility Ordered: 01/30/2025[facility] Work Phone: comment on above:Ordered: 01/30/2025Thyroxine (T4) free [Mass/volume] in Serum or PlasmaT4, free Lab Routine Anovulation PCOS (polycystic ovarian syndrome) Female infertility Ordered: 01/30/2025[facility] CenterComment on above:Ordered: 01/30/2025 Immunizations Immunization DateImmunizationNotesCare XededlybNmfgqoay02-12-3829kztyfpp toxoid, reduced diphtheria toxoid, and acellular pertussis vaccine, adsorbedYork HospitalJnxbmoikca53-00-0120jcewbeebav, tetanus toxoids and acellular pertussis vaccine, unspecified formulationArcadia, [place] 08-44-7360kmsfhntbr B vaccine, pediatric or pediatric/adolescent dosageCorey Leonor DO Work Phone: [facility] CenterFaybbyvzwx16-43-5780cawiybbty virus vaccineCorey Leonor DO Work Phone: [facility] CenterFgxasmqwvh33-47-2658cugkporvwwhtv polysaccharide (groups A, C, Y and W-135) diphtheria toxoid conjugate vaccine (MCV4P)Tank Leonor DO Work Phone: [facility] CenterYybpjgjavn33-90-0496dbbaptn toxoid, reduced diphtheria toxoid, and acellular pertussis vaccine, adsorbedCorey Leonor DO Work Phone: [facility] CenterMsqyjqduyl62-09-9538zhpoppg, mumps and rubella virus vaccineCorey Leonor DO Work Phone: [facility] CenterPpmugmpvin46-75-6198hfcwqcstb B vaccine, pediatric or pediatric/adolescent dosageCorey Leonor DO Work Phone: NONE Healthcare Payers DatePayer CategoryPayerPolicy [id number] Cross Blue [id number] Cross Blue [id number] [id number] Health [id number] 66-90-2925Phmw-[id number] Health [id number] Health Insurancexxxxxxxxx [id number] 2..1.710822.3.57[id number] 2.840.1.261678.3.57[id number] 2.0.1.873696.3.57[id number] 2.840.1.515292.3.57[id number] 2.840.1.338455.3.57[id number] 2.840.1.928970.3.57[id number] 2.840.1.116518.3.57[id number] 2.16.840.1.236601.3.579.2.[id number] 2.16.840.1.692551.3.57[id number] 2.16.840.1.953502.3.579.2.281978-45-1496Rdxhecr Health [id number] Cross Blue [id number] 2.16.8[id number] 2.16.0.1.4166[id number] 2.16840.1.027986.3.579.2.531Unknown [id number] 2.0.1.118411.19 Social History DateTypeDetailFacilityStart: 07-12-2019 End: 69-02-5024Uiyycee smoking status NHISNever [facility]: 09-76-5698Gwshnyp intakeEx-drinker (finding)[facility]: 35-16-8707KydbxirlDqkmvSt. [facility]'s Hospital Assigned At BirthNot on [facility]: 07-12-2019 End: 38-72-9730Sqermth intakeNot [facility]: 04-27-2023 Tobacco smoking status NHISEx-smokerNOMS HealthcareHistory of tobacco useCurrent smokerNOMS HealthcareHistory of tobacco useCigarette SmokerNOMS Healthcare Start: 00-79-9522Zkvztoh use and exposureUser of smokeless tobaccoNOMS HealthcareStart: 11-03-2023 End: 75-19-5108Mysisxiga beverage intakeCurrent drinker of alcohol (finding)[facility] HealthcareStart: 11-03-2023 End: 01-48-1755Jhqomor of Social functionNOMS HealthcareStart: 54-43-5903Xapnqnj Commentcaffeine: 1-2 cups per dayPARK CITY HOS[facility]ITAL HealthcareStart: 18-26-2192Hjy assigned at birthAsc[facility] Standish HospitalStart: 49-53-4388Kwmhtc identityIdentifies as female gender (finding)[facility] HealthcareStart: 47-07-3044OjiYjkfxxYMVN Healthcare Clinical Notes 04-04-2022 to 09-14-2025 Note Date & GzbsXatzKsfmllxm70-66-9582 History of Present illness Narrative* Marlyn Montes De Oca, MAGO - 09/14/2025 11:50 AM EDT Reason for Appointment: Patient ID: Gisell Alvarez is a 30 y.o. female who presents for Follow-up Patient presents today for Consult appointment. MEDICATIONS Current Outpatient Medications Medication Instructions medroxyPROGESTERone (PROVERA) 10 mg, Oral, Daily ALLERGIES No Known Allergies PROBLEMS Active Ambulatory Problems Diagnosis Date Noted Acid reflux 04/27/2023 Anemia 10/27/2019 macrosomia during , antepartum ([facility]) 10/21/2019 Anovulation 04/27/2023 Cephalopelvic disproportion due to unusually large fetus ([facility]) 04/27/2023 Chest pain 03/05/2014 Dysautonomia ([facility]) 02/22/2014 Exercise-induced asthma ([facility]) 10/30/2011 Family history of cardiac arrest 10/27/2019 Hypertrophy tonsils 04/27/2023 Heartburn 04/27/2023 Generalized headaches 03/05/2014 Hypotension 04/27/2023 Irregular periods 04/27/2023 Neurologic cardiac syncope 10/30/2011 Smoker 04/27/2023 state ([facility]) 10/27/2019 Obesity 10/27/2019 Supervision of high risk , unspecified, unspecified trimester ([facility]) 10/21/2019 Resolved Ambulatory Problems Diagnosis Date Noted [...] nursing note reviewed. 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 Vitals: Estimated body mass index is 39.95 kg/m as calculated from the following: Height as of 11/03/23: 5' 6 . Weight as of this encounter: 247 lb 8 oz. BP: 118/84 Patient's last menstrual period was 09/01/2025 (approximate). ASSESSMENT & PLAN ICD-10-CM 1. Hyperprolactinemia (HCC) E22.1 Patient voiced that she was seen by Fertility specialist Dr. Charles ([facility]) in [place]. Patient voiced that she had done HSG [...] of: Tank Galvez DO documented in this encounterBothwell Regional Health CenterCahtrunnui15-70-1472 History of Present illness Narrative* Gay Hanks NP - 03/06/2025 9:40 AM EDT Reason for Appointment: Patient ID: Gisell Alvarez [...] of: Tank Galvez DO documented in this encounterBothwell Regional Health CenterUgwuvjasaf17-22-9374 History of Present illness Narrative* Marlyn Montes De Oca LPN - 01/30/2025 9:50 AM EST Reason for Appointment: Patient ID: Gisell Alvarez is a 29 y.o. female who presents for Discuss Fertility Patient presents today for Consult appointment. MEDICATIONS No current outpatient medications ALLERGIES No Known Allergies PROBLEMS Active Ambulatory Problems Diagnosis Date Noted Acid reflux 04/27/2023 Anemia 10/27/2019 macrosomia during , antepartum 10/21/2019 Anovulation 04/27/2023 Cephalopelvic disproportion due to unusually large fetus 04/27/2023 Chest pain 03/05/2014 Dysautonomia ([facility]/HCC) 02/22/2014 Exercise-induced asthma (CMS/HCC) 10/30/2011 Family history [...] nursing note reviewed. 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 Vitals: Estimated body mass index is [...] cycle was on October 06, 2024. Sent Note pharmacy to start after confirming negative HCG [...] starts to have Clomid 100mg sent to [facility] [place]. Patient to schedule follow up in 4 weeks along with annual appointment. Documented by Marlyn Montes De Oca LPN on behalf of: Tank Galvez DO documented in this encounterBothwell Regional Health CenterZhremvnxgb69-72-5768 Evaluation note* Encounter Date Diagnosis Assessment Notes Treatment Notes Treatment Clinical Notes Nov, Sore throat (ICD-10 - J02.9) Nov,cute pharyngitis due to other specified organisms (ICD-10 - J02.8) Drink plenty fluids, get plenty of rest. Take the amoxicillin as prescribed until gone. Take Tylenol or Motrin for aches pains or fevers. Off work today and tomorrow. Follow-up with your family physician if no improvement in 2 to 3 days Nov,ontact with and (suspected) exposure to covid-19 (ICD-10 - Z20.822) [employer] Other 05-22-2023 Note [id number]#1.00CD:127[facility] 03-10-2023 Evaluation note* Encounter Date Diagnosis Assessment Notes Treatment Notes Treatment Clinical Notes Feb, Sore throat (ICD-10 - J02.9) Feb,Viral pharyngitis (ICD-10 - J02.9) Advise patient that rapid strep test was negative today in office. Patient reported improvement of symptoms with steroid course. Will send in prednisone to use as directed. Advised that there are no signs of bacterial infection present today on exam. Encouraged salt water gargles, increasing fluids, Tylenol lrbo-gqs-gobvruk for additional relief. Advised patient if that if symptoms continue she needs a follow-up with ENT for evaluation. Advised that we will not continue to see her for this issue in that UC setting, as we are not a follow- up facility. Patient verbalizes understanding and is agreeable with treatment plan. [facility] Other 03-22-2023 Evaluation note* Encounter Date Diagnosis Assessment Notes Treatment Notes Treatment Clinical Notes Jan, Sore throat (ICD-10 - J02.9) Jan,Viral pharyngitis (ICD-10 - J02.9)Pharyngitis/tonsillopharyngitis: adult home care material was printed Drink plenty fluids, get plenty of rest. Take the prednisone as prescribed until gone. Take Tylenolor Motrin as needed for pain. Consider drinking warm tea with honey for comfort. Follow-up with ENTfor reevaluation. Go to the ER for worsening symptoms or concern [facility] Other 07-13-2022 Evaluation note* Encounter Date Diagnosis Assessment Notes Treatment Notes Treatment Clinical Notes May, Sore throat (ICD-10 - J02.9) May,cute pharyngitis due to other specified organisms (ICD-10 - J02.8) Drink plenty fluids, get plenty of rest. Take the amoxicillin and prednisone as prescribed until gone. Take Tylenol or Motrin as needed for aches pains or fevers. Follow-up with your family physicianif no improvement in 2 to 3 days. May,ther specified bacterial agents as the cause of diseases classified elsewhere (ICD-10 - B96.89) May,therThroat infection: Strep material was printed [facility] Other 05-06-2022 Evaluation note* Encounter Date Diagnosis [...] She understands and agrees with the plan. [facility] Other Evaluation noteNo InformationNort [employer] Other Evaluation note* Diagnosis Anovulation Female infertility associated with anovulation PCOS (polycystic ovarian syndrome) Polycystic ovaries Female infertility Female infertility of unspecified origin documented in this encounter [facility] HealthcareEvaluation note* Diagnosis Well woman exam with routine gynecological exam Routine gynecological examination documented in this encounter [facility] HealthcareEvaluation note* Diagnosis Hyperprolactinemia (HCC) Other and unspecified anterior pituitary hyperfunction documented in this encounter [facility]OMS HealthcareHistory general Narrative - Reported* Type Description Date Medical History Dysautonomia Medical HistoryCardioinhibited Neurogenic SyncopeMedical HistoryPCOSSurgical Historyknee surgery [facility] Other History general Narrative - Reported* Type Description Date Medical History Dysautonomia Medical HistoryCardioinhibited Neurogenic SyncopeMedical HistoryPCOSSurgical Historyknee surgerySurgical HistoryC sectionSurgical Historytonsillectomy [facility] Other Summary Purpose Family History No Family History Records FoundNo Family History Records FoundNo Family History Records FoundNo Family History Records FoundNo Family History Records FoundNo Family History Records FoundNo Family History Records FoundNo Family History Records FoundNo Family History Records Found Advance Directives TypeDate RecordedPatient RepresentativeExplanationAdvance Directives and Living WillPower of AttorneyCode StatusDate ActivatedDate InactivatedCommentsFull Code 10/27/2019 7:14 PMFull Code10/26/2019 8:54 AM10/27/2019 6:44 PM Discharge Instructions * Instructions* Janeth [...] your doctor if you can take an zioe-pcx-xcojbdr medicine. If you think your pain medicine [...] take. When should you call for help? [phone] anytime you think you may need emergency [...] Where can you learn more? Go to [email or web address] and sign in to your [employer] account. Enter M806 in the Search Health Information box to learn more about Section: What to Expect at Home. If you do not have an account, please click on the Sign Up Now link. Current as of: August 04, 2018 Content Version: [id number] [employer]. Care instructions adapted under license by [employer]. If youhave questions about a medical condition or this instruction, always ask your healthcare professional. [employer] disclaims any warranty or liability for your [...] with patient Attending Physician: Dr. Jorge Rodriguez, Creative Services Specialist Resident 10/29/2019, 12:22 AM Attending Physician Statement [...] Whitley DO - 10/28/2019 12:11 PM EST STORE ASSISTANT Resident Interval Note Patient labs reviewed below. [...] 1.03 (L) 1.10 - 3.70 k/uL Absolute [place] # 0.69 0.10 - 1.20 k/uL Absolute Eos # <0.03 0.00 - 0.44 k/uL Basophils Absolute <0.03 0.00 - 0.20 k/uL Absolute Immature Granulocyte 0.05 0.00 - 0.30 k/uL Mi Whitley DO Creative Services Specialist Resident Pager: [phone] 10/28/2019 12:11 PM * Teresa Montalvo DO [...] Pulse: 82 80 [phone] 97 Resp: 18 18 Temp: 98.3 F (36.8 C) [...] patient Attending Physician: Dr. Selvin Garcia DO Creative Services Specialist Resident 10/28/2019, 7:52 AM Date: 10/28/2019 Time: [...] and no cervical or station change since 0. Patient counseled on R/B/A on options for continuing with elective induction vs proceeding with primary section. Decision was made to proceed with prim timothy section for macrosomia, suspected CPD, failed IOL, and maternal request. Anesthesia and NICU notified. Dr. Patel and senior resident present for counseling and decision. Janeth Garcia DO STORE ASSISTANT Resident, PGY1 [place], [place] 10/27/2019, 8:46 AM Attending Physician Statement [...] S/P Cytotec 25 Buccal Kwame Denny DO Creative Services Specialist Resident 10/27/2019, 3:56 AM * Kwame Denny [...] in agreement with plan Kwame Denny DO Creative Services Specialist Resident 10/26/2019, 11:26 PM * Pennie Goldberg MD - 10/26/2019 9:33 AM EST Senior resident Progress Note In to discuss plan of care with patient. Patient with suspected macrosomic infant at 4479g in [facility] on 10/26. Patient counseled on risks of shoulder dystocia, higher degree lacerations, permanent neurological damage to infant, and post hemorrhage. Patient states she wishes to proceed with vaginal delivery at this time and is declining primary section. Patient counseled by underwriter solicitation director as well as attending. Additionally discussed safest route of delivery for infants is vaginal delivery followed by planned section. Patient voices understanding that highest risk for is with failed attempted vaginal delivery. Patient requesting additional time to consider her options. Patient offered support and given time to discuss options with . April Villarreal STORE ASSISTANT Resident, PGY3 Pager: [phone] [place], [place] 10/26/19 9:42 AM Patient additionally counseled [...] and content) DATE CREATED AUTHOR 03/03/2019 [facility] DATE CREATED AUTHOR AUTHOR'S ORGANIZ ATION 03/09/2019 [facility] DATE CREATED AUTHOR AUTHOR'S ORGANIZ ATION 03/12/2019 [facility] DATE CREATED AUTHOR AUTHOR'S ORGANIZ ATION 11/03/2019 [facility] DATE CREATED AUTHOR AUTHOR'S ORGANIZ ATION 02/22/2022 [facility] DATE CREATED AUTHOR AUTHOR'S ORGANIZ ATION 07/09/2022 [facility] Senior Support Engineer DATE CREATED AUTHOR AUTHOR'S ORGANIZ ATION 05/20/[address] [facility] DATE CREATED AUTHOR AUTHOR'S ORGANIZ ATION 08/04/2023 [facility] DATE CREATED AUTHOR AUTHOR'S ORGANIZ ATION 09/16/2025 [facility] EPIC Reason for Visit (unrecogniz ed section and content) ReasonCommentsScheduled InductionStatusReasonSpecialtyDiagnoses / Procedures Referred By ContactReferred To Contact Diagnoses HRP (high risk ), unspecified trimester Pennie Goldberg MD [address] [place] [address] [facility] ReasonCommentsDiscuss FertilityReasonCommentsWell Women VisitReasonComments Follow-up Care Teams (unrecognized sec tion and content) Team MemberRelationshipSpecialtyStart DateEnd Date Miki Kruger MD [address] [place] [address] PCP - GeneralCardiology04/28/23Team MemberRelationshipSpecialtyStart DateEnd Date Miki Kruger MD [address] [place] [address] PCP - GeneralCardiology04/28/23Team MemberRelationshipSpecialtyStart DateEnd Date Miki Kruger MD [address] [place] [address] PCP - GeneralCardiology04/28/23Team MemberRelationshipSpecialtyStart DateEnd Date Miki Kruger MD [address] [place] [address] PCP - GeneralCardiology04/28/23Team MemberRelationshipSpecialtyStart DateEnd Date Miki Kruger MD [address] [place] [phone] PCP - GeneralCardiology04/28/23Team MemberRelationshipSpecialtyStart DateEnd Date Miki Kruger MD [address] [place] [address] PCP - GeneralCardiology04/28/23 FOR RECORDS PERTAINING TO PATIENTS WHO ARE [...] BE BASED ON THE PRIMARY CLINICAL RECORDS. [facility] DGIT [facility]. provides no warranty or guarantee of the accuracy or completeness of information in this document.
--- NOTE | 2025-09-22 07:42 | MR_ITS ---
[facility] [place] [id number] Patient Name: YUNG ALVAREZ MRN: [id number] date: 1995 Sex: F Assigned Patient Location: MRI Current Patient Location: MRI Accession/Order Number: [id number] Exam Date: 09/22/2025 07:55 Report Date: 09/22/2025 18:23 At the request of: RODOLFO ASHFORD DO Procedure: MR head/brain wo/w con MRI the brain/pituitary performed without with contrast INDICATION: Hyperprolactinemia COMPARISON: None FINDINGS: No restricted diffusion. Ventricles and sulci normal in size and configuration for the patient's age. No shift of midline structure. Basal cisterns are patent. Brain parenchyma unremarkable in signal intensity. Within the right aspect of the pituitary gland, there is a 5 x 4 mm x 7 mm focus of diminished T1 signal with intermediate T2 signal this demonstrates diminished enhancement. Optic chiasm unremarkable. Infundibulum is midline. Cavernous ICA flow voids are unremarkable. No cavernous sinus invasion. 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 Impression dictated by: Alberto Aponte M.D. 09/22/2025 6:23 PM Dictation Location: [place] [address] Electronically authenticated by: [id number] Y Date: 09/22/2025 18:23
== END 2025-09-22 07:38 | disposition home or self-care (01) ==
LOC: MRI 07:38
PROVIDERS: Visit Provider Obstetrics & Gynecology
DX: E22.1 Hyperprolactinemia (principal); R94.02 Abnormal brain scan
CPT/HCPCS: 70553; A9575